=== PATIENT | male | born 1965 | race Caucasian/White ===

== ENCOUNTER 2024-05-18 08:38 | Outpatient (AMB) | payer OTHER, SELFPAY ==
--- NOTE | 2024-05-18 08:46 | A.OFFVIS_ITS ---
Vital Signs 05/18/24 08:50 Height 5 ft 10 in Weight 170 lb 3.15 oz BMI 24.4 Intake Visit Reasons: Arthritis/MR Recieved Intake Note: Patient presents today for arthritis. He was last seen in the arthritis treatment center on 01/26/24. Allergies Penicillins Allergy (Mild, Verified 05/18/24 08:54) Redness of Skin hydrochlorthiazine Allergy (Mild, Uncoded 05/18/24 08:54) leg swelling Medication List - Last Reconciled 05/18/24 by Khris Rosario MD alfuzosin ER 10 mg PO DAILY aspirin (Adult Aspirin Regimen) 81 mg PO DAILY famotidine 20 mg PO DAILY multivitamin 1 tab PO DAILY propranolol 80 mg PO BID rosuvastatin 40 mg PO DAILY HPI HPI Arthritis/MR Recieved: Details: Off of leflunomide due to transaminitis on recent labs at [facility] 03/29. No new joint swelling At [facility] he was getting PT for treatment of headaches with myofascial release. He has less frequent headaches but they are still persistent. MRI brain showed sinus disease no intracranial pathology per patient. 4 months ago he squatted putting laundry from washer to dryer and could not get up. Hard to walk and get up. Feels like he walking on an incline all the time. Hard to carry things and walk. He has more muscle fatigue than pain. PCP prescribed gabapentin which did not provide any relief. He also received a Medrol Dosepak which did not provide any relief. Denies pain in his lower extremities at this time. His main symptom is weakness. Denies any new infections. Denies any new medication prior to events. Rheumatology notes from [facility] reviewed in EMR. Rheumatology history: Diagnosis seronegative rheumatoid arthritis with concurrent osteoarthritis bilateral CMCs initially presenting 08/19/2023 with inflammatory arthritis affecting bilateral hands and left wrist with synovitis, multiple small joint tenderness and imaging MRI left upper extremity February 2023 revealing severe left CMC osteoarthritis with large effusion of distal radioulnar joint,, moderate joint effusion about the base of the thumb with small ganglion cyst along the ulnar aspect of the 1st metacarpal. Patchy edema throughout abductor pollicis brevis muscle suggesting myositis [see page 69/78 medical record for full MRI results dictated in note]. Hepatitis panel negative. Arthrocentesis of left wrist was performed 08/19/2023 revealing white cell count 1133 without crystals present. He was treated for seronegative rheumatoid arthritis with leflunomide starting 12/25/2023 with consideration of his underlying chronic kidney disease with biopsy revealing ATN and interstitial fibrosis (sales applications engineer Dr. Rodriguez). In 03/19/2024, leflunomide was discontinued due to transaminitis. He has received bilateral cortisone injection in CMCs November 2023 with benefit in controlling CMC pain. Rheumatology course is complicated with the development of headaches, scalp tenderness, jaw claudication and fevers after tapering off of prednisone quickly (prednisone 40 mg q.day for a month then decrease to prednisone 20 mg daily 5 days then few days on 10 mg q.day then stopped), which was prescribed for renal disease by nephrologists. Elevated CRP 12/30/2023 resolved on repeat 01/15/2024. Left temporal artery biopsy negative. Repeat inflammatory markers normal and right temporal artery biopsy was not pursued. PT with myofascial release was prescribed with benefit in improving frequency of headaches and duration. X-ray bilateral knees and feet august 2023 normal. Right hip mild degenerative arthritis on x-ray December 05 2023. Review of Systems Const All systems reviewed & are unremarkable except as noted in HPI and below Physical Exam Vital Signs: BMI result Body Mass Index 24.4 Const General: cooperative and healthy appearing Resp Effort & Inspection: normal respiratory effort Auscultation: clear to auscultation bilaterally Cardio Rate: regular rate Rhythm: regular rhythm Heart sounds: S1 normal heart sound present Extrem Other: Tenderness of bilateral CMCs with squaring. No synovitis present. Tenderness of left wrist with minimal synovitis. Tender right 2nd MCP. [place] nodes present. He is able to make a fist with both hands. 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 Good range of motion of upper extremity and lower extremities He is unable to squat fully. 5/5 power upper extremity 4/5 power hip flexors rest of lower extremities 5/5 Results Reviewed Results Reviewed: Labs from 2023 reviewed in medical record obtained from [facility]. Assessment & Plan Assessment & Plan (1) Rheumatoid arthritis: Comment: Low disease activity. Off of leflunomide 10 mg q.d. since 03/19/2024 due to transaminitis. Code(s): M06.9 - Rheumatoid arthritis, unspecified Category: Medical Qualifiers: Rheumatoid arthritis location: multiple sites Rheumatoid factor presence: without rheumatoid factor Qualified Code(s): M06.09 - Rheumatoid arthritis without rheumatoid factor, multiple sites Plan: Will recheck labs this visit. Patient prefers to do labs at his local lab. Continue to hold leflunomide We will not start new DMARD therapy until transaminitis resolves. Patient understands. Return to clinic in 3 months or sooner if needed (2) Other longterm (current) drug therapy: Code(s): Z79.899 - Other terminal make up operator (current) drug therapy Category: Medical (3) Leg weakness, bilateral: Comment: New onset lower extremity proximal weakness. Onset occurred suddenly after an incident where patient was squatting and transferring laundry from [place] to [facility] likely with muscle strain contributing. He does not have any shoulder girdle involvement to consider PMR. We will order inflammatory markers and muscle enzymes to evaluate for their for myopathy. He has been on statin rosuvastatin for many years can consider necrotizing autoimmune myositis (rare). Code(s): R29.898 - Other symptoms and signs involving the musculoskeletal system Category: Medical Plan: Physical therapy recommended for lower extremity strengthening. Patient recommends to go to PT outside of [facility]. Order given to patient. Labs ordered for workup (4) Headache: Comment: Improving with PT. Code(s): R51.9 - Headache, unspecified Category: Medical Qualifiers: Headache type: other headache syndrome Qualified Code(s): G44.89 - Other headache syndrome Plan: He has last appointment with physical therapy tomorrow Plan . Orders: Orders Alanine Aminotransferase Today M06.9 - Rheumatoid arthritis, unspecified, R29.898 - Other symptoms and signs involving the musculoskeletal system, Z79.899 - Other terminal make up operator (current) drug therapy C Reactive Protein Today M06.9 - Rheumatoid arthritis, unspecified, R29.898 - Other symptoms and signs involving the musculoskeletal system, Z79.899 - Other longterm (current) drug therapy Complete Blood Count Auto Diff Today M06.9 - Rheumatoid arthritis, unspecified, R29.898 - Other symptoms and signs involving the musculoskeletal system, Z79.899 - Other terminal make up operator (current) drug therapy Erythrocyte Sedimentation Rate Today M06.9 - Rheumatoid arthritis, unspecified, Z79.899 - Other longterm (current) drug therapy CK, Total+Isoenzymes, Serum Today M06.9 - Rheumatoid arthritis, unspecified, R29.898 - Other symptoms and signs involving the musculoskeletal system, Z79.899 - Other longterm (current) drug therapy PT Evaluation and Treatment Today R29.898 - Other symptoms and signs involving the musculoskeletal system Aspartate Amino Transferase Today M06.9 - Rheumatoid arthritis, unspecified, Z79.899 - Other longterm (current) drug therapy Creatinine Today M06.9 - Rheumatoid arthritis, unspecified, R29.898 - Other symptoms and signs involving the musculoskeletal system, Z79.899 - Other longterm (current) drug therapy Aldolase Today M06.9 - Rheumatoid arthritis, unspecified, R29.898 - Other symptoms and signs involving the musculoskeletal system, Z79.899 - Other terminal make up operator (current) drug therapy Coding Level of Care Code Est Pt Level 5 (51538) Complex EM visit Add On G2211 Diagnoses Rheumatoid arthritis of multiple sites with negative rheumatoid factor M06.09 Rheumatoid arthritis location: multiple sites Rheumatoid factor presence: without rheumatoid factor Other longterm (current) drug therapy Z79.899 Leg weakness, bilateral R29.898 Other headache syndrome G44.89 Headache type: other headache syndrome Time Spent (min) 60 Comment 30 minutes spent reviewing records [facility].
[2024-05-18 08:50] VITALS: BMI 24.4
== END 2024-05-18 09:53 | disposition home or self-care (01) ==
PROVIDERS: PCP Internal Medicine; Visit Provider Internal Medicine Rheumatology
DX: M06.09 Rheumatoid arthritis without rheumatoid factor, multiple sites (principal); Z79.899 Other long term (current) drug therapy; R29.898 Other symptoms and signs involving the musculoskeletal system; G44.89 Other headache syndrome
CPT/HCPCS: 99215; G2211; G2212

== ENCOUNTER → 2024-05-18 08:38 | Outpatient (BNVA) | payer OTHER, SELFPAY | PROVIDERS: PCP Internal Medicine; Visit Provider Internal Medicine Rheumatology | DX: M06.09 Rheumatoid arthritis without rheumatoid factor, multiple sites (principal); G44.89 Other headache syndrome; R29.898 Other symptoms and signs involving the musculoskeletal system; Z79.899 Other long term (current) drug therapy | CPT/HCPCS: 99212 ==

== ENCOUNTER 2024-08-18 08:50 | Outpatient (AMB) | payer OTHER, SELFPAY ==
--- NOTE | 2024-08-18 08:53 | A.OFFVIS_ITS ---
Vital Signs 08/18/24 09:05 Height 5 ft 10 in Weight 142 lb BMI 20.4 BP 120/80 Blood Pressure Location Rt brachial Position Sitting Pulse 90 Pulse Source Pulse Oximeter Pulse Oximetry (%) 100 Oxygen Delivery Method Room Air Intake Visit Reasons: Follow Up 3mo Intake Note: Pt present today Arthritis. Affiliate Manager Required: No Allergies Penicillins Allergy (Mild, Verified 08/18/24 08:54) Redness of Skin hydrochlorthiazine Allergy (Mild, Uncoded 05/18/24 08:54) leg swelling HPI HPI Follow Up 3mo: Details: He was unable to go to PT because of issues with scheduling. R groin pain radiating to knees like electricity. R 4th and 5th toes are getting numb. Constant since last visit. He is having difficulty liftying leg. Hard to put socks on. He has another pain from right pelvic bone radiating down side to knee. He has seen ENT and has had imaging done of his sinuses for workup of his headache. He reports that it was explained to him that he has possible inflammation in his sinuses and may need surgery for drainage. He declined surgery and opted for antibiotic and prednisone course. He recently received a prednisone course from July 31 - prednisone 40 mg for 3 days then 20 mg for 3 days then 10 mg for 3 days and stop what he took 30 mg for 3 days, 20 mg for 3 days, 10 mg 3 days, 5 mg 3 days then discontinued it. He reports that on prednisone his joint symptoms improved. Prior to being on prednisone he was having a lot of swelling in his hands and stiffness. He has not noted any change in his sinus symptoms or headaches. Headaches are intermittent. Review of Systems Const All systems reviewed & are unremarkable except as noted in HPI and below Physical Exam Vital Signs: Last Vital Signs Pulse 90 08/18/24 09:05 BP 120/80 08/18/24 09:05 Pulse Ox 100 08/18/24 09:05 Oxygen Delivery Method Room Air 08/18/24 09:05 BMI result Body Mass Index 20.4 Const Other: General: Comfortable CVS: RRR Respiratory: clear to auscultation bilaterally. Good respiratory effort Skin: No lesions seen MSK: He has synovitis of his left wrists with tenderness to palpate left wrist. Squaring of bilateral CMCs with tenderness. Synovitis left 2nd and 3rd MCP with tender bilateral MCPs. Tender PIPs of bilateral hands. Tender shoulders on palpation. Good range of motion of upper extremities. Tender to palpate lateral to paraspinal muscles. Good lumbar flexion. Negative straight leg raising test. No MTP tenderness. When patient is sitting down he has localized tenderness to right pelvic crest. Office Procedures AMB Joint Injection/Aspiration Joint Injection/Aspiration Details: Bilateral CMC joint Prep: site was prepped using aseptic technique Injected into each site: 10 mg of, Kenalog, with 0.25 mL of and 1% plain lidocaine Procedure: The patient tolerated the procedure well. Postprocedure protocol was discussed with patient. Coding - Small Joint Procedure code (CPT) selection complete AMB Joint Injection/Aspiration Coding - Small Joint Procedure code (CPT) selection complete Office Meds lidocaine (PF) 10 mg/mL (1 %) injection solution Performing Provider: Khris Rosario MD Performing Location: [facility] [place] [place] [facility] Administered by: Khris Rosario MD on 08/18/24 14:06 Dose Route Admin Location Dispensed Lot Number Expiration Date [facility] [employer] 2.5 mg Infiltration 2 mL [id number] [employer] Kenalog 40 mg/mL suspension for injection Performing Provider: Khris Rosario MD Performing Location: [facility] [place] [place] [facility] Administered by: Khris Rosario MD on 08/18/24 14:06 Dose Route Admin Location Dispensed Lot Number Expiration Date [facility] [employer] 2.5 mg intra-articular 1 mL AP [id number] [employer] lidocaine (PF) 10 mg/mL (1 %) injection solution Performing Provider: Khris Rosario MD Performing Location: [facility] [place] [place] [facility] Administered by: Khris Rosario MD on 08/18/24 14:06 Dose Route Admin Location Dispensed Lot Number Expiration Date [facility] [employer] 2.5 mg Infiltration 2 mL [id number] [employer] Kenalog 40 mg/mL suspension for injection Performing Provider: Khris Rosario MD Performing Location: [facility] [place] [place] [facility] Administered by: Khris Rosario MD on 08/18/24 14:06 Dose Route Admin Location Dispensed Lot Number Expiration Date [facility] [employer] 10 mg intra-articular 1 mL [id number] [employer] Assessment & Plan Assessment & Plan (1) Rheumatoid arthritis: Comment: He has developed synovitis affecting his hands off of leflunomide 10 mg q.d. discontinue 03/19/2024 due to transaminitis. I am concerned about chronic sinusitis being managed by ENT with prednisone course and antibiotic without change and starting new immunosuppressive therapy, which can contribute to prolonging infection or complications of infection. Patient understands. He has an appointment with ENT in September. We discussed considering TNF inhibitor, which can be used with his kidney disease. Discussed side effects, benefits and drug monitoring on Humira. I will await labs and his follow up with ENT prior to initiating Humira unless patient has worsening symptoms. Rheumatology history: Leflunomide started 12/25/2023 with consideration of underlying kidney disease secondary to ATN with interstitial fibrosis managed by team guide Dr. Rodriguez. When he was tapered off of prednisone for renal disease he developed headaches, scalp tenderness, jaw claudication, fevers and elevated CRP. He had left temporal artery biopsy, which was negative. He continues to have intermittent headaches and is being evaluated by ENT who has imaged his sinuses and is concerned about chronic sinus infection necessitating surgery for drainage, which patient has declined due to fear side effects. Contraindication to methotrexate, hydroxychloroquine and sulfasalazine due to his underlying kidney disease. Code(s): M06.9 - Rheumatoid arthritis, unspecified Category: Medical Qualifiers: Rheumatoid arthritis location: multiple sites Rheumatoid factor presence: without rheumatoid factor Qualified Code(s): M06.09 - Rheumatoid ar thritis without rheumatoid factor, multiple sites Plan: Patient received bilateral CMC cortisone injections this visit Labs ordered for disease monitoring and prior to starting DMARD therapy He will call office if his joint symptoms worsens Avoid oral NSAIDs due to CKD Return to clinic in 2 months (2) Low back pain potentially associated with radiculopathy: Comment: He has developed two to 3 month history of chronic lower back pain with radiation to knee and right hip pain with radiation to knee and numbness of right 4th and 5th toes concerning for spinal pathology contributing to nerve impingement. He also has paraspinal myofascial strain contributing to back pain. He has localized tenderness to right iliac crest, which may be related to muscle strain. X-ray right hip from 12/18/2023 revealed mild degenerative changes but would not explain patient's current symptoms. 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 Since then he has been experiencing muscle fatigue with exam in April 2024 revealing proximal muscle weakness. He did not obtain labs last visit for further workup of his symptoms. He has been on gabapentin in the past and reports he had bad dreams on it. Code(s): M54.50 - Low back pain, unspecified Category: Medical Plan: X-ray L-spine, right hip and pelvis ordered for further evaluation of his symptoms. May need to order L-spine MRI pending x-ray results for further evaluation of spinal pathology contributing to nerve impingement. EMG right leg ordered Avoiding oral NSAIDs in setting of CKD Labs ordered this visit. I will consider prescribing muscle relaxer after lab results are back I recommended physical therapy for back and lower extremity strengthening (3) Hip pain: Code(s): M25.559 - Pain in unspecified hip Category: Medical Qualifiers: Laterality: right Qualified Code(s): M25.551 - Pain in right hip Plan: See above (4) Other retirement (current) drug therapy: Code(s): Z79.899 - Other intermediate frame tender (current) drug therapy Category: Medical Plan: See above (5) Osteoarthritis of carpometacarpal (CMC) joint of both thumbs: Comment: Uncontrolled pain. Code(s): M18.0 - Bilateral primary osteoarthritis of first carpometacarpal joints Category: Medical Plan: Patient received bilateral CMC cortisone injection Orders: Orders Alanine Aminotransferase Today Z79.60 - alf (current) use of unspecified immunomodulators and immunosuppressants Aspartate Amino Transferase Today Z79.60 - terminal clerk (current) use of unspecified immunomodulators and immunosuppressants Creatinine Today Z79.60 - terminal clerk (current) use of unspecified immunomodulators and immunosuppressants C Reactive Protein Today M06.09 - Rheumatoid arthritis without rheumatoid factor, multiple sites, Z79.899 - Other intermediate frame tender (current) drug therapy PT Evaluation and Treatment Today M54.50 - Low back pain, unspecified XR pelvis 1-2V Today M25.559 - Pain in unspecified hip, M54.50 - Low back pain, unspecified XR hip RT min 2V Today M25.559 - Pain in unspecified hip, M54.50 - Low back pain, unspecified NE electromyogram (EMG) Today M54.50 - Low back pain, unspecified, R29.898 - Other symptoms and signs involving the musculoskeletal system Complete Blood Count Auto Diff Today Z79.60 - alf (current) use of unspecified immunomodulators and immunosuppressants Erythrocyte Sedimentation Rate Today M54.50 - Low back pain, unspecified XR lumbar spine 2-3V Today M54.50 - Low back pain, unspecified AMB Joint Injection/Aspiration Today M18.0 - Bilateral primary osteoarthritis of first carpometacarpal joints AMB Joint Injection/Aspiration Today M18.0 - Bilateral primary osteoarthritis of first carpometacarpal joints Medications: New Kenalog (triamcinolone acetonide) 2.5 mg (0.0625 mL) intra-articular ONCE 0.063 mL 0RF NS M18.0 - Bilateral primary osteoarthritis of first carpometacarpal joints Kenalog (triamcinolone acetonide) 10 mg (0.25 mL) intra-articular ONCE 0.25 mL 0RF NS M18.0 - Bilateral primary osteoarthritis of first carpometacarpal joints lidocaine (PF) 2.5 mg (0.25 mL) Infiltration ONCE 0.25 mL 0RF M18.0 - Bilateral primary osteoarthritis of first carpometacarpal joints lidocaine (PF) 2.5 mg (0.25 mL) Infiltration ONCE 0.25 mL 0RF M18.0 - Bilateral primary osteoarthritis of first carpometacarpal joints Coding Level of Care Code Est Pt Level 5 (31986) Complex EM visit Add On G2211 Diagnoses Rheumatoid arthritis of multiple sites with negative rheumatoid factor M06.09 Rheumatoid arthritis location: multiple sites Rheumatoid factor presence: without rheumatoid factor Low back pain potentially associated with radiculopathy M54.50 Pain of right hip M25.551 Laterality: right Other retirement (current) drug therapy Z79.899 Osteoarthritis of carpometacarpal (CMC) joint of both thumbs M18.0 CPT Codes Coding - 64559 - Small joint: 96560 - Small Joint ([id number]) Coding - 23177 - Small joint: 20172 - Small Joint ([id number]) Time Spent (min) 40
--- OUTSIDE RECORDS SUMMARY | 2024-08-18 08:54 | XMS_ITS | Encounter Summary ---
Author Organization [facility] Address [address] [place] [address] Phone Care Team Providers Care Reception Clerk Name Role Phone Gigi Fraser MD Primary Care Provider [phone] Encounter Details Date Type Department Care Team (Late st Contact Info) Description 07/16/2024 Orders Only [facility] [address] [place] [address] Bola Rodriguez DO [address] [place] [address] Acute tubulo-interstitial nephritis; Hypokalemia; Hypertension; Stage 3a chronic kidney disease (HCC) Social History Tobacco Use Types Packs/Day Years Used Date Smoking Tobacco: Former Cigarettes Smokeless Tobacco: Never Alcohol Use Standard Drinks/Week Comments Yes 3 (1 standard drink = 0.6 oz pur e alcohol) Sex and Gender Information Value Date Recorded Sex Assigned at Not on file Legal Sex Male 9:54 AM EST Gender Identity Not on file Sexual Orientation Not on file documented as of this encounter Plan of Treatment Upcoming Encounters Date Type Department Care Team (Late st Contact Info) Description 08/27/2024 2:30 PM EST Office Visit [facility] [address] [place] [address] Bola Rodriguez DO [address] [place] [address] documented as of this encounter Procedures Procedure Name Priority Date/Time Associated Diagnosis Comments MICROSCOPIC EXAMINATION - DO NOT USE Routine 07/25/2024 9:54 AM EST PROTEIN / CREATININE RATIO, URINE Routine 07/25/2024 9:54 AM EST Acute tubulo-interstitia l nephritis Hypokalemia Hypertension Stage 3a chronic kidney disease (HCC) URINALYSIS WITH MICROSCOPIC Routine 07/25/2024 9:54 AM EST Acute tubulo-interstitia l nephritis Hypokalemia Hypertension Stage 3a chronic kidney disease (HCC) SEDIMENTATION RATE, AUTOMATED Routine 07/25/2024 9:54 AM EST Acute tubulo-interstitia l nephritis Hypokalemia Hypertension Stage 3a chronic kidney disease (HCC) MAGNESIUM Routine 07/25/2024 9:54 AM EST Acute tubulo-interstitia l nephritis Hypokalemia Hypertension Stage 3a chronic kidney disease (HCC) RENAL FUNCTION PANEL Routine 07/25/2024 9:54 AM EST Acute tubulo-interstitia l nephritis Hypokalemia Hypertension Stage 3a chronic kidney disease (HCC) documented in this encounter Results * Microscopic Examination (07/25/2024 9:54 AM EST) WBC, Urine None seen 0 - 5 /hpf [facility] RBC, Urine None seen 0 - 2 /hpf [facility] Squamous Epithelial, Urine None seen 0 - 10 /hpf [facility] Casts None seen None seen /lpf [facility] Bacteria, Urine None seen None seen/Few [facility] 07/25/2024 9:54 AM EST 07/25/2024 Bola Rodriguez DO LAB MICROBIOLOGY - GENERAL ORDE ANASTACIO Final Result [facility] [address] [place] [address] * Urinalysis with microscopic (07/25/2024 9:54 AM EST) Specific [place], Urine 1.019 1.005 - 1.030 [facility] pH Urine 7.0 5.0 - 7.5 [facility] Color, Urine Yellow Yellow [facility] Appearance Urine Clear Clear [facility] [phone] WBC Esterase Urine Negative Negative [facility] [phone] Protein, Ur Trace Negative/Tra ce [facility] Glucose, Ur Negative Negative [facility] Ketones, Urine Negative Negative [facility] Blood Urine Negative Negative [facility] [phone] Bilirubin Urine Negative Negative [facility] [phone] Urobilinogen Urine 0.2 0.2 - 1.0 mg/dL [facility] Nitrite, Urine Negative Negative [facility] Microscopic Examination Comment [facility] Comment:Microscopic follows if indicated. Other Microsc. Observations See below: [facility] Comment:Microscopic was cely cated and was performed. Urine (Urine, Clean Catch) 07/25/2024 9:54 AM EST 07/25/2024 us Bola Rodriguez DO LAB URINE ORDERABLES Final Resu lt Scripted [facility] [address] [place] [address] * Sedimentation Rate (07/25/2024 9:54 AM EST) Sed Rate 14 0 - 30 mm/hr [facility] Blood (Blood, Venous) 07/25/2024 9:54 AM EST 07/25/2024 us Bola Rodriguez DO LAB BLOOD ORDERABLES Final Resu lt Performing Organization Address City/[facility]/ZIP Co de Phone Number [facility] [address] [place] [address] * Urine Protein / creatinine ratio (07/25/2024 9:54 AM EST) Pathologist [facility] Creatinine, Ur 172.5 Not Estab. mg/dL [facility] Protein, Ur 15.1 Not Estab. mg/dL [facility] Urine Protein/Creatin ine Ratio 88 0 - 200 mg/g creat [facility] Urine (Urine, Clean Catch) 07/25/2024 9:54 AM EST 07/25/2024 us Bola Rodriguez DO LAB URINE ORDERABLES Final Resu lt Performing Organization Address [facility] de Phone Number [facility] [address] [place] [address] * Magnesium (07/25/2024 9:54 AM EST) Pathologist [facility] Magnesium 2.1 1.6 - 2.3 mg/dL [facility] Blood (Blood, Venous) 07/25/2024 9:54 AM EST 07/25/2024 Bola Rodriguez DO LAB BLOOD ORDERABLES Final Resu lt Performing Organization Address [facility]/ZIP Co de Phone Number [facility] [address] [place] [address] * (ABNORMAL) Renal Function Panel (07/25/2024 9:54 AM EST) Glucose 90 70 - 99 mg/dL [facility] BUN 18 8 - 27 mg/dL [facility] Creatinine 1.93(H) 0.76 - 1.27 mg/dL [facility] eGFR CKD-EPI CR 2020 39(L) >59 mL/min/1.7 3 [facility] BUN/Creatinine Ratio 9(L) 10 - 24 [facility] Sodium 137 134 - 144 mmol/L [facility] Potassium 4.3 3.5 - 5.2 mmol/L [facility] Bicarbonate (CO2) 24 20 - 29 mmol/L [facility] Calcium 11.0(H) 8.6 - 10.2 mg/dL [facility] Comment:Verified by repeat analysis Phosphorus 3.4 2.8 - 4.1 mg/dL [facility] Albumin 5.1(H) 3.8 - 4.9 g/dL [facility] Chloride 98 96 - 106 mmol/L [facility] Blood (Blood, Venous) 07/25/2024 9:54 AM EST 07/25/2024 Bola Rodriguez DO LAB BLOOD ORDERABLES Final Resu lt [facility] [address] [place] [address] documented in this encounter Visit Diagnoses Diagnosis Acute tubulo-interstitial nephritis Hypokalemia Hypertension Stage 3a chronic kidney disease (HCC) documented in this encounter Care Teams Reception Clerk Relationship Specialty Start Date End Date Gigi Fraser MD [address] [place] [address] PCP - General Internal Medicine 07/16/23 documented as of this encounter
--- OUTSIDE RECORDS SUMMARY | 2024-08-18 08:54 | XMS_ITS | Encounter Summary ---
Author Organization [facility] Address [address] [place] [address] Phone Care Team Providers Care Medicaid Analyst Name Role Phone Gigi Fraser MD Primary Care Provider [phone] Encounter Details Date Type Department Care Team (Late Contact Info) Description 07/02/2024 Orders Only [facility] [address] [place] [address] Bola Rodriguez DO [address] [facility] [place] [address] Acute tubulo-interstitial nephritis; Other acute kidney failure (HCC); Hypertension; Stage 3a chronic kidney disease (HCC) [...] Visit [facility] [address] [place] [address] Bola Rodriguez DO [address] [facility] [place] [address] documented as of this encounter Visit Diagnoses Diagnosis Acute tubulo-interstitial nephritis Other acute kidney failure (HCC) Hypertension Stage 3a chronic kidney disease (HCC) documented in this encounter Care Teams Medicaid Analyst Relationship Specialty Start Date End Date Gigi Fraser MD [address] [place] [address] PCP - General Internal Medicine 07/16/23 documented as of this encounter
--- OUTSIDE RECORDS SUMMARY | 2024-08-18 08:54 | XMS_ITS | Clinical Summary ---
Author Organization [facility], Address [address] [place] [address] Phone Care Team Providers Care Steam And Gas Turbines Assembler Name Role Phone Gigi Fraser MD Primary Care Provider Allergies Active Allergy Reactions Criticality Noted Date Comments Hydrochlorothiazide 07/23/2023 Penicillin G 10/03/2023 Other Reaction(s): red/rash entire body Tolerates piperacillin/tazobactam Medications aspirin (ST LILLIAN) 81 MG EC tablet Take 81 mg by mouth 1 (one) time each day Active tamsulosin (FLOMAX) 0.4 MG 24 hr capsule Take 0.4 mg by mouth 1 (one) time each day Active famotidine (Pepcid) 20 MG tablet Take 1 tablet (20 mg total) by mouth in the morning and 1 tablet (20 mg total) in the evening. 180 tablet 3 09/17/2023 5 Active propranolol LA (INDERAL LA) 80 MG 24 hr capsule Take 80 mg by mouth 1 (one) time each day Do not crush, chew, or split. Active leflunomide (ARAVA) 10 MG tablet Take 10 mg by mouth 1 (one) time each day Active rosuvastatin (CRESTOR) 40 MG tablet Take 40 mg by mouth 1 (one) time each day Active aMILoride (MIDAMOR) 5 MG tablet Take 10 mg by mouth 1 (one) time each day Active gabapentin (NEURONTIN) 300 MG capsule Take 300 mg by mouth at bed time Active Active Problems Problem Noted Date Diagnosed Date Acute tubulo-interstitial nephritis 12/24/2023 Acute glomerulonephritis 10/22/2023 Acute nontraumatic kidney injury 09/17/2023 Hypokalemia 07/23/2023 Hypertension 07/22/2023 Dyslipidemia 07/22/2023 Encounters Date Type Department Care Team Description 07/30/2024 Orders Only [facility] [address] [place] [address] Bola Rodriguez DO Acute tubulo-interstitial nephritis; Other acute kidney failure (HCC); Hypertension; Stage 3a chronic kidney disease (HCC) 07/16/2024 Orders Only [facility] [address] [place] [address] Bola Rodriguez DO Acute tubulo-interstitial nephritis; Hypokalemia; Hypertension; Stage 3a chronic kidney disease (HCC) 07/02/2024 Orders Only [facility] [address] [place] [address] Bola Rodriguez DO Acute tubulo-interstitial nephritis; Other acute kidney failure (HCC); Hypertension; Stage 3a chronic kidney disease (HCC) 06/04/2024 Orders Only [facility] [address] [place] [address] Bola Rodriguez DO Acute tubulo-interstitial nephritis; Other acute kidney failure (HCC); Hypertension; Stage 3a chronic kidney disease (HCC) 05/21/2024 Orders Only [facility] [address] [place] [address] Bola Rodriguez DO Acute tubulo-interstitial nephritis; Hypokalemia; Hypertension; Stage 3a chronic kidney disease (HCC) from Last 3 Months Family History Medical History Relation Comments COPD Brother Heart disease Brother Coronary artery disease Father COPD Mother Cancer Mother Relation Status Comments Brother Father Mother Social History Tobacco Use Types Packs/Day Years Used Date Smoking Tobacco: Former Cigarettes Smokeless Tobacco: Never Alcohol Use Standard Drinks/Week Comments Yes 3 (1 standard drink = 0.6 oz pur e alcohol) Sex and Gender Information Value Date Recorded Sex Assigned at Not on file Legal Sex Male 9:54 AM EST Gender Identity Not on file Sexual Orientation Not on file Last Filed Vital Signs Vital Sign Reading Time Taken Comments Blood Pressure 120/78 03/26/2024 3:25 PM EDT Pulse 72 03/26/2024 3:25 PM EDT Temperature - - Respiratory Rate - - Oxygen Saturation - - Inhaled Oxygen Concentration - - Weight - - Height - - Body Mass Index - - Plan of Treatment Upcoming Encounters Date Type Department Care Team (Late st Contact Info) Description 08/27/2024 2:30 PM EST Office Visit [facility] [place], [address] [place] [address] Bola Rodriguez, [address] [place] [address] Health Maintenance Due Date Last Done Comments Colorectal Cancer Screening: Annual FOBT 2013 Colorectal Cancer Screening: Colonoscopy 2013 Colorectal Cancer Screening: Sigmoidoscopy 2013 Pneumococcal Vaccine: Pediatrics (0 to 5 Years) and At-Risk Patients (6 to 64 Years) (2 of 2 - PCV) 04/24/2016 04/24/2015 Influenza Vaccine (#1) 2024 9, 04/13/2016 Hepatitis B Vaccine Aged Out No longe r eligible based on patient's age to complete this topic Procedures Procedure Name Priority Date/Time Associated Diagnosis Comments URINALYSIS WITH MICROSCOPIC Routine 07/25/2024 9:54 AM EST Acute tubulo-interstitia l nephritis Hypokalemia Hypertension Stage 3a chronic kidney disease (HCC) SEDIMENTATION RATE, AUTOMATED Routine 07/25/2024 9:54 AM EST Acute tubulo-interstitia l nephritis Hypokalemia Hypertension Stage 3a chronic kidney disease (HCC) PROTEIN / CREATININE RATIO, URINE Routine 07/25/2024 9:54 AM EST Acute tubulo-interstitia l nephritis Hypokalemia Hypertension Stage 3a chronic kidney disease (HCC) MAGNESIUM Routine 07/25/2024 9:54 AM EST Acute tubulo-interstitia l nephritis Hypokalemia Hypertension Stage 3a chronic kidney disease (HCC) RENAL FUNCTION PANEL Routine 07/25/2024 9:54 AM EST Acute tubulo-interstitia l nephritis Hypokalemia Hypertension Stage 3a chronic kidney disease (HCC) MICROSCOPIC EXAMINATION - DO NOT USE Routine 07/25/2024 9:54 AM EST from Last 3 Months Results * Microscopic Examination (07/25/2024 9:54 AM EST) WBC, Urine None seen 0 - 5 /hpf [facility] RBC, Urine None seen 0 - 2 /hpf [facility] Squamous Epithelial, Urine None seen 0 - 10 /hpf [facility] Casts None seen None seen /lpf [facility] Bacteria, Urine None seen None seen/Few [facility] 07/25/2024 9:54 AM EST 07/25/2024 Bola Rodriguez DO LAB MICROBIOLOGY - GENERAL ORDAlistair CHAVES Final Result [facility] [address] [place] [address] * Urine Protein / creatinine ratio (07/25/2024 9:54 AM EST) Creatinine, Ur 172.5 Not Estab. mg/dL [facility] Protein, Ur 15.1 Not Estab. mg/dL [facility] Urine Protein/Creatin ine Ratio 88 0 - 200 mg/g creat [facility] Urine (Urine, Clean Catch) 07/25/2024 9:54 AM EST 07/25/2024 Bola Rodriguez DO LAB URINE ORDERABLES Final Resu lt [facility] [address] [place] [address] * Urinalysis with microscopic (07/25/2024 9:54 AM EST) Specific [place], Urine 1.019 1.005 - 1.030 [facility] pH Urine 7.0 5.0 - 7.5 [facility] Color, Urine Yellow Yellow [facility] [phone] Appearance Urine Clear Clear [facility] [phone] WBC Esterase Urine Negative Negative [facility] Protein, Ur Trace Negative/Tra ce [facility] [phone] Glucose, Ur Negative Negative [facility] Ketones, Urine Negative Negative [facility] Blood Urine Negative Negative [facility] Bilirubin Urine Negative Negative [facility] Urobilinogen Urine 0.2 0.2 - 1.0 mg/dL [facility] [phone] Nitrite, Urine Negative Negative [facility] Microscopic Examination Comment [facility] Comment:Microscopic follows if indicated. Other Microsc. Observations See below: [facility] [phone] Comment:Microscopic was cely cated and was performed. Urine (Urine, Clean Catch) 07/25/2024 9:54 AM EST 07/25/2024 Bola Rodriguez LAB URINE ORDERABLES Final Resu lt [facility] [address] [place] [address] * Sedimentation Rate (07/25/2024 9:54 AM EST) Sed Rate 14 0 - 30 mm/hr [facility] Blood (Blood, Venous) 07/25/2024 9:54 AM EST 07/25/2024 Bola Rodriguez LAB BLOOD ORDERABLES Final Resu lt Performing Organization Address City/[facility]/ZIP Co de Phone Number [facility] [address] [place] [address] * Magnesium (07/25/2024 9:54 AM EST) Pathologist [facility] Magnesium 2.1 1.6 - 2.3 mg/dL [facility] Blood (Blood, Venous) 07/25/2024 9:54 AM EST 07/25/2024 [facility]LOOD ORDERABLES Final Resu lt Performing Organization Address City/[facility] Co de Phone Number [facility] [address] [place] [address] * (ABNORMAL) Renal Function Panel (07/25/2024 9:54 AM EST) Pathologist [facility] Glucose 90 70 - 99 mg/dL [facility] BUN 18 8 - 27 mg/dL [facility] Creatinine 1.93(H) 0.76 - 1.27 mg/dL [facility] eGFR CKD-EPI CR 2020 39(L) >59 mL/min/1.7 3 [facility] BUN/Creatinine Ratio 9(L) 10 - 24 [facility] Sodium 137 134 - 144 mmol/L [facility] Potassium 4.3 3.5 - 5.2 mmol/L [facility] Bicarbonate (CO2) 24 20 - 29 mmol/L [facility] Calcium 11.0(H) 8.6 - 10.2 mg/dL [facility] Comment:Verified by repeat analysis Phosphorus 3.4 2.8 - 4.1 mg/dL [facility] Albumin 5.1(H) 3.8 - 4.9 g/dL [facility] Chloride 98 96 - 106 mmol/L [facility] Blood (Blood, Venous) 07/25/2024 9:54 AM EST 07/25/2024 us Bola Rodriguez DO LAB BLOOD ORDERABLES Final Resu lt [facility] [address] [place] [address] from Last 3 Months Insurance [employer] DUAL SNP ([id number]) Care Teams Steam And Gas Turbines Assembler Relationship Specialty Start Date End Date Gigi Fraser MD [address] [place], [place] [address] PCP - General Internal Medicine 07/16/23
--- OUTSIDE RECORDS SUMMARY | 2024-08-18 08:54 | XMS_ITS | Encounter Summary ---
Author Organization [facility] Address [address] [place] [address] Phone Care Team Providers Care Cleaning Custodian Name Role Phone Gigi Fraser MD Primary Care Provider [phone] Encounter Details Date Type Department Care Team (Late Contact Info) Description 06/04/2024 Orders Only [facility] [address] [place] [address] oBla Rdoriguez DO [address] [place] [address] Acute tubulo-interstitial nephritis; Other acute [...] Encounters Date Type Department Care Team (Late Contact Info) Description 08/27/2024 2:30 PM EST Office Visit [facility] [address] [place] [address] Bola Rodriguez DO [address] [place] [address] documented as of this encounter Visit Diagnoses Diagnosis Acute tubulo-interstitial nephritis Other acute kidney failure (HCC) Hypertension Stage 3a chronic kidney disease (HCC) documented in this encounter Care Teams Cleaning Custodian Relationship Specialty Start Date End Date Gigi Fraser MD [address] [place] [address] PCP - General Internal Medicine 07/16/23 documented as of this encounter
--- OUTSIDE RECORDS SUMMARY | 2024-08-18 08:54 | XMS_ITS | Encounter Summary ---
Author Organization [facility] Address [address] [place] [address] Phone Care Team Providers Care Drum Straightener Name Role Phone Gigi Fraser MD Primary Care Provider [phone] Encounter Details Date Type Department Care Team (Late Contact Info) Description 07/30/2024 Orders Only [facility] [address] [place] [address] Bola Rodriguez DO [address] [place] [address] Acute tubulo-interstitial nephritis; Other acute [...] Visit [facility] [address] [place] [address] Bola Rodriguez DO [address] [place] [address] documented as of this encounter Visit Diagnoses Diagnosis Acute tubulo-interstitial nephritis Other acute kidney failure (HCC) Hypertension Stage 3a chronic kidney disease (HCC) documented in this encounter Care Teams Drum Straightener Relationship Specialty Start Date End Date Gigi Fraser MD [address] [place] [address] PCP - General Internal Medicine 07/16/23 documented as of this encounter
--- OUTSIDE RECORDS SUMMARY | 2024-08-18 08:54 | XMS_ITS | Continuity of Care Document ---
Author Organization [place] - [facility], [facility] Address [address] [place] [address] Care Team Providers Care Production Laborer Name Role Phone CITLALI ANTHONY Primary Care Provider [phone] Assessment No assessment recorded. Plan of Treatment Reminders Order Date Submit Date Provider Last Modified By Organization Details Last Modified Time Details Appointments None recorded. Lab None recorded. Referral None recorded. Procedures None recorded. Surgeries None recorded. Imaging CT, sinuses, w/o contrast 2024 025 [facility], [address] [place] [address], [phone], 5 16:47:07 Medication Orders prednison e 10 mg tablet 2024 025 [facility], [address] [place] [address], [address], 5 16:18:42 doxycycli ne hyclate 100 mg tablet 2024 025 [facility], [address] [place] [address], [id number], 5 16:20:37 Patient TargetsNo targets recorded. Patient InstructionsNo instructions recorded. Reason for Referral None Reported. Results Created Date Observation Date Name Description Value Unit Range Abnormal Flag Note LastModifiedBy Organization Detail LastModifiedTime 07/29/[address], sinus es, w/o contr ast No observ ation record ed. [email or web address] [facility] Of [address], [address], 07/29/2024 14:42:14 08/12/19 25 07/29/2024 CT, sinus es, w/o contr ast No observ ation record ed. [email or web address] [facility] [address], [place], [address], 08/12/2024 13:13:57 Result Notes None recorded. Problems Name Problem SNOMED Code Status Onset Date Resolution Date Notes Provider Name and Address Organization Details Recorded Time Dysphagia 04092793 Active 2016 Dysphagia , unspecifi ed; Note: Date Diagnosed : 11/13/2016 10:29 AM (R13.10) Not Available [facility] 4 02:49:30 Bilateral tinnitus 85448957740 02 Active 2016 Tinnitus, bilateral ; Note: Date Diagnosed : 11/13/2016 10:09 AM (H93.13) Not Available [facility] 4 02:49:34 Sensorine ural hearing loss of bilateral ears 176816880 Active 2016 Sensorine ural hearing loss, bilateral ; Note: Date Diagnosed : 11/13/2016 10:09 AM (H90.3) Not Available [facility] 4 02:49:35 Chronic left maxillary sinusitis 49128113135 497373 Active 2023 ANJUM BENÍTEZ MD [address] [facility],[place] [address], [place], [address] , [place] - [facility] 4 15:10:54 Chronic pain in face 680505690 Active 2023 ANJUM BENÍTEZ MD [address] [facility] [address], [place], [address] , [place] - [facility] [place] 4 15:11:02 Chronic sinusitis 97291629 Active 2023 ANJUM BENÍTEZ MD [address] [facility] [address], [place], [address] , [place] - [facility] 4 15:16:37 Allergic fungal sinusitis 736664032 Active 2024 ANJUM BENÍTEZ MD [address] [place] [address], [place], [address] , [facility] 5 14:50:20 Problem Notes None recorded. Procedures Surgical History Date Name Laterality Status Provider Name and Address Organization Details Recorded Time 06/03/2024 NasalEndos copy_DP completed ANJUM BENÍTEZ MD [address] [place] [address], [phone], [facility] 06/03/2024 15:11:07 Imaging Results Imaging Date Name Status LastModified by Organiz ation Details LastModified Time 07/29/2024 CT, sinuses, w/o contrast completed [email or web address] [facility] Of [address], [address], 07/29/2024 14:42:14 Procedure Notes None recorded. Medical Equipment None Reported. Allergies Allergen ID Allergen Name Allergen Category Reaction Reaction Severity Criticality Documentation Date Start Date Code Code System Note Provider Name and Address Organization Details Recorded Time 360120 Product containin g penicilli n (product) medicatio n other Not available Not available 11/11/2023 [id number] SNOMED React ion: unkno wn, unspe cifie d;; Not Available [facility] 4 01:10:06 Medications Name Sig Start Date Stop Date Status Note LastModified by Organization Details LastModified Time losartan 50 mg tablet active Not Available Not Available No t Available atorvastati n 80 mg tablet active Not Available Not Available Not Available nystatin 100,000 unit/mL oral suspension active Not Available Not Available N ot Available prednisone 10 mg tablet Take 4 tabs PO for 3 days then 2 tabs PO for 3 days then 1 tab PO for 3 days then stop active Not Available Not Available No t Available prednisone 20 mg tablet active Not Available Not Available Not Available prednisone 5 mg tablet active Not Available Not Available Not Available leflunomide 10 mg tablet active Not Available Not Available Not Available potassium chloride ER 10 mEq tablet,exte nded release active Not Available Not Available Not Available aspirin 81 mg tablet,stacy yed release active Not Available Not Available Not Available tramadol 50 mg tablet active Not Available Not Available No t Available acetaminoph en ER 650 mg tablet,exte nded release active Not Available Not Available Not Available bupropion HCl 100 mg tablet 2016 active Medication ID: [id number] Dur ation Value: 30 Brand Name: bupropion HCl Send Method: E-Prescrib ed Subs Allowed: subs OK Special Instructio n: TAKE 1 TABLET BY MOUTH TWO TIMES A DAY Medica tionGeneri cName: bupropion HCl Not Available Not Available Not Available amiloride 5 mg tablet active Not Available Not Available No t Available famotidine 20 mg tablet active Not Available Not Available Not Available lorazepam 0.5 mg tablet active Not Available Not Available Not Available tamsulosin 0.4 mg capsule active Not Available Not Available Not Available tobramycin 0.3 % eye drops active Not Available Not Available Not Available propranolol ER 80 mg capsule,24 hr,extended release active Not Available Not Available Not Available indomethaci n 25 mg capsule active Not Available Not Available Not Available gabapentin 300 mg capsule active Not Available Not Available Not Available omeprazole 20 mg capsule,del ayed release active Not Available Not Available Not Available methylpredn isolone 4 mg tablets in a dose pack active Not Available Not Available Not Available Percocet 5 mg-325 mg tablet Take 1 tablet by mouth every six hours as needed active Medication ID: [id number] Dur ation Value: 3 Brand Name: Percocet S end Method: E-Prescrib ed Subs Allowed: subs OK Medicat ionGeneric Name: Percocet Not Available Not Available Not Available losartan 100 mg tablet active Not Available Not Available Not Available doxycycline hyclate 100 mg tablet Take 1 tablet twice a day by oral route for 10 days. active Not Available Not Available No t Available ipratropium bromide 21 mcg (0.03 %) nasal spray active Not Available Not Available Not Available rosuvastati n 40 mg tablet active Not Available Not Available Not Available alfuzosin ER 10 mg tablet,exte nded release 24 hr active Not Available Not Available Not Available metoprolol tartrate 25 mg tablet 2015 active Medication ID: [id number] Dur ation Value: 30 Brand Name: metoprolol tartrate S end Method: E-Prescrib ed Subs Allowed: subs OK Special Instructio n: TAKE 1 TABLET BY MOUTH TWO TIMES A DAY Medica tionGeneri cName: metoprolol tartrate Not Available Not Available Not Available DILT-XR 120 mg capsule, extended release active Not Available Not Available Not Available potassium chloride ER 20 mEq tablet,exte nded release active Not Available Not Available Not Available Vitals Date Recorded Body height Body mass index (BMI) Body weight Provider Name and Address Organization Details Last Updated DateTime 07/29/2024 177.8 cm 25.1 kg/m2 82186.66 g Henrique Haro [place] - [facility] [place] 07/29/2024 14:12:54 Social History None recorded. Functional Status None recorded. Mental Status None recorded. Family History Nothing Reported. Medical History No medical history recorded. Past Encounters Encounter ID Performer Location Encounter Start Date Encounter Closed Date Diagnosis/Indication Diagnosis SNOMED-CT Code Diagnosis ICD10 Code Diagnosis Note [id number] ANJUM BENÍTEZ MD [facility] of [address] [address] 07/29/2024 13:30:29 07/29/2024 14:55:07 Chronic left maxillary sinusitis [id number] 3669435 J32.0 Has persistent sinusitis despite doxycyclin e. The patient has failed medical therapy and is a candidate for FESS. The surgical plan will including: Left maxillary antrostomy . I discussed the risks, benefits and alternativ es to endoscopic sinus surgery including but not limited to damage to the orbit or optic nerve resulting in vision loss, double vision, or blindness. I also discussed the risk of CSF leak. I discussed the risk of recurrence of sinus disease or polyps requiring additional procedures , change in sense of smell, septal perforatio n, bleeding and infection including risks to damaging the internal carotid artery. I discussed the risk of damage to the tear duct with excessive tearing. I discussed the possible need for septoplast y for access. I discussed the risks, benefits and alternativ es to septoplast y. Specifical ly, I discussed the risk of bleeding (which may require more procedures or packing), infection, septal perforatio n, septal hematoma which if unrecogniz ed can lead to cosmetic nasal deformity, CSF leak, persistent nasal obstructio n despite surgery, change in appearance of nose if structural support is disrupted, change in sense of smell, and the possibilit y of predisposi tion of future sinus infections . I also discussed the possible need for nasal splints. He is interested in one more round of abx before considerin g surgery. Chronic pain in face 432 216599 R51.9 likely due to chronic sinusitis Allergic f ungal sinusitis 506857037 B49 ct consistent with allergic fungal sinusitis. we will try one more round of maximal medical therapy before pursuing surgery. I discussed the risk of avascular hip necrosis with prednisone . Health Concerns Section Related Observation LastModified by Organization Detai ls LastModified Time None Recorded Concern Status LastModified by Organization Details LastModified Time None Recorded Payers Encounter Date Sequence Insurance Name Policy Number Policy Griffith Covered Member ID Griffith Member ID Guarantor Name 07/29/2024 1 [facility] - DOS ON OR AFTER 2022 - ONE CARE (MEDICARE REPLACEMENT/AD VANTAGE - HMO) Arnel Fontanez [id number] Arnel Fontanez Notes Date Note Type Note Provider Name and Address Organization Details Recorded Time 07/29/2024 text/html Hx of left sided frontal headaches. He has left maxillary pressure that comes and goes. He doxy which did not improve his symptoms. MRI brain with contrast was done which showed left maxillary sinusitis (possibly fungal) and ENT consult was recommended. He quit smoking over 8 years ago. No recent dental problems but had problems in the past. has crowns. Saw dentist two months and he said no infection was seen. ANJUM BENÍTEZ MD [address] [place] [address], [place], [address], [facility] - [facility] 07/30/2024 07:48:31
--- OUTSIDE RECORDS SUMMARY | 2024-08-18 08:55 | XMS_ITS | Encounter Summary ---
Author Organization [facility] Address [address] [place] [address] Phone Care Team Providers Care Cvicu Nurse Name Role Phone Gigi Fraser MD Primary Care Provider [phone] Encounter Details Date Type Department Care Team (Late st Contact Info) Description 09/29/2023 Documentation Only [facility] [address] [place] [address] Bola Rodriguez DO [address] [facility] [place] [address] Social History Tobacco Use Types Packs/Day Years [...] Visit [facility] [address] [place] [address] Bola Rodriguez DO [address] [facility] [place] [address] Pending Results Name Type Priority Associated Diagnoses Date /Time Protime-INR Lab Routine Other acute kidney failure (HCC) 10/03/2023 9:02 AM EDT documented as of this encounter Procedures Procedure Name Priority Date/Time Associated Diagnosis Comments ANCA SCREEN, TITER IF POSITIVE Routine 10/03/2023 9:02 AM EDT Other acute kidney failure (HCC) MICROSCOPIC EXAMINATION - DO NOT USE Routine 10/03/2023 9:02 AM EDT PROTEIN / CREATININE RATIO, URINE Routine 10/03/2023 9:02 AM EDT Other acute kidney failure (HCC) URINALYSIS WITH MICROSCOPIC Routine 10/03/2023 9:02 AM EDT Other acute kidney failure (HCC) PROTIME-INR Routine 10/03/2023 9:02 AM EDT Other acute kidney failure (HCC) CBC AND DIFFERENTIAL Routine 10/03/2023 9:02 AM EDT Other acute kidney failure (HCC) COMPREHENSIVE METABOLIC PANEL Routine 10/03/2023 9:02 AM EDT Other acute kidney failure (HCC) documented in this encounter Results * Microscopic Examination (10/03/2023 9:02 AM EDT) WBC, Urine 0-5 0 - 5 /hpf [facility] RBC, Urine None seen 0 - 2 /hpf [facility] Squamous Epithelial, Urine 0-10 0 - 10 /hpf [facility] Casts None seen None seen /lpf [facility] Bacteria, Urine None seen None seen/Few [facility] 10/03/2023 9:02 AM EDT 10/03/2023 Narrative [facility] - 10/07/2023 4:07 PM EDT Performed at: ??01 - [facility] [address] ??[id number] Laundry Aid: Sara Ruiz MD, Phone: ??[phone] us Bola Rodriguez DO LAB MICROBIOLOGY - GENERAL ORDE ANASTACIO Final Result [facility] * (ABNORMAL) Urine Protein / creatinine ratio (10/03/2023 9:02 AM EDT) Creatinine, Ur 30.3 Not Estab. mg/dL [facility] Protein, Ur 29.8 Not Estab. mg/dL [facility] Urine Protein/Creatin ine Ratio 983(H) 0 - 200 mg/g creat [facility] Urine (Urine, Clean Catch) 10/03/2023 9:02 AM EDT 10/03/2023 Narrative [facility] - 10/07/2023 4:07 PM EDT Performed at: ??01 - [facility] ??[id number] Laundry Aid: Sara Ruiz MD, Phone: ??[phone] us Bola Rodriguez DO LAB URINE ORDERABLES Final Resu lt Performing Organization Address [facility] Co de Phone Number [facility] * (ABNORMAL) Urinalysis with microscopic (10/03/2023 9:02 AM EDT) Specific [place], Urine 1.008 1.005 - 1.030 [facility] pH Urine 7.0 5.0 - 7.5 [facility] Color, Urine Yellow Yellow [facility] Appearance Urine Clear Clear [facility] WBC Esterase Urine Trace(A) Negative [facility] Protein, Ur 2+(A) Negative/Tra ce [facility] Glucose, Ur Negative Negative [facility] Ketones, Urine Negative Negative [facility] Blood Urine 2+(A) Negative [facility] Bilirubin Urine Negative Negative [facility] Urobilinogen Urine 0.2 0.2 - 1.0 mg/dL [facility] Nitrite, Urine Negative Negative [facility] Microscopic Examination See below: [facility] Comment:Microscopic was cely cated and was performed. Urine (Urine, Clean Catch) 10/03/2023 9:02 AM EDT 10/03/2023 Narrative [facility] - 10/07/2023 4:07 PM EDT Performed at: ??01 - [facility] [address] ??[id number] Laundry Aid: Sara Ruiz MD, Phone: ??[phone] Bola Rodriguez DO LAB URINE ORDERABLES Final Resu lt [facility] * (ABNORMAL) Comprehensive metabolic panel (10/03/2023 9:02 AM EDT) Glucose 117(H) 70 - 99 mg/dL [facility] BUN 14 6 - 24 mg/dL [facility] Creatinine 2.25(H) 0.76 - 1.27 mg/dL [facility] eGFR CKD-EPI CR 2020 33(L) >59 mL/min/1.7 3 [facility] BUN/Creatinine Ratio 6(L) 9 - 20 [facility] Sodium 138 134 - 144 mmol/L [facility] Potassium 3.5 3.5 - 5.2 mmol/L [facility] Chloride 94(L) 96 - 106 mmol/L [facility] Bicarbonate (CO2) 26 20 - 29 mmol/L [facility] Calcium 9.8 8.7 - 10.2 mg/dL [facility] Total Protein 7.6 6.0 - 8.5 g/dL [facility] Albumin 4.7 3.8 - 4.9 g/dL [facility] Globulin 2.9 1.5 - 4.5 g/dL [facility] A/G Ratio 1.6 1.2 - 2.2 [facility] Total Bilirubin 1.0 0.0 - 1.2 mg/dL [facility] Alkaline Phosphatase 87 44 - 121 IU/L [facility] AST (SGOT) 77(H) 0 - 40 IU/L [facility] ALT (SGPT) 37 0 - 44 IU/L [facility] Blood (Blood, Venous) 10/03/2023 9:02 AM EDT 10/03/2023 Narrative [facility] - 10/07/2023 4:07 PM EDT Performed at: ??01 - [facility] [address] ??[id number] Laundry Aid: Sara Ruiz MD, Phone: ??[phone] Bola Rodriguez DO LAB BLOOD ORDERABLES Final Resu lt [facility] * (ABNORMAL) CBC and differential (10/03/2023 9:02 AM EDT) WBC 5.9 3.4 - 10.8 x10E3/uL [facility] RBC 3.63(L) 4.14 - 5.80 x10E6/uL [facility] Hemoglobin 12.4(L) 13.0 - 17.7 g/dL [facility] Hematocrit 35.3(L) 37.5 - 51.0 % [facility] MCV 97 79 - 97 fL [facility] MCH 34.2(H) 26.6 - 33.0 pg [facility] MCHC 35.1 31.5 - 35.7 g/dL [facility] RDW 12.0 11.6 - 15.4 % [facility] Platelets 158 150 - 450 x10E3/uL [facility] Neutrophils Relative 66 Not Estab. % [facility] Lymphocytes Relative 20 Not Estab. % [facility] Monocytes 11 Not Estab. % [facility] Eosinophils Relative 2 Not Estab. % [facility] Basophils Relative 1 Not Estab. % [facility] Neutrophils Absolute 4.0 1.4 - 7.0 x10E3/uL [facility] Lymphocytes Absolute 1.2 0.7 - 3.1 x10E3/uL [facility] Monocytes Absolute 0.7 0.1 - 0.9 x10E3/uL [facility] Eosinophils Absolute 0.1 0.0 - 0.4 x10E3/uL [facility] Basophils Absolute 0.0 0.0 - 0.2 x10E3/uL [facility] Immature Granulocytes 0 Not Estab. % [facility] Immature Grans (Absolute) 0.0 0.0 - 0.1 x10E3/uL [facility] Blood (Blood, Venous) 10/03/2023 9:02 AM EDT 10/03/2023 Narrative [facility] - 10/07/2023 4:07 PM EDT Performed at: ??01 - [facility] [address] ??[id number] Laundry Aid: Sara Ruiz MD, Phone: ??[phone] us Bola Rodriguez DO LAB BLOOD ORDERABLES Final Resu lt Performing Organization Address [facility] Co de Phone Number [facility] * ANCA Screen, reflex titer (10/03/2023 9:02 AM EDT) C-ANCA <1:20 Neg:<1:20 titer [facility] Perinuclear (P-ANCA) <1:20 Neg:<1:20 titer [facility] Comment: The presence of positive fluorescence exhibiting P-ANCA or C-ANCA patterns alone is not specific for the diagnosis of Mohini's Granulomatosis (WG) or microscopic polyangiitis. Decisions about treatment should not be based solely on ANCA IFA results. ??The International ANCA Group Consensus recommends follow up testing of positive sera with both NM-3 and MPO-ANCA enzyme immunoassays. As many as 5% serum samples are positive only by EIA. Ref. AM J Clin Pathol 1999;111:507-513. Atypical p-ANCA <1:20 Neg:<1:20 titer [facility] Comment: The atypical pANCA pattern has been observed in a significant percentage of patients with ulcerative colitis, primary sclerosing cholangitis and autoimmune hepatitis. Blood (Blood, Venous) 10/03/2023 9:02 AM EDT 10/03/2023 Narrative [facility] - 10/07/2023 4:07 PM EDT Performed at: ??02 - [facility] [address] ??[id number] Laundry Aid: Rios Dolan MD, Phone: ??[phone] Bola Rodriguez DO LAB BLOOD ORDERABLES Final Resu lt Performing Organization Address [facility] Co de Phone Number [facility] documented in this encounter Visit Diagnoses Diagnosis Other acute kidney failure (HCC)- Primary documented in this encounter Care Teams Cvicu Nurse Relationship Specialty Start Date End Date Gigi Fraser MD [address] [place] [address] PCP - General Internal Medicine 07/16/23 documented as of this encounter
--- OUTSIDE RECORDS SUMMARY | 2024-08-18 08:55 | XMS_ITS | Encounter Summary ---
Author Organization [facility] [place], Address [address] [place] [address] Phone Care Team Providers Care Lead Trainer Name Role Phone Gigi Fraser MD Primary Care Provider [phone] Encounter Details Date Type Department Care Team (Late st Contact Info) Description 07/16/2023 Documentation Only [facility] [address] [place] [address] [place], [place] [address] [place] [address] Social History Tobacco Use Types Packs/Day Years Used Date Smoking Tobacco: Never Assessed Sex and Gender Information Value Date Recorded Sex Assigned at Not on file Legal Sex Male 9:54 AM EST Gender Identity Not on file Sexual Orientation Not on file documented as of this encounter Plan of Treatment Upcoming Encounters Date Type Department Care Team (Late st Contact Info) Description 08/27/2024 2:30 PM EST Office Visit [facility] [address] [place] [address] Bola Rodriguez DO [address] [place] [address] [place] [address] documented as of this encounter Visit Diagnoses Not on filedocumented in this encounter Care Teams Lead Trainer Relationship Specialty Start Date End Date Gigi Fraser MD [address] [place] [address] PCP - General Internal Medicine 07/16/23 documented as of this encounter
--- OUTSIDE RECORDS SUMMARY | 2024-08-18 08:55 | XMS_ITS | Encounter Summary ---
Author Organization [facility] [place], Address [address] [place] [address] Phone Care Team Providers Care Installation Superintendent Name Role Phone Gigi Fraser MD Primary Care Provider [phone] Encounter Details Date Type Department Care Team (Late st Contact Info) Description 09/17/2023 Documentation Only [facility] [address] [place] [address] Bola Rodriguez DO [address] [facility] [address] [place] [address] Social History Tobacco Use Types [...] Visit [facility] [address] [place] [address] Bola Rodriguez DO [address] [place] [address] documented as of this encounter Visit Diagnoses Not on filedocumented in this encounter Care Teams Installation Superintendent Relationship Specialty Start Date End Date Gigi Fraser MD [address] [place] [address] PCP - General Internal Medicine 07/16/23 documented as of this encounter
--- OUTSIDE RECORDS SUMMARY | 2024-08-18 08:55 | XMS_ITS | Encounter Summary ---
Author Organization [facility] [place], Address [address] [place] [address] Phone Care Team Providers Care Liver Trimmer Name Role Phone Gigi Fraser MD Primary Care Provider [phone] Encounter Details Date Type Department Care Team (Late st Contact Info) Description 07/16/2023 Documentation Only [facility] [address] [place] [address] [place], [place] [address] [place] [address] Social History Tobacco Use Types [...] Visit [facility] [address] [place] [address] Bola Rodriguez DO [address] [place] [address] [place] [address] documented as of this encounter Visit Diagnoses Not on filedocumented in this encounter Care Teams Liver Trimmer Relationship Specialty Start Date End Date Gigi Fraser MD [address] [place] [address] PCP - General Internal Medicine 07/16/23 documented as of this encounter
--- OUTSIDE RECORDS SUMMARY | 2024-08-18 08:55 | XMS_ITS | Encounter Summary ---
Author Organization [facility] Address [address] [place] [address] Phone Care Team Providers Care Circulation Man Name Role Phone Gigi Fraser MD Primary Care Provider [phone] Encounter Details Date Type Department Care Team (Late Contact Info) Description 01/16/2024 Orders Only [facility] [address] [place] [address] Bola Rodriguez DO [address] [place] [address] Acute tubulo-interstitial nephritis; Other acute [...] Visit [facility] [address] [place] [address] Bola Rodriguez DO [address] [place] [address] documented as of this encounter Procedures Procedure Name Priority Date/Time Associated Diagnosis Comments MICROSCOPIC EXAMINATION - DO NOT USE Routine 01/25/2024 8:41 AM EDT PROTEIN / CREATININE RATIO, URINE Routine 01/25/2024 8:41 AM EDT Acute tubulo-interstitial nephritis Other acute kidney failure (HCC) Hypertension Stage 3a chronic kidney disease (HCC) URINALYSIS WITH MICROSCOPIC Routine 01/25/2024 8:41 AM EDT Acute tubulo-interstitial nephritis Other acute kidney failure (HCC) Hypertension Stage 3a chronic kidney disease (HCC) MAGNESIUM Routine 01/25/2024 8:41 AM EDT Acute tubulo-interstitial nephritis Other acute kidney failure (HCC) Hypertension Stage 3a chronic kidney disease (HCC) RENAL FUNCTION PANEL Routine 01/25/2024 8:41 AM EDT Acute tubulo-interstitial nephritis Other acute kidney failure (HCC) Hypertension Stage 3a chronic kidney disease (HCC) documented in this encounter Results * Microscopic Examination (01/25/2024 8:41 AM EDT) WBC, Urine 0-5 0 - 5 /hpf [facility] RBC, Urine None seen 0 - 2 /hpf [facility] Squamous Epithelial, Urine None seen 0 - 10 /hpf [facility] Casts None seen None seen /lpf [facility] Bacteria, Urine None seen None seen/Few [facility] 01/25/2024 8:41 AM EDT 01/25/2024 us Bola Rodriguez DO LAB MICROBIOLOGY - GENERAL ORDAlistair CHAVES Final Result [facility] [address] [place] [phone] * (ABNORMAL) Urine Protein / creatinine ratio (01/25/2024 8:41 AM EDT) Creatinine, Ur 38.1 Not Estab. mg/dL [facility] Protein, Ur 46.1 Not Estab. mg/dL [facility] Urine Protein/Creati nine Ratio 1,210(H) 0 - 200 mg/g creat [facility] Urine (Urine, Clean Catch) 01/25/2024 8:41 AM EDT 01/25/2024 us Bola Rodriguez DO LAB URINE ORDERABLES Final Resu lt [facility] [address] [place] [address] * (ABNORMAL) Urinalysis with microscopic (01/25/2024 8:41 AM EDT) Pathologist [facility] [place], Urine 1.008 1.005 - 1.030 [facility] [phone] pH Urine 7.0 5.0 - 7.5 [facility] [phone] Color, Urine Yellow Yellow [facility] Appearance Urine Clear Clear [facility] WBC Esterase Urine Trace(A) Negative [facility] Protein, Ur 2+(A) Negative/Tr elissa [facility] Glucose, Ur Negative Negative [facility] [phone] Ketones, Urine Negative Negative [facility] Blood Urine 3+(A) Negative [facility] Bilirubin Urine Negative Negative [facility] Urobilinogen Urine 0.2 0.2 - 1.0 mg/dL [facility] Nitrite, Urine Positive(A) Negative [facility] [phone] Microscopic Examination See below: [facility] [phone] Comment:Microscopic was cely cated and was performed. Urine (Urine, Clean Catch) 01/25/2024 8:41 AM EDT 01/25/2024 [facility] LAB URINE ORDERABLES Final Resu lt Performing Organization Address City/[facility] Co de Phone Number [facility] [address] [place] [address] * Magnesium (01/25/2024 8:41 AM EDT) Magnesium 1.9 1.6 - 2.3 mg/dL [facility] Blood (Blood, Venous) 01/25/2024 8:41 AM EDT 01/25/2024 [facility] LAB BLOOD ORDERABLES Final Resu lt Performing Organization Address [facility] de Phone Number [facility] [address] [place] [address] * (ABNORMAL) Renal Function Panel (01/25/2024 8:41 AM EDT) Glucose 108(H) 70 - 99 mg/dL [facility] BUN 11 6 - 24 mg/dL [facility] Creatinine 2.04(H) 0.76 - 1.27 mg/dL [facility] eGFR CKD-EPI CR 2020 37(L) >59 mL/min/1.7 3 [facility] BUN/Creatinine Ratio 5(L) 9 - 20 [facility] Sodium 141 134 - 144 mmol/L [facility] Potassium 3.2(L) 3.5 - 5.2 mmol/L [facility] Chloride 99 96 - 106 mmol/L [facility] Bicarbonate (CO2) 30(H) 20 - 29 mmol/L [facility] Calcium 10.5(H) 8.7 - 10.2 mg/dL [facility] Comment:Verified by repeat analysis Phosphorus 2.9 2.8 - 4.1 mg/dL [facility] Albumin 4.1 3.8 - 4.9 g/dL [facility] Blood (Blood, Venous) 01/25/2024 8:41 AM EDT 01/25/2024 Bola Rodriguez DO LAB BLOOD ORDERABLES Final Resu lt [facility] [address] [place] [address] documented in this encounter Visit Diagnoses Diagnosis Acute tubulo-interstitial nephritis Other acute kidney failure (HCC) Hypertension Stage 3a chronic kidney disease (HCC) documented in this encounter Care Teams Circulation Man Relationship Specialty Start Date End Date Gigi Fraser MD [address] [place] [address] PCP - General Internal Medicine 07/16/23 documented as of this encounter
--- OUTSIDE RECORDS SUMMARY | 2024-08-18 08:55 | XMS_ITS | Encounter Summary ---
Author Organization [facility] [place], Address [address] [place] [address] Phone Care Team Providers Care Cnc Lathe Machine Operator Name Role Phone Gigi Fraser MD Primary Care Provider [phone] Encounter Details Date Type Department Care Team (Late st Contact Info) Description 07/16/2023 Documentation Only [facility] [address] [place] [phone] [place], [place] [address] [place] [address] Social History Tobacco Use Types [...] Visit [facility] [address] [place] [address] Bola Rodriguez DO [address] [place] [address] [place] [phone] documented as of this encounter Visit Diagnoses Not on filedocumented in this encounter Care Teams Cnc Lathe Machine Operator Relationship Specialty Start Date End Date Gigi Fraser MD [address] [place] [address] PCP - General Internal Medicine 07/16/23 documented as of this encounter
--- OUTSIDE RECORDS SUMMARY | 2024-08-18 08:55 | XMS_ITS | Encounter Summary ---
Author Organization [facility] Address [address] [place] [address] Phone Care Team Providers Care Card Writer Hand Name Role Phone Gigi Fraser MD Primary Care Provider Encounter Details Date Type Department Care Team (Late Contact Info) Description 03/12/2024 Orders Only [facility] [address] [place] [address] Bola Rodriguez DO [address] [place] [address] Acute tubulo-interstitial nephritis; Other acute [...] [facility] [address] [place] [address] Bola Rodriguez DO [address] [place] [address] documented as of this encounter Visit Diagnoses Diagnosis Acute tubulo-interstitial nephritis Other acute kidney failure (HCC) Hypertension Stage 3a chronic kidney disease (HCC) documented in this encounter Care Teams Card Writer Hand Relationship Specialty Start Date End Date Gigi Fraser MD [address] [place] [address] PCP - General Internal Medicine 07/16/23 documented as of this encounter
--- OUTSIDE RECORDS SUMMARY | 2024-08-18 08:55 | XMS_ITS | Encounter Summary ---
Author Organization [facility] [place], Address [address] [place] [address] Phone Care Team Providers Care Jewel Flat Surfacer Name Role Phone Gigi Fraser MD Primary Care Provider [phone] Encounter Details Date Type Department Care Team (Late st Contact Info) Description 09/17/2023 Documentation Only [facility] [address] [place] [address] Bola Rodriguez DO [address] [place] [address] Social History Tobacco Use Types [...] Visit [facility] [address] [place] [address] Bola Rodriguez DO [address] [place] [address] documented as of this encounter Visit Diagnoses Not on filedocumented in this encounter Care Teams Jewel Flat Surfacer Relationship Specialty Start Date End Date Gigi Fraser MD [address] [place] [address] PCP - General Internal Medicine 07/16/23 documented as of this encounter
--- OUTSIDE RECORDS SUMMARY | 2024-08-18 08:55 | XMS_ITS | Encounter Summary ---
Author Organization [facility] [place], Address [address] [place] [address] Phone Care Team Providers Care Shipping Supervisor Name Role Phone Gigi Fraser MD Primary Care Provider [phone] Encounter Details Date Type Department Care Team (Late st Contact Info) Description 10/09/2023 Documentation Only [facility] [address] [place] [address] Bola Rodriguez DO [address] [place] [address] Social History Tobacco Use Types [...] Visit [facility] [address] [place] [address] Bola Rodriguez DO [address] [place] [address] documented as of this encounter Visit Diagnoses Not on filedocumented in this encounter Care Teams Shipping Supervisor Relationship Specialty Start Date End Date Gigi Fraser MD [address] [place] [address] PCP - General Internal Medicine 07/16/23 documented as of this encounter
--- OUTSIDE RECORDS SUMMARY | 2024-08-18 08:55 | XMS_ITS | Encounter Summary ---
Author Organization [facility] [place], Address [address] [place] [address] Phone Care Team Providers Care Grounds Supervisor Name Role Phone Gigi Fraser MD Primary Care Provider [phone] Encounter Details Date Type Department Care Team (Late st Contact Info) Description 11/05/2023 Documentation Only [facility] [address] [place] [address] Bola Rodriguez DO [address] [place] [address] Social History Tobacco Use Types [...] Visit [facility] [address] [place] [address] Bola Rodriguez DO [address] [place] [address] documented as of this encounter Visit Diagnoses Not on filedocumented in this encounter Care Teams Grounds Supervisor Relationship Specialty Start Date End Date Gigi Fraser MD [address] [place] [address] PCP - General Internal Medicine 07/16/23 documented as of this encounter
--- OUTSIDE RECORDS SUMMARY | 2024-08-18 08:55 | XMS_ITS | Encounter Summary ---
Author Organization [facility] [place], Address [address] [place] [address] Phone Care Team Providers Care Instrument Technician Name Role Phone Gigi Fraser MD Primary Care Provider [phone] Encounter Details Date Type Department Care Team (Late st Contact Info) Description 07/16/2023 Documentation Only [facility] [address] [place] [address] [place], [place] [address] [place] [address] Social History Tobacco Use Types [...] Visit [facility] [address] [place] [address] Bola Rodriguez DO [address] [place] [address] [place] [address] documented as of this encounter Visit Diagnoses Not on filedocumented in this encounter Care Teams Instrument Technician Relationship Specialty Start Date End Date Gigi Fraser MD [address] [place] [address] PCP - General Internal Medicine 07/16/23 documented as of this encounter
--- OUTSIDE RECORDS SUMMARY | 2024-08-18 08:55 | XMS_ITS | Encounter Summary ---
Author Organization [facility] Address [address] [place] [address] Phone Care Team Providers Care Vp Digital Marketing Name Role Phone Gigi Fraser MD Primary Care Provider [phone] Encounter Details Date Type Department Care Team (Late st Contact Info) Description 05/21/2024 Orders Only [facility] [address] [place] [place] [address] Bola Rodriguez DO [address] [facility] [place] [address] Acute tubulo-interstitial nephritis; Hypokalemia; Hypertension; [...] Visit [facility] [address] [place] [address] Bola Rodriguez DO [address] [place] [address] documented as of this encounter Visit Diagnoses Diagnosis Acute tubulo-interstitial nephritis Hypokalemia Hypertension Stage 3a chronic kidney disease (HCC) documented in this encounter Care Teams Vp Digital Marketing Relationship Specialty Start Date End Date Gigi Fraser MD [address] [place] [address] PCP - General Internal Medicine 07/16/23 documented as of this encounter
--- OUTSIDE RECORDS SUMMARY | 2024-08-18 08:55 | XMS_ITS | Continuity of Care Document ---
Author Organization [facility] Address [address] [place] [address]- Care Team Providers Care Lumpia Wrapper Maker Name Role Phone Evelio EATON, Gigi W Primary Care Physician Encounter [facility] Date(s): 07/12/24 - 08/11/24 [facility] [address] [place] [address] Attending Physician: Admtr, Ar8 Admitting Physician: Admtr, Ar8 Referring Physician: Admtr, Ar8 Encounter Type: Triage Allergies, Adverse Reactions, Alerts Substance Criticality Severity Reaction Reaction Severity Status penicillin 1 red/rash entire body Active hydroCHLOROthiazide 2 Active 1Tolerates piperacillin/tazobactam 2allergic rash and hyponatremia Immunizations Given and Recorded Vaccine Date Status Refusal Reason influenza virus vaccine, inactivated 03/30/24 Tai rded influenza virus vaccine, inactivated 03/31/23 Tai rded influenza virus vaccine, inactivated 04/09/22 Tai rded influenza virus vaccine, inactivated 02/12/21 Tai rded influenza virus vaccine, inactivated 03/17/20 Tai rded influenza virus vaccine, inactivated 03/18/19 Give n influenza virus vaccine, inactivated 1 03/16/18 Re corded influenza virus vaccine, inactivated 03/16/18 Tai rded influenza virus vaccine, inactivated 2 04/08/17 Gi rod influenza virus vaccine, inactivated 04/11/16 Tai rded influenza virus vaccine, inactivated 04/24/15 Give n influenza virus vaccine, inactivated 08/08/10 Tai rded influenza virus vaccine, inactivated 07/28/09 Tai rded SARS-CoV-2 (COVID-19) mRNA BNT-162b2 vac 07/07/21 Recorded SARS-CoV-2 (COVID-19) mRNA BNT-162b2 vac 11/07/20 Recorded SARS-CoV-2 (COVID-19) mRNA BNT-162b2 vac 3 10/17/20 Recorded zoster vaccine, inactivated 05/16/20 Recorded zoster vaccine, inactivated 03/17/20 Recorded Influenza Vaccine (oldterm) 04/13/16 Recorded pneumococcal 23-valent vaccine 04/24/15 Given tetanus/diphtheria/pertussis, acel(Tdap) 03/07/15 Given tetanus/diphtheria/pertussis, acel(Tdap) 09/24/12 Recorded influ virus vac, H1N1, inactive(oldterm) 07/28/09 Recorded 1Location History: [facility] 2Result Comment: [04/08/2017] [facility] [id number] 3Result Comment: dose2 Medications acetaminophen 650 mg oral tablet, extended release 2 tablet = 1,300 mg, By Mouth, Every 8 hours, PRN Pain , Severe, # 180 tablet, 2 Refills, Maintenance, 02/12/24 5:13:00 PM EDT, ER Tablet, [facility], Partial fill upon patient request if the prescription is for a schedule II opioid drug., 178, cm, 01/09/24 10:17:00 EDT, Height, 80,kg, 11/05/23 8:35:00 EDT, Dry Weight Start Date: 02/12/24 Stop Date: 05/12/24 Status: Ordered Quantity: 180.0 Unit: tablet Repeat number: 3 alfuzosin 10 mg oral tablet, extended release 1 tablet = 10 mg, By Mouth, Daily, # 90 tablet, 1 Refills, Maintenance, 05/04/24 3:56:00 PM EST, ER Tablet, [facility], Partial fill upon patient request if the prescription is for a schedule II opioid drug., 178, cm, 04/22/24 9:13:00 EDT, Height, 80, kg, 11/05/23 8:35:00 EDT, Dry Weight Start Date: 05/04/24 Stop Date: 10/31/24 Status: Ordered Quantity: 90.0 Unit: tablet Repeat number: 2 Aspirin Enteric Coated 81 mg oral delayed release tablet 1 tablet, By Mouth, Daily, # 90 tablet, 1 Refills, Maintenance, 05/04/24 3:55:00 PM EST, [facility], 178, cm, 04/22/24 9:13:00 EDT, Height, 80, kg, 11/05/23 8:35:00 EDT, Dry Weight Start Date: 05/04/24 Stop Date: 10/31/24 Status: Ordered Quantity: 90.0 Unit: tablet Repeat number: 2 blood pressure cuff blood pressure cuff, See Instructions, # 1 each, Refills 0, Tot. Refills 0, Maintenance, HTN I10, 07/28/24 11:31:00 AM EST, Supply Start Date: 07/28/24 Status: Ordered Quantity: 1.0 Unit: each Repeat number: 1 famotidine 20 mg oral tablet Refills 0, Maintenance, 11/05/23 8:33:00 AM EDT, Partial fill upon patient request if the prescription is for a schedule II opioid drug. Start Date: 11/05/23 Status: Ordered Repeat number: 1 Inderal LA 80 mg oral capsule, extended release 80 mg, 1, capsule, By Mouth, Daily, # 90 capsule, Refills 3, Tot. Refills 3, Maintenance, 07/30/24 8:37:00 AM EST, Route to Pharmacy Electronically, [facility], Partial fill upon patient request if the prescription is for a schedule II opioid drug., 178, cm, 07/12/24 7:51:00 EST, Height, 80, kg, 11/05/23 8:35:00 EDT, Dry Weight Start Date: 07/30/24 Stop Date: 07/25/25 Status: Ordered Quantity: 90.0 Unit: capsule Repeat number: 4 Multivitamin 1 tablet, By Mouth, Daily at bedtime, 0 Refills, Maintenance, 01/04/18 1:52:21 PM EDT Start Date: 01/04/18 Status: Ordered Repeat number: 1 rosuvastatin 40 mg oral tablet 1 tablet, By Mouth, Daily, # 90 tablet, 1 Refills, Maintenance, 07/29/24 11:30:00 AM EST, [facility], 178, cm, 07/12/24 7:51:00 EST, Height, 80, kg, 11/05/23 8:35:00 EDT, Dry Weight Start Date: 07/29/24 Status: Ordered Quantity: 90.0 Unit: tablet Repeat number: 1 Problem List Condition Confirmation Course Effective Dates Status Health Status Informant Peristomal abscess Confirmed Active Acute interstitial nephritis Confirmed Active Sinuses of Valsalva are dilated (4.1cm). Ascending aorta (3.8 cm). 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 Confirmed Active Headache syndrome Confirmed Active Ventral hernia S/P repair on 04/09/16. 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 Confirmed 05/27/21 Active HTN (hypertension) 5, 6 Confirmed Active Bilateral groin pain Confirmed Active Stenosis of left internal carotid artery, moderate Confirmed Active Macrocytic anemia 7 Confirmed Active Migraine with aura Confirmed Active Polyarthralgia, low back, elbows, knees Confirmed Active Stroke-like symptoms Confirmed Active Pseudomonas Urinary Tract Infection Confirmed Active Pure hypercholesterolemia 8 Confirmed Active Elevated PSA Confirmed 03/08/21 Active Recurrent ventral incisional hernia S/P laparoscopic repair also recurrent incisional hernia and lysis of adhesion on 02/15/2021 Confirmed Active Rheumatoid arthritis, seronegative, multiple sites Confirmed Active Spinal stenosis of lumbar region with radiculopathy 9 Confirmed Active Postoperative hematoma of in the LLQ at ileostomy reversal side Confirmed Active Tubular adenoma of colon 10 Confirmed 09/01/[address] Gopi Soto. 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 Construction of diverting colostomy. Lysis of adhesions of abdomen 3D/C amlodipine with improvement 4Seen by Dr. Peng Jenkins at [facility], plan for open abdominal wall reconstructionwith transverse abdominis release technique and large extrapeitoneal mesh of sufficient strength. 5HCTZ d/philipp due to rash and hyponatermia 6Amlodipine 10 mg d/philipp due to leg swelling. HCTZ increased to 25 mg daily. 7W/U for B12, folic acid, iron studies, ferritin and TSH are all normal. 8Atorvastatin 80 mg discontinued due to elevated liver enzymes, improved with discontinuation. Switched over to rosuvastatin 40 mg daily. 9Sensitive to gabapentin 300 mg and 600 mg, DC'd. 10repeat screening colonoscopy in 2027 Social History Social History Type Response Smoking Status Former smoker, quit more than 30 days ago; Other: Quit on 03/10/2016. Previously 1.5 PPD for 30 years.; entered on: 05/21/23 Sex Sex Representation Male (finding) Patient Care team information Care Team Personnel Name: Darlene Erwin RN Position: [facility] RN Member Role: Primary Care Nurse Name: Jenni Stanford RN Position: [facility] RN Member Role: Primary Care Nurse Name: Bola Rodriguez DO Position: [facility] Renal MD Member Role: Lifetime Consulting Physician Address: [address] [place] [address] [facility] [place] [address]- Telecom: Name: Aminata Ng RN Position: [facility] RN Member Role: Primary Care Nurse Name: Carmen Gomes RN Position: [facility] AMB Nurse Member Role: Primary Care Nurse Name: Talita Nelson RN Position: [facility] RN Member Role: Primary Care Nurse Name: Joanna Mercedes RN Position: [facility] AMB Nurse Member Role: Primary Care Nurse Name: Gigi Fraser MD Position: [facility] Physician - Primary Care Member Role: PCP Address: [address] [place] [address] [place] [address]- Telecom: Name: Adelaida Portillo RN Position: [facility] Hospital Ready To Wear Department Manager Member Role: Primary Care Nurse Care Team Related Persons Name: BRAD BREAUX Name: DANAE CANALES Name: KITTY MITHCELL Insurance Providers Guarantor name: LIBBY MITCHELL Health Plan Information #: 1 Payer: [employer] Member Number: NA Policy Number: NA Group Number: NA
--- OUTSIDE RECORDS SUMMARY | 2024-08-18 08:55 | XMS_ITS | Encounter Summary ---
Author Organization [facility], Address [address] [place] [address] Phone Care Team Providers Care White Sugar Syrup Operator Name Role Phone Gigi Fraser MD Primary Care Provider [phone] Encounter Details Date Type Department Care Team (Late st Contact Info) Description 07/19/2023 Documentation Only [facility] [address] [place] [id number] Bola Rodriguez DO [address] [facility] [place] [address] Social History Tobacco Use Types [...] Visit [facility] [address] [place] [address] Bola Rodriguez DO [address] [facility] [place] [address] documented as of this encounter Visit Diagnoses Not on filedocumented in this encounter Care Teams White Sugar Syrup Operator Relationship Specialty Start Date End Date Gigi Fraser MD [address] [place] [address] PCP - General Internal Medicine 07/16/23 documented as of this encounter
--- OUTSIDE RECORDS SUMMARY | 2024-08-18 08:55 | XMS_ITS | Encounter Summary ---
Author Organization [facility] [place], Address [address] [place] [address] Phone Care Team Providers Care Rag Shredder Name Role Phone Gigi Fraser MD Primary Care Provider [phone] Encounter Details Date Type Department Care Team (Late st Contact Info) Description 10/15/2023 Documentation Only [facility] [address] [place] [address] [place] [address] [place] [address] Social History Tobacco Use Types [...] [facility] [address] [place] [address] Bola Rodriguez DO [address] [place] [address] [place] [address] documented as of this encounter Visit Diagnoses Not on filedocumented in this encounter Care Teams Rag Shredder Relationship Specialty Start Date End Date Gigi Fraser MD [address] [place] [address] PCP - General Internal Medicine 07/16/23 documented as of this encounter
--- OUTSIDE RECORDS SUMMARY | 2024-08-18 08:55 | XMS_ITS | Encounter Summary ---
Author Organization [facility] Address [address] [place] [address] Phone Care Team Providers Care High [employer] French Teacher Name Role Phone Gigi Fraser MD Primary Care Provider [phone] Encounter Details Date Type Department Care Team (Late Contact Info) Description 05/07/2024 Orders Only [facility] [address] [place] [address] Bola Rodriguez DO [address] [facility] [place] [address] Acute tubulo-interstitial nephritis; Other acute [...] Visit [facility] [address] [facility] [place] [address] Bola Rodriguez DO [address] [facility] [place] [address] documented as of this encounter Visit Diagnoses Diagnosis Acute tubulo-interstitial nephritis Other acute kidney failure (HCC) Hypertension Stage 3a chronic kidney disease (HCC) documented in this encounter Care Teams [employer] French Teacher Relationship Specialty Start Date End Date Gigi Fraser MD [address] [place] [address] PCP - General Internal Medicine 07/16/23 documented as of this encounter
--- OUTSIDE RECORDS SUMMARY | 2024-08-18 08:55 | XMS_ITS | Data Portability ---
Author Organization [facility] Address [address] [place] [address] Assessment No assessment recorded. Plan of Treatment Reminders Order Date Submit Date Provider Last Modified By Organization Details Last Modified Time Details Appointments None record ed. Lab None record ed. Referral None record ed. Procedures None record ed. Surgeries None record ed. Imaging None record ed. Medication Orders None record ed. Patient TargetsNo targets recorded. Patient InstructionsNo instructions recorded. Reason for Referral None Reported. Medical Equipment None Reported. Vitals None Recorded Social History None recorded. Functional Status None recorded. Mental Status None recorded. Family History Nothing Reported. Medical History No medical history recorded. Past Encounters Encounter ID Performer Location Encounter Start Date Encounter Closed Date Diagnosis/Indication Diagnosis SNOMED-CT Code Diagnosis ICD10 Code Diagnosis Note [id number] [facility] [address] [facility] [place] [id number] 02/02/2016 14:38:41 02/02/2016 14:52:01 Health Concerns Section Related Observation LastModified by Organization Detai ls LastModified Time None Recorded Concern Status LastModified by Organization Details LastModified Time None Recorded Advance Directives Directive None Recorded Payers Encounter Date Sequence Insurance Name Policy Number Policy Griffith Covered Member ID Griffith Member ID Guarantor Name 02/02/2016 1 MEDICARE B-[place]: [employer] Arnel Fontanez [id number] Arnel Fontanez
--- OUTSIDE RECORDS SUMMARY | 2024-08-18 08:55 | XMS_ITS | Encounter Summary ---
Author Organization [facility] Address [address] [place] [address] Phone Care Team Providers Care Blanket Weaver Name Role Phone Giig Fraser MD Primary Care Provider [phone] Encounter Details Date Type Department Care Team (Late Contact Info) Description 04/09/2024 Orders Only [facility] [address] [place] [address] Bola Rodriguez DO [address] [facility] [place] [address] Acute tubulo-interstitial nephritis; Other acute [...] Visit [facility] [address] [place] [place] [address] Bola Rodriguez DO [address] [facility] [place] [address] documented as of this encounter Visit Diagnoses Diagnosis Acute tubulo-interstitial nephritis Other acute kidney failure (HCC) Hypertension Stage 3a chronic kidney disease (HCC) documented in this encounter Care Teams Blanket Weaver Relationship Specialty Start Date End Date Gigi Fraser MD [address] [place] [address] PCP - General Internal Medicine 07/16/23 documented as of this encounter
--- OUTSIDE RECORDS SUMMARY | 2024-08-18 08:55 | XMS_ITS | Encounter Summary ---
Author Organization [facility] Address [address] [place] [address] Phone Care Team Providers Care Medical Clinic Manager Name Role Phone Gigi Fraser MD Primary Care Provider [phone] Encounter Details Date Type Department Care Team (Late Contact Info) Description 02/13/2024 Orders Only [facility] [address] [facility] [address] [place] [address] Bola Rodriguez DO [address] [facility] [place] [address] Acute tubulo-interstitial nephritis; Other acute [...] Visit [facility] [address] [facility] [place] [address] Bola Rodriguez DO [address] [facility] [place] [address] documented as of this encounter Procedures Procedure Name Priority Date/Time Associated Diagnosis Comments MICROSCOPIC EXAMINATION - DO NOT USE Routine 02/29/2024 8:54 AM EDT PROTEIN / CREATININE RATIO, URINE Routine 02/29/2024 8:54 AM EDT Acute tubulo-interstitial nephritis Other acute kidney failure (HCC) Hypertension Stage 3a chronic kidney disease (HCC) URINALYSIS WITH MICROSCOPIC Routine 02/29/2024 8:54 AM EDT Acute tubulo-interstitial nephritis Other acute kidney failure (HCC) Hypertension Stage 3a chronic kidney disease (HCC) MAGNESIUM Routine 02/29/2024 8:54 AM EDT Acute tubulo-interstitial nephritis Other acute kidney failure (HCC) Hypertension Stage 3a chronic kidney disease (HCC) RENAL FUNCTION PANEL Routine 02/29/2024 8:54 AM EDT Acute tubulo-interstitial nephritis Other acute kidney failure (HCC) Hypertension Stage 3a chronic kidney disease (HCC) documented in this encounter Results * (ABNORMAL) Microscopic Examination (02/29/2024 8:54 AM EDT) WBC, Urine 11-30(A) 0 - 5 /hpf [facility] RBC, Urine None seen 0 - 2 /hpf [facility] Squamous Epithelial, Urine 0-10 0 - 10 /hpf [facility] Casts None seen None seen /lpf [facility] Bacteria, Urine None seen None seen/Few [facility] 02/29/2024 8:54 AM EDT 02/29/2024 us Bola Rodriguez DO LAB MICROBIOLOGY - GENERAL ORDE ANASTACIO Final Result [facility] [address] [place] [address] * (ABNORMAL) Urine Protein / creatinine ratio (02/29/2024 8:54 AM EDT) Creatinine, Ur 39.7 Not Estab. mg/dL [facility] Protein, Ur 53.8 Not Estab. mg/dL [facility] Urine Protein/Creati nine Ratio 1,355(H) 0 - 200 mg/g creat [facility] Urine (Urine, Clean Catch) 02/29/2024 8:54 AM EDT 02/29/2024 Bola Rodriguez DO LAB URINE ORDERABLES Final Resu lt [facility] [address] [place] [address] * (ABNORMAL) Urinalysis with microscopic (02/29/2024 8:54 AM EDT) Specific [place], Urine 1.012 1.005 - 1.030 [facility] pH Urine 6.5 5.0 - 7.5 [facility] [phone] Color, Urine Yellow Yellow [facility] Appearance Urine Clear Clear [facility] WBC Esterase Urine 1+(A) Negative [facility] Protein, Ur 2+(A) Negative/Tr elissa [facility] Glucose, Ur Negative Negative [facility] Ketones, Urine Negative Negative [facility] Blood Urine 2+(A) Negative [facility] Bilirubin Urine Negative Negative [facility] Urobilinogen Urine 0.2 0.2 - 1.0 mg/dL [facility] [phone] Nitrite, Urine Positive(A) Negative [facility] [phone] Microscopic Examination See below: [facility] Comment:Microscopic was cely cated and was performed. Urine (Urine, Clean Catch) 02/29/2024 8:54 AM EDT 02/29/2024 Bola Rodriguez DO LAB URINE ORDERABLES Final Resu lt Performing Organization Address [facility] Co de Phone Number [facility] [address] [place] [address] * Magnesium (02/29/2024 8:54 AM EDT) Magnesium 1.9 1.6 - 2.3 mg/dL [facility] Blood (Blood, Venous) 02/29/2024 8:54 AM EDT 02/29/2024 Bola Rodriguez DO LAB BLOOD ORDERABLES Final Resu lt Performing Organization Address [facility] de Phone Number [facility] [address] [place] [address] * (ABNORMAL) Renal Function Panel (02/29/2024 8:54 AM EDT) Glucose 91 70 - 99 mg/dL [facility] BUN 17 6 - 24 mg/dL [facility] Creatinine 1.62(H) 0.76 - 1.27 mg/dL [facility] eGFR CKD-EPI CR 2020 49(L) >59 mL/min/1.7 3 [facility] BUN/Creatinine Ratio 10 9 - 20 [facility] Sodium 140 134 - 144 mmol/L [facility] Potassium 3.9 3.5 - 5.2 mmol/L [facility] Chloride 102 96 - 106 mmol/L [facility] Bicarbonate (CO2) 24 20 - 29 mmol/L [facility] Calcium 9.3 8.7 - 10.2 mg/dL [facility] Albumin 4.2 3.8 - 4.9 g/dL [facility] Phosphorus 3.4 2.8 - 4.1 mg/dL [facility] Blood (Blood, Venous) 02/29/2024 8:54 AM EDT 02/29/2024 Bola Rodriguez DO LAB BLOOD ORDERABLES Final Resu lt [facility] [address] [place] [address] documented in this encounter Visit Diagnoses Diagnosis Acute tubulo-interstitial nephritis Other acute kidney failure (HCC) Hypertension Stage 3a chronic kidney disease (HCC) documented in this encounter Care Teams Medical Clinic Manager Relationship Specialty Start Date End Date Gigi Fraser MD [address] [place] [address] PCP - General Internal Medicine 07/16/23 documented as of this encounter
--- OUTSIDE RECORDS SUMMARY | 2024-08-18 08:55 | XMS_ITS | Encounter Summary ---
Author Organization [facility] [place], Address [address] [place] [address] Phone Care Team Providers Care Software Support Representative Name Role Phone Gigi Fraser MD Primary Care Provider [phone] Encounter Details Date Type Department Care Team (Late st Contact Info) Description 09/17/2023 Documentation Only [facility] [address] [place] [address] Bola Rodriguez DO [address] [facility] [place] [address] Social History Tobacco Use Types [...] Visit [facility] [address] [address] Bola Rodriguez DO [address] [facility] [place] [address] documented as of this encounter Visit Diagnoses Not on filedocumented in this encounter Care Teams Software Support Representative Relationship Specialty Start Date End Date Gigi Fraser MD [address] [place] [address] PCP - General Internal Medicine 07/16/23 documented as of this encounter
--- OUTSIDE RECORDS SUMMARY | 2024-08-18 08:55 | XMS_ITS | Data Portability ---
Author Organization [facility], PAIN OFFICE Address [address] [facility] [address] [place] [address] Care Team Providers Care Quality Assurance Coordinator Name Role Phone CITLALI ANTHONY Primary Care Provider [phone] Assessment Encounter Date Assessment Date Assessment LastModified by Organization Details LastModified Time 02/09/2019 02/09/2019 Arnel Fontanez is a 53 year old man with low back pain radiating into right lower extremity with numbness . He is S/P TLIF [place] [address] Arsh PANTOJA. On exam ,he has pain on flexion. Straight leg raising test is positive on the right. MRI Lumbar spine shows Spondylotic and degenerative disc changes of the lumbar spine are present . Postoperative changes noted at L4-5 with resolution of canal stenosis. There is moderate to severe canal stenosis at L3-4 level with crowding of both L4 nerve roots. Trial of Lumbar epidural steroid injection at L2-3 level under fluoroscopic guidance was recommended. The risks and benefits of the procedure were discussed in detail. He wishes to proceed. An appointment has been booked for the same. He needs a package delivery driver on the day of the procedure. [email or web address] Not available 02/09/2019 15:39:53 02/23/2019 02/23/2019 Arnel Fontanez is a 53 year old man with low back pain radiating into right lower extremity with numbness . He is S/P TLIF in [address] Arsh PANTOJA. On exam ,he has pain on flexion. Straight leg raising test is positive on the right. MRI Lumbar spine shows Spondylotic and degenerative disc changes of the lumbar spine are present . Postoperative changes noted at L4-5 with resolution of canal stenosis. There is moderate to severe canal stenosis at L3-4 level with crowding of both L4 nerve roots. He is here for a trial of Lumbar epidural steroid injection at L2-3 level under fluoroscopic guidance . The risks and benefits of the procedure were discussed in detail. He wishes to proceed. He needs to follow up in four weeks. [email or web address] Not available 02/24/2019 14:03:16 03/15/2019 03/15/2019 Arnel Fontanez is a 53 year old man with low back pain radiating into right lower extremity with numbness . He is S/P TLIF [place] [address] Arsh PANTOJA. On exam ,he has pain on flexion. Straight leg raising test is positive on the right. MRI Lumbar spine shows Spondylotic and degenerative disc changes of the lumbar spine are present . Postoperative changes noted at L4-5 with resolution of canal stenosis. There is moderate to severe canal stenosis at L3-4 level with crowding of both L4 nerve roots. He is here for a follow up after a trial of Lumbar epidural steroid injection at L2-3 level under fluoroscopic guidance . He reports no pain benefit. I recommend a neurosurgical evaluation with Dr. Arsh PANTOJA. He can follow up as needed. [email or web address] Not available 03/15/2019 15:19:23 Plan of Treatment Reminders Order Date Submit Date Provider Last Modified By Organization Details Last Modified Time Details Appointments None record ed. Lab None record ed. Referral None record ed. Procedures None record ed. Surgeries None record ed. Imaging None record ed. Medication Orders None record ed. Patient TargetsNo targets recorded. Patient Instructions Encounter Date Encounter Id Patient Instructions Last Modified By Organization Details Last Modified Time 02/09/2019 [id number] He was advised against bed rest lasting longer than four days and to continue activities as tolerated. [email or web address] Not available 02/09/2019 15:36:14 02/23/2019 [id number] He was advised against bed rest lasting longer than four days and to continue activities as tolerated. [email or web address] Not available 02/24/2019 14:02:41 03/15/2019 [id number] He was advised against bed rest lasting longer than four days and to continue activities as tolerated. [email or web address] Not available 03/15/2019 15:18:22 Reason for Referral None Reported. Problems Name Problem SNOMED Code Status Onset Date Resolution Date Notes Provider Name and Address Organization Details Recorded Time Lumbar post-laminecto my syndrome 808122386 Active Khloe solis MD [address] [facility] , [address], [place], [address], [place] [facility] 15:35:28 Lumbar radiculopathy 694685218 Active Khloe solis MD [address] [facility] , [address], [facility], [address], [place] [facility] 15:35:45 Spinal stenosis of lumbar region 52676193 Active Khloe solis MD [address] [facility] , [address], [facility], [address], [place] [facility] 15:35:57 Problem Notes None recorded. Procedures Surgical History Date Name Laterality Status Provider Name and Address Organization Details Recorded Time 02/24/20 19 Lumbar Epidural steroid injection under fluoroscopic guidance completed Khloe Mustafa MD [address] [facility] , [address], [place], [address], [place] [facility] 02/24/2019 14:02:03 Other completed Kerrie Ramirez [place] [facility] 02/09/2019 13:44:33 Back Surgery completed Kerrie Ramirez [place] [facility] 02/09/2019 13:45:15 Carpal tunnel release completed Kerrie Ramirez [place] [facility] 02/09/2019 13:48:55 Other completed Kerrie Ramirez [place] [facility] 02/09/2019 13:49:38 Imaging Results None recorded. Procedure Notes None recorded. Medical Equipment None Reported. Allergies Allergen ID Allergen Name Allergen Category Reaction Reaction Severity Criticality Documentation Date Start Date Code Code System Note Provider Name and Address Organization Details Recorded Time 22918 Product containin g penicilli n (product) medicatio n hives rash Not available Not available Not available 02/09/2019 98918 8001 SNOMED Kerrie cristina [place] [facility] 13:31:22 Medications Name Sig Start Date Stop Date Status Note LastModified by Organization Details LastModified Time cyclobenzap rine 10 mg tablet TAKE 1 TABLET BY MOUTH THREE TIMES A DAY FOR 14 DAYS NEEDED FOR SPASM AND SEVERE PAIN WATCH OUT FOR DROWSINES S AND SEDATION 02/09 completed Not Available Not Available Not Available atorvastati n 40 mg tablet TAKE 1 TABLET BY MOUTH EVERY DAY active Not Available Not Available No t Available amlodipine 5 mg tablet TAKE 1 TABLET BY MOUTH EVERY DAY 02/09 completed Not Available Not Available Not Available bupropion HCl 100 mg tablet TAKE 1 TABLET BY MOUTH TWO TIMES A DAY 02/09 completed Not Available Not Available Not Available amlodipine 10 mg tablet TAKE 1 TABLET BY MOUTH EVERY DAY active Not Available Not Available No t Available metoprolol tartrate 50 mg tablet TAKE 1 TABLET BY MOUTH TWO TIMES A DAY active Not Available Not Available No t Available gabapentin 300 mg capsule TAKE 1 CAPSULE BY MOUTH EVERY DAY AT BEDTIME active Not Available Not Available No t Available methylpredn isolone 4 mg tablets in a dose pack TAKE DIRECTED ON PACKAGE FOR 6 DAYS WITH FOOD 02/09 completed Not Available Not Available Not Available naproxen 500 mg tablet TAKE 1 TABLET BY MOUTH TWO TIMES A DAY NEEDED FOR SEVERE PAIN active Not Available Not Available No t Available Multi Vitamin active Not Available Not Available Not Available Adult Aspirin Regimen 81 mg tablet,stacy yed release TAKE 1 TABLET BY MOUTH EVERY DAY active Not Available Not Available No t Available Vitals Date Recorded Body height Body mass index (BMI) Body weight Heart rate Oxygen saturation Oxygen saturation in Arterial blood by Pulse oximetry Provider Name and Address Organization Details Last Updated DateTime 9 177.8 cm 25.8 kg/m2 08164.6 3 g 74 /min 98 % 98 % [facility] 9 13:30:34 Date Recorded Body height Heart rate Oxygen saturation Oxygen saturation in Arterial blood by Pulse oximetry Body mass index (BMI) Body weight Systolic blood pressure Diastolic blood pressure Provider Name and Address Organization Details Last Updated DateTime 9 177.8 cm 76 /min 98 % 98 % 25.8 kg/m2 54104.6 3 g 126 mm[Hg] 83 mm[Hg] Khloe solis MD [address] [facility] , [address], [facility] [place], [address], [place] [facility] 9 08:33:04 Date Recorded Body height Heart rate Oxygen saturation Oxygen saturation in Arterial blood by Pulse oximetry Systolic blood pressure Diastolic blood pressure Provider Name and Address Organization Details Last Updated DateTime 9 177.8 cm 88 /min 98 % 98 % 148 mm[Hg] 98 mm[Hg] Kerrie Ramirez [place] [facility] 14:42:59 Social History Question Answer Notes LastModified by Organizat ion Details LastModified Time Tobacco Smoking Status Never Smoker Quit x 3 years Not Available [employer] 04/14/2020 03:16:11 What Is Your Level Of Alcohol Consumption? Moderate [id number] Information not available 04/14/2020 Are You Currently Employed? No Disability [id number] Information not available 04/14/2020 Which Illicit Or Recreational Drugs Have You Used? No [id number] Information not available 04/14/2020 Education 12 With Some College Information not available 02/09/2019 What Is Your Occupation? [employer] [id number] Information not available 04/14/2020 Live Alone Or With Others? Alone Information not available 02/09/2019 Marital Status [email or web address] Informatio n not available 02/09/2019 How Many Years Have You Smoked Tobacco? 30 [id number] Information not available 04/14/2020 Sex: Unknown Functional Status None recorded. Mental Status None recorded. Family History Relationship Description Onset Age of this Age Resolved Age Notes LastModified by Organization Details LastModified Time Father Heart disease [email or web address] Not available 2018 13:40:11 Medical History Condition Response Arthritis Y Hypertension Y High Cholesterol Y Past Encounters Encounter ID Performer Location Encounter Start Date Encounter Closed Date Diagnosis/Indication Diagnosis SNOMED-CT Code Diagnosis ICD10 Code Diagnosis Note [id number] Khloe Mustafa MD PAIN OFFICE [address] [place] [address] 02/09/2019 13:27:26 02/09/2019 15:40:29 Lumbar post-laminectomy syndrome 976920088 M96.1 Lumbar radiculopathy 128 693561 M54.16 Spinal jhonatan nosis of lumbar region 35481900 M48.061 [id number] Khloe Mustafa MD PAIN OFFICE [address] [place] [address] 02/23/2019 08:13:31 02/24/2019 14:07:59 Lumbar post-laminectomy syndrome 298595277 M96.1 Lumbar radiculopathy 128 916726 M54.16 Spinal jhonatan nosis of lumbar region 33843953 M48.061 [id number] Khloe Mustafa MD PAIN OFFICE [address] [place] [address] [place] [address] 03/15/2019 14:18:43 03/15/2019 15:19:54 Lumbar post-laminectomy syndrome 445574901 M96.1 Lumbar radiculopathy 128 154007 M54.16 Spinal jhonatan nosis of lumbar region 85731939 M48.061 Health Concerns Section Related Observation LastModified by Organization Detai ls LastModified Time None Recorded Concern Status LastModified by Organization Details LastModified Time None Recorded Advance Directives Directive None Recorded Payers Encounter Date Sequence Insurance Name Policy Number Policy Griffith Covered Member ID Griffith Member ID Guarantor Name 02/09/2019 2 [place] [facility] Arnel Fontanez [id number] Arnel Fontanez 02/09/2019 1 [place]IC[place] B-[place] [facility] Arnel Fontanez [id number] Arnel Fontanez 02/23/2019 2 [place] [facility] Arnel Fontanez [id number] Arnel Fontanez 02/23/2019 1 [place] [facility] Arnel Fontanez [id number] Arnel Fontanez 03/15/2019 2 [place] [facility] Arnel Fontanez [id number] Arnel Fontanez 03/15/2019 1 [place] [facility] Arnle Fontanez [id number] Arnel Fontanez Notes Date Note Type Note Provider Name and Address Organization Details Recorded Time 02/09/2019 text/html Arnel Fontanez is a 53 year old man with complaints of low back pain radiating into right lower extremity. The pain started about 6 months ago. He states he has been having low back pain for the past 20 years. He is S/P back surgery TLIF with Dr. Arsh Pantoja in 2017 and reports some pain benefit with recent return of pain. He started to have severe pain radiating into right lower extremity. He describes the pain as a shooting pain , sharp from his right buttock region to the right leg with numbness, tingling and weakness in his right lower extremity. Current pain level is 5-10/10. Pain is aggravated by standing and walking . Pain is relieved a little with application of heat. Pain interferes with sleep. He has no history of bladder or bowel incontinence.MRI Lumbar spine shows Spondylotic and degenerative disc changes of the lumbar spine are present . Postoperative changes noted at L4-5 with resolution of canal stenosis. There is moderate to severe canal stenosis at L3-4 level with crowding of both L4 nerve roots.He has trialed physical therapy at [facility] and [facility] with no pain benefit. He had a Lumbar epidural steroid injection under fluoroscopic guidance at [facility] prior to his back surgery and had some pain benefit. Khloe Mustafa MD [address] [facility] , [address], [place], [address], [employer] [facility] 02/10/2019 09:59:22 02/23/2019 text/html He is here today for a lumbar epidural steroid injection under fluoroscopic guidance. Khloe Mustafa MD [address] [facility] , [address], [place], [address], [place] [facility] 02/24/2019 14:29:58 03/15/2019 text/html He is here for a follow up after a lumbar epidural steroid injection under fluoroscopic guidance. He reports no pain benefit. He has seen Dr. Pantoja in the past and is S/P TLIF at L4-5 level. He has severe canal stenosis at L3-4 level . He states he is having low back pain radiating into both lower extremities with numbness and weakness. He has no history of bladder or bowel incontinence. He had physical therapy at [facility] and [facility] which aggravated his pain. He has taken percocet in the past which has helped relieve his pain. Khloe Mustafa MD [address] , [address], [place], [address], [employer] [facility] [facility] 03/16/2019 17:11:00
--- OUTSIDE RECORDS SUMMARY | 2024-08-18 08:55 | XMS_ITS | Encounter Summary ---
Author Organization [facility], Address [address] [place] [address] Phone Care Team Providers Care Cemetery Workers Supervisor Name Role Phone Gigi Fraser MD Primary Care Provider [phone] Encounter Details Date Type Department Care Team (Late st Contact Info) Description 10/23/2023 Documentation Only [facility] [address] [place] [address] Bola Rdoriguez DO [address] [facility] [place] [address] Social History Tobacco Use Types [...] Visit [facility] [address] [address] Bola Rodriguez DO [address] [facility] [place] [address] documented as of this encounter Visit Diagnoses Not on filedocumented in this encounter Care Teams Cemetery Workers Supervisor Relationship Specialty Start Date End Date Gigi Fraser MD [address] [place] [address] PCP - General Internal Medicine 07/16/23 documented as of this encounter
[2024-08-18 09:05] VITALS: BP 120/80; PULSE 90; O2SAT 100; BMI 20.4
== END 2024-08-18 09:53 | disposition home or self-care (01) ==
PROVIDERS: PCP Internal Medicine; Visit Provider Internal Medicine Rheumatology
DX: M06.09 Rheumatoid arthritis without rheumatoid factor, multiple sites (principal); M54.50 Low back pain, unspecified; M25.551 Pain in right hip; Z79.899 Other long term (current) drug therapy; M18.0 Bilateral primary osteoarthritis of first carpometacarpal joints
CPT/HCPCS: 20600; 99215

== ENCOUNTER 2024-08-18 08:50 | Outpatient (REF) | payer OTHER, SELFPAY ==
--- OUTSIDE RECORDS SUMMARY | 2024-08-18 10:22 | XMS_ITS | Encounter Summary ---
Author Organization [facility] Address [address] [place] [address] Phone Care Team Providers Care Dye Maker Name Role Phone Gigi Fraser MD Primary Care Provider Encounter Details Date Type Department Care Team (Late Contact Info) Description 07/30/2024 Orders Only [facility] [address] [place] [address] Bola Rodriguez DO [address] [facility] [place] [address] Acute tubulo-interstitial nephritis; Other acute [...] Visit [facility] [address] [place] [address] Bola Rodriguez DO [address] [facility] [place] [address] documented as of this encounter Visit Diagnoses Diagnosis Acute tubulo-interstitial nephritis Other acute kidney failure (HCC) Hypertension Stage 3a chronic kidney disease (HCC) documented in this encounter Care Teams Dye Maker Relationship Specialty Start Date End Date Gigi Fraser MD [address] [place] [address] PCP - General Internal Medicine 07/16/23 documented as of this encounter
--- OUTSIDE RECORDS SUMMARY | 2024-08-18 10:22 | XMS_ITS | Encounter Summary ---
Author Organization [facility] Address [address] [place] [address] Phone Care Team Providers Care Roller Turner Name Role Phone Gigi Fraser MD Primary Care Provider [phone] Encounter Details Date Type Department Care Team (Late Contact Info) Description 06/04/2024 Orders Only [facility] [address] [place] [address] Bola Rodriguez DO [address] [place] [address] Acute tubulo-interstitial nephritis; Other acute [...] Visit [facility] [address] [place] [address] Bola Rodriguez DO [address] [place] [address] documented as of this encounter Visit Diagnoses Diagnosis Acute tubulo-interstitial nephritis Other acute kidney failure (HCC) Hypertension Stage 3a chronic kidney disease (HCC) documented in this encounter Care Teams Roller Turner Relationship Specialty Start Date End Date Gigi Fraser MD [address] [place] [address] PCP - General Internal Medicine 07/16/23 documented as of this encounter
--- OUTSIDE RECORDS SUMMARY | 2024-08-18 10:23 | XMS_ITS | Encounter Summary ---
Author Organization [facility], Address [address] [place] [address] Phone Care Team Providers Care Compliance Representative Name Role Phone Gigi Fraser MD Primary Care Provider [phone] Encounter Details Date Type Department Care Team (Late st Contact Info) Description 07/19/2023 Documentation Only [facility] [address] [place] [address] Bola Rodriguez DO [address] [facility] [place] [address] Social History Tobacco Use Types [...] Visit [facility] [address] [place] [address] Bola Rodriguez DO [address] [facility] [place] [address] documented as of this encounter Visit Diagnoses Not on filedocumented in this encounter Care Teams Compliance Representative Relationship Specialty Start Date End Date Gigi Fraser MD [address] [place] [address] PCP - General Internal Medicine 07/16/23 documented as of this encounter
--- OUTSIDE RECORDS SUMMARY | 2024-08-18 10:23 | XMS_ITS | Encounter Summary ---
Author Organization [facility], Address [address] [place] [address] Phone Care Team Providers Care Procurement Intern Name Role Phone Gigi Fraser MD Primary Care Provider [phone] Encounter Details Date Type Department Care Team (Late st Contact Info) Description 11/05/2023 Documentation Only [facility] [address] [place] [address] Bola Rodriguez DO [address] [facility] [place] [address] Social History Tobacco Use Types [...] Visit [facility] [address] [place] [address] Bola Rodriguez DO [address] [facility] [place] [address] documented as of this encounter Visit Diagnoses Not on filedocumented in this encounter Care Teams Procurement Intern Relationship Specialty Start Date End Date Gigi Fraser MD [address] [place] [address] PCP - General Internal Medicine 07/16/23 documented as of this encounter
--- OUTSIDE RECORDS SUMMARY | 2024-08-18 10:23 | XMS_ITS | Encounter Summary ---
Author Organization [facility] Address [address] [place] [address] Phone Care Team Providers Care Mellowing Machine Operator Name Role Phone Gigi Fraser MD Primary Care Provider [phone] Encounter Details Date Type Department Care Team (Late Contact Info) Description 07/02/2024 Orders Only [facility] [address] [place] [place] [address] Bola Rodriguez DO [address] [facility] [place] [address] Acute tubulo-interstitial nephritis; Other acute [...] Visit [facility] [address] [place] [address] Bola Rodriguez DO [address] [facility] [place] [address] documented as of this encounter Visit Diagnoses Diagnosis Acute tubulo-interstitial nephritis Other acute kidney failure (HCC) Hypertension Stage 3a chronic kidney disease (HCC) documented in this encounter Care Teams Mellowing Machine Operator Relationship Specialty Start Date End Date Gigi Fraser MD [address] [place] [address] PCP - General Internal Medicine 07/16/23 documented as of this encounter
--- OUTSIDE RECORDS SUMMARY | 2024-08-18 10:23 | XMS_ITS | Encounter Summary ---
Author Organization [facility] [place], Address [address] [place] [address] Phone Care Team Providers Care Secretarial Stenographer Name Role Phone Gigi Fraser MD Primary Care Provider [phone] Encounter Details Date Type Department Care Team (Late st Contact Info) Description 09/17/2023 Documentation Only [facility] [address] [place] [address] Bola Rodriguez DO [address] [facility] [place] [address] Social History Tobacco Use Types [...] Visit [facility] [address] [place] [address] Bola Rodriguez DO [address] [facility] [place] [address] documented as of this encounter Visit Diagnoses Not on filedocumented in this encounter Care Teams Secretarial Stenographer Relationship Specialty Start Date End Date Gigi Fraser MD [address] [place] [address] PCP - General Internal Medicine 07/16/23 documented as of this encounter
--- OUTSIDE RECORDS SUMMARY | 2024-08-18 10:23 | XMS_ITS | Clinical Summary ---
Author Organization [facility], Address [address] [place] [address] Phone Care Team Providers Care Lime Slaker Name Role Phone Gigi Fraser MD Primary Care Provider [phone] Allergies Active Allergy Reactions Criticality Noted Date [...] Only [facility] [address] [place] [address] Bola Rodriguez DO Acute tubulo-interstitial nephritis; Other acute kidney failure (HCC); Hypertension; Stage 3a chronic kidney disease (HCC) 07/16/2024 Orders Only [facility] [address] [place] [address] Bola Rodriguez DO Acute tubulo-interstitial nephritis; Hypokalemia; Hypertension; Stage 3a chronic kidney disease (HCC) 07/02/2024 Orders Only [facility] [address] [place] [address] Bola Rodriguez DO Acute tubulo-interstitial nephritis; Other acute kidney failure (HCC); Hypertension; Stage 3a chronic kidney disease (HCC) 06/04/2024 Orders Only [facility] Of [address] [place] [address] Bola Rodriguez DO Acute tubulo-interstitial nephritis; Other acute kidney failure (HCC); Hypertension; Stage 3a chronic kidney disease (HCC) 05/21/2024 Orders Only [facility] [address] [place] [address] Bola Rodriguez DO Acute tubulo-interstitial nephritis; Hypokalemia; [...] Visit [facility] [place], [address] [place] [address] Bola Rodriguez, [address] [place] [address] Health Maintenance Due Date Last Done Comments [...] None seen 0 - 5 /hpf [facility] RBC, Urine None seen 0 - 2 /hpf [facility] Squamous Epithelial, Urine None seen 0 - 10 /hpf [facility] Casts None seen None seen /lpf [facility] Bacteria, Urine None seen None seen/Few [facility] 07/25/2024 9:54 AM EST 07/25/2024 Bola Rodriguez DO LAB MICROBIOLOGY - GENERAL ORDAlistair CHAVES Final Result [facility] [address] [place] [address] * Urine Protein / creatinine ratio (07/25/2024 9:54 AM EST) Creatinine, Ur 172.5 Not Estab. mg/dL [facility] Protein, Ur 15.1 Not Estab. mg/dL [facility] Urine Protein/Creatin ine Ratio 88 0 - 200 mg/g creat [facility] Urine (Urine, Clean Catch) 07/25/2024 9:54 AM EST 07/25/2024 Bola Rodriguez DO LAB URINE ORDERABLES Final Resu lt [facility] [address] [place] [address] * Urinalysis with microscopic (07/25/2024 9:54 AM EST) Specific [place], Urine 1.019 1.005 - 1.030 [facility] [phone] pH Urine 7.0 5.0 - 7.5 [facility] [phone] Color, Urine Yellow Yellow [facility] Appearance Urine Clear Clear [facility] WBC Esterase Urine Negative Negative [facility] Protein, Ur Trace Negative/Tra ce [facility] Glucose, Ur Negative Negative [facility] Ketones, Urine Negative Negative [facility] Blood Urine Negative Negative [facility] [phone] Bilirubin Urine Negative Negative [facility] Urobilinogen Urine 0.2 0.2 - 1.0 mg/dL [facility] Nitrite, Urine Negative Negative [facility] Microscopic Examination Comment [facility] Comment:Microscopic follows if indicated. Other Microsc. Observations See below: [facility] Comment:Microscopic was cely cated and was performed. Urine (Urine, Clean Catch) 07/25/2024 9:54 AM EST 07/25/2024 Bola Rodriguez LAB URINE ORDERABLES Final Resu lt [facility] [address] [place] [address] * Sedimentation Rate (07/25/2024 9:54 AM EST) Sed Rate 14 0 - 30 mm/hr [facility] Blood (Blood, Venous) 07/25/2024 9:54 AM EST 07/25/2024 Bola Rodriguez LAB BLOOD ORDERABLES Final Resu lt Performing Organization Address City/[facility]/ZIP Co de Phone Number [facility] [address] [place] [address] * Magnesium (07/25/2024 9:54 AM EST) Pathologist [facility] Magnesium 2.1 1.6 - 2.3 mg/dL [facility] Blood (Blood, Venous) 07/25/2024 9:54 AM EST [facility]LOOD ORDER[facility]LES Final Resu lt Performing Organization Address City/[facility] Co de Phone Number [facility] [address] [place] [address] * (ABNORMAL) Renal Function Panel (07/25/2024 9:54 AM EST) Pathologist [facility] Glucose 90 70 - 99 mg/dL [facility] BUN 18 8 - 27 mg/dL [facility] Creatinine 1.93(H) 0.76 - 1.27 mg/dL [facility] eGFR CKD-EPI CR 2020 39(L) >59 mL/min/1.7 3 [facility] BUN/Creatinine Ratio 9(L) 10 - 24 [facility] Sodium 137 134 - 144 mmol/L [facility] Potassium 4.3 3.5 - 5.2 mmol/L [facility] Bicarbonate (CO2) 24 20 - 29 mmol/L [facility] Calcium 11.0(H) 8.6 - 10.2 mg/dL [facility] Comment:Verified by repeat analysis Phosphorus 3.4 2.8 - 4.1 mg/dL [facility] Albumin 5.1(H) 3.8 - 4.9 g/dL [facility] Chloride 98 96 - 106 mmol/L [facility] Blood (Blood, Venous) 07/25/2024 9:54 AM EST 07/25/2024 us Bola Rodriguez DO LAB BLOOD ORDERABLES Final Resu lt [facility] [address] [place] [address] from Last 3 Months Insurance [employer] DUAL 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 [place], [place] [phone] PCP - General Internal Medicine 07/16/23
--- OUTSIDE RECORDS SUMMARY | 2024-08-18 10:23 | XMS_ITS | Encounter Summary ---
Author Organization [facility] [place], Address [address] [place] [address] Phone Care Team Providers Care Infection Prevention Coordinator Name Role Phone Gigi Fraser MD Primary Care Provider [phone] Encounter Details Date Type Department Care Team (Late st Contact Info) Description 07/16/2023 Documentation Only [facility] [address] [place] [address] [place], [place] [address] [place] [address] Social History Tobacco Use Types [...] Visit [facility] [address] [place] [address] Bola Rodriguez DO [address] [place] [address] [place] [address] documented as of this encounter Visit Diagnoses Not on filedocumented in this encounter Care Teams Infection Prevention Coordinator Relationship Specialty Start Date End Date Gigi Fraser MD [address] [place] [address] PCP - General Internal Medicine 07/16/23 documented as of this encounter
--- OUTSIDE RECORDS SUMMARY | 2024-08-18 10:23 | XMS_ITS | Encounter Summary ---
Author Organization [facility] [place], Address [address] [place] [address] Phone Care Team Providers Care Hiv Prevention Specialist Name Role Phone Gigi Fraser MD Primary Care Provider [phone] Encounter Details Date Type Department Care Team (Late st Contact Info) Description 10/15/2023 Documentation Only [facility] [address] [place] [place] [address] [place] [address] [place] [address] Social History Tobacco Use Types [...] Visit [facility] [address] [place] [address] Bola Rodriguez DO [address] [place] [address] [place] [address] documented as of this encounter Visit Diagnoses Not on filedocumented in this encounter Care Teams Hiv Prevention Specialist Relationship Specialty Start Date End Date Gigi Fraser MD [address] [place] [address] PCP - General Internal Medicine 07/16/23 documented as of this encounter
--- OUTSIDE RECORDS SUMMARY | 2024-08-18 10:23 | XMS_ITS | Encounter Summary ---
Author Organization [facility] [place], Address [address] [place] [address] Phone Care Team Providers Care Research Nurse Practitioner Name Role Phone Gigi Fraser MD Primary Care Provider [phone] Encounter Details Date Type Department Care Team (Late st Contact Info) Description 07/16/2023 Documentation Only [facility] Of [address] [place] [address] [place] [address] [place] [address] Social History Tobacco Use Types [...] Visit [facility] [address] [place] [address] Bola Rodriguez DO [address] [place] [address] [place] [address] documented as of this encounter Visit Diagnoses Not on filedocumented in this encounter Care Teams Research Nurse Practitioner Relationship Specialty Start Date End Date Gigi Fraser MD [address] [place] [address] PCP - General Internal Medicine 07/16/23 documented as of this encounter
--- OUTSIDE RECORDS SUMMARY | 2024-08-18 10:23 | XMS_ITS | Encounter Summary ---
Author Organization [facility] [place], Address [address] [place] [address] Phone Care Team Providers Care Subway Operator Name Role Phone Gigi Fraser MD Primary Care Provider [phone] Encounter Details Date Type Department Care Team (Late st Contact Info) Description 09/17/2023 Documentation Only [facility] Of [address] [place] [address] Bola Rodriguez DO [address] [place] [address] Social History Tobacco Use Types [...] Visit [facility] [address] [place] [address] Bola Rodriguez DO [address] [place] [address] documented as of this encounter Visit Diagnoses Not on filedocumented in this encounter Care Teams Subway Operator Relationship Specialty Start Date End Date Gigi Fraser MD [address] [place] [address] PCP - General Internal Medicine 07/16/23 documented as of this encounter
--- OUTSIDE RECORDS SUMMARY | 2024-08-18 10:23 | XMS_ITS | Encounter Summary ---
Author Organization [facility] [place], Address [address] [place] [address] Phone Care Team Providers Care Fresh Work Inspector Name Role Phone Gigi Fraser MD Primary Care Provider [phone] Encounter Details Date Type Department Care Team (Late st Contact Info) Description 07/16/2023 Documentation Only [facility] Of [address] [place] [address] [place], [place] [address] [place] [address] Social History Tobacco Use Types [...] Visit [facility] [address] [place] [address] Bola Rodriguez DO [address] [place] [address] [place] [address] documented as of this encounter Visit Diagnoses Not on filedocumented in this encounter Care Teams Fresh Work Inspector Relationship Specialty Start Date End Date Gigi Fraser MD [address] [place] [address] PCP - General Internal Medicine 07/16/23 documented as of this encounter
--- OUTSIDE RECORDS SUMMARY | 2024-08-18 10:23 | XMS_ITS | Encounter Summary ---
Author Organization [facility] Address [address] [place] [address] Phone Care Team Providers Care Environmental Health And Safety Intern Name Role Phone Gigi Fraser MD Primary Care Provider [phone] Encounter Details Date Type Department Care Team (Late st Contact Info) Description 07/16/2024 Orders Only [facility] [address] [place] [address] Bola Rodriguez DO [address] [place] [address] Acute tubulo-interstitial nephritis; Hypokalemia; Hypertension; [...] And [facility] [address] [place] [address] Bola Rodriguez DO [address] [place] [address] documented as of this encounter Procedures [...] None seen 0 - 5 /hpf [facility] RBC, Urine None seen 0 - 2 /hpf [facility] Squamous Epithelial, Urine None seen 0 - 10 /hpf [facility] Casts None seen None seen /lpf [facility] Bacteria, Urine None seen None seen/Few [facility] 07/25/2024 9:54 AM EST 07/25/2024 Bola Rodriguez DO LAB MICROBIOLOGY - GENERAL ORDE ANASTACIO Final Result [facility] [address] [place] [address] * Urinalysis with microscopic (07/25/2024 9:54 AM EST) Specific [place], Urine 1.019 1.005 - 1.030 [facility] [phone] pH Urine 7.0 5.0 - 7.5 [facility] Color, Urine Yellow Yellow [facility] Appearance Urine Clear Clear [facility] WBC Esterase Urine Negative Negative [facility] Protein, Ur Trace Negative/Tra ce [facility] Glucose, Ur Negative Negative [facility] Ketones, Urine Negative Negative [facility] [phone] Blood Urine Negative Negative [facility] Bilirubin Urine Negative Negative [facility] Urobilinogen Urine 0.2 0.2 - 1.0 mg/dL [facility] Nitrite, Urine Negative Negative [facility] Microscopic Examination Comment [facility] [phone] Comment:Microscopic follows if indicated. Other Microsc. Observations See below: [facility] Comment:Microscopic was cely cated and was performed. Urine (Urine, Clean Catch) 07/25/2024 9:54 AM EST 07/25/2024 us Bola Rodriguez DO LAB URINE ORDERABLES Final Resu lt [facility] [address] [place] [address] * Sedimentation Rate (07/25/2024 9:54 AM EST) Sed Rate 14 0 - 30 mm/hr [facility] Blood (Blood, Venous) 07/25/2024 9:54 AM EST 07/25/2024 us Bola Rodriguez DO LAB BLOOD ORDERABLES Final Resu lt Performing Organization Address City/[facility]/ZIP Co de Phone Number [facility] [address] [place] [address] * Urine Protein / creatinine ratio (07/25/2024 9:54 AM EST) Pathologist [facility] Creatinine, Ur 172.5 Not Estab. mg/dL [facility] Protein, Ur 15.1 Not Estab. mg/dL [facility] Urine Protein/Creatin ine Ratio 88 0 - 200 mg/g creat [facility] Urine (Urine, Clean Catch) 07/25/2024 9:54 AM EST 07/25/2024 us Bola Rodriguez DO LAB URINE ORDERABLES Final Resu lt Performing Organization Address [facility] de Phone Number [facility] [address] [place] [address] * Magnesium (07/25/2024 9:54 AM EST) Pathologist [facility] Magnesium 2.1 1.6 - 2.3 mg/dL [facility] Blood (Blood, Venous) 07/25/2024 9:54 AM EST 07/25/2024 Bola Rodriguez DO LAB BLOOD ORDERABLES Final Resu lt Performing Organization Address [facility]/ZIP Co de Phone Number [facility] [address] [place] [address] * (ABNORMAL) Renal Function Panel (07/25/2024 9:54 AM EST) Glucose 90 70 - 99 mg/dL [facility] BUN 18 8 - 27 mg/dL [facility] Creatinine 1.93(H) 0.76 - 1.27 mg/dL [facility] eGFR CKD-EPI CR 2020 39(L) >59 mL/min/1.7 3 [facility] BUN/Creatinine Ratio 9(L) 10 - 24 [facility] Sodium 137 134 - 144 mmol/L [facility] Potassium 4.3 3.5 - 5.2 mmol/L [facility] Bicarbonate (CO2) 24 20 - 29 mmol/L [facility] Calcium 11.0(H) 8.6 - 10.2 mg/dL [facility] Comment:Verified by repeat analysis Phosphorus 3.4 2.8 - 4.1 mg/dL [facility] Albumin 5.1(H) 3.8 - 4.9 g/dL [facility] Chloride 98 96 - 106 mmol/L [facility] Blood (Blood, Venous) 07/25/2024 9:54 AM EST 07/25/2024 Bola Rodriguez DO LAB BLOOD ORDERABLES Final Resu lt [facility] [address] [place] [address] documented in this encounter Visit Diagnoses Diagnosis Acute tubulo-interstitial nephritis Hypokalemia Hypertension Stage 3a chronic kidney disease (HCC) documented in this encounter Care Teams Environmental Health And Safety Intern Relationship Specialty Start Date End Date Gigi Fraser MD [address] [place] [address] PCP - General Internal Medicine 07/16/23 documented as of this encounter
--- OUTSIDE RECORDS SUMMARY | 2024-08-18 10:23 | XMS_ITS | Encounter Summary ---
Author Organization [facility] [place], Address [address] [place] [address] Phone Care Team Providers Care Journeyman Operator Assistant Name Role Phone Gigi Fraser MD Primary Care Provider [phone] Encounter Details Date Type Department Care Team (Late st Contact Info) Description 07/16/2023 Documentation Only [facility] Of [address] [place] [address] [place], [place] [address] [place] [address] Social History Tobacco Use Types [...] [facility] [address] [place] [address] Bola Rodriguez DO [address] [place] [address] [place] [address] documented as of this encounter Visit Diagnoses Not on filedocumented in this encounter Care Teams Journeyman Operator Assistant Relationship Specialty Start Date End Date Gigi Fraser MD [address] [place] [address] PCP - General Internal Medicine 07/16/23 documented as of this encounter
--- OUTSIDE RECORDS SUMMARY | 2024-08-18 10:23 | XMS_ITS | Encounter Summary ---
Author Organization [facility] [place], Address [address] [place] [address] Phone Care Team Providers Care Table Inspector Name Role Phone Gigi Fraser MD Primary Care Provider [phone] Encounter Details Date Type Department Care Team (Late st Contact Info) Description 09/17/2023 Documentation Only [facility] Of [address] [place] [address] Bola Rodriguez DO [address] [address] [place] [address] Social History Tobacco Use Types [...] Visit [facility] [address] [place] [place] [address] Bola Rodriguez DO [address] [place] [address] documented as of this encounter Visit Diagnoses Not on filedocumented in this encounter Care Teams Table Inspector Relationship Specialty Start Date End Date Gigi Fraser MD [address] [place] [address] PCP - General Internal Medicine 07/16/23 documented as of this encounter
--- OUTSIDE RECORDS SUMMARY | 2024-08-18 10:23 | XMS_ITS | Encounter Summary ---
Author Organization [facility] Address [address] [place] [address] Phone Care Team Providers Care Merchandise Marker Name Role Phone Gigi Fraser MD Primary Care Provider [phone] Encounter Details Date Type Department Care Team (Late st Contact Info) Description 09/29/2023 Documentation Only [facility] Of [address] [place] [address] Bola Rodriguez DO [address] [facility] [place] [address] Social History Tobacco Use Types [...] [facility] [address] [place] [address] Bola Rodriguez DO [address] [facility] [place] [address] Pending Results Name Type Priority [...] PM EDT Performed at: ??01 - [facility] [address] ??[id number] Daytime Caregiver: Sara Ruiz MD, Phone: ??[phone] us Bola Rodriguez DO LAB MICROBIOLOGY - [...] 4:07 PM EDT Performed at: ??01 - [facility] ??[id number] Daytime Caregiver: Sara Ruiz MD, Phone: ??[phone] us Bola Rodriguez DO LAB URINE ORDERABLES Final Resu lt Performing Organization Address [facility] Co de Phone Number [facility] * (ABNORMAL) Urinalysis with microscopic (10/03/2023 9:02 AM EDT) Specific [place], Urine 1.008 1.005 - 1.030 [facility] pH [...] PM EDT Performed at: ??01 - [facility] [address] ??[id number] Daytime Caregiver: Sara Ruiz MD, Phone: ??[phone] Bola Rodriguez DO LAB URINE ORDERABLES Final [...] PM EDT Performed at: ??01 - [facility] [address] ??[id number] Daytime Caregiver: Sara Ruiz MD, Phone: ??[phone] Bola Rodriguez DO LAB BLOOD ORDERABLES Final [...] PM EDT Performed at: ??01 - [facility] [address] ??[id number] Daytime Caregiver: Sara Ruiz MD, Phone: ??[phone] us Bola Rodriguez DO LAB BLOOD ORDERABLES Final Resu lt Performing Organization Address [facility] Co de Phone Number [facility] * [...] up testing of positive sera with both WY-3 and MPO-ANCA enzyme immunoassays. As many as [...] PM EDT Performed at: ??02 - [facility] [address] ??[id number] Daytime Caregiver: Rios Dolan MD, Phone: ??[phone] Bola Rodriguez DO LAB BLOOD ORDERABLES Final Resu lt Performing Organization Address [facility] Co de Phone Number [facility] documented in this encounter Visit Diagnoses Diagnosis Other acute kidney failure (HCC)- Primary documented in this encounter Care Teams Merchandise Marker Relationship Specialty Start Date End Date Gigi Fraser MD [address] [place] [address] PCP - General Internal Medicine 07/16/23 documented as of this encounter
--- OUTSIDE RECORDS SUMMARY | 2024-08-18 10:23 | XMS_ITS | Encounter Summary ---
Author Organization [facility] [place], Address [address] [place] [address] Phone Care Team Providers Care Recording Artist Name Role Phone Gigi Fraser MD Primary Care Provider [phone] Encounter Details Date Type Department Care Team (Late st Contact Info) Description 10/23/2023 Documentation Only [facility] Of [address] [place] [address] Bola Rodriguez DO [address] [facility] [address] [place] [address] Social History Tobacco Use Types [...] Visit [facility] Of [facility] [address] [address] Bola Rodriguez DO [address] [place] [address] documented as of this encounter Visit Diagnoses Not on filedocumented in this encounter Care Teams Recording Artist Relationship Specialty Start Date End Date Gigi Fraser MD [address] [place] [address] PCP - General Internal Medicine 07/16/23 documented as of this encounter
--- OUTSIDE RECORDS SUMMARY | 2024-08-18 10:24 | XMS_ITS | Encounter Summary ---
Author Organization [facility] Address [address] [place] [address] Phone Care Team Providers Care Guest Services Name Role Phone Gigi Fraser MD Primary Care Provider [phone] Encounter Details Date Type Department Care Team (Late st Contact Info) Description 05/21/2024 Orders Only [facility] Of [address] [place] [address] Bola Rodriguez DO [address] [facility] [place] [address] Acute tubulo-interstitial nephritis; Hypokalemia; Hypertension; [...] Visit [facility] [address] [place] [address] Bola Rodriguez DO [address] [facility] [place] [address] documented as of this encounter Visit Diagnoses Diagnosis Acute tubulo-interstitial nephritis Hypokalemia Hypertension Stage 3a chronic kidney disease (HCC) documented in this encounter Care Teams Guest Services Relationship Specialty Start Date End Date Gigi Fraser MD [address] [place] [address] PCP - General Internal Medicine 07/16/23 documented as of this encounter
--- OUTSIDE RECORDS SUMMARY | 2024-08-18 10:24 | XMS_ITS | Encounter Summary ---
Author Organization [facility] Address [address] [place] [address] Phone Care Team Providers Care Ward Service Supervisor Name Role Phone Gigi Fraser MD Primary Care Provider [phone] Encounter Details Date Type Department Care Team (Late Contact Info) Description 04/09/2024 Orders Only [facility] [address] [place] [address] Bola Rodriguez DO [address] [place] [address] Acute tubulo-interstitial nephritis; Other acute [...] Visit [facility] [address] [place] [address] Bola Rodriguez DO [address] [place] [address] documented as of this encounter Visit Diagnoses Diagnosis Acute tubulo-interstitial nephritis Other acute kidney failure (HCC) Hypertension Stage 3a chronic kidney disease (HCC) documented in this encounter Care Teams Ward Service Supervisor Relationship Specialty Start Date End Date Gigi Fraser MD [address] [place] [address] PCP - General Internal Medicine 07/16/23 documented as of this encounter
--- OUTSIDE RECORDS SUMMARY | 2024-08-18 10:24 | XMS_ITS | Encounter Summary ---
Author Organization [facility] [place] Address [address] [place] [address] Phone Care Team Providers Care Supervisor Name Role Phone Gigi Fraser MD Primary Care Provider [phone] Encounter Details Date Type Department Care Team (Late st Contact Info) Description 10/09/2023 Documentation Only [facility] [address] [place] [address] Bola Rodriguez DO [address] [facility] [place] [address] Social History Tobacco Use Types [...] Visit [facility] [address] [place] [address] Bola Rodriguez DO [address] [facility] [place] [address] documented as of this encounter Visit Diagnoses Not on filedocumented in this encounter Care Teams Supervisor Relationship Specialty Start Date End Date Gigi Fraser MD [address] [place] [address] PCP - General Internal Medicine 07/16/23 documented as of this encounter
--- OUTSIDE RECORDS SUMMARY | 2024-08-18 10:24 | XMS_ITS | Encounter Summary ---
Author Organization [facility] Address [address] [place] [address] Phone Care Team Providers Care Machine Turner Name Role Phone Gigi Fraser MD Primary Care Provider [phone] Encounter Details Date Type Department Care Team (Late Contact Info) Description 05/07/2024 Orders Only [facility] [address] [place] [address] Bola Rodriguez DO [address] [place] [address] Acute tubulo-interstitial nephritis; Other acute [...] Of [facility] [address] [place] [address] Bola Rodriguez DO [address] [place] [address] documented as of this encounter Visit Diagnoses Diagnosis Acute tubulo-interstitial nephritis Other acute kidney failure (HCC) Hypertension Stage 3a chronic kidney disease (HCC) documented in this encounter Care Teams Machine Turner Relationship Specialty Start Date End Date Gigi Fraser MD [address] [place] [address] PCP - General Internal Medicine 07/16/23 documented as of this encounter
--- OUTSIDE RECORDS SUMMARY | 2024-08-18 10:24 | XMS_ITS | Encounter Summary ---
Author Organization [facility] Address [address] [place] [address] Phone Care Team Providers Care Instant Powder Supervisor Name Role Phone Gigi Fraser MD Primary Care Provider [phone] Encounter Details Date Type Department Care Team (Late Contact Info) Description 01/16/2024 Orders Only [facility] [address] [place] [address] Bola Rodriguez DO [address] [facility] [place] [address] Acute tubulo-interstitial nephritis; Other acute [...] Visit [facility] [address] [place] [address] Bola Rodriguez DO [address] [place] [address] documented as of this encounter [...] Urine 0-5 0 - 5 /hpf [facility] RBC, Urine None seen 0 - 2 /hpf [facility] Squamous Epithelial, Urine None seen 0 - 10 /hpf [facility] Casts None seen None seen /lpf [facility] Bacteria, Urine None seen None seen/Few [facility] 01/25/2024 8:41 AM EDT 01/25/2024 us Bola Rodriguez DO LAB MICROBIOLOGY - GENERAL ORDAlistair CHAVES Final Result [facility] [address] [place] [address] * (ABNORMAL) Urine Protein / creatinine ratio (01/25/2024 8:41 AM EDT) Creatinine, Ur 38.1 Not Estab. mg/dL [facility] Protein, Ur 46.1 Not Estab. mg/dL [facility] Urine Protein/Creati nine Ratio 1,210(H) 0 - 200 mg/g creat [facility] Urine (Urine, Clean Catch) 01/25/2024 8:41 AM EDT 01/25/2024 us Bola Rodriguez DO LAB URINE ORDERABLES Final Resu lt [facility] [address] [place] [address] * (ABNORMAL) Urinalysis with microscopic (01/25/2024 8:41 AM EDT) Pathologist [facility] Specific [place], Urine 1.008 1.005 - 1.030 [facility] pH Urine 7.0 5.0 - 7.5 [facility] [phone] Color, Urine Yellow Yellow [facility] Appearance Urine Clear Clear [facility] WBC Esterase Urine Trace(A) Negative [facility] [phone] Protein, Ur 2+(A) Negative/Tr elissa [facility] Glucose, Ur Negative Negative [facility] [phone] Ketones, Urine Negative Negative [facility] Blood Urine 3+(A) Negative [facility] [phone] Bilirubin Urine Negative Negative [facility] Urobilinogen Urine 0.2 0.2 - 1.0 mg/dL [facility] Nitrite, Urine Positive(A) Negative [facility] Microscopic Examination See below: [facility] Comment:Microscopic was cely cated and was performed. Urine (Urine, Clean Catch) 01/25/2024 8:41 AM EDT 01/25/2024 [facility] LAB URINE ORDERABLES Final Resu lt Performing Organization Address City/[facility] Co de Phone Number [facility] [address] [place] [address] * Magnesium (01/25/2024 8:41 AM EDT) Magnesium 1.9 1.6 - 2.3 mg/dL [facility] Blood (Blood, Venous) 01/25/2024 8:41 AM EDT 01/25/2024 Bola [facility] LAB BLOOD ORDERABLES Final Resu lt Performing Organization Address [facility] de Phone Number [facility] [address] [place] [address] * (ABNORMAL) Renal Function Panel (01/25/2024 8:41 AM EDT) Glucose 108(H) 70 - 99 mg/dL [facility] BUN 11 6 - 24 mg/dL [facility] Creatinine 2.04(H) 0.76 - 1.27 mg/dL [facility] eGFR CKD-EPI CR 2020 37(L) >59 mL/min/1.7 3 [facility] BUN/Creatinine Ratio 5(L) 9 - 20 [facility] Sodium 141 134 - 144 mmol/L [facility] Potassium 3.2(L) 3.5 - 5.2 mmol/L [facility] Chloride 99 96 - 106 mmol/L [facility] Bicarbonate (CO2) 30(H) 20 - 29 mmol/L [facility] Calcium 10.5(H) 8.7 - 10.2 mg/dL [facility] Comment:Verified by repeat analysis Phosphorus 2.9 2.8 - 4.1 mg/dL [facility] Albumin 4.1 3.8 - 4.9 g/dL [facility] Blood (Blood, Venous) 01/25/2024 8:41 AM EDT 01/25/2024 Bola Rodriguez DO LAB BLOOD ORDERABLES Final Resu lt [facility] [address] [place] [address] documented in this encounter Visit Diagnoses Diagnosis Acute tubulo-interstitial nephritis Other acute kidney failure (HCC) Hypertension Stage 3a chronic kidney disease (HCC) documented in this encounter Care Teams Instant Powder Supervisor Relationship Specialty Start Date End Date Gigi Fraser MD [address] [place] [address] PCP - General Internal Medicine 07/16/23 documented as of this encounter
--- OUTSIDE RECORDS SUMMARY | 2024-08-18 10:24 | XMS_ITS | Encounter Summary ---
Author Organization [facility] Address [address] [place] [address] Phone Care Team Providers Care Mud Trucker Name Role Phone Gigi Fraser MD Primary Care Provider [phone] Encounter Details Date Type Department Care Team (Late Contact Info) Description 03/12/2024 Orders Only [facility] [address] [place] [place] [address] Bola Rodriguez DO [address] [place] [address] Acute tubulo-interstitial nephritis; Other acute [...] Visit [facility] [address] [place] [place] [address] Bola Rodriguez DO [address] [place] [address] documented as of this encounter Visit Diagnoses Diagnosis Acute tubulo-interstitial nephritis Other acute kidney failure (HCC) Hypertension Stage 3a chronic kidney disease (HCC) documented in this encounter Care Teams Mud Trucker Relationship Specialty Start Date End Date Gigi Fraser MD [address] [place] [address] PCP - General Internal Medicine 07/16/23 documented as of this encounter
--- OUTSIDE RECORDS SUMMARY | 2024-08-18 10:24 | XMS_ITS | Data Portability ---
Author Organization [place] [facility], Allergy Address [address] [address] Care Team Providers Care Button Sewer Name Role Phone CITLALI ANTHONY Primary Care Provider [phone] Assessment No assessment recorded. Plan of Treatment Reminders Order Date Submit Date Provider Last Modified By Organization Details Last Modified Time Details Appointments None recorded. Lab None recorded. Referral None recorded. Procedures None recorded. Surgeries None recorded. Imaging CT, sinuses, w/o contrast 2024 025 [email or web address], [address] [place], [address], 5 16:47:07 CT, sinuses, w/o contrast - to be done in office at f/u 2023 024 [email or web address] Not available 4 10:10:12 Medication Orders prednison e 10 mg tablet 2024 025 [facility], [address] [place] [address], [address], 5 16:18:42 doxycycli ne hyclate 100 mg tablet 2024 025 [facility], [address] [place] [address], [address], 5 16:20:37 Patient TargetsNo targets recorded. Patient InstructionsNo instructions recorded. Reason for Referral None Reported. Results Created Date Observation Date Name Description Value Unit Range Abnormal Flag Note LastModifiedBy Organization Detail LastModifiedTime 06/03/20 24 04/12/2024 MRI, brain + brain stem, w/o contr ast No observ ation record ed. [email or web address] Not Available 10/2023 15:22:54 07/29/19 CT, sinus es, w/o contr ast No observ ation record ed. [email or web address] [facility]ts [address], [address], 07/29/2024 14:42:14 08/12/19 25 07/29/2024 CT, sinus es, w/o contr ast No observ ation record ed. [email or web address] [facility] [address], [address], 08/12/2024 13:13:57 Result Notes None recorded. Problems Name Problem SNOMED Code Status Onset Date Resolution Date Notes Provider Name and Address Organization Details Recorded Time Dysphagia 25002481 Active 2016 Dysphagia , unspecifi ed; Note: Date Diagnosed : 11/13/2016 10:29 AM (R13.10) Not Available [facility] 4 02:49:30 Bilateral tinnitus 03217189040 02 Active 2016 Tinnitus, bilateral ; Note: Date Diagnosed : 11/13/2016 10:09 AM (H93.13) Not Available [facility] 4 02:49:34 Sensorine ural hearing loss of bilateral ears 844543644 Active 2016 Sensorine ural hearing loss, bilateral ; Note: Date Diagnosed : 11/13/2016 10:09 AM (H90.3) Not Available [facility] 4 02:49:35 Chronic left maxillary sinusitis 76942079678 978635 Active 2023 ANJUM BENÍTEZ MD [address] [place] [address], [place], [address] , [place] [facility] 4 15:10:54 Chronic pain in face 723057797 Active 2023 ANJUM BENÍTEZ MD [address] [place] [address], [place], [address] , [place] [facility] [place] 4 15:11:02 Chronic sinusitis 77632962 Active 2023 ANJUM BENÍTEZ MD [address] [place] [address], [place], [address] , [facility] - [facility] [place] 4 15:16:37 Allergic fungal sinusitis 958568659 Active 2024 ANJUM BENÍTEZ MD [address] [place] [address], [place], [address] , [facility] - [facility] 5 14:50:20 Problem Notes None recorded. Procedures Surgical History Date Name Laterality Status Provider Name and Address Organization Details Recorded Time 06/03/2024 NasalEndos copy_DP completed ANJUM BENÍTEZ MD [address] [place] [address], [address], [facility] - [facility] [place] 06/03/2024 15:11:07 Imaging Results Imaging Date Name Status LastModified by Organiz ation Details LastModified Time 04/12/2024 MRI, brain + brain stem, w/o contrast completed [email or web address] Information not available 06/03/2024 15:22:54 07/29/2024 CT, sinuses, w/o contrast completed [email or web address] [address], [address], 07/29/2024 14:42:14 07/29/2024 CT, sinuses, w/o contrast completed [email or web address] [facility] [address], [address], 08/12/2024 13:13:57 Procedure Notes None recorded. Medical Equipment None Reported. Allergies Allergen ID Allergen Name Allergen Category Reaction Reaction Severity Criticality Documentation Date Start Date Code Code System Note Provider Name and Address Organization Details Recorded Time 916253 Product containin g penicilli n (product) medicatio n other Not available Not available 11/11/2023 15414 8001 SNOMED React ion: unkno wn, unspe cifie d;; Not Available [facility] 4 01:10:06 Medications Name Sig Start Date [...] 100 mg tablet 2016 active Medication ID: [id number] Dur ation Value: 30 Brand Name: bupropion [...] six hours as needed active Medication ID: [id number] Dur ation Value: 3 Brand Name: Percocet [...] 25 mg tablet 2015 active Medication ID: 135000 Dur ation Value: 30 Brand Name: metoprolol [...] and Address Organization Details Last Updated DateTime 06/03/2024 177.8 cm 25.1 kg/m2 13771.66 g Henrique Haro [facility] 06/03/2024 15:13:41 Date Recorded Body height Body mass index (BMI) Body weight Provider Name and Address Organization Details Last Updated DateTime 07/29/2024 177.8 cm 25.1 kg/m2 89492.66 g Henrique Haro [facility] 07/29/2024 14:12:54 Social History None recorded. Functional Status None recorded. Mental Status None recorded. Family History Nothing Reported. Medical History No medical history recorded. Past Encounters Encounter ID Performer Location Encounter Start Date Encounter Closed Date Diagnosis/Indication Diagnosis SNOMED-CT Code Diagnosis ICD10 Code Diagnosis Note [id number] ANJUM BENÍTEZ MD [facility] [address] [address] 06/03/2024 14:21:17 06/03/2024 16:52:58 Chronic left maxillary sinusitis 9365272399 1021410 J32.0 No polyps or purulence on nasal endo. I recommend he take the course of doxy from his PCP. I will plan a f/u with a CT first in 4-8 weeks to check for persistent left maxillary sinusitis and to evaluate for a fungal ball given the MRI. Chronic pain in face 432 872427 R51.9 see above [id number] ANJUM BENÍTEZ MD [facility] [address] [place] [address] 07/29/2024 13:30:29 07/29/2024 14:55:07 Chronic left maxillary sinusitis 0682778066 3662555 J32.0 Has persistent sinusitis despite doxycyclin e. [...] g surgery. Chronic pain in face 432 832287 R51.9 likely due to chronic sinusitis Allergic f ungal sinusitis 295171244 B49 ct consistent with allergic fungal sinusitis. [...] Member ID Griffith Member ID Guarantor Name 06/03/2024 2 [place] Arnel Ch Huseyin [id number] Arnel Ch Huseyin 06/03/2024 1 [facility] - DOS ON OR AFTER 2022 - DUAL ELIGIBLE - MEDICARE [place]VANTAGE [place] (MEDICARE REPLACEMENT/AD VANTAGE - HMO) Arnel Fontanez [id number] Arnel Fontanez 07/29/2024 1 [facility] - DOS ON OR AFTER 2022 - ONE CARE (MEDICARE REPLACEMENT/AD VANTAGE - HMO) Arnel Fontanez [id number] Arnel Fontanez Notes Date Note Type Note Provider Name and Address Organization Details Recorded Time 06/03/2024 text/html Hx of left sided frontal headaches. MRI brain with contrast was done which showed left maxillary sinusitis (possibly fungal) and ENT consult was recommended. He has some maxillary pressure on both sides. His headaches have improved to some degree. He quit smoking over 8 years ago. His PCP prescribed doxy and ipratropium which he hasn't started yet. No recent dental problems but had problems in the past. has crowns. Saw dentist last month and he said no infection was seen. ANJUM BENÍTEZ MD [address] [place] [address], [address], [facility] 06/03/2024 15:17:21 07/29/2024 text/html Hx of left sided frontal [...] no infection was seen. ANJUM BENÍTEZ MD [address] [place] [address], [address], [facility] 07/30/2024 07:48:31
--- OUTSIDE RECORDS SUMMARY | 2024-08-18 10:24 | XMS_ITS | Encounter Summary ---
Author Organization [facility] Address [address] [place] [address] Phone Care Team Providers Care Steam Oven Operator Name Role Phone Gigi Fraser MD Primary Care Provider [phone] Encounter Details Date Type Department Care Team (Late Contact Info) Description 02/13/2024 Orders Only [facility] [address] [place] [address] Bola Rodriguez DO [address] [place] [address] Acute tubulo-interstitial nephritis; Other acute [...] Visit [facility] [address] [place] [address] Bola Rodriguez DO [address] [place] [address] documented as of this encounter [...] Urine 11-30(A) 0 - 5 /hpf [facility] RBC, Urine None seen 0 - 2 /hpf [facility] Squamous Epithelial, Urine 0-10 0 - 10 /hpf [facility] Casts None seen None seen /lpf [facility] Bacteria, Urine None seen None seen/Few [facility] 02/29/2024 8:54 AM EDT 02/29/2024 us Bola Rodriguez DO LAB MICROBIOLOGY - GENERAL ORDE ANASTACIO Final Result [facility] [address] [place] [address] * (ABNORMAL) Urine Protein / creatinine ratio (02/29/2024 8:54 AM EDT) Creatinine, Ur 39.7 Not Estab. mg/dL [facility] Protein, Ur 53.8 Not Estab. mg/dL [facility] Urine Protein/Creati nine Ratio 1,355(H) 0 - 200 mg/g creat [facility] Urine (Urine, Clean Catch) 02/29/2024 8:54 AM EDT 02/29/2024 Bola Rodriguez DO LAB URINE ORDERABLES Final Resu lt [facility] [address] [place] [address] * (ABNORMAL) Urinalysis with microscopic (02/29/2024 8:54 AM EDT) Specific [place], Urine 1.012 1.005 - 1.030 [facility] pH Urine 6.5 5.0 - 7.5 [facility] [phone] Color, Urine Yellow Yellow [facility] Appearance Urine Clear Clear [facility] WBC Esterase Urine 1+(A) Negative [facility] Protein, Ur 2+(A) Negative/Tr elissa [facility] Glucose, Ur Negative Negative [facility] [phone] Ketones, Urine Negative Negative [facility] Blood Urine 2+(A) Negative [facility] Bilirubin Urine Negative Negative [facility] Urobilinogen Urine 0.2 0.2 - 1.0 mg/dL [facility] [phone] Nitrite, Urine Positive(A) Negative [facility] [phone] Microscopic Examination See below: [facility] [phone] Comment:Microscopic was cely cated and was performed. Urine (Urine, Clean Catch) 02/29/2024 8:54 AM EDT 02/29/2024 Bola Rodriguez DO LAB URINE ORDERABLES Final Resu lt Performing Organization Address [facility] Co de Phone Number [facility] [address] [place] [address] * Magnesium (02/29/2024 8:54 AM EDT) Magnesium 1.9 1.6 - 2.3 mg/dL [facility] [place] Blood (Blood, Venous) 02/29/2024 8:54 AM EDT 02/29/2024 Bola Rodriguez DO LAB BLOOD ORDERABLES Final Resu lt Performing Organization Address [facility] de Phone Number [facility] [address] [place] [address] * (ABNORMAL) Renal Function Panel (02/29/2024 8:54 AM EDT) Glucose 91 70 - 99 mg/dL [facility] BUN 17 6 - 24 mg/dL [facility] Creatinine 1.62(H) 0.76 - 1.27 mg/dL [facility] eGFR CKD-EPI CR 2020 49(L) >59 mL/min/1.7 3 [facility] BUN/Creatinine Ratio 10 9 - 20 [facility] Sodium 140 134 - 144 mmol/L [facility] Potassium 3.9 3.5 - 5.2 mmol/L [facility] Chloride 102 96 - 106 mmol/L [facility] Bicarbonate (CO2) 24 20 - 29 mmol/L [facility] Calcium 9.3 8.7 - 10.2 mg/dL [facility] Albumin 4.2 3.8 - 4.9 g/dL [facility] Phosphorus 3.4 2.8 - 4.1 mg/dL [facility] Blood (Blood, Venous) 02/29/2024 8:54 AM EDT 02/29/2024 Bola Rodriguez DO LAB BLOOD ORDERABLES Final Resu lt [facility] [address] [place] [address] documented in this encounter Visit Diagnoses Diagnosis Acute tubulo-interstitial nephritis Other acute kidney failure (HCC) Hypertension Stage 3a chronic kidney disease (HCC) documented in this encounter Care Teams Steam Oven Operator Relationship Specialty Start Date End Date Gigi Fraser MD [address] [place] [address] PCP - General Internal Medicine 07/16/23 documented as of this encounter
[2024-08-18 18:10] LABS: MANUAL DIFF FLAG NO
[2024-08-18 18:26] LABS: Alanine Aminotransferase 49 U/L (0-40); Aspartate Amino Transferase 57 U/L (5-37); C Reactive Protein 1.38 mg/dL (< or = 0.50); Estimated Glomerular Filt Rate 35
[2024-08-18 18:28] LABS: Basophils Absolute Auto 0.1 X10*3/uL (0.0-0.2); Basophils Percent Auto 1.3 % (0-2); Eosinophils Absolute Auto 0.1 X10*3/uL (0.0-0.4); Eosinophils Percent Auto 1.9 % (0-4); Hematocrit 39.1 % (42.0-52.0); Hemoglobin 13.2 g/dl (14.0-18.0); Imm Gran Abs Auto 0.01 X10*3/uL (0.00-0.03); Imm Gran Pct Auto 0.2 % (0.0-0.4); Lymphocytes Absolute Auto 1.1 X10*3/uL (1.2-4.9); Lymphocytes Percent Auto 22.7 % (20-40); Mean Corpuscular HGB Conc 33.8 g/dl (31.0-36.0); Mean Corpuscular Hemoglobin 32.8 pg (27.0-33.0); Mean Platelet Volume 9.8 fL (9.4-12.4); Monocytes Absolute Auto 0.6 X10*3/uL (0.1-1.2); Monocytes Percent Auto 11.9 % (2-11); Neutrophils Absolute Auto 2.9 x10*3/uL (2.0-8.3); Platelet Count 203 X10*3/uL (160-400); Red Blood Count 4.03 X10*6/uL (4.60-5.80); Red Cell Distribution Width 11.9 % (11.0-16.0); White Blood Count 4.7 X10*3/uL (4.8-10.8)
[2024-08-18 18:54] LABS: Erythrocyte Sedimentation Rate 46 MM/HR (0-15)
[2024-08-25 23:03] LABS: CK-BB None Detected (None Detected); CK-MB 0 % (<5); CK-MM 100 % (95-100); Creatine Kinase,Total,Serum 51 U/L (22-308)
== END 2024-08-18 08:51 | disposition home or self-care (01) ==
LOC: HO.HKASLDS 08:50
PROVIDERS: PCP Internal Medicine; Visit Provider Internal Medicine Rheumatology
DX: M54.50 Low back pain, unspecified (principal); M06.09 Rheumatoid arthritis without rheumatoid factor, multiple sites; M06.9 Rheumatoid arthritis, unspecified; Z79.899 Other long term (current) drug therapy; R29.898 Other symptoms and signs involving the musculoskeletal system; Z79.60 Long term (current) use of unspecified immunomodulators and immunosuppressants
CPT/HCPCS: 20600; 36415; 82085; 82552; 82565; 84450; 84460; 85025; 85652; 86140; 99212; J2003; J3300

== ENCOUNTER 2024-08-19 11:05 | Outpatient (REF) | payer OTHER, SELFPAY ==
--- NOTE | ~2024-08-19 | XR_ITS ---
EXAMINATION: XR HIP, RIGHT CLINICAL INFORMATION: M25.559 - Pain in unspecified hip COMPARISON: None available. TECHNIQUE: Two views of the right hip. FINDINGS: Sclerosis and subchondral cyst formation along the articular surface of the right acetabulum and right femoral head as well as the left coxofemoral joint. Asymmetric joint space narrowing involving both hips. Bony pelvis is intact. Metallic hardware if from a posterior L4-5 fusion. Metallic coils overlapping the lumbosacral region likely abdominal wall mesh. XR/XR hip RT w PEL1V IMPRESSION: Moderate to severe osteoarthrosis, right coxofemoral joint. Moderate osteoarthrosis, left coxofemoral joint. Electronically signed by: Mark Brenner MD 08/19/2024 03:48 PM [facility]
--- NOTE | ~2024-08-19 | XR_ITS ---
EXAMINATION: XR LUMBOSACRAL SPINE CLINICAL INFORMATION: M54.50 - Low back pain, unspecified COMPARISON: None available. TECHNIQUE: Three views of the lumbosacral spine. FINDINGS: Transpedicular screws at L4-5 with the posterior rods, intact. No loosening. Endplate sclerosis at multiple levels of the lower thoracic and lumbar spine. Grade 1 retrolisthesis L3-4. S-shaped curvature of the lumbar spine. Osteoarthrosis in both coxofemoral joints. Metallic coils in a circumferential fashion likely abdominal wall. Vascular calcifications, abdominal aorta. No lytic or blastic lesions. No acute cortical disruption. XR/XR lumbar spine 2-3V IMPRESSION: Multilevel thoracolumbar spondylosis. Grade 1 retrolisthesis L3-4. Posterior lumbar fusion L4-5. Electronically signed by: Mark Brenner MD 08/19/2024 03:45 PM JACY
--- OUTSIDE RECORDS SUMMARY | 2024-08-19 12:26 | XMS_ITS | Encounter Summary ---
Author Organization [facility] Address [address] [place] [address] Phone Care Team Providers Care Recruiting Internship Name Role Phone Gigi Fraser MD Primary Care Provider [phone] Encounter Details Date Type Department Care Team (Late Contact Info) Description 06/04/2024 Orders Only [facility] [address] [place] [address] Bola Rodriguez DO [address] [place] [address] Acute tubulo-interstitial nephritis; Other acute [...] Visit [facility] [address] [place] [address] Bola Rodriguez DO [address] [place] [address] documented as of this encounter Visit Diagnoses Diagnosis Acute tubulo-interstitial nephritis Other acute kidney failure (HCC) Hypertension Stage 3a chronic kidney disease (HCC) documented in this encounter Care Teams Recruiting Internship Relationship Specialty Start Date End Date Gigi Fraser MD [address] [place] [address] PCP - General Internal Medicine 07/16/23 documented as of this encounter
--- OUTSIDE RECORDS SUMMARY | 2024-08-19 12:27 | XMS_ITS | Encounter Summary ---
Author Organization [facility] [place], Address [address] [place] [address] Phone Care Team Providers Care Vice Chair Name Role Phone Gigi Fraser MD Primary Care Provider [phone] Encounter Details Date Type Department Care Team (Late st Contact Info) Description 10/23/2023 Documentation Only [facility] [address] [place] [address] Bola Rodriguez DO [address] [facility] [place] [place] [address] Social History Tobacco Use Types [...] Visit [facility] [address] [place] [address] Bola Rodriguez DO [address] [place] [place] [address] documented as of this encounter Visit Diagnoses Not on filedocumented in this encounter Care Teams Vice Chair Relationship Specialty Start Date End Date Gigi Fraser MD [address] [place] [address] PCP - General Internal Medicine 07/16/23 documented as of this encounter
--- OUTSIDE RECORDS SUMMARY | 2024-08-19 12:27 | XMS_ITS | Encounter Summary ---
Author Organization [facility] [place], Address [address] [place] [address] Phone Care Team Providers Care Teaching Manager Name Role Phone Gigi Fraser MD Primary Care Provider [phone] Encounter Details Date Type Department Care Team (Late st Contact Info) Description 10/15/2023 Documentation Only [facility] [address] [place] [address] [place], [place] [address] [place] [address] Social History Tobacco Use Types [...] Visit [facility] [address] [place] [address] Bola Rodriguez DO [address] [place] [address] [place] [address] documented as of this encounter Visit Diagnoses Not on filedocumented in this encounter Care Teams Teaching Manager Relationship Specialty Start Date End Date Gigi Fraser MD [address] [place] [address] [place] [address] PCP - General Internal Medicine 07/16/23 documented as of this encounter
--- OUTSIDE RECORDS SUMMARY | 2024-08-19 12:27 | XMS_ITS | Encounter Summary ---
Author Organization [facility] [place], Address [address] [place] [address] Phone Care Team Providers Care Biscuit Factory Worker Name Role Phone Gigi Fraser MD Primary Care Provider [phone] Encounter Details Date Type Department Care Team (Late st Contact Info) Description 07/16/2023 Documentation Only [facility] [address] [place] [address] [place], [place] [address] [place] [address] Social History Tobacco Use Types [...] Visit [facility] [address] [place] [place] [address] Bola Rodriguez DO [address] [place] [address] [place] [address] documented as of this encounter Visit Diagnoses Not on filedocumented in this encounter Care Teams Biscuit Factory Worker Relationship Specialty Start Date End Date Gigi Fraser MD [address] [place] [address] PCP - General Internal Medicine 07/16/23 documented as of this encounter
--- OUTSIDE RECORDS SUMMARY | 2024-08-19 12:27 | XMS_ITS | Encounter Summary ---
Author Organization [facility] Address [address] [place] [address] Phone Care Team Providers Care Machine I Cutter Name Role Phone Gigi Fraser MD Primary Care Provider [phone] Encounter Details Date Type Department Care Team (Late st Contact Info) Description 07/16/2024 Orders Only [facility] [address] [place] [address] Bola Rodriguez DO [address] [facility] [place] [address] Acute tubulo-interstitial nephritis; Hypokalemia; Hypertension; [...] Visit [facility] [address] [address] Bola Rodriguez DO [address] [facility] [place] [address] documented as [...] None seen 0 - 5 /hpf [facility] RBC, Urine None seen 0 - 2 /hpf [facility] Squamous Epithelial, Urine None seen 0 - 10 /hpf [facility] Casts None seen None seen /lpf [facility] Bacteria, Urine None seen None seen/Few [facility] 07/25/2024 9:54 AM EST 07/25/2024 Bola Rodriguez DO LAB MICROBIOLOGY - GENERAL ORDE ANASTACIO Final Result [facility] [address] [place] [address] * Urinalysis with microscopic (07/25/2024 9:54 AM EST) Specific [place], Urine 1.019 1.005 - 1.030 [facility] pH Urine 7.0 5.0 - 7.5 [facility] Color, Urine Yellow Yellow [facility] Appearance Urine Clear Clear [facility] [place] WBC Esterase Urine Negative Negative [facility] Protein, Ur Trace Negative/Tra ce [facility] [phone] Glucose, Ur Negative Negative [facility] Ketones, Urine Negative Negative [facility] [place] Blood Urine Negative Negative [facility] Bilirubin Urine Negative Negative [facility] [place] Urobilinogen Urine 0.2 0.2 - 1.0 mg/dL [facility] Nitrite, Urine Negative Negative [facility] Microscopic Examination Comment [facility] Comment:Microscopic follows if indicated. Other Microsc. Observations See below: [facility] Comment:Microscopic was cely cated and was performed. Urine (Urine, Clean Catch) 07/25/2024 9:54 AM EST 07/25/2024 us Bola Rodriguez DO LAB URINE ORDERABLES Final Resu lt [facility] [address] [place] [address] * Sedimentation Rate (07/25/2024 9:54 AM EST) Sed Rate 14 0 - 30 mm/hr [facility] Blood (Blood, Venous) 07/25/2024 9:54 AM EST 07/25/2024 us Bola Rodriguez DO LAB BLOOD ORDERABLES Final Resu lt Performing Organization Address City/[facility]/ZIP Co de Phone Number [facility] [address] [place] [address] * Urine Protein / creatinine ratio (07/25/2024 9:54 AM EST) Pathologist [facility] Creatinine, Ur 172.5 Not Estab. mg/dL [facility] Protein, Ur 15.1 Not Estab. mg/dL [facility] Urine Protein/Creatin ine Ratio 88 0 - 200 mg/g creat [facility] Urine (Urine, Clean Catch) 07/25/2024 9:54 AM EST 07/25/2024 us Bola Rodriguez DO LAB URINE ORDERABLES Final Resu lt Performing Organization Address [facility] de Phone Number [employer] [facility] [address] [place] [address] * Magnesium (07/25/2024 9:54 AM EST) Pathologist [facility] Magnesium 2.1 1.6 - 2.3 mg/dL [facility] Blood (Blood, Venous) 07/25/2024 9:54 AM EST 07/25/2024 Bola Rodriguez DO LAB BLOOD ORDERABLES Final Resu lt Performing Organization Address [facility]/ZIP Co de Phone Number [employer] [facility] [place] [address] [place] [address] * (ABNORMAL) Renal Function Panel (07/25/2024 9:54 AM EST) Glucose 90 70 - 99 mg/dL [facility] BUN 18 8 - 27 mg/dL [facility] Creatinine 1.93(H) 0.76 - 1.27 mg/dL [facility] eGFR CKD-EPI CR 2020 39(L) >59 mL/min/1.7 3 [facility] BUN/Creatinine Ratio 9(L) 10 - 24 [facility] Sodium 137 134 - 144 mmol/L [facility] Potassium 4.3 3.5 - 5.2 mmol/L [facility] Bicarbonate (CO2) 24 20 - 29 mmol/L [facility] Calcium 11.0(H) 8.6 - 10.2 mg/dL [facility] Comment:Verified by repeat analysis Phosphorus 3.4 2.8 - 4.1 mg/dL [facility] Albumin 5.1(H) 3.8 - 4.9 g/dL [facility] Chloride 98 96 - 106 mmol/L [facility] Blood (Blood, Venous) 07/25/2024 9:54 AM EST 07/25/2024 Bola Rodriguez DO LAB BLOOD ORDERABLES Final Resu lt [facility] [address] [place] [address] documented in this encounter Visit Diagnoses Diagnosis Acute tubulo-interstitial nephritis Hypokalemia Hypertension Stage 3a chronic kidney disease (HCC) documented in this encounter Care Teams Machine I Cutter Relationship Specialty Start Date End Date Gigi Frsaer MD [address] [place] [address] PCP - General Internal Medicine 07/16/23 documented as of this encounter
--- OUTSIDE RECORDS SUMMARY | 2024-08-19 12:27 | XMS_ITS | Encounter Summary ---
Author Organization [facility] [place], Address [address] [place] [address] Phone Care Team Providers Care Attendant Coin Operated Laundry Name Role Phone Gigi Fraser MD Primary Care Provider [phone] Encounter Details Date Type Department Care Team (Late st Contact Info) Description 09/17/2023 Documentation Only [facility] [address] [place] [address] Bola Rodriguez DO [address] [facility] [place] [address] Social History Tobacco Use Types [...] Visit [facility] [address] [place] [address] Bola Rodriguez DO [address] [facility] [address] [place] [address] documented as of this encounter Visit Diagnoses Not on filedocumented in this encounter Care Teams Attendant Coin Operated Laundry Relationship Specialty Start Date End Date Gigi Fraser MD [address] [place] [address] PCP - General Internal Medicine 07/16/23 documented as of this encounter
--- OUTSIDE RECORDS SUMMARY | 2024-08-19 12:27 | XMS_ITS | Encounter Summary ---
Author Organization [facility] Address [address] [place] [address] Phone Care Team Providers Care Gastroenterology Technician Name Role Phone Gigi Fraser MD Primary Care Provider [phone] Encounter Details Date Type Department Care Team (Late Contact Info) Description 02/13/2024 Orders Only [facility] [address] [place] [address] Bola Rodriguez DO [address] [facility] [place] [address] Acute tubulo-interstitial nephritis; Other acute [...] [facility] [address] [place] [address] Bola Rodriguez DO [address] [facility] [place] [address] documented as of this encounter [...] Urine 11-30(A) 0 - 5 /hpf [facility] RBC, Urine None seen 0 - 2 /hpf [facility] Squamous Epithelial, Urine 0-10 0 - 10 /hpf [facility] Casts None seen None seen /lpf [facility] Bacteria, Urine None seen None seen/Few [facility] 02/29/2024 8:54 AM EDT 02/29/2024 us Bola Rodriguez DO LAB MICROBIOLOGY - GENERAL ORDE ANASTACIO Final Result [facility] [address] [place] [address] * (ABNORMAL) Urine Protein / creatinine ratio (02/29/2024 8:54 AM EDT) Creatinine, Ur 39.7 Not Estab. mg/dL [facility] Protein, Ur 53.8 Not Estab. mg/dL [facility] Urine Protein/Creati nine Ratio 1,355(H) 0 - 200 mg/g creat [facility] Urine (Urine, Clean Catch) 02/29/2024 8:54 AM EDT 02/29/2024 Bola Rodriguez DO LAB URINE ORDERABLES Final Resu lt [facility] [address] [place] [address] * (ABNORMAL) Urinalysis with microscopic (02/29/2024 8:54 AM EDT) Specific [place], Urine 1.012 1.005 - 1.030 [facility] pH Urine 6.5 5.0 - 7.5 [facility] Color, Urine Yellow Yellow [facility] [phone] Appearance Urine Clear Clear [facility] [place] WBC Esterase Urine 1+(A) Negative [facility] Protein, Ur 2+(A) Negative/Tr elissa [facility] Glucose, Ur Negative Negative [facility] Ketones, Urine Negative Negative [facility] [place] [phone] Blood Urine 2+(A) Negative [facility] Bilirubin Urine Negative Negative [facility] [place] Urobilinogen Urine 0.2 0.2 - 1.0 mg/dL [facility] [phone] Nitrite, Urine Positive(A) Negative [facility] [place] Microscopic Examination See below: [facility] Comment:Microscopic was cely cated and was performed. Urine (Urine, Clean Catch) 02/29/2024 8:54 AM EDT 02/29/2024 Bola Rodriguez DO LAB URINE ORDERABLES Final Resu lt Performing Organization Address [facility] Co de Phone Number [facility] [address] [place] [address] * Magnesium (02/29/2024 8:54 AM EDT) Magnesium 1.9 1.6 - 2.3 mg/dL [facility] [place] Blood (Blood, Venous) 02/29/2024 8:54 AM EDT 02/29/2024 Bola Rodriguez DO LAB BLOOD ORDERABLES Final Resu lt Performing Organization Address [facility] de Phone Number [facility] [place] [address] [place] [address] * (ABNORMAL) Renal Function Panel (02/29/2024 8:54 AM EDT) Glucose 91 70 - 99 mg/dL [facility] BUN 17 6 - 24 mg/dL [facility] Creatinine 1.62(H) 0.76 - 1.27 mg/dL [facility] eGFR CKD-EPI CR 2020 49(L) >59 mL/min/1.7 3 [facility] BUN/Creatinine Ratio 10 9 - 20 [facility] Sodium 140 134 - 144 mmol/L [facility] Potassium 3.9 3.5 - 5.2 mmol/L [facility] Chloride 102 96 - 106 mmol/L [facility] Bicarbonate (CO2) 24 20 - 29 mmol/L [facility] Calcium 9.3 8.7 - 10.2 mg/dL [facility] Albumin 4.2 3.8 - 4.9 g/dL [facility] Phosphorus 3.4 2.8 - 4.1 mg/dL [facility] Blood (Blood, Venous) 02/29/2024 8:54 AM EDT 02/29/2024 Bola Rodriguez DO LAB BLOOD ORDERABLES Final Resu lt [facility] [address] [place] [address] documented in this encounter Visit Diagnoses Diagnosis Acute tubulo-interstitial nephritis Other acute kidney failure (HCC) Hypertension Stage 3a chronic kidney disease (HCC) documented in this encounter Care Teams Gastroenterology Technician Relationship Specialty Start Date End Date Gigi Fraser MD [address] [place] [address] PCP - General Internal Medicine 07/16/23 documented as of this encounter
--- OUTSIDE RECORDS SUMMARY | 2024-08-19 12:27 | XMS_ITS | Encounter Summary ---
Author Organization [facility] [place], Address [address] [place] [address] Phone Care Team Providers Care Case Assistant Name Role Phone Gigi Fraser MD Primary Care Provider [phone] Encounter Details Date Type Department Care Team (Late st Contact Info) Description 07/16/2023 Documentation Only [facility] [address] [place] [address] [place], [place] [address] [place] [address] Social History Tobacco Use Types [...] Visit [facility] [address] [place] [address] Bola Rodriguez DO [address] [place] [address] [place] [address] documented as of this encounter Visit Diagnoses Not on filedocumented in this encounter Care Teams Case Assistant Relationship Specialty Start Date End Date Gigi Fraser MD [address] [place] [address] PCP - General Internal Medicine 07/16/23 documented as of this encounter
--- OUTSIDE RECORDS SUMMARY | 2024-08-19 12:27 | XMS_ITS | Encounter Summary ---
Author Organization [facility] Address [address] [place] [address] Phone Care Team Providers Care Compliance Associate Name Role Phone Gigi Fraser MD Primary Care Provider [phone] Encounter Details Date Type Department Care Team (Late st Contact Info) Description 09/29/2023 Documentation Only [facility] [address] [place] [address] Bola Rodriguez DO [address] [facility] [place] [address] Social History Tobacco Use Types [...] Visit [facility] [address] [place] [address] Bola Rodriguez DO [address] [facility] [place] [address] Pending Results Name Type Priority [...] PM EDT Performed at: ??01 - [facility] [address] ??[id number] Revenue Inspector: Sara Ruiz MD, Phone: ??[phone] us Bola Rodriguez DO LAB MICROBIOLOGY - [...] 4:07 PM EDT Performed at: ??01 - [facility] ??[id number] Revenue Inspector: Sara Ruiz MD, Phone: ??[phone] us Bola Rodriguez DO LAB URINE ORDERABLES Final Resu lt Performing Organization Address [facility] Co de Phone Number [facility] * (ABNORMAL) Urinalysis with microscopic (10/03/2023 9:02 AM EDT) Specific [place], Urine 1.008 1.005 - 1.030 [facility] pH [...] PM EDT Performed at: ??01 - [facility] [address] ??[id number] Revenue Inspector: Sara Ruiz MD, Phone: ??[phone] Bola Rodriguez DO LAB URINE ORDERABLES Final [...] PM EDT Performed at: ??01 - [facility] [address] ??[id number] Revenue Inspector: Sara Ruiz MD, Phone: ??[phone] Bola Rodriguez DO LAB BLOOD ORDERABLES Final [...] PM EDT Performed at: ??01 - [facility] [address] ??[id number] Revenue Inspector: Sara Ruiz MD, Phone: ??[phone] us Bola Rodriguez DO LAB BLOOD ORDERABLES Final Resu lt Performing Organization Address [facility] Co de Phone Number [facility] * ANCA [...] up testing of positive sera with both ND-3 and MPO-ANCA enzyme immunoassays. As many as [...] PM EDT Performed at: ??02 - [facility] [address] ??[id number] Revenue Inspector: Rios Dolan MD, Phone: ??[phone] Bola Rodriguez DO LAB BLOOD ORDERABLES Final Resu lt Performing Organization Address [facility] Co de Phone Number [facility] documented in this encounter Visit Diagnoses Diagnosis Other acute kidney failure (HCC)- Primary documented in this encounter Care Teams Compliance Associate Relationship Specialty Start Date End Date Gigi Fraser MD [address] [place] [address] PCP - General Internal Medicine 07/16/23 documented as of this encounter
--- OUTSIDE RECORDS SUMMARY | 2024-08-19 12:27 | XMS_ITS | Encounter Summary ---
Author Organization [facility] Address [address] [place] [address] Phone Care Team Providers Care Supervisor Compounding And Finishing Name Role Phone Gigi Fraser MD Primary Care Provider [phone] Encounter Details Date Type Department Care Team (Late Contact Info) Description 05/07/2024 Orders Only [facility] [address] [place] [address] Bola Rodriguez DO [address] [facility] [place] [address] Acute tubulo-interstitial nephritis; Other acute [...] Visit [facility] [address] [place] [place] [address] Bola Rodriguez DO [address] [facility] [place] [address] documented as of this encounter Visit Diagnoses Diagnosis Acute tubulo-interstitial nephritis Other acute kidney failure (HCC) Hypertension Stage 3a chronic kidney disease (HCC) documented in this encounter Care Teams Supervisor Compounding And Finishing Relationship Specialty Start Date End Date Gigi Fraser MD [address] [place] [address] PCP - General Internal Medicine 07/16/23 documented as of this encounter
--- OUTSIDE RECORDS SUMMARY | 2024-08-19 12:27 | XMS_ITS | Encounter Summary ---
Author Organization [facility] [place], Address [address] [place] [address] Phone Care Team Providers Care Afloat Cryptologic Manager Name Role Phone Gigi Fraser MD Primary Care Provider [phone] Encounter Details Date Type Department Care Team (Late st Contact Info) Description 07/16/2023 Documentation Only [facility] [address] [place] [address] Tex Walsh[place], [place] [address] [place] [address] Social History Tobacco Use Types [...] Visit [facility] [address] [place] [address] Bola Rodriguez DO [address] [place] [address] [place] [address] documented as of this encounter Visit Diagnoses Not on filedocumented in this encounter Care Teams Afloat Cryptologic Manager Relationship Specialty Start Date End Date Gigi Fraser MD [address] [place] [address] PCP - General Internal Medicine 07/16/23 documented as of this encounter
--- OUTSIDE RECORDS SUMMARY | 2024-08-19 12:27 | XMS_ITS | Encounter Summary ---
Author Organization [facility] [place], Address [address] [place] [address] Phone Care Team Providers Care Toucher Up Name Role Phone Gigi Fraser MD Primary Care Provider [phone] Encounter Details Date Type Department Care Team (Late st Contact Info) Description 11/05/2023 Documentation Only [facility] [address] [place] [address] Bola Rodriguez DO [address] [facility] [place] [address] Social History Tobacco Use Types [...] [facility] [address] [address] [place] [address] Bola Rodriguez DO [address] [facility] [place] [address] documented as of this encounter Visit Diagnoses Not on filedocumented in this encounter Care Teams Toucher Up Relationship Specialty Start Date End Date Gigi Fraser MD [address] [place] [address] PCP - General Internal Medicine 07/16/23 documented as of this encounter
--- OUTSIDE RECORDS SUMMARY | 2024-08-19 12:27 | XMS_ITS | Encounter Summary ---
Author Organization [facility] [place], Address [address] [place] [address] Phone Care Team Providers Care Compensation Specialist Name Role Phone Gigi Fraser MD Primary Care Provider [phone] Encounter Details Date Type Department Care Team (Late st Contact Info) Description 07/19/2023 Documentation Only [facility] [address] [place] [address] Bola Rodriguez DO [address] [facility] [facility] [place] [address] Social History Tobacco Use Types [...] Visit [facility] [address] [place] [address] Bola Rodriguez DO [address] [facility] [facility] [address] [place] [address] documented as of this encounter Visit Diagnoses Not on filedocumented in this encounter Care Teams Compensation Specialist Relationship Specialty Start Date End Date Gigi Fraser MD [address] [place] [address] PCP - General Internal Medicine 07/16/23 documented as of this encounter
--- OUTSIDE RECORDS SUMMARY | 2024-08-19 12:27 | XMS_ITS | Clinical Summary ---
Author Organization [facility], Address [address] [place] [address] Phone Care Team Providers Care Compensation Business Partner Name Role Phone Gigi Fraser MD Primary Care Provider [phone] Allergies Active Allergy Reactions Criticality Noted Date [...] Only [facility] [address] [place] [address] Bola Rodriguez DO Acute tubulo-interstitial nephritis; Other acute kidney failure (HCC); Hypertension; Stage 3a chronic kidney disease (HCC) 07/16/2024 Orders Only [facility] [address] [place] [address] Bola Rodriguez DO Acute tubulo-interstitial nephritis; Hypokalemia; Hypertension; Stage 3a chronic kidney disease (HCC) 07/02/2024 Orders Only [facility] [address] [place] [address] Bola Rodriguez DO Acute tubulo-interstitial nephritis; Other acute kidney failure (HCC); Hypertension; Stage 3a chronic kidney disease (HCC) 06/04/2024 Orders Only [facility] [address] [place] [address] Bola Rodriguez DO Acute tubulo-interstitial nephritis; Other acute kidney failure (HCC); Hypertension; Stage 3a chronic kidney disease (HCC) 05/21/2024 Orders Only [facility] [address] [place] [address] Bola Rodriguez DO Acute tubulo-interstitial nephritis; Hypokalemia; [...] Visit [facility] [place], [address] [place] [address] Bola Rodriugez, [address] [place] [phone] Health Maintenance Due Date Last Done Comments [...] None seen 0 - 5 /hpf [facility] RBC, Urine None seen 0 - 2 /hpf [facility] Squamous Epithelial, Urine None seen 0 - 10 /hpf [facility] Casts None seen None seen /lpf [facility] Bacteria, Urine None seen None seen/Few [facility] 07/25/2024 9:54 AM EST 07/25/2024 Bola Rodriguez DO LAB MICROBIOLOGY - GENERAL ORDAlistair CHAVES Final Result [facility] [address] [place] [address] * Urine Protein / creatinine ratio (07/25/2024 9:54 AM EST) Creatinine, Ur 172.5 Not Estab. mg/dL [facility] Protein, Ur 15.1 Not Estab. mg/dL [facility] Urine Protein/Creatin ine Ratio 88 0 - 200 mg/g creat [facility] Urine (Urine, Clean Catch) 07/25/2024 9:54 AM EST 07/25/2024 Bola Rodriguez DO LAB URINE ORDERABLES Final Resu lt [facility] [address] [place] [address] * Urinalysis with microscopic (07/25/2024 9:54 AM EST) Specific [place], Urine 1.019 1.005 - 1.030 [facility] pH Urine 7.0 5.0 - 7.5 [facility] Color, Urine Yellow Yellow [facility] Appearance Urine Clear Clear [facility] WBC Esterase Urine Negative Negative [facility] Protein, Ur Trace Negative/Tra ce [facility] Glucose, Ur Negative Negative [facility] Ketones, Urine Negative Negative [facility] Blood Urine Negative Negative [facility] Bilirubin Urine Negative Negative [facility] Urobilinogen Urine 0.2 0.2 - 1.0 mg/dL [facility] Nitrite, Urine Negative Negative [facility] Microscopic Examination Comment [facility] Comment:Microscopic follows if indicated. Other Microsc. Observations See below: [facility] [phone] Comment:Microscopic was cely cated and was performed. Urine (Urine, Clean Catch) 07/25/2024 9:54 AM EST 07/25/2024 Bola Rodriguez LAB URINE ORDERABLES Final Resu lt [facility] [address] [place] [address] * Sedimentation Rate (07/25/2024 9:54 AM EST) Sed Rate 14 0 - 30 mm/hr [facility] Blood (Blood, Venous) 07/25/2024 9:54 AM EST 07/25/2024 Bola Rodriguez LAB BLOOD ORDERABLES Final Resu lt Performing Organization Address City/[facility]/ZIP Co de Phone Number [facility] [address] [place] [address] * Magnesium (07/25/2024 9:54 AM EST) Pathologist [facility] Magnesium 2.1 1.6 - 2.3 mg/dL [facility] Blood (Blood, Venous) 07/25/2024 9:54 AM EST 07/25/2024 [facility] BLOOD ORDERABLES Final Resu lt Performing Organization Address City/[facility] Co de Phone Number [facility] [address] [place] [address] * (ABNORMAL) Renal Function Panel (07/25/2024 9:54 AM EST) Pathologist [facility] Glucose 90 70 - 99 mg/dL [facility] BUN 18 8 - 27 mg/dL [facility] Creatinine 1.93(H) 0.76 - 1.27 mg/dL [facility] eGFR CKD-EPI CR 2020 39(L) >59 mL/min/1.7 3 [facility] BUN/Creatinine Ratio 9(L) 10 - 24 [facility] Sodium 137 134 - 144 mmol/L [facility] Potassium 4.3 3.5 - 5.2 mmol/L [facility] Bicarbonate (CO2) 24 20 - 29 mmol/L [facility] Calcium 11.0(H) 8.6 - 10.2 mg/dL [facility] Comment:Verified by repeat analysis Phosphorus 3.4 2.8 - 4.1 mg/dL [facility] Albumin 5.1(H) 3.8 - 4.9 g/dL [facility] Chloride 98 96 - 106 mmol/L [facility] Blood (Blood, Venous) 07/25/2024 9:54 AM EST 07/25/2024 us Bola Rodriguez DO LAB BLOOD ORDERABLES Final Resu lt [facility] [address] [place] [address] from Last 3 Months Insurance [employer] DUAL SNP ([id number]) Care Teams Compensation Business Partner Relationship Specialty Start Date End Date Gigi Fraser MD [address] [place], [place] [id number] PCP - General Internal Medicine 07/16/23
--- OUTSIDE RECORDS SUMMARY | 2024-08-19 12:27 | XMS_ITS | Continuity of Care Document ---
Author Organization ID - [facility], [facility] Address [address] [place] [address] Care Team Providers Care Member Of The Legislative Assembly Name Role Phone CITLALI ANTHONY Primary Care Provider [phone] Assessment No assessment recorded. Plan of Treatment Reminders Order Date Submit Date Provider Last Modified By Organization Details Last Modified Time Details Appointments None recorded. Lab None recorded. Referral None recorded. Procedures None recorded. Surgeries None recorded. Imaging CT, sinuses, w/o contrast 2024 025 [email or web address], [address] [place] [address], [address], 5 16:47:07 Medication Orders prednison e 10 mg tablet 2024 025 [facility], [address] [place] [address], [address], 5 16:18:42 doxycycli ne hyclate 100 mg tablet 2024 025 [facility], [address] [place] [address], [address], 5 16:20:37 Patient TargetsNo targets recorded. Patient InstructionsNo instructions recorded. Reason for Referral None Reported. Results Created Date Observation Date Name Description Value Unit Range Abnormal Flag Note LastModifiedBy Organization Detail LastModifiedTime 07/29/[address], sinus es, w/o contr ast No observ ation record ed. [email or web address] Of [address], [address], 07/29/2024 14:42:14 08/12/19 25 07/29/2024 CT, sinus es, w/o contr ast No observ ation record ed. [email or web address] [address], [place], [address], 08/12/2024 13:13:57 Result Notes None recorded. Problems Name Problem SNOMED Code Status Onset Date Resolution Date Notes Provider Name and Address Organization Details Recorded Time Dysphagia 17160930 Active 2016 Dysphagia , unspecifi ed; Note: Date Diagnosed : 11/13/2016 10:29 AM (R13.10) Not Available [facility] 4 02:49:30 Bilateral tinnitus 20450359530 02 Active 2016 Tinnitus, bilateral ; Note: Date Diagnosed : 11/13/2016 10:09 AM (H93.13) Not Available [facility] 4 02:49:34 Sensorine ural hearing loss of bilateral ears 357867922 Active 2016 Sensorine ural hearing loss, bilateral ; Note: Date Diagnosed : 11/13/2016 10:09 AM (H90.3) Not Available [facility] 4 02:49:35 Chronic left maxillary sinusitis 08121981768 421726 Active 2023 ANJUM BENÍTEZ MD [address] [facility],[place] [address], [place], [address] , [place] - [facility] 4 15:10:54 Chronic pain in face 596692447 Active 2023 ANJUM BENÍTEZ MD [address] [facility] [address], [place], [address] , [place] - [facility] [place] 4 15:11:02 Chronic sinusitis 97235791 Active 2023 ANJUM BENÍTEZ MD [address] [facility] [address], [place], [address] , [place] - [facility] 4 15:16:37 Allergic fungal sinusitis 634258140 Active 2024 ANJUM BENÍTEZ MD [address] [place] [address], [place], [address] , [facility] 5 14:50:20 Problem Notes None recorded. Procedures Surgical History Date Name Laterality Status Provider Name and Address Organization Details Recorded Time 06/03/2024 NasalEndos copy_DP completed ANJUM BENÍTEZ MD [address] [place] [address], [address], [facility] 06/03/2024 15:11:07 Imaging Results Imaging Date Name Status LastModified by Organiz ation Details LastModified Time 07/29/2024 CT, sinuses, w/o contrast completed [email or web address] [address], [address], 07/29/2024 14:42:14 Procedure Notes None recorded. Medical Equipment None Reported. Allergies Allergen ID Allergen Name Allergen Category Reaction Reaction Severity Criticality Documentation Date Start Date Code Code System Note Provider Name and Address Organization Details Recorded Time 055695 Product containin g penicilli n (product) medicatio n other Not available Not available 11/11/2023 595783 0356 SNOMED React ion: unkno wn, unspe cifie d;; Not Available [facility] 4 01:10:06 Medications Name Sig Start Date [...] 100 mg tablet 2016 active Medication ID: [id number] Dur ation Value: 30 Brand Name: bupropion [...] six hours as needed active Medication ID: [id number] Dur ation Value: 3 Brand Name: Percocet [...] 25 mg tablet 2015 active Medication ID: [id number] Dur ation Value: 30 Brand Name: metoprolol [...] Updated DateTime 07/29/2024 177.8 cm 25.1 kg/m2 79215.66 g Henrique Haro ID - [facility] [place] 07/29/2024 14:12:54 Social History None recorded. Functional Status None recorded. Mental Status None recorded. Family History Nothing Reported. Medical History No medical history recorded. Past Encounters Encounter ID Performer Location Encounter Start Date Encounter Closed Date Diagnosis/Indication Diagnosis SNOMED-CT Code Diagnosis ICD10 Code Diagnosis Note [id number] ANJUM BENÍTEZ MD [facility] [address] [address] 07/29/2024 13:30:29 07/29/2024 14:55:07 Chronic left maxillary sinusitis 8386307910 2906446 J32.0 Has persistent sinusitis despite doxycyclin e. [...] g surgery. Chronic pain in face 432 589570 R51.9 likely due to chronic sinusitis Allergic f ungal sinusitis 455651773 B49 ct consistent with allergic fungal sinusitis. [...] Griffith Member ID Guarantor Name 07/29/2024 1 [facility] - DOS ON OR AFTER 2022 - ONE CARE (MEDICARE REPLACEMENT/AD VANTAGE - HMO) Arnel Fontanez [id number] Arnel Fontanez Notes Date Note Type Note [...] no infection was seen. ANJUM BENÍTEZ MD [address] [place] [address], [place], [address], [facility] - [facility] 07/30/2024 07:48:31
--- OUTSIDE RECORDS SUMMARY | 2024-08-19 12:27 | XMS_ITS | Encounter Summary ---
Author Organization [facility] Address [address] [place] [address] Phone Care Team Providers Care Treating Plant Operator Name Role Phone Gigi Fraser MD Primary Care Provider [phone] Encounter Details Date Type Department Care Team (Late st Contact Info) Description 05/21/2024 Orders Only [facility] [address] [place] [address] Bola Rodriguez DO [address] [facility] [place] [address] Acute tubulo-interstitial nephritis; Hypokalemia; Hypertension; [...] [facility] [address] [facility] [address] Bola Rodriguez DO [address] [facility] [place] [address] documented as of this encounter Visit Diagnoses Diagnosis Acute tubulo-interstitial nephritis Hypokalemia Hypertension Stage 3a chronic kidney disease (HCC) documented in this encounter Care Teams Treating Plant Operator Relationship Specialty Start Date End Date Gigi Fraser MD [address] [place] [address] PCP - General Internal Medicine 07/16/23 documented as of this encounter
--- OUTSIDE RECORDS SUMMARY | 2024-08-19 12:27 | XMS_ITS | Encounter Summary ---
Author Organization [facility] Address [address] [place] [address] Phone Care Team Providers Care Education Program Associate Name Role Phone Gigi Fraser MD Primary Care Provider [phone] Encounter Details Date Type Department Care Team (Late Contact Info) Description 07/02/2024 Orders Only [facility] [address] [place] [address] Bola Rodriguez DO [address] [facility] [place] [address] Acute tubulo-interstitial nephritis; Other acute [...] Visit [facility] [address] [place] [address] Bola Rodriguez DO [address] [facility] [place] [address] documented as of this encounter Visit Diagnoses Diagnosis Acute tubulo-interstitial nephritis Other acute kidney failure (HCC) Hypertension Stage 3a chronic kidney disease (HCC) documented in this encounter Care Teams Education Program Associate Relationship Specialty Start Date End Date Gigi Fraser MD [address] [place] [address] PCP - General Internal Medicine 07/16/23 documented as of this encounter
--- OUTSIDE RECORDS SUMMARY | 2024-08-19 12:27 | XMS_ITS | Encounter Summary ---
Author Organization [facility] [place], Address [address] [place] [address] Phone Care Team Providers Care Diesel Service Apprentice Name Role Phone Gigi Fraser MD Primary Care Provider [phone] Encounter Details Date Type Department Care Team (Late st Contact Info) Description 10/09/2023 Documentation Only [facility] [address] [place] [address] Bola Rodriguez DO [address] [facility] [place] [address] Social History Tobacco Use Types [...] Visit [facility] [address] [place] [address] Bola Rodriguez DO [address] [facility] [address] [place] [address] documented as of this encounter Visit Diagnoses Not on filedocumented in this encounter Care Teams Diesel Service Apprentice Relationship Specialty Start Date End Date Gigi Fraser MD [address] [place] [address] PCP - General Internal Medicine 07/16/23 documented as of this encounter
--- OUTSIDE RECORDS SUMMARY | 2024-08-19 12:27 | XMS_ITS | Encounter Summary ---
Author Organization [facility] Address [address] [place] [address] Phone Care Team Providers Care Gas Furnace Installer Name Role Phone Gigi Fraser MD Primary Care Provider [phone] Encounter Details Date Type Department Care Team (Late Contact Info) Description 07/30/2024 Orders Only [facility] [address] [place] [address] Bola Rodriguez DO [address] [facility] [place] [address] Acute tubulo-interstitial nephritis; Other acute [...] Visit [facility] [address] [place] [address] Bola Rodriguez DO [address] [facility] [place] [address] documented as of this encounter Visit Diagnoses Diagnosis Acute tubulo-interstitial nephritis Other acute kidney failure (HCC) Hypertension Stage 3a chronic kidney disease (HCC) documented in this encounter Care Teams Gas Furnace Installer Relationship Specialty Start Date End Date Gigi Fraser MD [address] [place] [address] PCP - General Internal Medicine 07/16/23 documented as of this encounter
--- OUTSIDE RECORDS SUMMARY | 2024-08-19 12:27 | XMS_ITS | Data Portability ---
Author Organization [place] - [facility], Allergy Address [address] [address] Care Team Providers Care Senior Media Director Name Role Phone CITLALI ANTHONY Primary Care Provider Assessment No assessment recorded. Plan of Treatment Reminders Order Date Submit Date Provider Last Modified By Organization Details Last Modified Time Details Appointments None recorded. Lab None recorded. Referral None recorded. Procedures None recorded. Surgeries None recorded. Imaging CT, sinuses, w/o contrast 2024 025 [email or web address] En[facility], [address] [place], [address], 5 16:47:07 CT, sinuses, w/o contrast - to be done in office at f/u 2023 024 [email or web address] Not available 4 10:10:12 Medication Orders prednison e [address] [facility], [address] [place] [address], [address], 5 16:18:42 doxycycli ne hyclate [address] [facility], [address] [place] [address], [address], 5 16:20:37 Patient TargetsNo targets recorded. Patient InstructionsNo instructions recorded. Reason for Referral None Reported. Results Created Date Observation Date Name Description Value Unit Range Abnormal Flag Note LastModifiedBy Organization Detail LastModifiedTime 06/03/20 24 04/12/2024 MRI, brain + brain stem, w/o contr ast No observ ation record ed. [email or web address] Not Available 10/2023 15:22:54 07/29/19 CT, sinus es, w/o contr ast No observ ation record ed. [email or web address] Ents [address], [address], 07/29/2024 14:42:14 08/12/19 25 07/29/2024 CT, sinus es, w/o contr ast No observ ation record ed. [email or web address] [facility] [address], [address], 08/12/2024 13:13:57 Result Notes None recorded. Problems Name Problem SNOMED Code Status Onset Date Resolution Date Notes Provider Name and Address Organization Details Recorded Time Dysphagia 01371552 Active 2016 Dysphagia , unspecifi ed; Note: Date Diagnosed : 11/13/2016 10:29 AM (R13.10) Not Available [facility] 4 02:49:30 Bilateral tinnitus 43265654388 02 Active 2016 Tinnitus, bilateral ; Note: Date Diagnosed : 11/13/2016 10:09 AM (H93.13) Not Available [facility] 4 02:49:34 Sensorine ural hearing loss of bilateral ears 982472291 Active 2016 Sensorine ural hearing loss, bilateral ; Note: Date Diagnosed : 11/13/2016 10:09 AM (H90.3) Not Available [facility] 4 02:49:35 Chronic left maxillary sinusitis 18639581311 147862 Active 2023 ANJUM BENÍTEZ MD [address] [place] [address], [place], [address] , [place] - [facility] 4 15:10:54 Chronic pain in face 885490601 Active 2023 ANJUM BENÍTEZ MD [address] [place] [address], [place], [address] , [place] - [facility] [place] 4 15:11:02 Chronic sinusitis 49859393 Active 2023 ANJUM BENÍTEZ MD [address] [place] [address], [place], [address] , [facility] - [facility] [place] 4 15:16:37 Allergic fungal sinusitis 895539165 Active 2024 ANJUM BENÍTEZ MD [address] [place] [address], [place], [address] , [facility] - [facility] [place] 5 14:50:20 Problem Notes None recorded. Procedures Surgical History Date Name Laterality Status Provider Name and Address Organization Details Recorded Time 06/03/2024 NasalEndos copy_DP completed ANJUM BENÍTEZ MD [address] [place] [address], [address], [facility] - [facility] [place] 06/03/2024 15:11:07 Imaging Results Imaging Date Name Status LastModified by Organiz ation Details LastModified Time 04/12/2024 MRI, brain + brain stem, w/o contrast completed [email or web address] Information not available 06/03/2024 15:22:54 07/29/2024 CT, sinuses, w/o contrast completed [email or web address] [facility]ts [address], [address], 07/29/2024 14:42:14 07/29/2024 CT, sinuses, w/o contrast completed [email or web address] [facility] [address], [address], 08/12/2024 13:13:57 Procedure Notes None recorded. Medical Equipment None Reported. Allergies Allergen ID Allergen Name Allergen Category Reaction Reaction Severity Criticality Documentation Date Start Date Code Code System Note Provider Name and Address Organization Details Recorded Time 373397 Product containin g penicilli n (product) medicatio n other Not available Not available 11/11/2023 55811 8001 SNOMED React ion: unkno wn, unspe [...] 100 mg tablet 2016 active Medication ID: [id number] Dur ation Value: 30 Brand Name: bupropion [...] six hours as needed active Medication ID: [id number] Dur ation Value: 3 Brand Name: Percocet [...] 25 mg tablet 2015 active Medication ID: [id number] Dur ation Value: 30 Brand Name: metoprolol [...] Updated DateTime 06/03/2024 177.8 cm 25.1 kg/m2 65404.66 g Henrique Haro [facility] 06/03/2024 15:13:41 Date Recorded Body height Body mass index (BMI) Body weight Provider Name and Address Organization Details Last Updated DateTime 07/29/2024 177.8 cm 25.1 kg/m2 98280.66 g Henrique Haro [facility] 07/29/2024 14:12:54 Social History None recorded. Functional Status None recorded. Mental Status None recorded. Family History Nothing Reported. Medical History No medical history recorded. Past Encounters Encounter ID Performer Location Encounter Start Date Encounter Closed Date Diagnosis/Indication Diagnosis SNOMED-CT Code Diagnosis ICD10 Code Diagnosis Note [id number] ANJUM BENÍTEZ MD [facility] [address] [address] 06/03/2024 14:21:17 06/03/2024 16:52:58 Chronic left maxillary sinusitis [id number] 6312285 J32.0 No polyps or purulence on nasal endo. I recommend he take the course of doxy from his PCP. I will plan a f/u with a CT first in 4-8 weeks to check for persistent left maxillary sinusitis and to evaluate for a fungal ball given the MRI. Chronic pain in face 432 934173 R51.9 see above [id number] ANJUM BENÍTEZ MD [facility] [address] [place] [address] 07/29/2024 13:30:29 07/29/2024 14:55:07 Chronic left maxillary sinusitis 4384563874 2477513 J32.0 Has persistent sinusitis despite doxycyclin e. [...] g surgery. Chronic pain in face 432 913456 R51.9 likely due to chronic sinusitis Allergic f ungal sinusitis 036861722 B49 ct consistent with allergic fungal sinusitis. [...] 06/03/2024 2 [place] Arnel Ch Huseyin [id number] Arnel Ch Huseyin 06/03/2024 1 [facility] - DOS ON OR AFTER 2022 - DUAL ELIGIBLE - MEDICARE [place]VANTAGE [place] (MEDICARE REPLACEMENT/AD VANTAGE - HMO) Arnel Fontanez [id number] Arnel Fontanez 07/29/2024 1 [facility] - DOS ON OR AFTER 2022 - ONE CARE (MEDICARE REPLACEMENT/AD VANTAGE - HMO) Arnel Fontanez [id number] Arnel Fontanez Notes Date Note Type Note [...] no infection was seen. ANJUM BENÍTEZ MD [address] [place] [address], [address], [facility] 06/03/2024 15:17:21 07/29/2024 text/html Hx of [...] no infection was seen. ANJUM BENÍTEZ MD [address] [place] [address], [address], [facility] 07/30/2024 07:48:31
--- OUTSIDE RECORDS SUMMARY | 2024-08-19 12:27 | XMS_ITS | Encounter Summary ---
Author Organization [facility] [place], Address [address] [place] [address] Phone Care Team Providers Care Pick Up Man Name Role Phone Gigi Fraser MD Primary Care Provider [phone] Encounter Details Date Type Department Care Team (Late st Contact Info) Description 07/16/2023 Documentation Only [facility] [address] [place] [address] [place], [place] [address] [place] [address] Social History Tobacco Use Types [...] Visit [facility] [address] [place] [address] Bola Rodriguez DO [address] [place] [address] [place] [address] documented as of this encounter Visit Diagnoses Not on filedocumented in this encounter Care Teams Pick Up Man Relationship Specialty Start Date End Date Gigi Fraser MD [address] [place] [address] PCP - General Internal Medicine 07/16/23 documented as of this encounter
--- OUTSIDE RECORDS SUMMARY | 2024-08-19 12:27 | XMS_ITS | Encounter Summary ---
Author Organization [facility] [place], Address [address] [place] [address] Phone Care Team Providers Care Supervisor Dental Laboratory Name Role Phone Gigi Fraser MD Primary Care Provider [phone] Encounter Details Date Type Department Care Team (Late st Contact Info) Description 09/17/2023 Documentation Only [facility] [address] [place] [address] Bola Rodriguez DO [address] [facility] [place] [address] Social History Tobacco Use Types [...] Visit [facility] [address] [place] [address] Bola Rodriguez DO [address] [facility] [place] [address] documented as of this encounter Visit Diagnoses Not on filedocumented in this encounter Care Teams Supervisor Dental Laboratory Relationship Specialty Start Date End Date Gigi Fraser MD [address] [place] [address] PCP - General Internal Medicine 07/16/23 documented as of this encounter
--- OUTSIDE RECORDS SUMMARY | 2024-08-19 12:27 | XMS_ITS | Data Portability ---
Author Organization [facility] Address [address] [place] [address] Assessment No assessment recorded. Plan of Treatment [...] SNOMED-CT Code Diagnosis ICD10 Code Diagnosis Note [id number] [facility] [address] [address] 02/02/2016 14:38:41 02/02/2016 14:52:01 Health Concerns Section Related Observation LastModified by Organization Detai ls LastModified Time None Recorded Concern Status LastModified by Organization Details LastModified Time None Recorded Advance Directives Directive None Recorded Payers Encounter Date Sequence Insurance Name Policy Number Policy Griffith Covered Member ID Griffith Member ID Guarantor Name 02/02/2016 1 [place] [employer] Arnel Fontanez [id number] Arnel Fontanez
--- OUTSIDE RECORDS SUMMARY | 2024-08-19 12:27 | XMS_ITS | Data Portability ---
Author Organization [facility], PAIN [facility] Address [address] [facility] [address] [place] [address] Care Team Providers Care Income Tax Return Preparer Name Role Phone CITLALI ANTHONY Primary Care Provider Assessment Encounter Date Assessment Date Assessment LastModified [...] booked for the same. 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 [...] By Organization Details Last Modified Time 02/09/2019 [id number] He was advised against bed rest lasting longer than four days and to continue activities as tolerated. [email or web address] Not available 02/09/2019 15:36:14 02/23/2019 [id number] He was advised against bed rest lasting longer than four days and to continue activities as tolerated. [email or web address] Not available 02/24/2019 14:02:41 03/15/2019 [id number] He was advised against bed rest lasting longer than four days and to continue activities as tolerated. [email or web address] Not available 03/15/2019 15:18:22 Reason for Referral None Reported. Problems Name Problem SNOMED Code Status Onset Date Resolution Date Notes Provider Name and Address Organization Details Recorded Time Lumbar post-laminecto my syndrome 359999432 Active Khloe solis MD [address] [facility] , [address], [place], [address], [place] [facility] 15:35:28 Lumbar radiculopathy 079204406 Active Khloe solis MD [address] [facility] , [address], [place], [address], [place] [facility] 15:35:45 Spinal stenosis of lumbar region 96579370 Active Khloe solis MD [address] [facility] , [address], [place], [address], [place] [facility] 15:35:57 Problem Notes None recorded. Procedures Surgical History Date Name Laterality Status Provider Name and Address Organization Details Recorded Time 02/24/20 19 Lumbar Epidural steroid injection under fluoroscopic guidance completed Khloe Mustafa MD [address] [facility] , [address], [place], [address], [place] [facility] 02/24/2019 14:02:03 [...] Name and Address Organization Details Recorded Time 76448 Product containin g penicilli n (product) medicatio n hives rash Not available Not available Not available 02/09/2019 55466 8001 SNOMED Kerrie cristina [place] - [place] [...] Updated DateTime 9 177.8 cm 25.8 kg/m2 41356.6 3 g 74 /min 98 % 98 % Kerrie [facility] 9 13:30:34 Date Recorded Body height Heart rate Oxygen saturation Oxygen saturation in Arterial blood by Pulse oximetry Body mass index (BMI) Body weight Systolic blood pressure Diastolic blood pressure Provider Name and Address Organization Details Last Updated DateTime 9 177.8 cm 76 /min 98 % 98 % 25.8 kg/m2 11437.6 3 g 126 mm[Hg] 83 mm[Hg] Khloe solis MD [address] [facility] , [address], [place], [address], [place] [facility] 9 08:33:04 [...] Is Your Level Of Alcohol Consumption? Moderate [id number] Information not available 04/14/2020 Are You Currently Employed? No Disability [id number] Information not available 04/14/2020 Which Illicit Or Recreational Drugs Have You Used? No [id number] Information not available 04/14/2020 Education 12 With Some College Information not available 02/09/2019 What Is Your Occupation? [employer] [id number] Information not available 04/14/2020 Live Alone Or With Others? Alone Information not available 02/09/2019 Marital Status [email or web address] Informatio n not available 02/09/2019 How Many Years Have You Smoked Tobacco? 30 [id number] Information not available 04/14/2020 Sex: Unknown Functional [...] SNOMED-CT Code Diagnosis ICD10 Code Diagnosis Note [id number] Khloe Mustafa MD PAIN OFFICE [address] [place] [address] 02/09/2019 13:27:26 02/09/2019 15:40:29 Lumbar post-laminectomy syndrome 046953679 M96.1 Lumbar radiculopathy 128 207379 M54.16 Spinal jhonatan nosis of lumbar region 43275500 M48.061 [id number] Khloe Mustafa MD PAIN OFFICE [address] [place] [address] 02/23/2019 08:13:31 02/24/2019 14:07:59 Lumbar post-laminectomy syndrome 749165252 M96.1 Lumbar radiculopathy 128 826147 M54.16 Spinal jhonatan nosis of lumbar region 73690939 M48.061 [id number] Khloe Mustafa MD PAIN OFFICE [address] [place] [address] [place] [address] 03/15/2019 14:18:43 03/15/2019 15:19:54 Lumbar post-laminectomy syndrome 419262818 M96.1 Lumbar radiculopathy 128 110205 M54.16 Spinal jhonaatn nosis of lumbar region 16826842 M48.061 Health Concerns Section Related Observation LastModified by Organization Detai ls LastModified Time None Recorded Concern Status LastModified by Organization Details LastModified Time None Recorded Advance Directives Directive None Recorded Payers Encounter Date Sequence Insurance Name Policy Number Policy Griffith Covered Member ID Griffith Member ID Guarantor Name 02/09/2019 2 [place] [facility] Arnel Fontanez [id number] Arnel Fontanez 02/09/2019 1 [place] [facility] Arnel Fontanez [id number] Arnel Fontanez 02/23/2019 2 [place] [facility] Arnel Fontanez [id number] Arnel Fontanez 02/23/2019 1 [place] [facility] Arnel Fontanez [id number] Arnel Fontanez 03/15/2019 2 [place] [facility] Arnel Fontanez [id number] Arnel Fontanez 03/15/2019 1 [place] [facility] Arnel Fontanez [id number] Arnel Fontanez Notes Date Note Type Note [...] nerve roots.He has trialed physical therapy at [email or web address] and [facility] with no pain benefit. He had a Lumbar epidural steroid injection under fluoroscopic guidance at [facility] prior to his back surgery and had some pain benefit. Khloe Mustafa MD [address] [facility] , [address], [place], [address], [facility] 02/10/2019 09:59:22 02/23/2019 text/html He is here today for a lumbar epidural steroid injection under fluoroscopic guidance. Khloe Mustafa MD [address] [facility] , [address], [place], [address], [place] - [facility] 02/24/2019 14:29:58 03/15/2019 text/html He [...] bowel incontinence. He had physical therapy at [email or web address] and [facility] which aggravated his pain. He has taken percocet in the past which has helped relieve his pain. Khloe Mustafa MD [address] , [address], [place], [address], [facility] 03/16/2019 17:11:00
--- OUTSIDE RECORDS SUMMARY | 2024-08-19 12:27 | XMS_ITS | Encounter Summary ---
Author Organization [facility] [place], Address [address] [place] [address] Phone Care Team Providers Care Cribber Name Role Phone Gigi Fraser MD Primary Care Provider [phone] Encounter Details Date Type Department Care Team (Late st Contact Info) Description 09/17/2023 Documentation Only [facility] [address] [place] [address] Bola Rodriguez DO [address] [facility] [place] [address] Social History Tobacco Use Types [...] Visit [facility] [address] [place] [address] Bola Rodriguez DO [address] [facility] [place] [address] documented as of this encounter Visit Diagnoses Not on filedocumented in this encounter Care Teams Cribber Relationship Specialty Start Date End Date Gigi Fraser MD [address] [place] [address] PCP - General Internal Medicine 07/16/23 documented as of this encounter
--- OUTSIDE RECORDS SUMMARY | 2024-08-19 12:27 | XMS_ITS | Encounter Summary ---
Author Organization [facility] Address [address] [place] [address] Phone Care Team Providers Care Lead Caster Name Role Phone Gigi Fraser MD Primary Care Provider [phone] Encounter Details Date Type Department Care Team (Late Contact Info) Description 04/09/2024 Orders Only [facility] [address] [place] [address] Bola Rodriguez DO [address] [place] [address] Acute tubulo-interstitial nephritis; Other acute [...] [facility] [address] [place] [address] Bola Rodriguez DO [address] [place] [address] documented as of this encounter Visit Diagnoses Diagnosis Acute tubulo-interstitial nephritis Other acute kidney failure (HCC) Hypertension Stage 3a chronic kidney disease (HCC) documented in this encounter Care Teams Lead Caster Relationship Specialty Start Date End Date Gigi Fraser MD [address] [place] [address] PCP - General Internal Medicine 07/16/23 documented as of this encounter
--- OUTSIDE RECORDS SUMMARY | 2024-08-19 12:28 | XMS_ITS | Encounter Summary ---
Author Organization [facility] Address [address] [place] [address] Phone Care Team Providers Care Gastroenterology Nurse Practitioner Name Role Phone Gigi Fraser MD Primary Care Provider [phone] Encounter Details Date Type Department Care Team (Late Contact Info) Description 01/16/2024 Orders Only [facility] [address] [address] Bola Rodriguez DO [address] [address] Acute tubulo-interstitial nephritis; Other acute [...] Visit [facility] [address] [place] [address] Bola Rodriguez DO [address] [place] [address] documented as of this encounter [...] Urine 0-5 0 - 5 /hpf [facility] RBC, Urine None seen 0 - 2 /hpf [facility] Squamous Epithelial, Urine None seen 0 - 10 /hpf [facility] Casts None seen None seen /lpf [facility] Bacteria, Urine None seen None seen/Few [facility] 01/25/2024 8:41 AM EDT 01/25/2024 us Bola Rodriguez DO LAB MICROBIOLOGY - GENERAL ORDAlistair CHAVES Final Result [facility] [address] [place] [phone] * (ABNORMAL) Urine Protein / creatinine ratio (01/25/2024 8:41 AM EDT) Creatinine, Ur 38.1 Not Estab. mg/dL [facility] Protein, Ur 46.1 Not Estab. mg/dL [facility] Urine Protein/Creati nine Ratio 1,210(H) 0 - 200 mg/g creat [facility] Urine (Urine, Clean Catch) 01/25/2024 8:41 AM EDT 01/25/2024 us Bola Rodriguez DO LAB URINE ORDERABLES Final Resu lt [facility] [address] [place] [address] * (ABNORMAL) Urinalysis with microscopic (01/25/2024 8:41 AM EDT) Pathologist [facility] Specific [place], Urine 1.008 1.005 - 1.030 [facility] [phone] pH Urine 7.0 5.0 - 7.5 [facility] [phone] Color, Urine Yellow Yellow [facility] Appearance Urine Clear Clear [facility] [phone] WBC Esterase Urine Trace(A) Negative [facility] Protein, Ur 2+(A) Negative/Tr elissa [facility] Glucose, Ur Negative Negative [facility] Ketones, Urine Negative Negative [facility] Blood Urine 3+(A) Negative [facility] Bilirubin Urine Negative Negative [facility] Urobilinogen Urine 0.2 0.2 - 1.0 mg/dL [facility] [phone] Nitrite, Urine Positive(A) Negative [facility] Microscopic Examination See below: [facility] [phone] Comment:Microscopic was cely cated and was performed. Urine (Urine, Clean Catch) 01/25/2024 8:41 AM EDT 01/25/2024 [facility] LAB URINE ORDERABLES Final Resu lt Performing Organization Address City/[facility] Co de Phone Number [facility] [address] [place] [address] * Magnesium (01/25/2024 8:41 AM EDT) Magnesium 1.9 1.6 - 2.3 mg/dL [facility] Blood (Blood, Venous) 01/25/2024 8:41 AM EDT 01/25/2024 Bola [facility] LAB BLOOD ORDERABLES Final Resu lt Performing Organization Address [facility] de Phone Number [facility] [address] [place] [address] * (ABNORMAL) Renal Function Panel (01/25/2024 8:41 AM EDT) Glucose 108(H) 70 - 99 mg/dL [facility] BUN 11 6 - 24 mg/dL [facility] Creatinine 2.04(H) 0.76 - 1.27 mg/dL [facility] eGFR CKD-EPI CR 2020 37(L) >59 mL/min/1.7 3 [facility] BUN/Creatinine Ratio 5(L) 9 - 20 [facility] Sodium 141 134 - 144 mmol/L [facility] Potassium 3.2(L) 3.5 - 5.2 mmol/L [facility] Chloride 99 96 - 106 mmol/L [facility] Bicarbonate (CO2) 30(H) 20 - 29 mmol/L [facility] Calcium 10.5(H) 8.7 - 10.2 mg/dL [facility] Comment:Verified by repeat analysis Phosphorus 2.9 2.8 - 4.1 mg/dL [facility] Albumin 4.1 3.8 - 4.9 g/dL [facility] Blood (Blood, Venous) 01/25/2024 8:41 AM EDT 01/25/2024 Bola Rodriguez DO LAB BLOOD ORDERABLES Final Resu lt [facility] [address] [place] [address] documented in this encounter Visit Diagnoses Diagnosis Acute tubulo-interstitial nephritis Other acute kidney failure (HCC) Hypertension Stage 3a chronic kidney disease (HCC) documented in this encounter Care Teams Gastroenterology Nurse Practitioner Relationship Specialty Start Date End Date Giig Fraser MD [address] [place] [address] PCP - General Internal Medicine 07/16/23 documented as of this encounter
--- OUTSIDE RECORDS SUMMARY | 2024-08-19 12:28 | XMS_ITS | Encounter Summary ---
Author Organization [facility] Address [address] [place] [address] Phone Care Team Providers Care Accounts Officer Name Role Phone Gigi Fraser MD Primary Care Provider Encounter Details Date Type Department Care Team (Late Contact Info) Description 03/12/2024 Orders Only [facility] [address] [place] [address] Bola Rodriguez DO [address] [place] [address] Acute tubulo-interstitial nephritis; Other acute [...] [facility] [address] [place] [address] Bola Rodriguez DO [address] [place] [address] documented as of this encounter Visit Diagnoses Diagnosis Acute tubulo-interstitial nephritis Other acute kidney failure (HCC) Hypertension Stage 3a chronic kidney disease (HCC) documented in this encounter Care Teams Accounts Officer Relationship Specialty Start Date End Date Gigi Fraser MD [address] [place] [address] PCP - General Internal Medicine 07/16/23 documented as of this encounter
== END 2024-08-19 11:06 | disposition home or self-care (01) ==
LOC: HO.XRAY 11:05
PROVIDERS: PCP Internal Medicine; Visit Provider Internal Medicine Rheumatology
DX: M54.50 Low back pain, unspecified (principal); M25.551 Pain in right hip
CPT/HCPCS: 72100; 73502

== ENCOUNTER → 2024-08-19 11:09 | Outpatient (BNV) | payer OTHER, SELFPAY | PROVIDERS: PCP Internal Medicine; Visit Provider Radiology Diagnostic Radiology | DX: M47.895 Other spondylosis, thoracolumbar region (principal); M43.16 Spondylolisthesis, lumbar region; M43.26 Fusion of spine, lumbar region; M16.0 Bilateral primary osteoarthritis of hip | CPT/HCPCS: 72100; 73502 ==

== ENCOUNTER 2024-09-07 10:00 | Outpatient (RCR) | payer OTHER, SELFPAY ==
--- NOTE | 2024-08-31 11:02 | MHC.PT.EP ---
[facility] [place] Office [place] Office [place] Office [address] Sheba Barger [address] [phone] F: [phone] F: [phone] F: [phone] F: [phone] Physical Therapy Plan of Care Date of Evaluation: 08/31/24 Date of Surgery: n/a Diagnosis: low back pain Assessment: Patient is a 59 year old male presenting to PT with complaints of pain in his low back. Pt reports onset of pain began years ago due to insidious onset. He presents today with impairments in pain, lumbar ROM, strength. Pt's current occupation is disabled due to RA, with baseline physical activities including getting in and out of the car, transfers, stair negotiation. Pt expresses longterm goal of reducing pain, and is motivated to work towards this in PT. Clinical presentation today is most consistent with signs and sx associated with low back pain and pt will benefit from skilled PT 2 week x 4 weeks to address the following problems and impairments noted upon evaluation: pain, lumbar ROM, strength. These problems limit the patient with the following functional activities: getting in and out of the car, transfers, stair negotiation. The prescribed treatment plan of care is medically necessary. Co-morbidities of RA, hx lumbar fusion were identified and taken into considerations of plan of care. Pt was educated on HEP, role of PT, prognosis, POC. Frequency and Duration: The patient will be seen 2 x week x 4 weeks Short Term Goals: Pt will demonstrate centralization of sx in 2 weeks. Pt will demonstrate improved hip MMT strength to at least 4/5 in 2 weeks. Penitentiary Goals: Pt will demonstrate improved Camille score by 10% in 4 weeks for improved functional mobility. Pt will demonstrate ability to perform transfers with min to no pain in 4 weeks for return to PLOF. Pt will demonstrate ability to negotiate stairs with min to no pain in 4 weeks for improved access to his home. Treatment Plan: Modalities to reduce pain, spasms and effusion. Manual therapy to restore motion and function. Therapeutic exercise to improve strength and flexibility. Neuromuscular re-education for posture and balance. Therapeutic activities to return to functional activities of daily living. Electronically signed by: Margoth Gonzales, PT, DPT, ATC Please sign and return to therapist. Thank you for your referral.
--- NOTE | 2024-10-19 10:25 | MHC.PT.DC ---
[facility] [place] Office [place] Office [place] Office [address] [phone] F: [phone] F: [phone] F: [phone] F: [phone] Physical Therapy Discharge Report Diagnosis: low back pain Date of Surgery: n/a Date of Evaluation: 08/31/24 Date of Discharge: 10/19/24 Treatments to Date: 3 Cancellations to Date: 3 No Shows to Date: 0 Discharge Status: Discharge Summary: At last visit pt had been placed on 30 day hold. Pt has not called to be scheduled in >30 days so therefore to be d/c as planned. Electronically signed by: Margoth Gonzales, PT, DPT, ATC Please sign and return to therapist. Thank you for your referral.
== END 2024-10-19 10:25 | disposition home or self-care (01) ==
LOC: HO.PTCHIC 10:00
PROVIDERS: PCP Internal Medicine; Visit Provider Internal Medicine Rheumatology
DX: M54.50 Low back pain, unspecified (principal); M54.10 Radiculopathy, site unspecified
CPT/HCPCS: 97110; 97161

== ENCOUNTER 2024-09-17 14:10 | Outpatient (REF) | payer OTHER, SELFPAY ==
--- NOTE | 2024-09-17 14:14 | EMG_ITS ---
Chief complaint: At least 6 months of right leg/hip/back pain radiating down to the foot, with numbness on big toe, 4th and 5th toes. History of RA. History of lumbar fusion and diskectomy, 5 years ago, by Dr. Alejo. Reason for referral: Evaluate for radiculopathy versus peroneal neuropathy Referred by: Dr. Rosario Procedure done: Right lower extremity NCS/EMG Precautions and/or limitations: Previous lumbar surgeries The limb temperature was monitored continuously and remained between 32-36 degrees C during the performance of the NCS. Nerve Conduction Studies Anti Sensory Summary Table ?Stim Site NR Onset (ms) Norm Onset (ms) Peak (ms) Norm Peak (ms) O-P Amp (?V) Norm O-P Amp Site1 Site2 Delta-0 (ms) Dist (cm) Ben (m/s) Norm Ben (m/s) Right Sup Peron Anti Sensory (Ankle) Lateral Leg ? 2.6 3.6 <4.4 12.1 >5.0 Lateral Leg Ankle 2.6 14.0 54 Right Sural Anti Sensory (Lat Mall) Calf ? 3.0 3.9 <4.0 8.1 >5.0 Calf Lat Mall 3.0 14.0 47 Motor Summary Table ?Stim Site NR Onset (ms) Norm Onset (ms) O-P Amp (mV) Norm O-P Amp iAmp (mV) Amp (1st) (%) Site1 Site2 Delta-0 (ms) Dist (cm) Ben (m/s) Norm Ben (m/s) Right Peroneal Motor (Ext Dig Brev) Ankle ? 4.5 <4.0 3.7 >2.5 4.5 100.0 Ankle Ext Dig Brev 4.5 0.0 B Fib ? 12.3 3.8 4.7 102.7 B Fib Ankle 7.8 34.0 44 >40 Poplt ? 13.4 4.4 5.5 118.9 Poplt B Fib 1.1 4.5 41 >40 Right Tibial Motor (Abd Arzate Brev) Ankle ? 3.3 <5 11.0 >2.5 14.4 100.0 Ankle Abd Arzate Brev 3.3 0.0 Knee ? 12.2 6.2 8.3 56.4 Knee Ankle 8.9 41.0 46 >40 EMG ?Side Muscle Nerve Root Ins Act Fibs Psw Amp Dur Poly Recrt Int Pat Comment Right AbdHallucis MedPlantar S1-2 Incr 2+ 2+ Nml Nml 0 Nml Complete Right AntTibialis Dp Br Peron L4-5 Incr 2+ 2+ Nml Nml 0 Nml Complete Right PostTibialis Tibial L5, S1 Incr 2+ 2+ Nml Nml 0 Nml Complete Right MedGastroc Tibial S1-2 Incr 2+ 2+ Nml Nml 0 Nml Complete Right VastusMed Femoral L2-4 Nml Nml Nml Nml Nml 0 Nml Complete Right Peroneus Long Sup Br Peron L5-S1 Nml Nml Nml Nml Nml 0 Nml Complete Right BicepsFemS Sciatic L5-S1 Nml Nml Nml Nml Nml 0 Nml Complete FINDINGS: Right peroneal nerve showed prolonged distal latency, normal amplitude and normal conduction velocity. No conduction block across fibular neck. All other nerves tested were within normal. Concentric needle EMG was performed in selected muscles of the right lower extremity. Study revealed signs of electric abnormalities as shown in the table above. Right AH, posterior tibialis, medial gastrocnemius, and tibialis anterior showed increased insertional activity, PSWs and fibrillations. IMPRESSION: 1. This is an abnormal study. 2. There is electrodiagnostic evidence for right L5-S1 radiculopathy.. 3. There is no electrodiagnostic evidence for peroneal neuropathy, tibial neuropathy. lumbosacral plexopathy, or peripheral neuropathy. Thank you for your kind referral. María Palencia MD, JEVON Board Certified, [place] Board of Physical Medicine and Rehabilitation (ABPMR) Board Certified, [place] Board of Electrodiagnostic Medicine (ABEM) CODIN [id number] [facility]
--- OUTSIDE RECORDS SUMMARY | 2024-09-17 16:29 | XMS_ITS | Clinical Summary ---
Author Organization [facility], Address [address] [place] [address] Phone Care Team Providers Care Decorator Mannequin Name Role Phone Gigi Fraser MD Primary Care Provider [phone] Allergies Active Allergy Reactions Criticality Noted Date Comments Hydrochlorothiazide 07/23/2023 Penicillin G 10/03/2023 Other Reaction(s): red/rash entire body Tolerates piperacillin/tazobactam Medications aspirin (ST LILLIAN) 81 MG EC tablet Take 81 mg by mouth 1 (one) time each day Active propranolol LA (INDERAL LA) 80 MG 24 hr capsule Take 80 mg by mouth 1 (one) time each day Do not crush, chew, or split. Active rosuvastatin (CRESTOR) 40 MG tablet Take 40 mg by mouth 1 (one) time each day Active alfuzosin (UROXATRAL) 10 MG 24 hr tablet Take 10 mg by mouth 1 (one) time each day Do not crush, chew, or split. Active tamsulosin (FLOMAX) 0.4 MG 24 hr capsule Take 0.4 mg by mouth 1 (one) time each day 08/27/19 25 Discontinued famotidine (Pepcid) 20 MG tablet Take 1 tablet (20 mg total) by mouth in the morning and 1 tablet (20 mg total) in the evening. 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 Acute tubulo-interstitial nephritis 12/24/2023 Acute glomerulonephritis 10/22/2023 Acute nontraumatic kidney injury 09/17/2023 Hypokalemia 07/23/2023 Hypertension 07/22/2023 Dyslipidemia 07/22/2023 Encounters Date Type Department Care Team Description 09/10/2024 Orders Only [facility] [address] [place] [address] Bola Rodriguez DO Acute tubulo-interstitial nephritis; Hypokalemia; Hypertension; Stage 3a chronic kidney disease (HCC) 08/27/2024 2:30 PM EST Office Visit [facility] [address] [place] [address] Bola Rodriguez DO Chronic tubulointerstitial nephritis (Primary Dx); Stage 3b chronic kidney disease (HCC); Hypertension 08/27/2024 Orders Only [facility] [address] [place] [address] Bola Rodriguez DO Acute tubulo-interstitial nephritis; Other acute kidney failure (HCC); Hypertension; Stage 3a chronic kidney disease (HCC) 08/25/2024 Documentation Only [facility] [address] [place] [address] Bola Rodriguez DO 07/30/2024 Orders Only [facility] [address] [place] [address] Bola Rodriguez DO Acute tubulo-interstitial nephritis; Other acute kidney failure (HCC); Hypertension; Stage 3a chronic kidney disease (HCC) 07/16/2024 Orders Only [facility] [address] [place] [address] Bola Rodriguez DO Acute tubulo-interstitial nephritis; Hypokalemia; Hypertension; Stage 3a chronic kidney disease (HCC) 07/02/2024 Orders Only [facility] [address] [place] [address] Bola Rodriguez DO Acute tubulo-interstitial nephritis; Other [...] Sign Reading Time Taken Comments Blood Pressure 132/64 08/27/2024 3:01 PM EST Pulse 72 08/27/2024 3:01 PM EST Temperature - - Respiratory Rate - - Oxygen Saturation - - Inhaled Oxygen Concentration - - Weight - - Height - - Body Mass Index - - Plan of Treatment Upcoming Encounters Date Type Department Care Team (Late st Contact Info) Description 12/29/2024 2:00 PM EDT Office Visit [facility] [address] [place] [address] Bola Rodriguez DO [address] [place] [address] [place] [phone] Health Maintenance Due Date Last Done Comments Colorectal Cancer Screening: Annual FOBT 2013 Colorectal Cancer Screening: Colonoscopy 2013 Colorectal Cancer Screening: Sigmoidoscopy 2013 Pneumococcal Vaccine: Pediatrics (0 to 5 Years) and At-Risk Patients (6 to 64 Years) (2 of 2 - PCV) 04/24/2016 04/24/2015 Influenza Vaccine (#1) 2024 , 04/13/2016 Hepatitis B Vaccine Aged Out No longe r eligible based on patient's age to complete this topic Procedures Procedure Name Priority Date/Time Associated Diagnosis Comments PROTEIN / CREATININE RATIO, URINE Routine 08/22/2024 8:14 AM EST Acute tubulo-interstitia l nephritis Other acute kidney failure (HCC) Hypertension Stage 3a chronic kidney disease (HCC) URINALYSIS WITH MICROSCOPIC Routine 08/22/2024 8:14 AM EST Acute tubulo-interstitia l nephritis Other acute kidney failure (HCC) Hypertension Stage 3a chronic kidney disease (HCC) MAGNESIUM Routine 08/22/2024 8:14 AM EST Acute tubulo-interstitia l nephritis Other acute kidney failure (HCC) Hypertension Stage 3a chronic kidney disease (HCC) RENAL FUNCTION PANEL Routine 08/22/2024 8:14 AM EST Acute tubulo-interstitia l nephritis Other acute kidney failure (HCC) Hypertension Stage 3a chronic kidney disease (HCC) MICROSCOPIC EXAMINATION - DO NOT USE Routine 08/22/2024 8:14 AM EST URINALYSIS WITH MICROSCOPIC Routine 07/25/2024 9:54 AM [...] Last 3 Months Results * Microscopic Examination (08/22/2024 8:14 AM EST) Only the most recent of2 resultswithin the time period is included. WBC, Urine None seen 0 - 5 /hpf [facility] RBC, Urine None seen 0 - 2 /hpf [facility] Squamous Epithelial, Urine None seen 0 - 10 /hpf [facility] Casts None seen None seen /lpf [facility] Bacteria, Urine None seen None seen/Few [facility] 08/22/2024 8:14 AM EST 08/22/2024 Bola Rodriguez DO LAB MICROBIOLOGY - GENERAL ORDE [facility] Final Result [facility] [address] [place] [phone] * (ABNORMAL) Urine Protein / creatinine ratio (08/22/2024 8:14 AM EST) Only the most recent of2 resultswithin the time period is included. Creatinine, Ur 55.0 Not Estab. mg/dL [facility] Protein, Ur 28.6 Not Estab. mg/dL [facility] Urine Protein/Creati nine Ratio 520(H) 0 - 200 mg/g creat [facility] Urine (Urine, Clean Catch) 08/22/2024 8:14 AM EST 08/22/2024 Bola Rodriguez DO LAB URINE ORDERABLES Final Resu lt [facility] [address] [place] [address] * (ABNORMAL) Urinalysis with microscopic (08/22/2024 8:14 AM EST) Only the most recent of2 resultswithin the time period is included. Specific Mccle[place]an, Urine 1.012 1.005 - 1.030 [facility] pH Urine 6.0 5.0 - 7.5 [facility] [phone] Color, Urine Yellow Yellow [facility] Appearance Urine Clear Clear [facility] [phone] WBC Esterase Urine Negative Negative [facility] Protein, Ur 1+(A) Negative/Tra ce [facility] Glucose, Ur Negative Negative [facility] [phone] Ketones, Urine Negative Negative [facility] Blood Urine Negative Negative [facility] Bilirubin Urine Negative Negative [facility] Urobilinogen Urine 0.2 0.2 - 1.0 mg/dL [facility] Nitrite, Urine Negative Negative [facility] Microscopic Examination See below: [facility] Comment:Microscopic was cely cated and was performed. Urine (Urine, Clean Catch) 08/22/2024 8:14 AM EST 08/22/2024 us Bola Rodriguez DO LAB URINE ORDERABLES Final Resu lt [facility] [address] [place] [address] * Magnesium (08/22/2024 8:14 AM EST) Only the most recent of2 resultswithin the time period is included. Pathologist [facility] Magnesium 2.0 1.6 - 2.3 mg/dL [facility] Blood (Blood, Venous) 08/22/2024 8:14 AM EST 08/22/2024 us Bola Rodriguez DO LAB BLOOD ORDERABLES Final Resu lt [facility] [address] [place] [address] * (ABNORMAL) Renal Function Panel (08/22/2024 8:14 AM EST) Only the most recent of2 resultswithin the time period is included. Pathologist [facility] Glucose 105(H) 70 - 99 mg/dL [facility] BUN 18 8 - 27 mg/dL [facility] Creatinine 1.84(H) 0.76 - 1.27 mg/dL [facility] eGFR CKD-EPI CR 2020 41(L) >59 mL/min/1.7 3 [facility] BUN/Creatinine Ratio 10 10 - 24 [facility] Sodium 140 134 - 144 mmol/L [facility] Potassium 4.4 3.5 - 5.2 mmol/L [facility] Chloride 102 96 - 106 mmol/L [facility] Bicarbonate (CO2) 25 20 - 29 mmol/L [facility] Calcium 10.0 8.6 - 10.2 mg/dL [facility] Albumin 4.6 3.8 - 4.9 g/dL [facility] Phosphorus 3.7 2.8 - 4.1 mg/dL [facility] Blood (Blood, Venous) 08/22/2024 8:14 AM EST 08/22/2024 Bola Rodriguez DO LAB BLOOD ORDERABLES Final Resu lt [employer] [facility] [address] [place] [address] * Sedimentation Rate (07/25/2024 9:54 AM EST) Sed Rate 14 0 - 30 mm/hr [facility] Blood (Blood, Venous) 07/25/2024 9:54 AM EST 07/25/2024 Bola Rodriguez DO LAB BLOOD ORDERABLES Final Resu lt Performing Organization Address City/[facility] Co de Phone Number [employer] [facility] [address] [place] [address] from Last 3 Months Insurance [employer] DUAL SNP ([id number]) BABS [place] [phone] Care Teams Decorator Mannequin Relationship Specialty Start Date End Date Gigi Fraser MD [address] [place] [address] PCP - General Internal Medicine 07/16/23
--- OUTSIDE RECORDS SUMMARY | 2024-09-17 16:29 | XMS_ITS | Encounter Summary ---
Author Organization [facility] Address [address] [place] [address] Phone Care Team Providers Care Die Hardener Name Role Phone Gigi Fraser MD Primary Care Provider [phone] Encounter Details Date Type Department Care Team (Late Contact Info) Description 07/30/2024 Orders Only [facility] [address] [place] [address] Bola Rodriguez DO [address] [place] [address] Acute tubulo-interstitial nephritis; Other acute kidney [...] Department Care Team (Late Contact Info) Description 12/29/2024 2:00 PM EDT Office Visit [facility] [address] [place] [address] Bola Rodriguez DO [address] [place] [address] documented as of this encounter Procedures Procedure Name Priority Date/Time Associated Diagnosis Comments MICROSCOPIC EXAMINATION - DO NOT USE Routine 08/22/2024 8:14 AM EST PROTEIN / CREATININE RATIO, URINE Routine 08/22/2024 8:14 AM EST Acute tubulo-interstitial nephritis Other acute kidney failure (HCC) Hypertension Stage 3a chronic kidney disease (HCC) URINALYSIS WITH MICROSCOPIC Routine 08/22/2024 8:14 AM EST Acute tubulo-interstitial nephritis Other acute kidney failure (HCC) Hypertension Stage 3a chronic kidney disease (HCC) MAGNESIUM Routine 08/22/2024 8:14 AM EST Acute tubulo-interstitial nephritis Other acute kidney failure (HCC) Hypertension Stage 3a chronic kidney disease (HCC) RENAL FUNCTION PANEL Routine 08/22/2024 8:14 AM EST Acute tubulo-interstitial nephritis Other acute kidney failure (HCC) Hypertension Stage 3a chronic kidney disease (HCC) documented in this encounter Results * Microscopic Examination (08/22/2024 8:14 AM EST) WBC, Urine None seen 0 - 5 /hpf [facility] RBC, Urine None seen 0 - 2 /hpf [facility] Squamous Epithelial, Urine None seen 0 - 10 /hpf [facility] Casts None seen None seen /lpf [facility] Bacteria, Urine None seen None seen/Few [facility] 08/22/2024 8:14 AM EST 08/22/2024 us Bola Rodriguez DO LAB MICROBIOLOGY - GENERAL ORDE ANASTACIO Final Result [facility] [address] [place] [phone] * (ABNORMAL) Urine Protein / creatinine ratio (08/22/2024 8:14 AM EST) Creatinine, Ur 55.0 Not Estab. mg/dL [facility] Protein, Ur 28.6 Not Estab. mg/dL [facility] Urine Protein/Creati nine Ratio 520(H) 0 - 200 mg/g creat [facility] Urine (Urine, Clean Catch) 08/22/2024 8:14 AM EST 08/22/2024 us Bola Rodriguez DO LAB URINE ORDERABLES Final Resu lt [facility] [address] [place] [address] * (ABNORMAL) Urinalysis with microscopic (08/22/2024 8:14 AM EST) Specific [place], Urine 1.012 1.005 - 1.030 [facility] pH Urine 6.0 5.0 - 7.5 [facility] Color, Urine Yellow Yellow [facility] Appearance Urine Clear Clear [facility] WBC Esterase Urine Negative Negative [facility] Protein, Ur 1+(A) Negative/Tra ce [facility] Glucose, Ur Negative Negative [facility] Ketones, Urine Negative Negative [facility] Blood Urine Negative Negative [facility] Bilirubin Urine Negative Negative [facility] Urobilinogen Urine 0.2 0.2 - 1.0 mg/dL [facility] Nitrite, Urine Negative Negative [facility] Microscopic Examination See below: [facility] Comment:Microscopic was cely cated and was performed. Urine (Urine, Clean Catch) 08/22/2024 8:14 AM EST 08/22/20[facility]LES Final Resu lt Performing Organization Address City/[facility]/ZIP Co de Phone Number [facility] [address] [place] [address] * Magnesium (08/22/2024 8:14 AM EST) Magnesium 2.0 1.6 - 2.3 mg/dL [facility] Blood (Blood, Venous) 08/22/2024 8:14 AM EST 08/22/2024 [facility] BLOOD ORDERABLES Final Resu lt Performing Organization Address [facility] de Phone Number [facility] [address] [place] [address] * (ABNORMAL) Renal Function Panel (08/22/2024 8:14 AM EST) Glucose 105(H) 70 - 99 mg/dL [facility] BUN 18 8 - 27 mg/dL [facility] Creatinine 1.84(H) 0.76 - 1.27 mg/dL [facility] eGFR CKD-EPI CR 2020 41(L) >59 mL/min/1.7 3 [facility] BUN/Creatinine Ratio 10 10 - 24 [facility] Sodium 140 134 - 144 mmol/L [facility] Potassium 4.4 3.5 - 5.2 mmol/L [facility] Chloride 102 96 - 106 mmol/L [facility] Bicarbonate (CO2) 25 20 - 29 mmol/L [facility] Calcium 10.0 8.6 - 10.2 mg/dL [facility] Albumin 4.6 3.8 - 4.9 g/dL [facility] Phosphorus 3.7 2.8 - 4.1 mg/dL [facility] Blood (Blood, Venous) 08/22/2024 8:14 AM EST 08/22/2024 Boal Rodriguez DO LAB BLOOD ORDERABLES Final Resu lt [facility] [address] [place] [phone] documented in this encounter Visit Diagnoses Diagnosis Acute tubulo-interstitial nephritis Other acute kidney failure (HCC) Hypertension Stage 3a chronic kidney disease (HCC) documented in this encounter Care Teams Die Hardener Relationship Specialty Start Date End Date Gigi Fraser MD [address] [place] [address] PCP - General Internal Medicine 07/16/23 documented as of this encounter
--- OUTSIDE RECORDS SUMMARY | 2024-09-17 16:29 | XMS_ITS | Data Portability ---
Author Organization [facility] Address [address] [place] [address] Assessment No assessment recorded. Plan of Treatment [...] SNOMED-CT Code Diagnosis ICD10 Code Diagnosis Note [id number] [facility] [address] [place] [address] 02/02/2016 14:38:41 02/02/2016 14:52:01 Health Concerns Section Related Observation LastModified by Organization Detai ls LastModified Time None Recorded Concern Status LastModified by Organization Details LastModified Time None Recorded Advance Directives Directive None Recorded Payers Encounter Date Sequence Insurance Name Policy Number Policy Griffith Covered Member ID Griffith Member ID Guarantor Name 02/02/2016 1 MEDICARE B-[place]: [employer] Arnel Fontanez [id number] Arnel Fontanez
--- OUTSIDE RECORDS SUMMARY | 2024-09-17 16:29 | XMS_ITS | Encounter Summary ---
Author Organization [facility] Address [address] [place] [address] Phone Care Team Providers Care Bicycle Mechanic Name Role Phone Gigi Fraser MD Primary Care Provider Encounter Details Date Type Department Care Team (Late Contact Info) Description 08/27/2024 Orders Only [facility] [address] [address] Bola Rodriguez DO [address] [place] [address] Acute tubulo-interstitial nephritis; Other acute kidney [...] Visit [facility] [address] [address] Bola Rodriguez DO [address] [place] [address] documented as of this encounter Visit Diagnoses Diagnosis Acute tubulo-interstitial nephritis Other acute kidney failure (HCC) Hypertension Stage 3a chronic kidney disease (HCC) documented in this encounter Care Teams Bicycle Mechanic Relationship Specialty Start Date End Date Gigi Fraser MD [address] [place] [address] PCP - General Internal Medicine 07/16/23 documented as of this encounter
--- OUTSIDE RECORDS SUMMARY | 2024-09-17 16:29 | XMS_ITS | Encounter Summary ---
Author Organization [facility] Address [address] [place] [address] Phone Care Team Providers Care Tung Nut Grower Name Role Phone Gigi Fraser MD Primary Care Provider [phone] Encounter Details Date Type Department Care Team (Late st Contact Info) Description 09/10/2024 Orders Only [facility] [address] [place] [address] Bola Rodriguez DO [address] [place] [address] Acute tubulo-interstitial nephritis; Hypokalemia; Hypertension; Stage [...] Visit [facility] [address] [place] [place] [address] Bola Rodriguez DO [address] [place] [address] documented as of this encounter Visit Diagnoses Diagnosis Acute tubulo-interstitial nephritis Hypokalemia Hypertension Stage 3a chronic kidney disease (HCC) documented in this encounter Care Teams Tung Nut Grower Relationship Specialty Start Date End Date Gigi Fraser MD [address] [place] [address] PCP - General Internal Medicine 07/16/23 documented as of this encounter
--- OUTSIDE RECORDS SUMMARY | 2024-09-17 16:29 | XMS_ITS | Encounter Summary ---
Author Organization [facility] Address [address] [place] [address] Phone Care Team Providers Care Room Service Food Server Name Role Phone Gigi Fraser MD Primary Care Provider [phone] Encounter Details Date Type Department Care Team (Late Contact Info) Description 07/02/2024 Orders Only [facility] [address] [place] [address] Bola Rodriguez DO [address] [place] [address] Acute tubulo-interstitial nephritis; Other acute kidney [...] Visit [facility] [address] [place] [address] Bola Rodriguez DO [address] [place] [address] documented as of this encounter Visit Diagnoses Diagnosis Acute tubulo-interstitial nephritis Other acute kidney failure (HCC) Hypertension Stage 3a chronic kidney disease (HCC) documented in this encounter Care Teams Room Service Food Server Relationship Specialty Start Date End Date Gigi Fraser MD [address] [place] [address] PCP - General Internal Medicine 07/16/23 documented as of this encounter
--- OUTSIDE RECORDS SUMMARY | 2024-09-17 16:29 | XMS_ITS | Encounter Summary ---
Author Organization [facility] Address [address] [place] [address] Phone Care Team Providers Care Guitar Maker Hand Name Role Phone Gigi Fraser MD Primary Care Provider [phone] Encounter Details Date Type Department Care Team (Latest Contact Info) Description 08/27/2024 2:30 PM EST Office Visit [facility], [address] [place] [phone] Bola Rodriguez DO [address] [place] [phone] Chronic tubulointerstitial nephritis (Primary Dx); Stage 3b chronic kidney disease (HCC); Hypertension Social History Tobacco Use Types Packs/Day Years [...] on file documented as of this encounter Last Filed Vital Signs Vital Sign Reading Time Taken Comments Blood Pressure 132/64 08/27/2024 3:01 PM EST Pulse 72 08/27/2024 3:01 PM EST Temperature - - Respiratory Rate - - Oxygen Saturation - - Inhaled Oxygen Concentration - - Weight - - Height - - Body Mass Index - - documented in this encounter Progress Notes * Bola Rodriguez DO - 08/27/2024 2:30 PM EST Images from the original note were not included. PATIENT: Arnel Fontanez : 1965 ENCOUNTER: 08/27/2024 PCP: Gigi Fraser MD HPI: Arnel Fontanez is a 59 y.o. year old male with a history of chronic hypokalemia and hypertensionwho is seen today for further evaluation. Arnel was a former smoker having quit about 6 years ago with a 45-year pack history as well as known history of coronary artery disease with preserved LV function and mild aortic root dilatation who is followed by Jone Estevez from [facility] cardiology. Looking back at records, it appears that Arnel has been hypokalemic for the better part of at least 8 years without the use of any potassium wasting diuretics. More recently, he is required losartan and spironolactone to try to keep some semblance of potassium control and is even had to start on some potassium supplementation. He reports being hypertensive for the better part of the last 15 or 20 years. He is unaware of any history of stroke in the young in his family but he personally has suffered from astroke in the past. He also had a history of partial colectomy a while back for perforated diverticulitis and even had an ostomy which has since been reversed. He denies any chronic diarrhea but doesreport meager oral intake generally consuming a snack in the morning and then a fairly full dinner at night. He reports consuming about 12 beers a week. I did not see any evidence of low magnesium levels but that certainly deserves some evaluation as well. Recently, atorvastatin was discontinued due to some elevated liver function test. He has no edema and denies any claudication symptoms. Arnel returns to the office today for routine follow-up. His kidney biopsy in 2022 looked very consistent with interstitial nephritis so I stopped his PPI and gave him steroids for a month. His creatinine is stable around 1.6 mg/dL and he is feeling fine. He is seeing rheumatology's Dr. Rosario and was taken off leflunomide due to elevated liver function test. He tells me he drinks about a 12 pack of beer a week as well. They are considering alternative therapies for him such as Enbrel.. ROS: Constitutional: No fever. Respiratory: No shortness of breath. Cardiovascular: No chest pain. Gastrointestinal: No abdominal pain, nausea or vomiting. Genitourinary: No hematuria. All other systems reviewed and are negative. PAST MEDICAL HISTORY: Patient Active Problem List Diagnosis Date Noted Chronic tubulointerstitial nephritis 08/27/2024 Acute tubulo-interstitial nephritis 12/24/2023 Acute glomerulonephritis 10/22/2023 Acute nontraumatic kidney injury (HCC) 09/17/2023 Hypokalemia 07/23/2023 Hypertension 07/22/2023 Dyslipidemia 07/22/2023 PAST SURGICAL HISTORY: Past Surgical History: Procedure Laterality Date APPENDECTOMY COLONOSCOPY SOCIAL HISTORY: Social History Tobacco Use Smoking status: Former Types: Cigarettes Smokeless tobacco: Never Substance Use Topics Alcohol use: Yes Alcohol/week: 3.0 standard drinks of alcohol Types: 3 Cans of beer per week FAMILY HISTORY: Family History Problem Relation Age of Onset Cancer Mother COPD Mother Coronary artery disease Father Heart disease Brother COPD Brother MEDICATIONS: Outpatient Encounter Medications as of 08/27/2024 Medication Sig Dispense Refill alfuzosin (UROXATRAL) 10 MG 24 hr tablet Take 10 mg by mouth 1 (one) time each day Do not crush, chew, or split. aspirin (ST LILLIAN) 81 MG EC tablet Take 81 mg by mouth 1 (one) time each day famotidine (Pepcid) 20 MG tablet Take 1 tablet (20 mg total) by mouth in the morning and 1 tablet (20 mg total) in the evening. 180 tablet 3 propranolol LA (INDERAL LA) 80 MG 24 hr capsule Take 80 mg by mouth 1 (one) time each day Do not crush, chew, or split. rosuvastatin (CRESTOR) 40 MG tablet Take 40 mg by mouth 1 (one) time each day [DISCONTINUED] aMILoride (MIDAMOR) 5 MG tablet Take 10 mg by mouth 1 (one) time each day [DISCONTINUED] gabapentin (NEURONTIN) 300 MG capsule Take 300 mg by mouth at bed time [DISCONTINUED] leflunomide (ARAVA) 10 MG tablet Take 10 mg by mouth 1 (one) time each day [DISCONTINUED] tamsulosin (FLOMAX) 0.4 MG 24 hr capsule Take 0.4 mg by mouth 1 (one) time each day No facility-administered encounter medications on file as of 08/27/2024. MEDICATION REVIEW: I have reviewed the patient's current medications. ALLERGIES: is allergic to hydrochlorothiazide and penicillin g. PHYSICAL EXAM: BP 132/64 Pulse 72 Constitutional: No apparent distress Cardiovascular: No friction rub. Pulmonary/Chest: No rales. Abdominal: Soft and non-tender. Extremities: Edema None LABS: Chemistry Lab Units 08/22/24 0814 07/25/24 0954 05/09/24 1004 02/29/24 0854 01/25/24 0841 12/25/23 0831 12/13/23 0719 11/15/23 0843 10/03/23 0902 08/13/23 0940 CREATININE mg/dL 1.84* 1.93* 1.96* 1.62* 2.04* 1.50* 1.49* < > 2.25* 0.9 BUN mg/dL 18 18 10 17 11 15 20 < > 14 6 POTASSIUM mmol/L 4.4 4.3 4.3 3.9 3.2* 4.3 4.3 < > 3.5 4.0 SODIUM mmol/L 140 137 140 140 141 134 135 < > 138 138 CO2 mmol/L 24 24 30* 23 22 < > 26 24 CHLORIDE mmol/L 102 98 100 102 99 96 98 < > 94* 98 ALBUMIN g/dL 4.6 5.1* 4.8 4.2 4.1 4.3 4.8 < > 4.7 4.8 4.8 EGFRNAFR ML/MIN/1.73 M2 -- -- -- -- -- -- -- -- -- 93 WBC AUTO x10E3/uL -- -- -- -- -- 8.2 10.4 -- 5.9 -- HEMATOCRIT % -- -- -- -- -- 36.6* 38.5 -- 35.3* -- HEMOGLOBIN g/dL -- -- -- -- -- 12.2* 12.6* -- 12.4* -- PLATELETS AUTO x10E3/uL -- -- -- -- -- 170 209 -- 158 -- < > = values in this interval not displayed. Bone Mineral Lab Units 08/22/24 0814 07/25/24 0954 05/09/24 1004 02/29/24 0854 01/25/24 0841 12/25/23 0831 12/13/23 0719 11/15/23 0843 10/03/23 0902 08/13/23 0940 CALCIUM mg/dL 10.0 11.0* 10.1 9.3 10.5* 9.5 10.0 < > 9.8 10.0 PHOSPHORUS mg/dL 3.7 3.4 3.5 3.4 2.9 2.9 -- < > -- 3.1 ALK PHOS IU/L -- -- -- -- -- -- 72 -- 87 67 < > = values in this interval not displayed. Urine Lab Units 08/22/24 0814 07/25/24 0954 05/09/24 1004 02/29/24 0854 01/25/24 0841 12/25/23 0831 PROT/CREAT RATIO UR mg/g creat 520* 88 1,287* 1,355* 1,210* 1,221* LABORATORY REVIEW: I have reviewed the labs noted above as well as in the chart, in [facility] and in Care Everywhere. DOCUMENTATION REVIEW: I have reviewed the applicable outside notes located in the chart, in [facility]IS and in Care Everywhere. ASSESSMENT: 1. Chronic tubulointerstitial nephritis 2. Stage 3b chronic kidney disease (HCC) 3. Hypertension 1. Hypertensive disorder -Occurring in the setting of chronic hypokalemia certainly raising concerns for primary aldosteroneexcess, pseudo hyperaldosteronism, or renal wasting of potassium, versus low potassium intake state -Chronic tobacco use could also place him at higher risk for secondary aldosteronism from renal artery disease but that should not cause low potassium issues -While he most certainly has some degree of small vessel disease from chronic high blood pressure and tobacco, workup for endocrinopathies is warranted at this time I recommended that we discontinue spironolactone and placed him on potassium chloride 20 mEq twice daily for the next 3 weeks. At thattime I will obtain renin/aldosterone, plasma metanephrines, as well as urinary studies to measure fractional excretion of potassium as well as magnesium. I will obtain liver function tests as well tofollow-up since his discontinuation of atorvastatin. -Hold off on resumption of spironolactone for now 2. Chronic kidney injury/Acute TubuNephritis -Negative vasculitis workup by serologic data. Urinary sediment showing predominantly pyuria with minimal microscopic hematuria and over a gram of protein. Renal ultrasound was normal. -Kidney biopsy most c/w AIN. This was the reason why I took him off his proton pump inhibitor and gave him a month's course of prednisone. -With his stable CKD and low-grade proteinuria, I see no indication for further immunosuppressive therapy at this time but will consider initiation of SGLT2 inhibitor next visit. I gave him the information on this today and he is going to research it himself. 3. Rheumatoid arthritis -Following with Dr. Rosario who recently took him off leflunomide due to elevated liver function test. I encouraged the patient to cut back on his alcohol intake as well. Future considerations for Enbrel apparently. I do not see any issue with this. -I do not know if this disease could potentially be playing a role with his history of interstitialnephritis but will monitor inflammatory markers and outpatient lab work closely Thank you very much for allow me to participate in Arnel's care. Once I have the lab work done I will give him a call regarding the results and plan on seeing him back in the office in about 6 to 8 weeks. Orders Placed This Encounter Comprehensive metabolic panel Urine Protein / creatinine ratio Urinalysis with microscopic documented in this encounter Plan of Treatment Upcoming Encounters Date Type Department Care Team (Late st Contact Info) Description 12/29/2024 2:00 PM EDT Office Visit [facility], [address] [place] [phone] Bola Rodriguez DO [address] [place] [phone] Scheduled Orders Name Type Priority Associated Diagnoses Orde r Schedule Comprehensive metabolic panel Lab Routine Chronic tubulointerstitial nephritis Stage 3b chronic kidney disease (HCC) Hypertension Expected: 08/27/2024, Expires: 09/24/2025 Urine Protein / creatinine ratio Lab Routine Chronic tubulointerstitial nephritis Stage 3b chronic kidney disease (HCC) Hypertension Expected: 08/27/2024, Expires: 09/24/2025 Urinalysis with microscopic Lab Routine Chronic tubulointerstitial nephritis Stage 3b chronic kidney disease (HCC) Hypertension Expected: 08/27/2024, Expires: 09/24/2025 documented as of this encounter Visit Diagnoses Diagnosis Chronic tubulointerstitial nephritis- Primary Stage 3b chronic kidney disease (HCC) Hypertension documented in this encounter Care Teams Guitar Maker Hand Relationship Specialty Start Date End Date Gigi Fraser MD [address] [place] [address] PCP - General Internal Medicine 07/16/23 documented as of this encounter
--- OUTSIDE RECORDS SUMMARY | 2024-09-17 16:29 | XMS_ITS | Encounter Summary ---
Author Organization [facility] Address [address] [place] [address] Phone Care Team Providers Care Principal Architect Name Role Phone Gigi Fraser MD Primary Care Provider [phone] Encounter Details Date Type Department Care Team (Late st Contact Info) Description 08/25/2024 Documentation Only [facility] [address] [place] [address] Bola Rodriguez DO [address] [place] [address] Social History Tobacco Use Types [...] [facility] [address] [place] [address] Bola Rodriguez DO [address] [place] [address] documented as of this encounter Visit Diagnoses Not on filedocumented in this encounter Care Teams Principal Architect Relationship Specialty Start Date End Date Gigi Fraser MD [address] [place] [address] PCP - General Internal Medicine 07/16/23 documented as of this encounter
--- OUTSIDE RECORDS SUMMARY | 2024-09-17 16:29 | XMS_ITS | Encounter Summary ---
Author Organization [facility] Address [address] [place] [address] Phone Care Team Providers Care End Frazer Name Role Phone Gigi Fraser MD Primary Care Provider [phone] Encounter Details Date Type Department Care Team (Late st Contact Info) Description 07/16/2024 Orders Only [facility] [address] [place] [address] Bola Rodriguez DO [address] [place] [address] Acute tubulo-interstitial nephritis; Hypokalemia; Hypertension; Stage [...] Visit [facility] [address] [place] [address] Bola Rodriguez DO [address] [place] [address] documented as of this encounter Procedures [...] None seen 0 - 5 /hpf [facility] RBC, Urine None seen 0 - 2 /hpf [facility] Squamous Epithelial, Urine None seen 0 - 10 /hpf [facility] Casts None seen None seen /lpf [facility] Bacteria, Urine None seen None seen/Few [facility] 07/25/2024 9:54 AM EST 07/25/2024 Bola Rodriguez DO LAB MICROBIOLOGY - GENERAL ORDE ANASTACIO Final Result [facility] [address] [place] [address] * Urinalysis with microscopic (07/25/2024 9:54 AM EST) Specific [place], Urine 1.019 1.005 - 1.030 [facility] pH Urine 7.0 5.0 - 7.5 [facility] [phone] Color, Urine Yellow Yellow [facility] [phone] Appearance Urine Clear Clear [facility] [place] WBC Esterase Urine Negative Negative [facility] Protein, Ur Trace Negative/Tra ce [facility] Glucose, Ur Negative Negative [facility] Ketones, Urine Negative Negative [facility] [place] Blood Urine Negative Negative [facility] Bilirubin Urine Negative Negative [facility] [place] Urobilinogen Urine 0.2 0.2 - 1.0 mg/dL [facility] Nitrite, Urine Negative Negative [facility] [place] Microscopic Examination Comment [facility] Comment:Microscopic follows if indicated. Other Microsc. Observations See below: [facility] [phone] Comment:Microscopic was cely cated and was performed. Urine (Urine, Clean Catch) 07/25/2024 9:54 AM EST 07/25/2024 us Bola Rodriguez DO LAB URINE ORDERABLES Final Resu lt [facility] [address] [place] [address] * Sedimentation Rate (07/25/2024 9:54 AM EST) Sed Rate 14 0 - 30 mm/hr [facility] Blood (Blood, Venous) 07/25/2024 9:54 AM EST 07/25/2024 us Bola Rodriguez DO LAB BLOOD ORDERABLES Final Resu lt Performing Organization Address City/[facility]/ZIP Co de Phone Number [facility] [address] [place] [address] * Urine Protein / creatinine ratio (07/25/2024 9:54 AM EST) Creatinine, Ur 172.5 Not Estab. mg/dL [facility] Protein, Ur 15.1 Not Estab. mg/dL [facility] Urine Protein/Creatin ine Ratio 88 0 - 200 mg/g creat [facility] Urine (Urine, Clean Catch) 07/25/2024 9:54 AM EST 07/25/2024 us Bola Rodriguez DO LAB URINE ORDERABLES Final Resu lt Performing Organization Address [facility] Co de Phone Number [employer] [facility] [place] [address] [place] [address] * Magnesium (07/25/2024 9:54 AM EST) Pathologist [facility] Magnesium 2.1 1.6 - 2.3 mg/dL [facility] Blood (Blood, Venous) 07/25/2024 9:54 AM EST 07/25/2024 us Bola Rodriguez DO LAB BLOOD ORDERABLES Final Resu lt Performing Organization Address [facility]/ZIP Co de Phone Number [employer] [facility] [place] [address] [place] [address] * (ABNORMAL) Renal Function Panel (07/25/2024 9:54 AM EST) Glucose 90 70 - 99 mg/dL [facility] BUN 18 8 - 27 mg/dL [facility] Creatinine 1.93(H) 0.76 - 1.27 mg/dL [facility] eGFR CKD-EPI CR 2020 39(L) >59 mL/min/1.7 3 [facility] BUN/Creatinine Ratio 9(L) 10 - 24 [facility] Sodium 137 134 - 144 mmol/L [facility] Potassium 4.3 3.5 - 5.2 mmol/L [facility] Bicarbonate (CO2) 24 20 - 29 mmol/L [facility] Calcium 11.0(H) 8.6 - 10.2 mg/dL [facility] Comment:Verified by repeat analysis Phosphorus 3.4 2.8 - 4.1 mg/dL [facility] Albumin 5.1(H) 3.8 - 4.9 g/dL [facility] Chloride 98 96 - 106 mmol/L [facility] Blood (Blood, Venous) 07/25/2024 9:54 AM EST 07/25/2024 Bola Rodriguez DO LAB BLOOD ORDERABLES Final Resu lt [facility] [address] [place] [address] documented in this encounter Visit Diagnoses Diagnosis Acute tubulo-interstitial nephritis Hypokalemia Hypertension Stage 3a chronic kidney disease (HCC) documented in this encounter Care Teams End Frazer Relationship Specialty Start Date End Date Gigi Fraser MD [address] [place] [address] PCP - General Internal Medicine 07/16/23 documented as of this encounter
--- OUTSIDE RECORDS SUMMARY | 2024-09-17 16:29 | XMS_ITS | Encounter Summary ---
Author Organization [facility] Address [address] [place] [address] Phone Care Team Providers Care Scrap Dealer Name Role Phone Gigi Fraser MD Primary Care Provider [phone] Encounter Details Date Type Department Care Team (Late Contact Info) Description 06/04/2024 Orders Only [facility] [address] [place] [address] Bola Rodriguez DO [address] [facility] [address] [place] [address] Acute tubulo-interstitial [...] Visit [facility] [address] [place] [address] Bola Rodriguez DO [address] [facility] [place] [address] documented as of this encounter Visit Diagnoses Diagnosis Acute tubulo-interstitial nephritis Other acute kidney failure (HCC) Hypertension Stage 3a chronic kidney disease (HCC) documented in this encounter Care Teams Scrap Dealer Relationship Specialty Start Date End Date Gigi Fraser MD [address] [place] [address] PCP - General Internal Medicine 07/16/23 documented as of this encounter
--- OUTSIDE RECORDS SUMMARY | 2024-09-17 16:30 | XMS_ITS | Encounter Summary ---
Author Organization [facility] Address [address] [place] [address] Phone Care Team Providers Care Labelling Machine Operator Name Role Phone Gigi Fraser MD Primary Care Provider [phone] Encounter Details Date Type Department Care Team (Late st Contact Info) Description 09/17/2023 Documentation Only [facility] [address] [place] [address] Bola Rodriguez DO [address] [place] [address] Social History Tobacco Use Types [...] Visit [facility] [address] [place] [address] Bola Rodriguez DO [address] [place] [address] documented as of this encounter Visit Diagnoses Not on filedocumented in this encounter Care Teams Labelling Machine Operator Relationship Specialty Start Date End Date Gigi Fraser MD [address] [place] [address] PCP - General Internal Medicine 07/16/23 documented as of this encounter
--- OUTSIDE RECORDS SUMMARY | 2024-09-17 16:30 | XMS_ITS | Encounter Summary ---
Author Organization [facility] Address [address] [place] [address] Phone Care Team Providers Care Oracle Fusion Consultant Name Role Phone Gigi Fraser MD Primary Care Provider Encounter Details Date Type Department Care Team (Late st Contact Info) Description 09/29/2023 Documentation Only [facility] [address] [place] [address] Bola Rodriguez DO [address] [facility] [address] [place] [address] Social History Tobacco Use Types [...] Visit [facility] [address] [place] [address] Bola Rodriguez DO [address] [place] [address] Pending Results Name Type Priority [...] EDT Performed at: ??01 - [facility] [address] ??[id number] Foaming Machine Operator: Sara Ruiz MD, Phone: ??[phone] Bola Rodriguez DO LAB MICROBIOLOGY - GENERAL [...] 4:07 PM EDT Performed at: ??01 - [facility] ??[id number] Foaming Machine Operator: Sara Ruiz MD, Phone: ??[phone] us Bola Rodriguez DO LAB URINE ORDERABLES Final Resu lt Performing Organization Address [facility] Co de Phone Number [facility] * (ABNORMAL) Urinalysis with microscopic (10/03/2023 9:02 AM EDT) Specific [place], Urine 1.008 1.005 - 1.030 [facility] pH [...] PM EDT Performed at: ??01 - [facility] [address] [place] ??[id number] Foaming Machine Operator: Sara Ruiz MD, Phone: ??[phone] Bola Rodriguez DO LAB URINE ORDERABLES Final [...] EDT Performed at: ??01 - [facility] [address] ??[id number] Foaming Machine Operator: Sara Ruiz MD, Phone: ??[phone] Bola Rodriguez DO LAB BLOOD ORDERABLES Final [...] EDT Performed at: ??01 - [facility] [address] ??[id number] Foaming Machine Operator: Sara Ruiz MD, Phone: ??[phone] Bola Rodriguez DO LAB BLOOD ORDERABLES Final Resu lt Performing Organization Address [facility] Co de Phone Number [facility] * [...] up testing of positive sera with both WV-3 and MPO-ANCA enzyme immunoassays. As many as [...] PM EDT Performed at: ??02 - [facility] [address] ??[id number] Foaming Machine Operator: Rios Dolan MD, Phone: ??[phone] Bola Rodriguez LAB BLOOD ORDERABLES Final Resu lt Performing Organization Address [facility] Co de Phone Number [facility] documented in this encounter Visit Diagnoses Diagnosis Other acute kidney failure (HCC)- Primary documented in this encounter Care Teams Oracle Fusion Consultant Relationship Specialty Start Date End Date Gigi Frasre MD [address] [place] [address] PCP - General Internal Medicine 07/16/23 documented as of this encounter
--- OUTSIDE RECORDS SUMMARY | 2024-09-17 16:30 | XMS_ITS | Encounter Summary ---
Author Organization [facility] Address [address] [place] [address] Phone Care Team Providers Care Customer Logistics Manager Name Role Phone Gigi Fraser MD Primary Care Provider [phone] Encounter Details Date Type Department Care Team (Late Contact Info) Description 04/09/2024 Orders Only [facility] [address] [place] [address] Bola Rodriguez DO [address] [place] [address] Acute tubulo-interstitial nephritis; Other acute kidney [...] [facility] [address] [place] [address] Bola Rodriguez DO [address] [place] [address] documented as of this encounter Visit Diagnoses Diagnosis Acute tubulo-interstitial nephritis Other acute kidney failure (HCC) Hypertension Stage 3a chronic kidney disease (HCC) documented in this encounter Care Teams Customer Logistics Manager Relationship Specialty Start Date End Date Gigi Fraser MD [address] [place] [address] PCP - General Internal Medicine 07/16/23 documented as of this encounter
--- OUTSIDE RECORDS SUMMARY | 2024-09-17 16:30 | XMS_ITS | Encounter Summary ---
Author Organization [facility] Address [address] [place] [address] Phone Care Team Providers Care Drill Bit Sharpener Name Role Phone Gigi Fraser MD Primary Care Provider [phone] Encounter Details Date Type Department Care Team (Late st Contact Info) Description 10/09/2023 Documentation Only [facility] [address] [place] [address] Bola Rodriguez DO [address] [place] [address] Social History Tobacco Use Types [...] Services Of [facility] [address] [place] [address] Bola Rodriguez DO [address] [place] [address] documented as of this encounter Visit Diagnoses Not on filedocumented in this encounter Care Teams Drill Bit Sharpener Relationship Specialty Start Date End Date Gigi Fraser MD [address] [place] [address] PCP - General Internal Medicine 07/16/23 documented as of this encounter
--- OUTSIDE RECORDS SUMMARY | 2024-09-17 16:30 | XMS_ITS | Encounter Summary ---
Author Organization [facility] Address [address] [place] [address] Phone Care Team Providers Care General Assistant Name Role Phone Gigi Fraser MD Primary Care Provider [phone] Encounter Details Date Type Department Care Team (Late st Contact Info) Description 09/17/2023 Documentation Only [facility] [address] [place] [address] Bola Rodriguez DO [address] [place] [address] Social History Tobacco Use Types [...] Transplant [facility] [address] [place] [address] Bola Rodriguez DO [address] [place] [address] documented as of this encounter Visit Diagnoses Not on filedocumented in this encounter Care Teams General Assistant Relationship Specialty Start Date End Date Gigi Fraser MD [address] [place] [address] PCP - General Internal Medicine 07/16/23 documented as of this encounter
--- OUTSIDE RECORDS SUMMARY | 2024-09-17 16:30 | XMS_ITS | Encounter Summary ---
Author Organization [facility] [place], Address [address] [place] [address] Phone Care Team Providers Care Legislative Assistant Name Role Phone Gigi Fraser MD Primary Care Provider [phone] Encounter Details Date Type Department Care Team (Late st Contact Info) Description 07/16/2023 Documentation Only [facility] [address] [place] [address] [place] [address] [place] [address] Social History Tobacco Use Types [...] Visit [facility] [address] [place] [address] Bola Rodriguez DO [address] [place] [address] [place] [address] documented as of this encounter Visit Diagnoses Not on filedocumented in this encounter Care Teams Legislative Assistant Relationship Specialty Start Date End Date Gigi Fraser MD [address] [place] [address] PCP - General Internal Medicine 07/16/23 documented as of this encounter
--- OUTSIDE RECORDS SUMMARY | 2024-09-17 16:30 | XMS_ITS | Encounter Summary ---
Author Organization [facility] Address [address] [place] [address] Phone Care Team Providers Care Lay Out Inspector Name Role Phone Gigi Fraser MD Primary Care Provider [phone] Encounter Details Date Type Department Care Team (Late Contact Info) Description 05/07/2024 Orders Only [facility] [address] [place] [address] Bola Rodriguez DO [address] [place] [address] Acute tubulo-interstitial nephritis; Other acute kidney [...] [facility] [address] [place] [address] Bola Rodriguez DO [address] [place] [address] documented as of this encounter Visit Diagnoses Diagnosis Acute tubulo-interstitial nephritis Other acute kidney failure (HCC) Hypertension Stage 3a chronic kidney disease (HCC) documented in this encounter Care Teams Lay Out Inspector Relationship Specialty Start Date End Date Gigi Fraser MD [address] [place] [address] PCP - General Internal Medicine 07/16/23 documented as of this encounter
--- OUTSIDE RECORDS SUMMARY | 2024-09-17 16:30 | XMS_ITS | Encounter Summary ---
Author Organization [facility] Address [address] [place] [address] Phone Care Team Providers Care Driller Helper Name Role Phone Gigi Fraser MD Primary Care Provider [phone] Encounter Details Date Type Department Care Team (Late st Contact Info) Description 05/21/2024 Orders Only [facility] [address] [place] [address] Bola Rodriguez DO [address] [facility] [place] [address] Acute tubulo-interstitial nephritis; Hypokalemia; Hypertension; Stage [...] Visit [facility] [address] [place] [address] Bola Rodriguez DO [address] [facility] [place] [address] documented as of this encounter Visit Diagnoses Diagnosis Acute tubulo-interstitial nephritis Hypokalemia Hypertension Stage 3a chronic kidney disease (HCC) documented in this encounter Care Teams Driller Helper Relationship Specialty Start Date End Date Gigi Fraser MD [address] [place] [address] PCP - General Internal Medicine 07/16/23 documented as of this encounter
--- OUTSIDE RECORDS SUMMARY | 2024-09-17 16:30 | XMS_ITS | Encounter Summary ---
Author Organization [facility] [place], Address [address] [place] [address] Phone Care Team Providers Care Filling And Packing Supervisor Name Role Phone Gigi Fraser MD Primary Care Provider [phone] Encounter Details Date Type Department Care Team (Late st Contact Info) Description 07/16/2023 Documentation Only [facility] [address] [place] [address] [place], [place] [address] [place] [address] Social History Tobacco Use Types [...] Visit [facility] [address] [place] [place] [address] Bola Rodriguez DO [address] [place] [address] [place] [address] documented as of this encounter Visit Diagnoses Not on filedocumented in this encounter Care Teams Filling And Packing Supervisor Relationship Specialty Start Date End Date Gigi Fraser MD [address] [place] [address] PCP - General Internal Medicine 07/16/23 documented as of this encounter
--- OUTSIDE RECORDS SUMMARY | 2024-09-17 16:30 | XMS_ITS | Encounter Summary ---
Author Organization [facility] Address [address] [place] [address] Phone Care Team Providers Care Inventory Coordinator Name Role Phone Gigi Fraser MD Primary Care Provider [phone] Encounter Details Date Type Department Care Team (Late st Contact Info) Description 10/15/2023 Documentation Only [facility] [address] [place] [address] [place], [place] [address] [place] [address] Social History Tobacco Use Types [...] Visit [facility] [address] [place] [address] Bola Rodriguez DO [address] [place] [address] [place] [address] documented as of this encounter Visit Diagnoses Not on filedocumented in this encounter Care Teams Inventory Coordinator Relationship Specialty Start Date End Date Gigi Fraser MD [address] [place] [address] PCP - General Internal Medicine 07/16/23 documented as of this encounter
--- OUTSIDE RECORDS SUMMARY | 2024-09-17 16:30 | XMS_ITS | Encounter Summary ---
Author Organization [facility] Address [address] [place] [address] Phone Care Team Providers Care Accounts Receivable Processor Name Role Phone Gigi Fraser MD Primary Care Provider [phone] Encounter Details Date Type Department Care Team (Late st Contact Info) Description 11/05/2023 Documentation Only [facility] [address] [place] [address] Bola Rodriguez DO [address] [place] [address] Social History Tobacco Use Types [...] Visit [facility] [address] [place] [place] [address] Bola Rodriguez DO [address] [place] [address] documented as of this encounter Visit Diagnoses Not on filedocumented in this encounter Care Teams Accounts Receivable Processor Relationship Specialty Start Date End Date Gigi Fraser MD [address] [place] [address] PCP - General Internal Medicine 07/16/23 documented as of this encounter
--- OUTSIDE RECORDS SUMMARY | 2024-09-17 16:30 | XMS_ITS | Encounter Summary ---
Author Organization [facility] Address [address] [place] [address] Phone Care Team Providers Care Pinmaker Name Role Phone Gigi Fraser MD Primary Care Provider [phone] Encounter Details Date Type Department Care Team (Late st Contact Info) Description 10/23/2023 Documentation Only [facility] [address] [place] [address] Bola Rodriguez DO [address] [place] [address] Social History Tobacco Use Types [...] Visit [facility] [address] [place] [place] [address] Bola Rodriguez DO [address] [place] [address] documented as of this encounter Visit Diagnoses Not on filedocumented in this encounter Care Teams Pinmaker Relationship Specialty Start Date End Date Gigi Fraser MD [address] [place] [address] PCP - General Internal Medicine 07/16/23 documented as of this encounter
--- OUTSIDE RECORDS SUMMARY | 2024-09-17 16:30 | XMS_ITS | Encounter Summary ---
Author Organization [facility] [place], Address [address] [place] [address] Phone Care Team Providers Care Flood Control Engineer Name Role Phone Gigi Fraser MD Primary Care Provider [phone] Encounter Details Date Type Department Care Team (Late st Contact Info) Description 07/19/2023 Documentation Only [facility] Of [address] [place] [address] Bola Rodriguez DO [address] [facility] [address] [place] [address] Social History Tobacco Use Types [...] Visit [facility] Of [address] [place] [address] Bola Rodriguez DO [address] [facility] [address] [place] [address] documented as of this encounter Visit Diagnoses Not on filedocumented in this encounter Care Teams Flood Control Engineer Relationship Specialty Start Date End Date Gigi Fraser MD [address] [place] [address] PCP - General Internal Medicine 07/16/23 documented as of this encounter
--- OUTSIDE RECORDS SUMMARY | 2024-09-17 16:30 | XMS_ITS | Encounter Summary ---
Author Organization [facility], Address [address] [place] [address] Phone Care Team Providers Care Design Engineering Specialist Name Role Phone Gigi Fraser MD Primary Care Provider [phone] Encounter Details Date Type Department Care Team (Late st Contact Info) Description 07/16/2023 Documentation Only [facility] [address] [place] [address] [place] Walsh[place]ARTON, [place] [address] [place] [address] Social History Tobacco Use Types [...] Visit [facility] [address] [place] [address] Bola Rodriguez DO [address] [place] [address] [place] [address] documented as of this encounter Visit Diagnoses Not on filedocumented in this encounter Care Teams Design Engineering Specialist Relationship Specialty Start Date End Date Gigi Fraser MD [address] [place] [address] PCP - General Internal Medicine 07/16/23 documented as of this encounter
--- OUTSIDE RECORDS SUMMARY | 2024-09-17 16:30 | XMS_ITS | Encounter Summary ---
Author Organization [facility] Address [address] [place] [address] Phone Care Team Providers Care Tank Car Loader Name Role Phone Gigi Fraser MD Primary Care Provider [phone] Encounter Details Date Type Department Care Team (Late st Contact Info) Description 09/17/2023 Documentation Only [facility] [address] [place] [address] Bola Rodriguez DO [address] [place] [address] Social History Tobacco Use Types [...] Visit [facility] [address] [place] [address] Bola Rodriguez DO [address] [place] [address] documented as of this encounter Visit Diagnoses Not on filedocumented in this encounter Care Teams Tank Car Loader Relationship Specialty Start Date End Date Gigi Fraser MD [address] [place] [address] PCP - General Internal Medicine 07/16/23 documented as of this encounter
--- OUTSIDE RECORDS SUMMARY | 2024-09-17 16:30 | XMS_ITS | Data Portability ---
Author Organization [facility] Pain Managem ent, PAIN OFFICE Address [address] [facility] [address] [place] [address] Care Team Providers Care Home Hospice Aide Name Role Phone CITLALI ANTHONY Primary Care [...] booked for the same. 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 [email or web address] Not available 02/09/2019 15:36:14 02/23/2019 [id number] He was advised against bed rest lasting longer than four days and to continue activities as tolerated. [email or web address] Not available 02/24/2019 14:02:41 03/15/2019 [id number] He was advised against bed rest lasting longer than four days and to continue activities as tolerated. [email or web address] Not available 03/15/2019 15:18:22 Reason for Referral None Reported. Problems Name Problem SNOMED Code Status Onset Date Resolution Date Notes Provider Name and Address Organization Details Recorded Time Lumbar post-laminecto my syndrome 773591419 Active Khloe solis MD [address] [facility] , [address], [place], [address], [place] [facility] 15:35:28 Lumbar radiculopathy 880623098 Active Khloe solis MD [address] [facility] , [address], [facility] [place], [address], [place] [facility] 15:35:45 Spinal stenosis of lumbar region 02127307 Active Khloe solis MD [address] [facility] , [address], [facility] [place], [address], [place] [facility] 15:35:57 Problem Notes None recorded. Procedures Surgical History Date Name Laterality Status Provider Name and Address Organization Details Recorded Time 02/24/20 19 Lumbar Epidural steroid injection under fluoroscopic guidance completed Khloe Mustafa MD [address] [facility] , [address], [place], [address], [place] [facility] 02/24/2019 14:02:03 [...] Name and Address Organization Details Recorded Time 51009 Product containin g penicilli n (product) medicatio n hives rash Not available Not available Not available 02/09/2019 16805 8001 SNOMED Kerrie cristina [place] - [place] [...] Updated DateTime 9 177.8 cm 25.8 kg/m2 23873.6 3 g 74 /min 98 % 98 % Kerrie Ramirez [facility] Pain Management 9 13:30:34 Date Recorded Body height Heart rate Oxygen saturation Oxygen saturation in Arterial blood by Pulse oximetry Pain severity - 0-10 verbal numeric rating [Score] - Reported Body mass index (BMI) Body weight Systolic blood pressure Diastolic blood pressure Provider Name and Address Organization Details Last Updated DateTime 9 177.8 cm 76 /min 98 % 98 % 6 25.8 kg/m2 47913.6 3 g 126 mm[Hg] 83 mm[Hg] Khloe solis MD [address] [facility] , [address], [facility] [place], [address], [facility] Pain Management 9 08:33:04 Date Recorded Body height Heart rate Oxygen saturation Oxygen saturation in Arterial blood by Pulse oximetry Systolic blood pressure Diastolic blood pressure Provider Name and Address Organization Details Last Updated DateTime 9 177.8 cm 88 /min 98 % 98 % 148 mm[Hg] 98 mm[Hg] Kerrie Ramirez [place] - [facility] 9 14:42:59 Social History Question Answer Notes LastModified by Organizat ion Details LastModified Time Tobacco Smoking Status Never Smoker Quit x 3 years Not Available [employer] 04/14/2020 03:16:11 What Is Your Level Of Alcohol Consumption? Moderate [id number] Information not available 04/14/2020 Are You Currently Employed? No Disability [id number] Information not available 04/14/2020 Which Illicit Or Recreational Drugs Have You Used? No [id number] Information not available 04/14/2020 Education 12 With Some College Information not available 02/09/2019 What Is Your Occupation? [employer] [id number] Information not available 04/14/2020 Live Alone Or With Others? Alone [email or web address] Information not available 02/09/2019 Marital Status [email or web address] Informatio n not available 02/09/2019 How Many Years Have You Smoked Tobacco? 30 [id number] Information not available 04/14/2020 Sex: Unknown Functional [...] SNOMED-CT Code Diagnosis ICD10 Code Diagnosis Note [id number] Khloe Mustafa MD PAIN OFFICE [address] [employer] [address] [place] [address] 02/09/2019 13:27:26 02/09/2019 15:40:29 Lumbar post-laminectomy syndrome 489855855 M96.1 Lumbar radiculopathy 128 561097 M54.16 Spinal jhonatan nosis of lumbar region 38432969 M48.061 32271 Khloe Mustafa MD PAIN OFFICE [address] [facility] [place] [address] 02/23/2019 08:13:31 02/24/2019 14:07:59 Lumbar post-laminectomy syndrome 433616198 M96.1 Lumbar radiculopathy 128 787138 M54.16 Spinal jhonatan nosis of lumbar region 28932569 M48.061 26642 Khloe Mustafa MD PAIN OFFICE [address] [place] [address] 03/15/2019 14:18:43 03/15/2019 15:19:54 Lumbar post-laminectomy syndrome 712207463 M96.1 Lumbar radiculopathy 128 079628 M54.16 Spinal jhonatan nosis of lumbar region 70496776 M48.061 Health Concerns Section Related Observation LastModified by Organization Detai ls LastModified Time None Recorded Concern Status LastModified by Organization Details LastModified Time None Recorded Advance Directives Directive None Recorded Payers Encounter Date Sequence Insurance Name Policy Number Policy Griffith Covered Member ID Griffith Member ID Guarantor Name 02/09/2019 2 [place] [facility] Arnel Fontanez [id number] Arnel Fontanez 02/09/2019 1 [place] B[place] [facility] Arnel Fontanez [id number] Arnel Fontanez 02/23/2019 2 [place] [facility] Arnel Fontanez [id number] Arnel Fontanez 02/23/2019 1 [place] [facility] Arnel Fontanez [id number] Arnel Fontanez 03/15/2019 2 [place] [facility] Arnel Fontanez [id number] Arnel Fontanez 03/15/2019 1 [place] [facility] Arnel Fontanez [id number] Arnel Fontanez Notes Date Note Type Note [...] nerve roots.He has trialed physical therapy at [facility] and [facility] with no pain benefit. He had a Lumbar epidural steroid injection under fluoroscopic guidance at [facility] prior to his back surgery and had some pain benefit. Khloe Mustafa MD [address] , [address], [place], [address], [employer] [facility] 02/10/2019 09:59:22 02/23/2019 text/html He is here today for a lumbar epidural steroid injection under fluoroscopic guidance. Khloe Mustafa MD [address] , [address], [place], [address], [facility] 02/24/2019 14:29:58 03/15/2019 text/html He [...] bowel incontinence. He had physical therapy at [facility] which aggravated his pain. He has taken percocet in the past which has helped relieve his pain. Khloe Mustafa MD [address] , [address], [place], [address], [facility] 03/16/2019 17:11:00
--- OUTSIDE RECORDS SUMMARY | 2024-09-17 16:30 | XMS_ITS | Encounter Summary ---
Author Organization [facility], Address [address] [place] [address] Phone Care Team Providers Care Siding Mechanic Name Role Phone Gigi Fraser MD Primary Care Provider [phone] Encounter Details Date Type Department Care Team (Late st Contact Info) Description 07/16/2023 Documentation Only [facility] [address] [place] [address] [place], [place] [address] [place] [address] Social History Tobacco Use Types [...] Visit [facility] [address] [place] [address] Bola Rodriguez DO [address] [place] [address] [place] [address] documented as of this encounter Visit Diagnoses Not on filedocumented in this encounter Care Teams Siding Mechanic Relationship Specialty Start Date End Date Giig Fraser MD [address] [place] [address] PCP - General Internal Medicine 07/16/23 documented as of this encounter
--- OUTSIDE RECORDS SUMMARY | 2024-09-17 16:30 | XMS_ITS | Data Portability ---
Author Organization [place] [facility], Allergy Address [address] [address] Care Team Providers Care Roads Supervisor Name Role Phone CITLALI ANTHONY Primary Care Provider Assessment No assessment recorded. Plan of Treatment Reminders Order Date Submit Date Provider Last Modified By Organization Details Last Modified Time Details Appointments None recorded. Lab None recorded. Referral None recorded. Procedures None recorded. Surgeries None recorded. Imaging CT, sinuses, w/o contrast 2024 025 [email or web address], [address] [place], [address], 5 16:47:07 CT, sinuses, w/o contrast - to be done in office at f/u 2023 024 [email or web address] Not available 4 10:10:12 Medication Orders prednison e 10 mg tablet 2024 025 [facility], [address] [place] [address], [address], 5 16:18:42 doxycycli ne hyclate 100 mg tablet 2024 025 [facility], [address] [place] [address], [address], 5 16:20:37 Patient TargetsNo targets recorded. Patient InstructionsNo instructions recorded. Reason for Referral None Reported. Results Created Date Observation Date Name Description Value Unit Range Abnormal Flag Note LastModifiedBy Organization Detail LastModifiedTime 06/03/20 24 04/12/2024 MRI, brain + brain stem, w/o contr ast No observ ation record ed. [email or web address] Not Available 10/2023 15:22:54 07/29/19 CT, sinus es, w/o contr ast No observ ation record ed. [email or web address] [facility]ts [address], [address], 07/29/2024 14:42:14 08/12/19 25 07/29/2024 CT, sinus es, w/o contr ast No observ ation record ed. [email or web address] [facility] [address], [address], 08/12/2024 13:13:57 Result Notes None recorded. Problems Name Problem SNOMED Code Status Onset Date Resolution Date Notes Provider Name and Address Organization Details Recorded Time Dysphagia 57432225 Active 2016 Dysphagia , unspecifi ed; Note: Date Diagnosed : 11/13/2016 10:29 AM (R13.10) Not Available [facility] 4 02:49:30 Bilateral tinnitus 88706712004 02 Active 2016 Tinnitus, bilateral ; Note: Date Diagnosed : 11/13/2016 10:09 AM (H93.13) Not Available [facility] 4 02:49:34 Sensorine ural hearing loss of bilateral ears 916453055 Active 2016 Sensorine ural hearing loss, bilateral ; Note: Date Diagnosed : 11/13/2016 10:09 AM (H90.3) Not Available Critical [facility] hospital 4 02:49:35 Chronic left maxillary sinusitis 72744706320 398112 Active 2023 ANJUM BENÍTEZ MD [address] [place] [address], [place], [address] , [place] [facility] 4 15:10:54 Chronic pain in face 639279032 Active 2023 ANJUM BENÍTEZ MD [address] [place] [address], [place], [address] , [place] [facility] 4 15:11:02 Chronic sinusitis 01584453 Active 2023 ANJUM BENÍTEZ MD [address] [place] [address], [place], [address] , [facility] [place] 4 15:16:37 Allergic fungal sinusitis 076940406 Active 2024 ANJUM BENÍTEZ MD [address] [place] [address], [place], [address] , [facility] - [facility] 5 14:50:20 Problem Notes None recorded. Procedures Surgical History Date Name Laterality Status Provider Name and Address Organization Details Recorded Time 06/03/2024 NasalEndos copy_DP completed ANJUM BENÍTEZ MD [address] [place] [address], [address], [facility] 06/03/2024 15:11:07 Imaging Results Imaging Date Name Status LastModified by Organiz ation Details LastModified Time 04/12/2024 MRI, brain + brain stem, w/o contrast completed [email or web address] Information not available 06/03/2024 15:22:54 07/29/2024 CT, sinuses, w/o contrast completed [email or web address] [facility] [address], [address], 07/29/2024 14:42:14 07/29/2024 CT, sinuses, w/o contrast completed [email or web address] [facility] [address], [address], 08/12/2024 13:13:57 Procedure Notes None recorded. Medical Equipment None Reported. Allergies Allergen ID Allergen Name Allergen Category Reaction Reaction Severity Criticality Documentation Date Start Date Code Code System Note Provider Name and Address Organization Details Recorded Time 538663 Product containin g penicilli n (product) medicatio n other Not available Not available 11/11/2023 77255 8001 SNOMED React ion: unkno wn, unspe [...] 100 mg tablet 2016 active Medication ID: [id number] Dur ation Value: 30 Brand Name: bupropion [...] six hours as needed active Medication ID: [id number] Dur ation Value: 3 Brand Name: Percocet [...] 25 mg tablet 2015 active Medication ID: [id number] Dur ation Value: 30 Brand Name: metoprolol [...] Updated DateTime 06/03/2024 177.8 cm 25.1 kg/m2 89389.66 g Henrique Haro [facility] 06/03/2024 15:13:41 Date Recorded Body height Body mass index (BMI) Body weight Provider Name and Address Organization Details Last Updated DateTime 07/29/2024 177.8 cm 25.1 kg/m2 12275.66 g Henrique Haro [facility] 07/29/2024 14:12:54 Social History None recorded. Functional Status None recorded. Mental Status None recorded. Family History Nothing Reported. Medical History No medical history recorded. Past Encounters Encounter ID Performer Location Encounter Start Date Encounter Closed Date Diagnosis/Indication Diagnosis SNOMED-CT Code Diagnosis ICD10 Code Diagnosis Note [id number] ANJUM BENÍTEZ MD [facility] [address] [address] 06/03/2024 14:21:17 06/03/2024 16:52:58 Chronic left maxillary sinusitis 3775863804 8619365 J32.0 No polyps or purulence on nasal endo. I recommend he take the course of doxy from his PCP. I will plan a f/u with a CT first in 4-8 weeks to check for persistent left maxillary sinusitis and to evaluate for a fungal ball given the MRI. Chronic pain in face 432 571144 R51.9 see above [id number] ANJUM BENÍTEZ MD [facility] [address] [place] [address] 07/29/2024 13:30:29 07/29/2024 14:55:07 Chronic left maxillary sinusitis 7267577527 8241256 J32.0 Has persistent sinusitis despite doxycyclin e. [...] g surgery. Chronic pain in face 432 734920 R51.9 likely due to chronic sinusitis Allergic f ungal sinusitis 426890935 B49 ct consistent with allergic fungal sinusitis. [...] 06/03/2024 2 [place] Arnel Ch Huseyin [id number] Arnel Ch Huseyin 06/03/2024 1 [facility] - DOS ON OR AFTER 2022 - DUAL ELIGIBLE - MEDICARE [place]VANTAGE [place] (MEDICARE REPLACEMENT/A DVANTAGE - HMO) Arnel Ch Huseyin [id number] Arnel Ch Huseyin 07/29/2024 1 [facility] - DOS ON OR AFTER 2022 - ONE CARE (MEDICARE REPLACEMENT/A DVANTAGE - HMO) Arnel Ch Huseyin [id number] Arnel Ch Huseyin Notes Date Note Type Note Provider Name [...] no infection was seen. ANJUM BENÍTEZ MD [address] [place] [address], [address], [facility] 06/03/2024 15:17:21 07/29/2024 text/html Hx of left [...] no infection was seen. ANJUM BENÍTEZ MD [address] [place] [address], [address], [facility] 07/30/2024 07:48:31
--- OUTSIDE RECORDS SUMMARY | 2024-09-17 16:31 | XMS_ITS | Encounter Summary ---
Author Organization [facility] Address [address] [place] [address] Phone Care Team Providers Care Mig Welder Name Role Phone Gigi Fraser MD Primary Care Provider [phone] Encounter Details Date Type Department Care Team (Late Contact Info) Description 02/13/2024 Orders Only [facility] [address] [address] Bola Rodriguez DO [address] [place] [address] Acute tubulo-interstitial nephritis; Other acute kidney [...] Visit [facility] [address] [address] Bola Rodriguez DO [address] [place] [address] documented as of this encounter Procedures [...] Urine 11-30(A) 0 - 5 /hpf [facility] RBC, Urine None seen 0 - 2 /hpf [facility] Squamous Epithelial, Urine 0-10 0 - 10 /hpf [facility] Casts None seen None seen /lpf [facility] Bacteria, Urine None seen None seen/Few [facility] 02/29/2024 8:54 AM EDT 02/29/2024 us Bola Rodriguez DO LAB MICROBIOLOGY - GENERAL ORDE ANASTACIO Final Result [facility] [address] [place] [address] * (ABNORMAL) Urine Protein / creatinine ratio (02/29/2024 8:54 AM EDT) Creatinine, Ur 39.7 Not Estab. mg/dL [facility] Protein, Ur 53.8 Not Estab. mg/dL [facility] Urine Protein/Creati nine Ratio 1,355(H) 0 - 200 mg/g creat [facility] Urine (Urine, Clean Catch) 02/29/2024 8:54 AM EDT 02/29/2024 Bola Rodriguez DO LAB URINE ORDERABLES Final Resu lt [facility] [address] [place] [address] * (ABNORMAL) Urinalysis with microscopic (02/29/2024 8:54 AM EDT) Pathologist [facility] Specific [place], Urine 1.012 1.005 - 1.030 [facility] [phone] pH Urine 6.5 5.0 - 7.5 [facility] Color, Urine Yellow Yellow [facility] Appearance Urine Clear Clear [facility] [place] WBC Esterase Urine 1+(A) Negative [facility] Protein, Ur 2+(A) Negative/Tr elissa [facility] Glucose, Ur Negative Negative [facility] [phone] Ketones, Urine Negative Negative [facility] [place] Blood Urine 2+(A) Negative [facility] [phone] Bilirubin Urine Negative Negative [facility] [place] [phone] Urobilinogen Urine 0.2 0.2 - 1.0 mg/dL [facility] [phone] Nitrite, Urine Positive(A) Negative [facility] [place] Microscopic Examination See below: [facility] [phone] Comment:Microscopic was cely cated and was performed. Urine (Urine, Clean Catch) 02/29/2024 8:54 AM EDT 02/29/2024 [facility] URINE ORDERABLES Final Resu lt Performing Organization Address [facility]/ZIP Co de Phone Number [facility] [place] [address] [place] [address] * Magnesium (02/29/2024 8:54 AM EDT) Magnesium 1.9 1.6 - 2.3 mg/dL [facility] [place] Blood (Blood, Venous) 02/29/2024 8:54 AM EDT 02/29/2024 [facility] LAB BLOOD ORDERABLES Final Resu lt Performing Organization Address [facility] de Phone Number [facility] [employer] [place] [address] [place] [address] * (ABNORMAL) Renal Function Panel (02/29/2024 8:54 AM EDT) Glucose 91 70 - 99 mg/dL [facility] [place] BUN 17 6 - 24 mg/dL [facility] Creatinine 1.62(H) 0.76 - 1.27 mg/dL [facility] eGFR CKD-EPI CR 2020 49(L) >59 mL/min/1.7 3 [facility] BUN/Creatinine Ratio 10 9 - 20 [facility] Sodium 140 134 - 144 mmol/L [facility] Potassium 3.9 3.5 - 5.2 mmol/L [facility] Chloride 102 96 - 106 mmol/L [facility] Bicarbonate (CO2) 24 20 - 29 mmol/L [facility] Calcium 9.3 8.7 - 10.2 mg/dL [facility] Albumin 4.2 3.8 - 4.9 g/dL [facility] Phosphorus 3.4 2.8 - 4.1 mg/dL [facility] Blood (Blood, Venous) 02/29/2024 8:54 AM EDT 02/29/2024 us Bola Rodriguez DO LAB BLOOD ORDERABLES Final Resu lt [facility] [address] [place] [address] documented in this encounter Visit Diagnoses Diagnosis Acute tubulo-interstitial nephritis Other acute kidney failure (HCC) Hypertension Stage 3a chronic kidney disease (HCC) documented in this encounter Care Teams Mig Welder Relationship Specialty Start Date End Date Gigi Fraser MD [address] [place] [address] PCP - General Internal Medicine 07/16/23 documented as of this encounter
--- OUTSIDE RECORDS SUMMARY | 2024-09-17 16:31 | XMS_ITS | Encounter Summary ---
Author Organization [facility] Address [address] [place] [address] Phone Care Team Providers Care Wax Room Supervisor Name Role Phone Gigi Fraser MD Primary Care Provider [phone] Encounter Details Date Type Department Care Team (Late Contact Info) Description 03/12/2024 Orders Only [facility] [address] [place] [address] Bola Rodriguez DO [address] [place] [address] Acute tubulo-interstitial [...] Visit [facility] [address] [place] [address] Bola Rodriguez DO [address] [place] [address] documented as of this encounter Visit Diagnoses Diagnosis Acute tubulo-interstitial nephritis Other acute kidney failure (HCC) Hypertension Stage 3a chronic kidney disease (HCC) documented in this encounter Care Teams Wax Room Supervisor Relationship Specialty Start Date End Date Gigi Fraser MD [address] [place] [address] PCP - General Internal Medicine 07/16/23 documented as of this encounter
--- OUTSIDE RECORDS SUMMARY | 2024-09-17 16:31 | XMS_ITS | Encounter Summary ---
Author Organization [facility] Address [address] [place] [address] Phone Care Team Providers Care Reservation Sales Agent Name Role Phone Gigi Fraser MD Primary Care Provider [phone] Encounter Details Date Type Department Care Team (Late Contact Info) Description 01/16/2024 Orders Only [facility] [address] [place] [address] Bola Rodriguez DO [address] [place] [address] Acute tubulo-interstitial nephritis; Other acute kidney [...] [facility] [address] [place] [address] Bola Rodriguez DO [address] [place] [address] documented as of this encounter Procedures [...] Urine 0-5 0 - 5 /hpf [facility] RBC, Urine None seen 0 - 2 /hpf [facility] Squamous Epithelial, Urine None seen 0 - 10 /hpf [facility] Casts None seen None seen /lpf [facility] Bacteria, Urine None seen None seen/Few [facility] 01/25/2024 8:41 AM EDT 01/25/2024 us Bola Rodriguez DO LAB MICROBIOLOGY - GENERAL EDMUNDO CHAVES Final Result [facility] [address] [place] [id number] * (ABNORMAL) Urine Protein / creatinine ratio (01/25/2024 8:41 AM EDT) Creatinine, Ur 38.1 Not Estab. mg/dL [facility] Protein, Ur 46.1 Not Estab. mg/dL [facility] Urine Protein/Creati nine Ratio 1,210(H) 0 - 200 mg/g creat [facility] Urine (Urine, Clean Catch) 01/25/2024 8:41 AM EDT 01/25/2024 us Bola Rodriguez DO LAB URINE ORDERABLES Final Resu lt [facility] [address] [place] [address] * (ABNORMAL) Urinalysis with microscopic (01/25/2024 8:41 AM EDT) Pathologist [facility] Specific Jensen, Urine 1.008 1.005 - 1.030 [facility] pH Urine 7.0 5.0 - 7.5 [facility] [phone] Color, Urine Yellow Yellow [facility] Appearance Urine Clear Clear [facility] WBC Esterase Urine Trace(A) Negative [facility] Protein, Ur 2+(A) Negative/Tr elissa [facility] Glucose, Ur Negative Negative [facility] Ketones, Urine Negative Negative [facility] Blood Urine 3+(A) Negative [facility] [phone] Bilirubin Urine Negative Negative [facility] Urobilinogen Urine 0.2 0.2 - 1.0 mg/dL [facility] Nitrite, Urine Positive(A) Negative [facility] [phone] Microscopic Examination See below: [facility] Comment:Microscopic was cely cated and was performed. Urine (Urine, Clean Catch) 01/25/2024 8:41 AM EDT 01/25/2024 [facility] Final Resu lt Performing Organization Address City/[facility]/ZIP Co de Phone Number [facility] [address] [place] [address] * Magnesium (01/25/2024 8:41 AM EDT) Magnesium 1.9 1.6 - 2.3 mg/dL [facility] Blood (Blood, Venous) 01/25/2024 8:41 AM EDT 01/25/2024 [facility] LAB BLOOD ORDERABLES Final Resu lt Performing Organization Address [facility] de Phone Number [facility] [address] [place] [address] * (ABNORMAL) Renal Function Panel (01/25/2024 8:41 AM EDT) Glucose 108(H) 70 - 99 mg/dL [facility] BUN 11 6 - 24 mg/dL [facility] Creatinine 2.04(H) 0.76 - 1.27 mg/dL [facility] eGFR CKD-EPI CR 2020 37(L) >59 mL/min/1.7 3 [facility] BUN/Creatinine Ratio 5(L) 9 - 20 [facility] Sodium 141 134 - 144 mmol/L [facility] Potassium 3.2(L) 3.5 - 5.2 mmol/L [facility] Chloride 99 96 - 106 mmol/L [facility] Bicarbonate (CO2) 30(H) 20 - 29 mmol/L [facility] Calcium 10.5(H) 8.7 - 10.2 mg/dL [facility] Comment:Verified by repeat analysis Phosphorus 2.9 2.8 - 4.1 mg/dL [facility] Albumin 4.1 3.8 - 4.9 g/dL [facility] Blood (Blood, Venous) 01/25/2024 8:41 AM EDT 01/25/2024 Bola Rodriguez DO LAB BLOOD ORDERABLES Final Resu lt [facility] [address] [place] [address] documented in this encounter Visit Diagnoses Diagnosis Acute tubulo-interstitial nephritis Other acute kidney failure (HCC) Hypertension Stage 3a chronic kidney disease (HCC) documented in this encounter Care Teams Reservation Sales Agent Relationship Specialty Start Date End Date Gigi Fraser MD [address] [place] [address] PCP - General Internal Medicine 07/16/23 documented as of this encounter
== END 2024-09-17 14:11 | disposition home or self-care (01) ==
LOC: HO.NEURO 14:10
PROVIDERS: PCP Internal Medicine; Visit Provider Internal Medicine Rheumatology
DX: M54.50 Low back pain, unspecified (principal); R29.898 Other symptoms and signs involving the musculoskeletal system
CPT/HCPCS: 95886; 95908

== ENCOUNTER → 2024-09-17 14:14 | Outpatient (BNV) | payer OTHER, SELFPAY | PROVIDERS: PCP Internal Medicine; Visit Provider Physical Medicine & Rehabilitation | DX: R20.2 Paresthesia of skin (principal); R20.0 Anesthesia of skin; M54.16 Radiculopathy, lumbar region | CPT/HCPCS: 95886; 95908 ==

== ENCOUNTER 2024-10-26 08:13 | Outpatient (REF) | payer OTHER, SELFPAY ==
--- OUTSIDE RECORDS SUMMARY | 2024-10-26 09:41 | XMS_ITS | Encounter Summary ---
Author Organization [facility] Address [address] [place] [address] Phone Care Team Providers Care Shochet Name Role Phone Gigi Fraser MD Primary Care Provider [phone] Encounter Details Date Type Department Care Team (Late Contact Info) Description 09/24/2024 Orders Only [facility] [address] [place] [address] Bola Rodriguez DO [address] [place] [address] Acute tubulo-interstitial nephritis; Other acute kidney [...] [facility] [address] [place] [address] Bola Rodriguez DO [address] [place] [address] documented as of this encounter Visit Diagnoses Diagnosis Acute tubulo-interstitial nephritis Other acute kidney failure (HCC) Hypertension Stage 3a chronic kidney disease (HCC) documented in this encounter Care Teams Shochet Relationship Specialty Start Date End Date Gigi Fraser MD [address] [place] [address] PCP - General Internal Medicine 07/16/23 documented as of this encounter
--- OUTSIDE RECORDS SUMMARY | 2024-10-26 09:41 | XMS_ITS | Encounter Summary ---
Author Organization [facility] Address [address] [place] [address] Phone Care Team Providers Care Region Manager Name Role Phone Gigi Fraser MD Primary Care Provider [phone] Encounter Details Date Type Department Care Team (Late Contact Info) Description 06/04/2024 Orders Only [facility] [address] [place] [address] Bola Rodriguez DO [address] [facility] [place] [address] Acute tubulo-interstitial nephritis; Other acute kidney [...] [facility] [address] [place] [address] Bola Rodriguez DO [address] [facility] [place] [address] documented as of this encounter Visit Diagnoses Diagnosis Acute tubulo-interstitial nephritis Other acute kidney failure (HCC) Hypertension Stage 3a chronic kidney disease (HCC) documented in this encounter Care Teams Region Manager Relationship Specialty Start Date End Date Gigi Fraser MD [address] [place] [address] PCP - General Internal Medicine 07/16/23 documented as of this encounter
--- OUTSIDE RECORDS SUMMARY | 2024-10-26 09:42 | XMS_ITS | Encounter Summary ---
Author Organization [facility] [place], Address [address] [place] [address] Phone Care Team Providers Care Foot Worker Name Role Phone Gigi Fraser MD Primary Care Provider [phone] Encounter Details Date Type Department Care Team (Late st Contact Info) Description 07/16/2023 Documentation Only [facility] [address] [place] [address] [place], [place] [address] [place] [address] Social History Tobacco Use Types [...] Visit [facility] [address] [place] [address] Bola Rodriguez DO [address] [place] [address] [place] [address] documented as of this encounter Visit Diagnoses Not on filedocumented in this encounter Care Teams Foot Worker Relationship Specialty Start Date End Date Gigi Fraser MD [address] [place] [address] PCP - General Internal Medicine 07/16/23 documented as of this encounter
--- OUTSIDE RECORDS SUMMARY | 2024-10-26 09:42 | XMS_ITS | Encounter Summary ---
Author Organization [facility] Address [address] [place] [address] Phone Care Team Providers Care Train Crew Member Name Role Phone Gigi Fraser MD Primary Care Provider [phone] Encounter Details Date Type Department Care Team (Late st Contact Info) Description 10/15/2023 Documentation Only [facility] [address] [place] [address] [place], [place] [address] [place] [address] Social History Tobacco Use Types [...] Services [facility] [address] [place] [address] Bola Rodriguez DO [address] [place] [address] [place] [address] documented as of this encounter Visit Diagnoses Not on filedocumented in this encounter Care Teams Train Crew Member Relationship Specialty Start Date End Date Gigi Fraser MD [address] [place] [address] PCP - General Internal Medicine 07/16/23 documented as of this encounter
--- OUTSIDE RECORDS SUMMARY | 2024-10-26 09:42 | XMS_ITS | Encounter Summary ---
Author Organization [facility] Address [address] [place] [address] Phone Care Team Providers Care Senior Business Architect Name Role Phone Gigi Fraser MD Primary Care Provider [phone] Encounter Details Date Type Department Care Team (Late st Contact Info) Description 07/16/2024 Orders Only [facility] [address] [place] [address] Bola Rodriguez DO [address] [facility] [address] [place] [address] Acute [...] Visit [facility] [address] [place] [address] Bola Rodriguez DO [address] [place] [address] documented [...] None seen 0 - 5 /hpf [facility] RBC, Urine None seen 0 - 2 /hpf [facility] Squamous Epithelial, Urine None seen 0 - 10 /hpf [facility] Casts None seen None seen /lpf [facility] Bacteria, Urine None seen None seen/Few [facility] 07/25/2024 9:54 AM EST 07/25/2024 Bola Rodriguez DO LAB MICROBIOLOGY - GENERAL ORDE ANASTACIO Final Result [facility] [address] [place] [address] * Urinalysis with microscopic (07/25/2024 9:54 AM EST) Specific Two Dot, Urine 1.019 1.005 - 1.030 [facility] pH Urine 7.0 5.0 - 7.5 [facility] Color, Urine Yellow Yellow [facility] Appearance Urine Clear Clear [facility] WBC Esterase Urine Negative Negative [facility] Protein, Ur Trace Negative/Tra ce [facility] Glucose, Ur Negative Negative [facility] Ketones, Urine Negative Negative [facility] [phone] Blood Urine Negative Negative [facility] Bilirubin Urine Negative Negative [facility] Urobilinogen Urine 0.2 0.2 - 1.0 mg/dL [facility] Nitrite, Urine Negative Negative [facility] Microscopic Examination Comment [facility] Comment:Microscopic follows if indicated. Other Microsc. Observations See below: [facility] Comment:Microscopic was cely cated and was performed. Urine (Urine, Clean Catch) 07/25/2024 9:54 AM EST 07/25/2024 us Bola Rodriguez DO LAB URINE ORDERABLES Final Resu lt [facility] [address] [place] [address] * Sedimentation Rate (07/25/2024 9:54 AM EST) Sed Rate 14 0 - 30 mm/hr [facility] Blood (Blood, Venous) 07/25/2024 9:54 AM EST 07/25/2024 us Bola Rodriguez DO LAB BLOOD ORDERABLES Final Resu lt Performing Organization Address City/[facility]/ZIP Co de Phone Number [facility] [address] [place] [address] * Urine Protein / creatinine ratio (07/25/2024 9:54 AM EST) Creatinine, Ur 172.5 Not Estab. mg/dL [facility] Protein, Ur 15.1 Not Estab. mg/dL [facility] Urine Protein/Creatin ine Ratio 88 0 - 200 mg/g creat [facility] Urine (Urine, Clean Catch) 07/25/2024 9:54 AM EST 07/25/2024 us Bola Rodriguez DO LAB URINE ORDERABLES Final Resu lt Performing Organization Address [facility] Co de Phone Number [employer] [address] [facility] [employer] [facility] [address] [place] [address] * Magnesium (07/25/2024 9:54 AM EST) Pathologist [facility] Magnesium 2.1 1.6 - 2.3 mg/dL [facility] Blood (Blood, Venous) 07/25/2024 9:54 AM EST 07/25/2024 us Bola Rodriguez DO LAB BLOOD ORDERABLES Final Resu lt Performing Organization Address [facility]/ZIP Co de Phone Number [employer] [address] [employer] [facility] [address] [place] [address] * (ABNORMAL) Renal Function Panel (07/25/2024 9:54 AM EST) Glucose 90 70 - 99 mg/dL [facility] BUN 18 8 - 27 mg/dL [facility] Creatinine 1.93(H) 0.76 - 1.27 mg/dL [facility] eGFR CKD-EPI CR 2020 39(L) >59 mL/min/1.7 3 [facility] BUN/Creatinine Ratio 9(L) 10 - 24 [facility] Sodium 137 134 - 144 mmol/L [facility] Potassium 4.3 3.5 - 5.2 mmol/L [facility] Bicarbonate (CO2) 24 20 - 29 mmol/L [facility] Calcium 11.0(H) 8.6 - 10.2 mg/dL [facility] Comment:Verified by repeat analysis Phosphorus 3.4 2.8 - 4.1 mg/dL [facility] Albumin 5.1(H) 3.8 - 4.9 g/dL [facility] Chloride 98 96 - 106 mmol/L [facility] Blood (Blood, Venous) 07/25/2024 9:54 AM EST 07/25/2024 Bola Rodriguez DO LAB BLOOD ORDERABLES Final Resu lt [facility] [address] [place] [address] documented in this encounter Visit Diagnoses Diagnosis Acute tubulo-interstitial nephritis Hypokalemia Hypertension Stage 3a chronic kidney disease (HCC) documented in this encounter Care Teams Senior Business Architect Relationship Specialty Start Date End Date Gigi Fraser MD [address] [place] [address] PCP - General Internal Medicine 07/16/23 documented as of this encounter
--- OUTSIDE RECORDS SUMMARY | 2024-10-26 09:42 | XMS_ITS | Encounter Summary ---
Author Organization [facility] Address [address] [place] [address] Phone Care Team Providers Care Package Delivery Driver Name Role Phone Gigi Fraser MD Primary Care Provider [phone] Encounter Details Date Type Department Care Team (Late Contact Info) Description 08/27/2024 Orders Only [facility] [address] [facility] [address] Bola Rodriguez DO [address] [facility] [place] [address] Acute tubulo-interstitial [...] Visit [facility] [address] [facility] [address] Bola Rodriguez DO [address] [facility] [place] [address] documented as of this encounter Visit Diagnoses Diagnosis Acute tubulo-interstitial nephritis Other acute kidney failure (HCC) Hypertension Stage 3a chronic kidney disease (HCC) documented in this encounter Care Teams Package Delivery Driver Relationship Specialty Start Date End Date Gigi Fraser MD [address] [place] [address] PCP - General Internal Medicine 07/16/23 documented as of this encounter
--- OUTSIDE RECORDS SUMMARY | 2024-10-26 09:42 | XMS_ITS | Encounter Summary ---
Author Organization [facility] Address [address] [place] [address] Phone Care Team Providers Care Mountain Guide Name Role Phone Gigi Fraser MD Primary Care Provider [phone] Encounter Details Date Type Department Care Team (Late st Contact Info) Description 09/17/2023 Documentation Only [facility] [address] [place] [address] Bola Rodriguez DO [address] [address] [place] [address] Social History Tobacco Use Types [...] Visit [facility] [address] [place] [address] Bola Rodriguez DO [address] [place] [address] documented as of this encounter Visit Diagnoses Not on filedocumented in this encounter Care Teams Mountain Guide Relationship Specialty Start Date End Date Gigi Fraser MD [address] [place] [address] PCP - General Internal Medicine 07/16/23 documented as of this encounter
--- OUTSIDE RECORDS SUMMARY | 2024-10-26 09:42 | XMS_ITS | Encounter Summary ---
Author Organization [facility] Address [address] [place] [address] Phone Care Team Providers Care Napper Fixer Name Role Phone Gigi Fraser MD Primary Care Provider [phone] Encounter Details Date Type Department Care Team (Late st Contact Info) Description 09/17/2023 Documentation Only [facility] [address] [place] [address] Bola Rodriguez DO [address] [facility] [place] [address] Social History Tobacco Use Types [...] [facility] [address] [place] [address] Bola Rodriguez DO [address] [place] [address] documented as of this encounter Visit Diagnoses Not on filedocumented in this encounter Care Teams Napper Fixer Relationship Specialty Start Date End Date Gigi Fraser MD [address] [place] [address] PCP - General Internal Medicine 07/16/23 documented as of this encounter
--- OUTSIDE RECORDS SUMMARY | 2024-10-26 09:42 | XMS_ITS | Encounter Summary ---
Author Organization [facility] Address [address] [place] [address] Phone Care Team Providers Care Felt Hat Steamer Name Role Phone Gigi Fraser MD Primary Care Provider [phone] Encounter Details Date Type Department Care Team (Late Contact Info) Description 07/30/2024 Orders Only [facility] [address] [place] [address] Bola Rodriguez DO [address] [place] [address] Acute tubulo-interstitial nephritis; Other acute kidney [...] Visit [facility] [address] [place] [address] Bola Rodriguez DO [address] [place] [address] documented as of this encounter Procedures [...] None seen 0 - 5 /hpf [facility] RBC, Urine None seen 0 - 2 /hpf [facility] Squamous Epithelial, Urine None seen 0 - 10 /hpf [facility] Casts None seen None seen /lpf [facility] Bacteria, Urine None seen None seen/Few [facility] 08/22/2024 8:14 AM EST 08/22/2024 us Bola Rodriguez DO LAB MICROBIOLOGY - GENERAL ORDE ANASTACIO Final Result [facility] [address] [place] [phone] * (ABNORMAL) Urine Protein / creatinine ratio (08/22/2024 8:14 AM EST) Creatinine, Ur 55.0 Not Estab. mg/dL [facility] Protein, Ur 28.6 Not Estab. mg/dL [facility] Urine Protein/Creati nine Ratio 520(H) 0 - 200 mg/g creat [facility] Urine (Urine, Clean Catch) 08/22/2024 8:14 AM EST 08/22/2024 us Bola Rodriguez DO LAB URINE ORDERABLES Final Resu lt [facility] [address] [place] [address] * (ABNORMAL) Urinalysis with microscopic (08/22/2024 8:14 AM EST) Specific [place], Urine 1.012 1.005 - 1.030 [facility] pH Urine 6.0 5.0 - 7.5 [facility] Color, Urine Yellow Yellow [facility] [phone] Appearance Urine Clear Clear [facility] [place] [phone] WBC Esterase Urine Negative Negative [facility] Protein, Ur 1+(A) Negative/Tra ce [facility] Glucose, Ur Negative Negative [facility] Ketones, Urine Negative Negative [facility] [place] Blood Urine Negative Negative [facility] [phone] Bilirubin Urine Negative Negative [facility] [place] Urobilinogen Urine 0.2 0.2 - 1.0 mg/dL [facility] Nitrite, Urine Negative Negative [facility] Microscopic Examination See below: [facility] Comment:Microscopic was cely cated and was performed. Urine (Urine, Clean Catch) 08/22/2024 8:14 AM EST 08/22/[facility] URINE ORDER[facility]LES Final Resu lt Performing Organization Address City/[facility]/ZIP Co de Phone Number [facility] [address] [place] [address] * Magnesium (08/22/2024 8:14 AM EST) Magnesium 2.0 1.6 - 2.3 mg/dL [facility] Blood (Blood, Venous) 08/22/2024 8:14 AM EST 08/22/2024 [facility] BLOOD ORDERABLES Final Resu lt Performing Organization Address [facility] de Phone Number [facility] [address] [place] [address] * (ABNORMAL) Renal Function Panel (08/22/2024 8:14 AM EST) Glucose 105(H) 70 - 99 mg/dL [facility] BUN 18 8 - 27 mg/dL [facility] Creatinine 1.84(H) 0.76 - 1.27 mg/dL [facility] eGFR CKD-EPI CR 2020 41(L) >59 mL/min/1.7 3 [facility] BUN/Creatinine Ratio 10 10 - 24 [facility] Sodium 140 134 - 144 mmol/L [facility] Potassium 4.4 3.5 - 5.2 mmol/L [facility] Chloride 102 96 - 106 mmol/L [facility] Bicarbonate (CO2) 25 20 - 29 mmol/L [facility] Calcium 10.0 8.6 - 10.2 mg/dL [facility] Albumin 4.6 3.8 - 4.9 g/dL [facility] Phosphorus 3.7 2.8 - 4.1 mg/dL [facility] Blood (Blood, Venous) 08/22/2024 8:14 AM EST 08/22/2024 Bola Rodriguez DO LAB BLOOD ORDERABLES Final Resu lt [facility] [address] [place] [phone] documented in this encounter Visit Diagnoses Diagnosis Acute tubulo-interstitial nephritis Other acute kidney failure (HCC) Hypertension Stage 3a chronic kidney disease (HCC) documented in this encounter Care Teams Felt Hat Steamer Relationship Specialty Start Date End Date Gigi Fraser MD [address] [place] [address] PCP - General Internal Medicine 07/16/23 documented as of this encounter
--- OUTSIDE RECORDS SUMMARY | 2024-10-26 09:42 | XMS_ITS | Encounter Summary ---
Author Organization [facility] Address [address] [place] [address] Phone Care Team Providers Care Commercial Loan Processor Name Role Phone Gigi Fraser MD Primary Care Provider [phone] Encounter Details Date Type Department Care Team (Late st Contact Info) Description 09/17/2023 Documentation Only [facility] [address] [place] [address] Bola Rodriguez DO [address] [facility] [facility] [address] [place] [address] Social History Tobacco Use Types [...] [facility] [address] [place] [address] Bola Rodriguez DO [address] [facility] [facility] [address] [place] [address] documented as of this encounter Visit Diagnoses Not on filedocumented in this encounter Care Teams Commercial Loan Processor Relationship Specialty Start Date End Date Gigi Fraser MD [address] [place] [address] PCP - General Internal Medicine 07/16/23 documented as of this encounter
--- OUTSIDE RECORDS SUMMARY | 2024-10-26 09:42 | XMS_ITS | Encounter Summary ---
Author Organization [facility] Address [address] [place] [address] Phone Care Team Providers Care Bariatric Program Coordinator Name Role Phone Gigi Fraser MD Primary Care Provider Encounter Details Date Type Department Care Team (Late st Contact Info) Description 10/23/2023 Documentation Only [facility] [address] [place] [address] Bola Rodriguez DO [address] [place] [address] Social History Tobacco Use Types [...] And [facility] [address] [place] [address] Bola Rodriguez DO [address] [place] [address] documented as of this encounter Visit Diagnoses Not on filedocumented in this encounter Care Teams Bariatric Program Coordinator Relationship Specialty Start Date End Date Gigi Fraser MD [address] [place] [address] PCP - General Internal Medicine 07/16/23 documented as of this encounter
--- OUTSIDE RECORDS SUMMARY | 2024-10-26 09:42 | XMS_ITS | Encounter Summary ---
Author Organization [facility] Address [address] [place] [address] Care Team Providers Care Sound Technician Supervisor Name Role Phone Physician, Pcp Unknown Primary Care Provider Mildred vailable Encounter Details Date Type Department Care Team (Late st Contact Info) Description 10/06/2024 Lab Requisition [facility] - Main Lab [address] [facility] [place] [phone] Kevin Lo, PA [address] [place] [address] Benign essential microscopic hematuria Social History Tobacco [...] AM EDT) Final Diagnosis A. Urine, Voided, ([id number]): Negative for high grade urothelial carcinoma. Scant urothelial cellularity. Results of UroVysion fluorescence in situ hybridization (FISH) testing: Although FISH was performed, insufficient non-obscured hybridization signals are present for evaluation and interpretation. 10/11/2024 5:27 PM EDT [facility] Clinical Information Benign essential microscopic hematuria R31.1 Urine Cytology/FISH (now) 10/11/2024 5:27 PM EDT [facility] Gross Description A. Urine, Voided, ([id number]): Received one ThinPrep slide for cytology and one ThinPrep slide for UroVysion FISH 10/11/2024 5:27 PM EDT [facility] Disclaimer Unless otherwise specified, all tissue is 10% NB formalin fixed and paraffin embedded. Technical pathology services provided by [facility] at [address] [facility] [address], [place] [address] (CLIA #[id number]/Emily Roberson MD, Upfitter) 10/11/2024 5:27 PM EDT [facility] Tissue Urine specimen from urethra / Unknown 10/01/2024 10/06/2024 3:35 PM EDT [facility] LAB PATHOLOGY ORDERABLES Final Result [facility] [address] [place] [address], documented in this encounter Visit Diagnoses Diagnosis Benign essential microscopic hematuria documented in this encounter Care Teams Sound Technician Supervisor Relationship Specialty Start Date End Date Physician, Pcp Unknown PCP - General 10/06/24 documented as of this encounter
--- OUTSIDE RECORDS SUMMARY | 2024-10-26 09:42 | XMS_ITS | Encounter Summary ---
Author Organization [facility] [place], Address [address] [place] [address] Phone Care Team Providers Care Head Of Commission Department Name Role Phone Gigi Fraser MD Primary Care Provider [phone] Encounter Details Date Type Department Care Team (Late st Contact Info) Description 07/19/2023 Documentation Only [facility] [address] [place] [address] Bola Rodriguez DO [address] [place] [place] [address] Social History Tobacco Use Types [...] Visit [facility] [address] [place] [address] Bola Rodriguez DO [address] [place] [place] [address] documented as of this encounter Visit Diagnoses Not on filedocumented in this encounter Care Teams Head Of Commission Department Relationship Specialty Start Date End Date Gigi Fraser MD [address] [place] [address] PCP - General Internal Medicine 07/16/23 documented as of this encounter
--- OUTSIDE RECORDS SUMMARY | 2024-10-26 09:42 | XMS_ITS | Encounter Summary ---
Author Organization [facility] Address [address] [place] [address] Phone Care Team Providers Care Right Of Way Supervisor Name Role Phone Gigi Fraser MD Primary Care Provider [phone] Encounter Details Date Type Department Care Team (Late st Contact Info) Description 09/29/2023 Documentation Only [facility] [address] [place] [address] Bola Rodriguez DO [address] [place] [address] Social History Tobacco Use Types [...] [facility] [address] [place] [address] Bola Rodriguez DO [address] [address] [place] [address] Pending Results Name Type Priority [...] EDT Performed at: ??01 - [facility] [address] ??[id number] Facilities Project Manager: Sara Ruiz MD, Phone: ??[phone] Bola Rodriguez DO LAB MICROBIOLOGY - GENERAL [...] 4:07 PM EDT Performed at: ??01 - [facility] ??[id number] Facilities Project Manager: Sara Ruiz MD, Phone: ??[phone] us Bola Rodriguez DO LAB URINE ORDERABLES Final Resu lt Performing Organization Address [facility] Co de Phone Number [facility] * (ABNORMAL) Urinalysis with microscopic (10/03/2023 9:02 AM EDT) Specific [place], Urine 1.008 1.005 - 1.030 [facility] pH [...] PM EDT Performed at: ??01 - [facility] [address] [place] ??[id number] Facilities Project Manager: Sara Ruiz MD, Phone: ??[phone] Bola Rodriguez DO LAB URINE ORDERABLES Final [...] EDT Performed at: ??01 - [facility] [address] ??[id number] Facilities Project Manager: Sara Ruiz MD, Phone: ??[phone] Bola Rodriguez DO LAB BLOOD ORDERABLES Final [...] EDT Performed at: ??01 - [facility] [address] ??[id number] Facilities Project Manager: Sara Ruiz MD, Phone: ??[phone] Bola Rodriguez DO LAB BLOOD ORDERABLES Final Resu lt Performing Organization Address [facility] Co de Phone Number [facility] * [...] up testing of positive sera with both MN-3 and MPO-ANCA enzyme immunoassays. As many as [...] PM EDT Performed at: ??02 - [facility] [address] ??[id number] Facilities Project Manager: Rios Dolan MD, Phone: ??[phone] Bola Rodriguez LAB BLOOD ORDERABLES Final Resu lt Performing Organization Address [facility] Co de Phone Number [facility] documented in this encounter Visit Diagnoses Diagnosis Other acute kidney failure (HCC)- Primary documented in this encounter Care Teams Right Of Way Supervisor Relationship Specialty Start Date End Date Gigi Fraser MD [address] [place] [address] PCP - General Internal Medicine 07/16/23 documented as of this encounter
--- OUTSIDE RECORDS SUMMARY | 2024-10-26 09:42 | XMS_ITS | Encounter Summary ---
Author Organization [facility] Address [address] [place] [address] Phone Care Team Providers Care Digital Advisor Name Role Phone Gigi Fraser MD Primary Care Provider [phone] Encounter Details Date Type Department Care Team (Late Contact Info) Description 07/02/2024 Orders Only [facility] [address] [address] Bola Rodriguez DO [address] [facility] [facility] [place] [address] Acute [...] [facility] [address] [address] Bola [address] DO [address] [facility] [facility] [place] [address] documented as of this encounter Visit Diagnoses Diagnosis Acute tubulo-interstitial nephritis Other acute kidney failure (HCC) Hypertension Stage 3a chronic kidney disease (HCC) documented in this encounter Care Teams Digital Advisor Relationship Specialty Start Date End Date Gigi Fraser MD [address] [place] [address] PCP - General Internal Medicine 07/16/23 documented as of this encounter
--- OUTSIDE RECORDS SUMMARY | 2024-10-26 09:42 | XMS_ITS | Encounter Summary ---
Author Organization [facility] Address [address] [place] [address] Phone Care Team Providers Care Medical Office Supervisor Name Role Phone Gigi Fraser MD Primary Care Provider [phone] Encounter Details Date Type Department Care Team (Late st Contact Info) Description 08/25/2024 Documentation Only [facility] [address] [place] [address] Bola Rodriguez DO [address] [place] [address] Social History Tobacco Use Types [...] Visit [facility] [address] [place] [address] Bola Rodriguez DO [address] [place] [address] documented as of this encounter Visit Diagnoses Not on filedocumented in this encounter Care Teams Medical Office Supervisor Relationship Specialty Start Date End Date Gigi Fraser MD [address] [place] [address] PCP - General Internal Medicine 07/16/23 documented as of this encounter
--- OUTSIDE RECORDS SUMMARY | 2024-10-26 09:42 | XMS_ITS | Encounter Summary ---
Author Organization [facility] [place], Address [address] [place] [address] Phone Care Team Providers Care Multi Media Specialist Name Role Phone Gigi Fraser MD Primary Care Provider [phone] Encounter Details Date Type Department Care Team (Late st Contact Info) Description 07/16/2023 Documentation Only [facility] [address] [place] [address] Tex [place], [place] [address] [place] [address] Social History Tobacco Use Types [...] Visit [facility] [address] [place] [address] Bola Rodriguez DO [address] [place] [address] [place] [address] documented as of this encounter Visit Diagnoses Not on filedocumented in this encounter Care Teams Multi Media Specialist Relationship Specialty Start Date End Date Gigi Fraser MD [address] [place] [address] PCP - General Internal Medicine 07/16/23 documented as of this encounter
--- OUTSIDE RECORDS SUMMARY | 2024-10-26 09:42 | XMS_ITS | Encounter Summary ---
Author Organization [facility] [place], Address [address] [place] [address] Phone Care Team Providers Care Instrument Specialist Name Role Phone Gigi Fraser MD Primary Care Provider [phone] Encounter Details Date Type Department Care Team (Late st Contact Info) Description 07/16/2023 Documentation Only [facility] [address] [place] [address] [place], [place] [address] [place] [address] Social History Tobacco Use Types [...] Visit [facility] [address] [place] [address] Bola Rodriguez DO [address] [place] [address] [place] [address] documented as of this encounter Visit Diagnoses Not on filedocumented in this encounter Care Teams Instrument Specialist Relationship Specialty Start Date End Date Gigi Fraser MD [address] [place] [address] PCP - General Internal Medicine 07/16/23 documented as of this encounter
--- OUTSIDE RECORDS SUMMARY | 2024-10-26 09:42 | XMS_ITS | Encounter Summary ---
Author Organization [facility] Address [address] [place] [address] Phone Care Team Providers Care Carpet Mechanic Name Role Phone Gigi Fraser MD Primary Care Provider [phone] Encounter Details Date Type Department Care Team (Late st Contact Info) Description 09/10/2024 Orders Only [facility] [address] [place] [address] Bola Rodriguez DO [address] [facility] [place] [address] Acute tubulo-interstitial nephritis; Hypokalemia; Hypertension; Stage [...] Visit [facility] [address] [place] [address] Bola Rodriguez DO [address] [facility] [place] [address] documented as of this encounter Visit Diagnoses Diagnosis Acute tubulo-interstitial nephritis Hypokalemia Hypertension Stage 3a chronic kidney disease (HCC) documented in this encounter Care Teams Carpet Mechanic Relationship Specialty Start Date End Date Gigi Fraser MD [address] [place] [address] PCP - General Internal Medicine 07/16/23 documented as of this encounter
--- OUTSIDE RECORDS SUMMARY | 2024-10-26 09:42 | XMS_ITS | Clinical Summary ---
Author Organization [address] Address [address] [place] [address] Phone Care Team Providers Care Shank Sander Name Role Phone Physician, Pcp Unknown Primary Care Provider Mildred vailable Encounters Date Type Department Care Team Description 10/06/2024 Lab Requisition [facility] - Main Lab [address] [facility] [place] [address] Kevin Lo PA Benign essential [...] AM EDT) Final Diagnosis A. Urine, Voided, ([id number]): Negative for high grade urothelial carcinoma. Scant urothelial cellularity. Results of UroVysion fluorescence in situ hybridization (FISH) testing: Although FISH was performed, insufficient non-obscured hybridization signals are present for evaluation and interpretation. 10/11/2024 5:27 PM EDT [facility] Clinical Information Benign essential microscopic hematuria R31.1 Urine Cytology/FISH (now) 10/11/2024 5:27 PM EDT [facility] Gross Description A. Urine, Voided, ([id number]): Received one ThinPrep slide for cytology and one ThinPrep slide for UroVysion FISH 10/11/2024 5:27 PM EDT [facility] Disclaimer Unless otherwise specified, all tissue is 10% NB formalin fixed and paraffin embedded. Technical pathology services provided by [facility]rology at [address], [place] [address] (CLIA #[id number]/Emily Roberson MD, Curtain Framer) 10/11/2024 5:27 PM EDT [facility] Tissue Urine specimen from urethra / Unknown 10/01/2024 10/06/2024 3:35 PM EDT [facility] LAB PATHOLOGY ORDERABLES Final Result [facility] [address] [place] [address], from Last 3 Months Insurance [employer] MEDICA[employer] Care Teams Shank Sander Relationship Specialty Start Date End Date Physician, Pcp Unknown PCP - General 10/06/24
--- OUTSIDE RECORDS SUMMARY | 2024-10-26 09:42 | XMS_ITS | Encounter Summary ---
Author Organization [facility] [place], Address [address] [place] [address] Phone Care Team Providers Care Garage Door Hanger Name Role Phone Gigi Fraser MD Primary Care Provider [phone] Encounter Details Date Type Department Care Team (Late st Contact Info) Description 07/16/2023 Documentation Only [facility] [address] [place] [address] [place], [place] [address] [place] [address] Social History Tobacco Use Types [...] Visit [facility] Of [address] [place] [address] Bola Rodriguez DO [address] [place] [address] [place] [address] documented as of this encounter Visit Diagnoses Not on filedocumented in this encounter Care Teams Garage Door Hanger Relationship Specialty Start Date End Date Gigi Fraser MD [address] [place] [address] PCP - General Internal Medicine 07/16/23 documented as of this encounter
--- OUTSIDE RECORDS SUMMARY | 2024-10-26 09:42 | XMS_ITS | Clinical Summary ---
Author Organization [facility], Address [address] [place] [address] Phone Care Team Providers Care Feed House Supervisor Name Role Phone Gigi Fraser MD Primary Care Provider [phone] Allergies Active Allergy Reactions Criticality Noted Date [...] Only [facility], [address] [place] [address] Bola Rodriguez DO Acute tubulo-interstitial nephritis; Other acute kidney failure (HCC); Hypertension; Stage 3a chronic kidney disease (HCC) 09/10/2024 Orders Only [facility] [address] [place] [address] Bola Rodriguez DO Acute tubulo-interstitial nephritis; Hypokalemia; Hypertension; Stage 3a chronic kidney disease (HCC) 08/27/2024 2:30 PM EST Office Visit [facility] [address] [place] [address] Bola Rodriguez DO Chronic tubulointerstitial nephritis (Primary Dx); Stage 3b chronic kidney disease (HCC); Hypertension 08/27/2024 Orders Only [facility] [address] [place] [id number] oBla Rodriguez DO Acute tubulo-interstitial nephritis; Other acute kidney failure (HCC); Hypertension; Stage 3a chronic kidney disease (HCC) 08/25/2024 Documentation Only [facility] [address] [place] [address] Bola Rodriguez DO 07/30/2024 Orders Only [facility] [address] [place] [address] Bola Rodriguez DO Acute tubulo-interstitial nephritis; Other [...] Visit [facility], [address] [place] [address] Bola Rodriguez, [address] [place] [phone] Health Maintenance Due Date Last Done Comments [...] None seen 0 - 5 /hpf [facility] RBC, Urine None seen 0 - 2 /hpf [facility] Squamous Epithelial, Urine None seen 0 - 10 /hpf [facility] Casts None seen None seen /lpf [facility] Bacteria, Urine None seen None seen/Few [facility] 08/22/2024 8:14 AM EST 08/22/2024 us Bola Rodriguez DO LAB MICROBIOLOGY - GENERAL ORDE [facility] Final Result Performing Organization Address City/[facility]/ZIP Co de Phone Number [employer] [facility] [address] [place] [address] * (ABNORMAL) Urine Protein / creatinine ratio (08/22/2024 8:14 AM EST) Creatinine, Ur 55.0 Not Estab. mg/dL [facility] Protein, Ur 28.6 Not Estab. mg/dL [facility] Urine Protein/Creati nine Ratio 520(H) 0 - 200 mg/g creat [facility] Urine (Urine, Clean Catch) 08/22/2024 8:14 AM EST 08/22/2024 us Bola Rodriguez DO LAB URINE ORDERABLES Final Resu lt Performing Organization Address City/[facility]/ZIP Co de Phone Number [employer] [facility] [address] [place] [address] * (ABNORMAL) Urinalysis with microscopic (08/22/2024 8:14 AM EST) Specific [place], Urine 1.012 1.005 - 1.030 [facility] pH Urine 6.0 5.0 - 7.5 [facility] Color, Urine Yellow Yellow [facility] Appearance Urine Clear Clear [facility] WBC Esterase Urine Negative Negative [facility] Protein, Ur 1+(A) Negative/Tra ce [facility] [phone] Glucose, Ur Negative Negative [facility] Ketones, Urine Negative Negative [facility] Blood Urine Negative Negative [facility] Bilirubin Urine Negative Negative [facility] [phone] Urobilinogen Urine 0.2 0.2 - 1.0 mg/dL [facility] [phone] Nitrite, Urine Negative Negative [facility] Microscopic Examination See below: [facility] [phone] Comment:Microscopic was cely cated and was performed. Urine (Urine, Clean Catch) 08/22/2024 8:14 AM EST 08/22/2024 Bola Rodriguez DO LAB URINE ORDERABLES Final Resu lt [facility] [address] [place] [address] * Magnesium (08/22/2024 8:14 AM EST) Magnesium 2.0 1.6 - 2.3 mg/dL [facility] Blood (Blood, Venous) 08/22/2024 8:14 AM EST 08/22/2024 Bola Rodriguez DO LAB BLOOD ORDERABLES Final Resu lt [employer] [facility] [address] [place] [address] * (ABNORMAL) Renal Function Panel (08/22/2024 8:14 AM EST) Glucose 105(H) 70 - 99 mg/dL [facility] BUN 18 8 - 27 mg/dL [facility] Creatinine 1.84(H) 0.76 - 1.27 mg/dL [facility] eGFR CKD-EPI CR 2020 41(L) >59 mL/min/1.7 3 [facility] BUN/Creatinine Ratio 10 10 - 24 [facility] Sodium 140 134 - 144 mmol/L [facility] Potassium 4.4 3.5 - 5.2 mmol/L [facility] Chloride 102 96 - 106 mmol/L [facility] Bicarbonate (CO2) 25 20 - 29 mmol/L [facility] Calcium 10.0 8.6 - 10.2 mg/dL [facility] Albumin 4.6 3.8 - 4.9 g/dL [facility] Phosphorus 3.7 2.8 - 4.1 mg/dL [facility] Blood (Blood, Venous) 08/22/2024 8:14 AM EST 08/22/2024 Bola Rodriguez DO LAB BLOOD ORDERABLES Final Resu lt [facility] [address] [place] [address] from Last 3 Months Insurance [employer] Dual SNP ([id number]) BABS [place] [id number] Care Teams Feed House Supervisor Relationship Specialty Start Date End Date Gigi Fraser MD [address] [place] [address] PCP - General Internal Medicine 07/16/23
--- OUTSIDE RECORDS SUMMARY | 2024-10-26 09:42 | XMS_ITS | Encounter Summary ---
Author Organization [facility] Address [address] [place] [address] Phone Care Team Providers Care Sales Representative Printing Paper Name Role Phone Gigi Fraser MD Primary Care Provider [phone] Encounter Details Date Type Department Care Team (Late st Contact Info) Description 11/05/2023 Documentation Only [facility] [address] [place] [address] Bola Rodriguez DO [address] [place] [address] Social History Tobacco Use Types [...] Visit [facility] [address] [place] [address] Bola Rodriguez DO [address] [place] [address] documented as of this encounter Visit Diagnoses Not on filedocumented in this encounter Care Teams Sales Representative Printing Paper Relationship Specialty Start Date End Date Gigi Fraser MD [address] [place] [address] PCP - General Internal Medicine 07/16/23 documented as of this encounter
--- OUTSIDE RECORDS SUMMARY | 2024-10-26 09:43 | XMS_ITS | Encounter Summary ---
Author Organization [facility] Address [address] [place] [address] Phone Care Team Providers Care Teradata Solution Architect Name Role Phone Gigi Fraser MD Primary Care Provider [phone] Encounter Details Date Type Department Care Team (Late Contact Info) Description 03/12/2024 Orders Only [facility] [address] [place] [address] Bola Rodriguez DO [address] [address] Acute tubulo-interstitial nephritis; Other acute kidney [...] [facility] [address] [place] [address] Bola Rodriguez DO [address] [address] documented as of this encounter Visit Diagnoses Diagnosis Acute tubulo-interstitial nephritis Other acute kidney failure (HCC) Hypertension Stage 3a chronic kidney disease (HCC) documented in this encounter Care Teams Teradata Solution Architect Relationship Specialty Start Date End Date Gigi Fraser MD [address] [place] [address] PCP - General Internal Medicine 07/16/23 documented as of this encounter
--- OUTSIDE RECORDS SUMMARY | 2024-10-26 09:43 | XMS_ITS | Encounter Summary ---
Author Organization [facility] Address [address] [place] [address] Phone Care Team Providers Care Sales Secretary Name Role Phone Gigi Fraser MD Primary Care Provider [phone] Encounter Details Date Type Department Care Team (Late Contact Info) Description 02/13/2024 Orders Only [facility] [address] [place] [address] Bola Rodriguez DO [address] [place] [address] Acute tubulo-interstitial nephritis; Other acute kidney [...] Visit [facility] [address] [place] [address] Bola Rodriguez DO [address] [place] [address] documented as of this encounter Procedures [...] Urine 11-30(A) 0 - 5 /hpf [facility] RBC, Urine None seen 0 - 2 /hpf [facility] Squamous Epithelial, Urine 0-10 0 - 10 /hpf [facility] Casts None seen None seen /lpf [facility] Bacteria, Urine None seen None seen/Few [facility] 02/29/2024 8:54 AM EDT 02/29/2024 us Bola Rodriguez DO LAB MICROBIOLOGY - GENERAL ORDE [place] Final Result [facility] [address] [place] [address] * (ABNORMAL) Urine Protein / creatinine ratio (02/29/2024 8:54 AM EDT) Creatinine, Ur 39.7 Not Estab. mg/dL [facility] Protein, Ur 53.8 Not Estab. mg/dL [facility] Urine Protein/Creati nine Ratio 1,355(H) 0 - 200 mg/g creat [facility] Urine (Urine, Clean Catch) 02/29/2024 8:54 AM EDT 02/29/2024 Bola Rodriguez DO LAB URINE ORDERABLES Final Resu lt [facility] [address] [place] [address] * (ABNORMAL) Urinalysis with microscopic (02/29/2024 8:54 AM EDT) Pathologist [facility] Specific [place], Urine 1.012 1.005 - 1.030 [facility] pH Urine 6.5 5.0 - 7.5 [facility] Color, Urine Yellow Yellow [facility] Appearance Urine Clear Clear [facility] WBC Esterase Urine 1+(A) Negative [facility] Protein, Ur 2+(A) Negative/Tr elissa [facility] [phone] Glucose, Ur Negative Negative [facility] Ketones, Urine Negative Negative [facility] Blood Urine 2+(A) Negative [facility] Bilirubin Urine Negative Negative [facility] Urobilinogen Urine 0.2 0.2 - 1.0 mg/dL [facility] [phone] Nitrite, Urine Positive(A) Negative [facility] Microscopic Examination See below: [facility] Comment:Microscopic was cely cated and was performed. Urine (Urine, Clean Catch) 02/29/2024 8:54 AM EDT 02/29/2024 [facility] URINE ORDERABLES Final Resu lt Performing Organization Address [facility]/ZIP Co de Phone Number [facility] [address] [place] [address] * Magnesium (02/29/2024 8:54 AM EDT) Magnesium 1.9 1.6 - 2.3 mg/dL [facility] Blood (Blood, Venous) 02/29/2024 8:54 AM EDT 02/29/2024 [facility] LAB BLOOD ORDERABLES Final Resu lt Performing Organization Address [facility] de Phone Number [facility] [address] [place] [address] * (ABNORMAL) Renal Function Panel (02/29/2024 8:54 AM EDT) Glucose 91 70 - 99 mg/dL [facility] BUN 17 6 - 24 mg/dL [facility] Creatinine 1.62(H) 0.76 - 1.27 mg/dL [facility] eGFR CKD-EPI CR 2020 49(L) >59 mL/min/1.7 3 [facility] BUN/Creatinine Ratio 10 9 - 20 [facility] Sodium 140 134 - 144 mmol/L [facility] Potassium 3.9 3.5 - 5.2 mmol/L [facility] Chloride 102 96 - 106 mmol/L [facility] Bicarbonate (CO2) 24 20 - 29 mmol/L [facility] Calcium 9.3 8.7 - 10.2 mg/dL [facility] Albumin 4.2 3.8 - 4.9 g/dL [facility] Phosphorus 3.4 2.8 - 4.1 mg/dL [facility] Blood (Blood, Venous) 02/29/2024 8:54 AM EDT 02/29/2024 us Bola Rodriguez DO LAB BLOOD ORDERABLES Final Resu lt [facility] [address] [place] [address] documented in this encounter Visit Diagnoses Diagnosis Acute tubulo-interstitial nephritis Other acute kidney failure (HCC) Hypertension Stage 3a chronic kidney disease (HCC) documented in this encounter Care Teams Sales Secretary Relationship Specialty Start Date End Date Gigi Fraser MD [address] [place] [address] PCP - General Internal Medicine 07/16/23 documented as of this encounter
--- OUTSIDE RECORDS SUMMARY | 2024-10-26 09:43 | XMS_ITS | Encounter Summary ---
Author Organization [facility] Address [address] [place] [address] Phone Care Team Providers Care Communication And Outreach Manager Name Role Phone Gigi Fraser MD Primary Care Provider [phone] Encounter Details Date Type Department Care Team (Late Contact Info) Description 01/16/2024 Orders Only [facility] [address] [place] [address] Bola Rodriguez DO [address] [place] [address] Acute tubulo-interstitial nephritis; Other acute kidney [...] Visit [facility] [address] [place] [address] Bola Rodriguez DO [address] [place] [address] documented as of this encounter Procedures [...] Urine 0-5 0 - 5 /hpf [facility] RBC, Urine None seen 0 - 2 /hpf [facility] Squamous Epithelial, Urine None seen 0 - 10 /hpf [facility] Casts None seen None seen /lpf [facility] Bacteria, Urine None seen None seen/Few [facility] 01/25/2024 8:41 AM EDT 01/25/2024 us Bola Rodriguez DO LAB MICROBIOLOGY - GENERAL EDMUNDO CHAVES Final Result [facility] [address] [place] [address] * (ABNORMAL) Urine Protein / creatinine ratio (01/25/2024 8:41 AM EDT) Creatinine, Ur 38.1 Not Estab. mg/dL [facility] Protein, Ur 46.1 Not Estab. mg/dL [facility] Urine Protein/Creati nine Ratio 1,210(H) 0 - 200 mg/g creat [facility] Urine (Urine, Clean Catch) 01/25/2024 8:41 AM EDT 01/25/2024 us Bola Rodriguez DO LAB URINE ORDERABLES Final Resu lt [facility] [address] [place] [address] * (ABNORMAL) Urinalysis with microscopic (01/25/2024 8:41 AM EDT) Pathologist [facility] Specific [place], Urine 1.008 1.005 - 1.030 [facility] pH Urine 7.0 5.0 - 7.5 [facility] Color, Urine Yellow Yellow [facility] [phone] Appearance Urine Clear Clear [facility] [phone] WBC Esterase Urine Trace(A) Negative [facility] Protein, Ur 2+(A) Negative/Tr elissa [facility] [phone] Glucose, Ur Negative Negative [facility] Ketones, Urine Negative Negative [facility] Blood Urine 3+(A) Negative [facility] Bilirubin Urine Negative Negative [facility] [phone] Urobilinogen Urine 0.2 0.2 - 1.0 mg/dL [facility] Nitrite, Urine Positive(A) Negative [facility] [phone] Microscopic Examination See below: [facility] [phone] Comment:Microscopic was cely cated and was performed. Urine (Urine, Clean Catch) 01/25/2024 8:41 AM EDT 01/25/2024 [facility] URINE ORDERABLES Final Resu lt Performing Organization Address City/[facility]/ZIP Co de Phone Number [facility] [address] [place] [address] * Magnesium (01/25/2024 8:41 AM EDT) Magnesium 1.9 1.6 - 2.3 mg/dL [facility] Blood (Blood, Venous) 01/25/2024 8:41 AM EDT 01/25/2024 [facility] LAB BLOOD ORDERABLES Final Resu lt Performing Organization Address [facility] de Phone Number [facility] [address] [place] [address] * (ABNORMAL) Renal Function Panel (01/25/2024 8:41 AM EDT) Glucose 108(H) 70 - 99 mg/dL [facility] BUN 11 6 - 24 mg/dL [facility] Creatinine 2.04(H) 0.76 - 1.27 mg/dL [facility] eGFR CKD-EPI CR 2020 37(L) >59 mL/min/1.7 3 [facility] BUN/Creatinine Ratio 5(L) 9 - 20 [facility] Sodium 141 134 - 144 mmol/L [facility] Potassium 3.2(L) 3.5 - 5.2 mmol/L [facility] Chloride 99 96 - 106 mmol/L [facility] Bicarbonate (CO2) 30(H) 20 - 29 mmol/L [facility] Calcium 10.5(H) 8.7 - 10.2 mg/dL [facility] Comment:Verified by repeat analysis Phosphorus 2.9 2.8 - 4.1 mg/dL [facility] Albumin 4.1 3.8 - 4.9 g/dL [facility] Blood (Blood, Venous) 01/25/2024 8:41 AM EDT 01/25/2024 Bola Rodriguez DO LAB BLOOD ORDERABLES Final Resu lt [facility] [address] [place] [address] documented in this encounter Visit Diagnoses Diagnosis Acute tubulo-interstitial nephritis Other acute kidney failure (HCC) Hypertension Stage 3a chronic kidney disease (HCC) documented in this encounter Care Teams Communication And Outreach Manager Relationship Specialty Start Date End Date Gigi Fraser MD [address] [place] [address] PCP - General Internal Medicine 07/16/23 documented as of this encounter
--- OUTSIDE RECORDS SUMMARY | 2024-10-26 09:43 | XMS_ITS | Encounter Summary ---
Author Organization [facility] Address [address] [place] [address] Phone Care Team Providers Care Expander Machine Operator Name Role Phone Gigi Fraser MD Primary Care Provider [phone] Encounter Details Date Type Department Care Team (Late Contact Info) Description 04/09/2024 Orders Only [facility] [address] [place] [address] Bola Rodriguez DO [address] [place] [address] Acute tubulo-interstitial nephritis; Other acute kidney [...] Visit [facility] [address] [place] [address] Bola Rodriguez DO [address] [place] [address] documented as of this encounter Visit Diagnoses Diagnosis Acute tubulo-interstitial nephritis Other acute kidney failure (HCC) Hypertension Stage 3a chronic kidney disease (HCC) documented in this encounter Care Teams Expander Machine Operator Relationship Specialty Start Date End Date Gigi Fraser MD [address] [place] [address] PCP - General Internal Medicine 07/16/23 documented as of this encounter
--- OUTSIDE RECORDS SUMMARY | 2024-10-26 09:43 | XMS_ITS | Encounter Summary ---
Author Organization [facility] Address [address] [place] [address] Phone Care Team Providers Care Casing Man Name Role Phone Gigi Fraser MD Primary Care Provider [phone] Encounter Details Date Type Department Care Team (Late Contact Info) Description 05/07/2024 Orders Only [facility] [address] [place] [address] Bola Rodriguez DO [address] [place] [address] Acute tubulo-interstitial [...] [facility] [address] [place] [place] [address] Bola Rodriguez DO [address] [place] [address] documented as of this encounter Visit Diagnoses Diagnosis Acute tubulo-interstitial nephritis Other acute kidney failure (HCC) Hypertension Stage 3a chronic kidney disease (HCC) documented in this encounter Care Teams Casing Man Relationship Specialty Start Date End Date Gigi Fraser MD [address] [place] [address] PCP - General Internal Medicine 07/16/23 documented as of this encounter
--- OUTSIDE RECORDS SUMMARY | 2024-10-26 09:43 | XMS_ITS | Encounter Summary ---
Author Organization [facility] Address [address] [place] [address] Phone Care Team Providers Care Weather Teacher Name Role Phone Gigi Fraser MD Primary Care Provider [phone] Encounter Details Date Type Department Care Team (Late st Contact Info) Description 10/09/2023 Documentation Only [facility] [address] [place] [address] Bola Rodriguez DO [address] [place] [address] Social History Tobacco Use Types [...] [facility] [address] [place] [address] Bola Rodriguez DO [address] [place] [address] documented as of this encounter Visit Diagnoses Not on filedocumented in this encounter Care Teams Weather Teacher Relationship Specialty Start Date End Date Gigi Fraser MD [address] [place] [address] PCP - General Internal Medicine 07/16/23 documented as of this encounter
--- OUTSIDE RECORDS SUMMARY | 2024-10-26 09:43 | XMS_ITS | Encounter Summary ---
Author Organization [facility] Address [address] [place] [address] Phone Care Team Providers Care Television Repairer Name Role Phone Gigi Fraser MD Primary Care Provider [phone] Encounter Details Date Type Department Care Team (Late st Contact Info) Description 05/21/2024 Orders Only [facility] [address] [place] [address] Bola Rodriguez DO [address] [place] [address] Acute tubulo-interstitial nephritis; Hypokalemia; Hypertension; Stage [...] [facility] [address] [place] [address] Bola Rodriguez DO [address] [place] [address] documented as of this encounter Visit Diagnoses Diagnosis Acute tubulo-interstitial nephritis Hypokalemia Hypertension Stage 3a chronic kidney disease (HCC) documented in this encounter Care Teams Television Repairer Relationship Specialty Start Date End Date Gigi Fraser MD [address] [place] [address] PCP - General Internal Medicine 07/16/23 documented as of this encounter
[2024-10-26 17:43] LABS: MANUAL DIFF FLAG NO
[2024-10-26 17:48] LABS: Basophils Percent Auto 0.6 % (0-2); Eosinophils Absolute Auto 0.1 X10*3/uL (0.0-0.4); Eosinophils Percent Auto 1.4 % (0-4); Hematocrit 34.8 % (42.0-52.0); Hemoglobin 11.8 g/dl (14.0-18.0); Imm Gran Abs Auto 0.01 X10*3/uL (0.00-0.03); Imm Gran Pct Auto 0.2 % (0.0-0.4); Lymphocytes Absolute Auto 1.1 X10*3/uL (1.2-4.9); Lymphocytes Percent Auto 21.4 % (20-40); Mean Corpuscular HGB Conc 33.9 g/dl (31.0-36.0); Mean Corpuscular Hemoglobin 32.5 pg (27.0-33.0); Mean Corpuscular Volume 95.9 fL (80.0-98.0); Mean Platelet Volume 9.6 fL (9.4-12.4); Monocytes Absolute Auto 0.5 X10*3/uL (0.1-1.2); Monocytes Percent Auto 10.4 % (2-11); Neutrophils Absolute Auto 3.4 x10*3/uL (2.0-8.3); Platelet Count 187 X10*3/uL (160-400); Red Blood Count 3.63 X10*6/uL (4.60-5.80); Red Cell Distribution Width 12.5 % (11.0-16.0); White Blood Count 5.2 X10*3/uL (4.8-10.8)
[2024-10-26 18:03] LABS: Alanine Aminotransferase 48 U/L (0-40); Aspartate Amino Transferase 52 U/L (5-37); C Reactive Protein 0.11 mg/dL (< or = 0.50); Estimated Glomerular Filt Rate 52
[2024-10-26 18:44] LABS: Erythrocyte Sedimentation Rate 9 MM/HR (0-15)
== END 2024-10-26 08:14 | disposition home or self-care (01) ==
LOC: HO.HKASLDS 08:13
PROVIDERS: PCP Internal Medicine; Visit Provider Internal Medicine Rheumatology
DX: M06.09 Rheumatoid arthritis without rheumatoid factor, multiple sites (principal); M18.0 Bilateral primary osteoarthritis of first carpometacarpal joints; M54.16 Radiculopathy, lumbar region; Z79.60 Long term (current) use of unspecified immunomodulators and immunosuppressants; Z79.899 Other long term (current) drug therapy
CPT/HCPCS: 36415; 82565; 84450; 84460; 85025; 85652; 86140; 99212

== ENCOUNTER 2024-10-26 08:13 | Outpatient (AMB) | payer OTHER, SELFPAY ==
[2024-10-26 08:16] VITALS: BP 110/80; PULSE 71; O2SAT 98; BMI 24.7
--- NOTE | 2024-10-26 08:16 | A.OFFVIS_ITS ---
Vital Signs 10/26/24 08:16 Height 5 ft 10 in Weight 171 lb 15.369 oz BMI 24.7 BP 110/80 Blood Pressure Location Lt brachial Position Sitting Pulse 71 Pulse Source Pulse Oximeter Pulse Oximetry (%) 98 Oxygen Delivery Method Room Air Intake Visit Reasons: 2 Months Intake Note: Pt present today Arthritis. Director Clinical Pharmacology Required: No Accompanied by: Self / Same As Patient Allergies Penicillins Allergy (Mild, Verified 10/26/24 08:23) Redness of Skin hydrochlorthiazine Allergy (Mild, Uncoded 05/18/24 08:54) leg swelling HPI HPI 2 Months: Details: He has seen ENT and received another round of antibiotic. His headaches are not as severe as they used to be. He denies having any sinus symptoms. He will be following up with the ENT. Earlier on in the year he had a course of prednisone that improved his hand symptoms. Cortisone injection of bilateral CMCs were effective from last visit. He continues to have hand swelling but pain is tolerable. He continues to have lower back pain that radiates to the thigh and sometimes comes beneath the buttocks to the medial thigh. He tried physical therapy without improvement. He had an ultrasound of his abdomen in August 2024, which revealed hepatic steatosis. Physical Exam Vital Signs: Last Vital Signs Pulse 71 10/26/24 08:16 BP 110/80 10/26/24 08:16 Pulse Ox 98 10/26/24 08:16 Oxygen Delivery Method Room Air 10/26/24 08:16 BMI result Body Mass Index 24.7 Const Other: General: Comfortable CVS: RRR Respiratory: clear to auscultation bilaterally. Good respiratory effort Skin: No lesions seen MSK: He has synovitis of his left wrists with tenderness to palpate left wrist. Squaring of bilateral CMCs with tenderness. Synovitis left 2nd and 3rd MCP with tender bilateral MCPs. Tender PIPs of right hand. No tenderness of bilateral shoulders. Normal range of motion of upper extremities. Good lumbar flexion. Negative straight leg raising test. No MTP tenderness. Assessment & Plan Assessment & Plan (1) Rheumatoid arthritis: Comment: He continued to have mild transaminitis after discontinuing leflunomide. August 2024 ultrasound of abdomen reveals hepatic steatosis. We discussed next steps in treatment to controlling inflammatory arthritis. Discussed side effects, benefits and drug monitoring on Humira. Rheumatology history: Seronegative. 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 Rodriguez. Discontinued February 2024 due to transaminitis. When he was tapered off of prednisone for renal disease he developed headaches, scalp tenderness, jaw claudication, fevers and elevated CRP. He had left temporal artery biopsy, which was negative. He continues to have intermittent headaches and is being evaluated by ENT who has imaged his sinuses and is concerned about chronic sinus infection necessitating surgery for drainage, which patient has declined due to fear side effects. Contraindication to methotrexate, hydroxychloroquine and sulfasalazine due to his underlying kidney disease. 08/2024 US abdomen hepatic steatosis. Code(s): M06.9 - Rheumatoid arthritis, unspecified Category: Medical Qualifiers: Rheumatoid arthritis location: multiple sites Rheumatoid factor presence: without rheumatoid factor Qualified Code(s): M06.09 - Rheumatoid arthritis without rheumatoid factor, multiple sites Plan: Giulia PA He will need to be scheduled for nurse teaching visit as soon as Humira is approved. He will then need labs 1 month after starting Humira CBC, creatinine, AST, ALT Return to clinic in 3 months (2) Lumbar radiculopathy, right: Comment: Failed PT. we reviewed x-ray results, which show intact hardware from L4-L5 fusion. He also has multilevel thoracolumbar spondylosis with Grade 1 retrolisthesis L3-4. EMg of right leg reveals L5-S1 radiculopathy. Code(s): M54.16 - Radiculopathy, lumbar region Category: Medical Plan: He will return back to PT for exercises targeting L5-S1 radiculopathy Pain management referral [facility] as patient has seen this group in the past for L-spine cortisone injection prior to L4-L5 fusion. I am recommending evaluation with the same group as he has had previous imaging performed with the group, which would be most appropriate for his care going forward to see if he is a candidate for cortisone injection to target his current symptoms. Avoiding gabapentin due to prior history of side effect Return to clinic in 3 months (3) Osteoarthritis of carpometacarpal (CMC) joint of both thumbs: Comment: Pain better controlled with CMC cortisone injections from last visit Code(s): M18.0 - Bilateral primary osteoarthritis of first carpometacarpal joints Category: Medical Plan: Monitor clinically Orders: Orders Alanine Aminotransferase Today Z79.60 - custodial (current) use of unspecified immunomodulators and immunosuppressants Complete Blood Count Auto Diff Today Z79.60 - rodent exterminator (current) use of unspecified immunomodulators and immunosuppressants Erythrocyte Sedimentation Rate Today Z79.899 - Other terminal make up operator (current) drug therapy Aspartate Amino Transferase Today Z79.60 - custodial (current) use of unspecified immunomodulators and immunosuppressants Creatinine Today Z79.60 - rodent exterminator (current) use of unspecified immunomodulators and immunosuppressants C Reactive Protein Today Z79.899 - Other nursing home (current) drug therapy Referrals Pain Management Referral M54.16 - Radiculopathy, lumbar region Medications: New adalimumab (Humira(CF) Pen) First dose administration in office. Nurse visit required. Labs one month after starting. 40 mg (0.4 mL) subcut Q14D 2 ea 2RF Coding Level of Care Code Est Pt Level 4 (30151) Complex EM visit Add On G2211 Diagnoses Rheumatoid arthritis of multiple sites with negative rheumatoid factor M06.09 Rheumatoid arthritis location: multiple sites Rheumatoid factor presence: without rheumatoid factor Lumbar radiculopathy, right M54.16 Osteoarthritis of carpometacarpal (CMC) joint of both thumbs M18.0
--- OUTSIDE RECORDS SUMMARY | 2024-10-26 08:27 | XMS_ITS | Encounter Summary ---
Author Organization [facility] Address [address] [place] [address] Phone Care Team Providers Care Professor Of German Name Role Phone Gigi Fraser MD Primary Care Provider [phone] Encounter Details Date Type Department Care Team (Late Contact Info) Description 06/04/2024 Orders Only [facility] [address] [place] [address] Bola Rodriguez DO [address] [place] [address] Acute tubulo-interstitial nephritis; Other acute kidney [...] [facility] [address] [place] [address] Bola Rodriguez DO [address] [place] [address] documented as of this encounter Visit Diagnoses Diagnosis Acute tubulo-interstitial nephritis Other acute kidney failure (HCC) Hypertension Stage 3a chronic kidney disease (HCC) documented in this encounter Care Teams Professor Of German Relationship Specialty Start Date End Date Gigi Fraser MD [address] [place] [address] PCP - General Internal Medicine 07/16/23 documented as of this encounter
--- OUTSIDE RECORDS SUMMARY | 2024-10-26 08:27 | XMS_ITS | Continuity of Care Document ---
Author Organization [facility] Address [address] [place] [address]- Care Team Providers Care Bucket Hooker Name Role Phone Evelio EATON, Gigi W Primary Care Physician Encounter 10/18/24 - 10/25/24 [facility] [address], [address] [place] [address]- Attending Physician: Kevin Tovar Admitting Physician: Kevin Tovar Referring Physician: Kevin Tovar Encounter Type: OutPatient One Time Allergies, Adverse Reactions, Alerts Substance Criticality Severity [...] 08/08/10 Tai rded influenza virus vaccine, inactivated 1/29/10 Tai rded SARS-CoV-2 (COVID-19) mRNA BNT-162b2 vac [...] Recorded 1Location History: [facility] 2Result Comment: [04/08/2017] [facility] [id number] 3Result Comment: dose2 Medications acetaminophen 650 mg oral tablet, extended release 2 tablet = 1,300 mg, By Mouth, Every 8 hours, PRN Pain , Severe, # 180 tablet, 2 Refills, Maintenance, 02/12/24 5:13:00 PM EDT, ER Tablet, [facility], Partial fill upon patient [...] Maintenance, 05/04/24 3:56:00 PM EST, ER Tablet, [facility], Partial fill upon patient [...] 1 Refills, Maintenance, 05/04/24 3:55:00 PM EST, [facility], 178, cm, 04/22/24 9:13:00 [...] 8:37:00 AM EST, Route to Pharmacy Electronically, [facility], Partial fill upon patient [...] 1 Refills, Maintenance, 07/29/24 11:30:00 AM EST, [facility], 178, cm, 07/12/24 7:51:00 [...] improvement 4Seen by Dr. Peng Jenkins at [facility], plan for open abdominal wall reconstructionwith transverse [...] mg, DC'd. 10repeat screening colonoscopy in 2027 Results Radiology Reports * Exam Date Time Procedure Performing Provider Status 10/18/24 11:12 AM US Renal Bladder Steve Early; [facility] (Verified) Notes: (US Renal Bladder) Reason For Exam: Asymptomatic microscope hematuria RESULT: US Renal Bladder US Renal Bladder [facility] [address] [place] [address], [phone]. INDICATION / CLINICAL QUESTION: Asymptomatic microscope hematuria. Renal dysfunction. History of BPH and LUTS. Patient Age 59 years COMPARISON: 10/08/2023. Abdomen and pelvis CT 02/13/2022. FINDINGS: Right kidney: 11 cm in length with a subcentimeter probable cyst in the mid to upper pole. No hydronephrosis, stone, scarring or mass. Normal parenchymal thickness and echotexture. Left kidney: 10.4 cm in length. No hydronephrosis, stone, scarring or mass. Normal parenchymal thickness and echotexture. Bladder: Normal. No stone, mass, wall thickening or debris. IMPRESSION: Probable subcentimeter right renal cyst. Otherwise largely unremarkable. WSN: [id number] Ordering Physician: Kevin Lo Dictated By: Ino Meraz MD Dictated Date/Time: 10/18/24 11:53 a Reviewed By: Ino Meraz MD Signed By: Ino Meraz MD Signed Date/Time: 10/18/24 11:53 am Transcribed By: BRENDA Transcribed Date/Time: 10/18/24 11:49 am Social History Social History Type Response Smoking Status Former smoker, quit more than 30 days ago; Other: Quit on 03/10/2016. Previously 1.5 PPD for 30 years.; entered on: 05/21/23 Sex Sex Representation Male (finding) Patient Care team information Care Team Personnel Name: Darlene Erwin RN Position: S RN Member Role: Primary Care Nurse Name: Jenni Stanford RN Position: [facility] RN Member Role: Primary Care Nurse Name: Bola Rodriguez DO Position: [facility] Renal MD Member Role: Lifetime Consulting Physician Address: [address] [place], [place] [address] [place] [address] [place] Tele[employer]: Name: Carmen Gomes RN Position: [facility] AMB Nurse Member Role: Primary Care Nurse Name: Talita Nelson RN Position: [facility] RN Member Role: Primary Care Nurse Name: Joanna Mercedes RN Position: [facility] AMB Nurse Member Role: Primary Care Nurse Name: Gigi Fraser MD Position: [facility] Physician - Primary Care Member Role: PCP Address: [address] [place] [address] [id number] Telecom: Name: Adelaida Portillo RN Position: [facility] Attendant Member Role: Primary Care Nurse Care Team Related Persons Name: BRAD BREAUX Name: DANAE CANALES Name: KITTY MITCHELL Insurance Providers Guarantor name: LIBBY MITCHELL Health Plan Information #: 1 Payer: [employer] Member Number: [id number] Policy Number: NA Group Number: [facility] Health Plan Information #: 2 Payer: [employer] Member Number: [id number] Policy Number: NA Group Number: [id number]
--- OUTSIDE RECORDS SUMMARY | 2024-10-26 08:27 | XMS_ITS | Encounter Summary ---
Author Organization [facility] Address [address] [place] [address] Phone Care Team Providers Care Station Captain Name Role Phone Gigi Fraser MD Primary Care Provider [phone] Encounter Details Date Type Department Care Team (Late Contact Info) Description 09/24/2024 Orders Only [facility] [address] [place] [address] Bola Rodriguez DO [address] [place] [address] Acute tubulo-interstitial nephritis; Other acute kidney [...] [facility] [address] [place] [address] Bola Rodriguez DO [address] [place] [address] documented as of this encounter Visit Diagnoses Diagnosis Acute tubulo-interstitial nephritis Other acute kidney failure (HCC) Hypertension Stage 3a chronic kidney disease (HCC) documented in this encounter Care Teams Station Captain Relationship Specialty Start Date End Date Gigi Fraser MD [address] [place] [address] PCP - General Internal Medicine 07/16/23 documented as of this encounter
--- OUTSIDE RECORDS SUMMARY | 2024-10-26 08:28 | XMS_ITS | Encounter Summary ---
Author Organization [facility] Address [address] [place] [address] Phone Care Team Providers Care Dementia Program Director Name Role Phone Gigi Fraser MD Primary Care Provider [phone] Encounter Details Date Type Department Care Team (Late st Contact Info) Description 07/16/2024 Orders Only [facility] [address] [place] [address] Bola Rodriguez DO [address] [place] [address] Acute tubulo-interstitial nephritis; Hypokalemia; Hypertension; Stage [...] Visit [facility] [address] [place] [address] Bola Rodriguez DO [address] [place] [address] documented as of this encounter Procedures [...] None seen 0 - 5 /hpf [facility] RBC, Urine None seen 0 - 2 /hpf [facility] Squamous Epithelial, Urine None seen 0 - 10 /hpf [facility] Casts None seen None seen /lpf [facility] Bacteria, Urine None seen None seen/Few [facility] 07/25/2024 9:54 AM EST 07/25/2024 Bola Rodriguez DO LAB MICROBIOLOGY - GENERAL ORDE [place]ACIO Final Result [facility] [address] [place] [address] * Urinalysis with microscopic (07/25/2024 9:54 AM EST) Specific [place], Urine 1.019 1.005 - 1.030 [facility] pH Urine 7.0 5.0 - 7.5 [facility] Color, Urine Yellow Yellow [facility] Appearance Urine Clear Clear [facility] WBC Esterase Urine Negative Negative [facility] Protein, Ur Trace Negative/Tra ce [facility] Glucose, Ur Negative Negative [facility] Ketones, Urine Negative Negative [facility] Blood Urine Negative Negative [facility] Bilirubin Urine Negative Negative [facility] Urobilinogen Urine 0.2 0.2 - 1.0 mg/dL [facility] Nitrite, Urine Negative Negative [facility] Microscopic Examination Comment [facility] Comment:Microscopic follows if indicated. Other Microsc. Observations See below: [facility] Comment:Microscopic was cely cated and was performed. Urine (Urine, Clean Catch) 07/25/2024 9:54 AM EST 07/25/2024 us Bola Rodriguez DO LAB URINE ORDERABLES Final Resu lt [employer] [facility] [address] [place] [address] * Sedimentation Rate (07/25/2024 9:54 AM EST) Sed Rate 14 0 - 30 mm/hr [facility] Blood (Blood, Venous) 07/25/2024 9:54 AM EST 07/25/2024 us Bola Rodriguez DO LAB BLOOD ORDERABLES Final Resu lt Performing Organization Address City/[facility]/ZIP Co de Phone Number [facility] [address] [place] [address] * Urine Protein / creatinine ratio (07/25/2024 9:54 AM EST) Creatinine, Ur 172.5 Not Estab. mg/dL [facility] Protein, Ur 15.1 Not Estab. mg/dL [facility] Urine Protein/Creatin ine Ratio 88 0 - 200 mg/g creat [facility] Urine (Urine, Clean Catch) 07/25/2024 9:54 AM EST 07/25/2024 us Bola Rodriguez DO LAB URINE ORDERABLES Final Resu lt Performing Organization Address [facility] Co de Phone Number [facility] [facility] [address] [place] [address] * Magnesium (07/25/2024 9:54 AM EST) Pathologist [facility] Magnesium 2.1 1.6 - 2.3 mg/dL [facility] Blood (Blood, Venous) 07/25/2024 9:54 AM EST 07/25/2024 us Bola Rodriguez DO LAB BLOOD ORDERABLES Final Resu lt Performing Organization Address [facility]/ZIP Co de Phone Number [employer] [facility] [address] [place] [address] * (ABNORMAL) Renal Function Panel (07/25/2024 9:54 AM EST) Glucose 90 70 - 99 mg/dL [facility] BUN 18 8 - 27 mg/dL [facility] Creatinine 1.93(H) 0.76 - 1.27 mg/dL [facility] eGFR CKD-EPI CR 2020 39(L) >59 mL/min/1.7 3 [facility] BUN/Creatinine Ratio 9(L) 10 - 24 [facility] Sodium 137 134 - 144 mmol/L [facility] Potassium 4.3 3.5 - 5.2 mmol/L [facility] Bicarbonate (CO2) 24 20 - 29 mmol/L [facility] Calcium 11.0(H) 8.6 - 10.2 mg/dL [facility] Comment:Verified by repeat analysis Phosphorus 3.4 2.8 - 4.1 mg/dL [facility] Albumin 5.1(H) 3.8 - 4.9 g/dL [facility] Chloride 98 96 - 106 mmol/L [facility] Blood (Blood, Venous) 07/25/2024 9:54 AM EST 07/25/2024 Bola Rodriguez DO LAB BLOOD ORDERABLES Final Resu lt [facility] [address] [place] [address] documented in this encounter Visit Diagnoses Diagnosis Acute tubulo-interstitial nephritis Hypokalemia Hypertension Stage 3a chronic kidney disease (HCC) documented in this encounter Care Teams Dementia Program Director Relationship Specialty Start Date End Date Gigi Fraser MD [address] [place] [address] PCP - General Internal Medicine 07/16/23 documented as of this encounter
--- OUTSIDE RECORDS SUMMARY | 2024-10-26 08:28 | XMS_ITS | Clinical Summary ---
Author Organization [facility] Address [address] [place] [address] Phone Care Team Providers Care Golf Instructor Name Role Phone Gigi Fraser MD Primary Care Provider [phone] Allergies Active Allergy Reactions Criticality Noted Date [...] Do not crush, chew, or split. 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 Acute tubulo-interstitial nephritis 12/24/2023 Acute glomerulonephritis 10/22/2023 Acute nontraumatic kidney injury 09/17/2023 Hypokalemia 07/23/2023 Hypertension 07/22/2023 Dyslipidemia 07/22/2023 Encounters Date Type Department Care Team Description 09/24/2024 Orders Only [facility], [address] [place] [address] Bola Rodriguez DO Acute tubulo-interstitial nephritis; Other acute kidney failure (HCC); Hypertension; Stage 3a chronic kidney disease (HCC) 09/10/2024 Orders Only [facility] [address] [place] [address] Bola Rodriguez DO Acute tubulo-interstitial nephritis; Hypokalemia; Hypertension; Stage 3a chronic kidney disease (HCC) 08/27/2024 2:30 PM EST Office Visit [facility] [address] [place] [address] Bola Rodriguez DO Chronic tubulointerstitial nephritis (Primary Dx); Stage 3b chronic kidney disease (HCC); Hypertension 08/27/2024 Orders Only [facility] [address] [place] [id number] Bola Rodriguez DO Acute tubulo-interstitial nephritis; Other acute kidney failure (HCC); Hypertension; Stage 3a chronic kidney disease (HCC) 08/25/2024 Documentation Only [facility] [address] [place] [address] Bola Rodriguez DO 07/30/2024 Orders Only [facility] [address] [place] [address] Bola Rodriguez DO Acute tubulo-interstitial nephritis; Other [...] Upcoming Encounters Date Type Department Care Team (Kyle st Contact Info) Description 12/29/2024 2:00 PM EDT Office Visit [facility], [address] [facility] [place] [address] Bola Rodriguez, [address] [facility] [place] [phone] Health Maintenance Due Date Last Done Comments Colorectal Cancer Screening: Annual FOBT 2013 Colorectal Cancer Screening: Colonoscopy 2013 Colorectal Cancer Screening: Sigmoidoscopy 2013 Pneumococcal Vaccine: 50+ Years (2 of 2 - PCV) 04/24/2016 04/24/2015 Influenza Vaccine (Season Ended) 2025 03/18/2019, 04/13/2016 Pneumococcal Vaccine: Peds ( 0 to 5 Years) and At-Risk Patients (6 to 49 Years) Discontinued 04/24/2015 Hepatitis B Vaccine Aged Out No longe [...] NOT USE Routine 08/22/2024 8:14 AM EST from Last 3 Months Results * Microscopic Examination (08/22/2024 8:14 AM EST) WBC, Urine None seen 0 - 5 /hpf [facility] RBC, Urine None seen 0 - 2 /hpf [facility] Squamous Epithelial, Urine None seen 0 - 10 /hpf [facility] Casts None seen None seen /lpf [facility] Bacteria, Urine None seen None seen/Few [facility] 08/22/2024 8:14 AM EST 08/22/2024 us Bola Rodriguez DO LAB MICROBIOLOGY - GENERAL ORDE [facility] Final Result Performing Organization Address City/[facility]/ZIP Co de Phone Number [facility] [address] [place] [address] * (ABNORMAL) Urine Protein / creatinine ratio (08/22/2024 8:14 AM EST) Creatinine, Ur 55.0 Not Estab. mg/dL [facility] Protein, Ur 28.6 Not Estab. mg/dL [facility] Urine Protein/Creati nine Ratio 520(H) 0 - 200 mg/g creat [facility] Urine (Urine, Clean Catch) 08/22/2024 8:14 AM EST 08/22/2024 us Bola Rodriguez DO LAB URINE ORDERABLES Final Resu lt Performing Organization Address City/[facility]/ZIP Co de Phone Number [facility] [address] [place] [address] * (ABNORMAL) Urinalysis with microscopic (08/22/2024 8:14 AM EST) Specific [place], Urine 1.012 1.005 - 1.030 [facility] pH Urine 6.0 5.0 - 7.5 [facility] Color, Urine Yellow Yellow [facility] Appearance Urine Clear Clear [facility] WBC Esterase Urine Negative Negative [facility] Protein, Ur 1+(A) Negative/Tra ce [facility] Glucose, Ur Negative Negative [facility] Ketones, Urine Negative Negative [facility] Blood Urine Negative Negative [facility] Bilirubin Urine Negative Negative [facility] Urobilinogen Urine 0.2 0.2 - 1.0 mg/dL [facility] [phone] Nitrite, Urine Negative Negative [facility] Microscopic Examination See below: [facility] Comment:Microscopic was cely cated and was performed. Urine (Urine, Clean Catch) 08/22/2024 8:14 AM EST 08/22/2024 Bola Rodriguez DO LAB URINE ORDERABLES Final Resu lt [facility] [address] [place] [address] * Magnesium (08/22/2024 8:14 AM EST) Magnesium 2.0 1.6 - 2.3 mg/dL [facility] Blood (Blood, Venous) 08/22/2024 8:14 AM EST 08/22/2024 Bola Rodriguez DO LAB BLOOD ORDERABLES Final Resu lt [facility] [address] [place] [address] * (ABNORMAL) Renal Function Panel (08/22/2024 8:14 AM EST) Glucose 105(H) 70 - 99 mg/dL [facility] BUN 18 8 - 27 mg/dL [facility] Creatinine 1.84(H) 0.76 - 1.27 mg/dL [facility] eGFR CKD-EPI CR 2020 41(L) >59 mL/min/1.7 3 [facility] BUN/Creatinine Ratio 10 10 - 24 [facility] Sodium 140 134 - 144 mmol/L [facility] Potassium 4.4 3.5 - 5.2 mmol/L [facility] Chloride 102 96 - 106 mmol/L [facility] Bicarbonate (CO2) 25 20 - 29 mmol/L [facility] Calcium 10.0 8.6 - 10.2 mg/dL [facility] Albumin 4.6 3.8 - 4.9 g/dL [facility] Phosphorus 3.7 2.8 - 4.1 mg/dL [facility] Blood (Blood, Venous) 08/22/2024 8:14 AM EST 08/22/2024 Bola Rodriguez DO LAB BLOOD ORDERABLES Final Resu lt [facility] [address] [place] [address] from Last 3 Months Insurance [employer] Dual SNP ([id number]) [place] [id number] Care Teams Golf Instructor Relationship Specialty Start Date End Date Gigi Fraser MD [address] [facility] [place] [address] PCP - General Internal Medicine 07/16/23
--- OUTSIDE RECORDS SUMMARY | 2024-10-26 08:28 | XMS_ITS | Encounter Summary ---
Author Organization [facility] Address [address] [place] [address] Phone Care Team Providers Care Director Of Assessing Name Role Phone Gigi Fraser MD Primary Care Provider [phone] Encounter Details Date Type Department Care Team (Late Contact Info) Description 08/27/2024 Orders Only [facility] [address] [place] [address] Bola Rodriguez DO [address] [place] [address] Acute tubulo-interstitial nephritis; Other acute kidney [...] [facility] [address] [place] [address] Bola Rodriguez DO [address] [place] [address] documented as of this encounter Visit Diagnoses Diagnosis Acute tubulo-interstitial nephritis Other acute kidney failure (HCC) Hypertension Stage 3a chronic kidney disease (HCC) documented in this encounter Care Teams Director Of Assessing Relationship Specialty Start Date End Date Gigi Fraser MD [address] [place] [address] PCP - General Internal Medicine 07/16/23 documented as of this encounter
--- OUTSIDE RECORDS SUMMARY | 2024-10-26 08:28 | XMS_ITS | Clinical Summary ---
Author Organization [address] Address [address] [place] [address] Phone Care Team Providers Care Product Demonstrator Name Role Phone Physician, Pcp Unknown Primary Care Provider Mildred vailable Encounters Date Type Department Care Team Description 10/06/2024 Lab Requisition [facility] - Main Lab [address] [place] [address] Kevin Lo PA Benign essential microscopic hematuria from Last 3 Months Surgical History Surgery Date Site/Laterality Comments OTHER SURGICAL HISTORY 06/02 PROCEDURE: PROSTATE SPEC. AG, SCREEN; COMMENT: 1.4 MOLE REMOVAL PROCEDURE: HISTORICAL MOLE (REMOVAL OF) Medical History Medical History Date Comments Essential hypertension, benign 08/01/2005 D X:Essential hypertension, benign Prostatitis, unspecified 08/28/2005 DX:Pros tatitis, unspecified Inguinal hernia without ment ion of obstruction or gangrene, unilateral or unspecified, (not specified as recurrent) 08/28/2005 DX:Inguinal hernia without m ention of obstruction or gangrene, unilateral or unspecified, (not specified as recurrent); COMMENT: Right Carpal tunnel syndrome 10/06/2008 DX:Carpal tunnel syndrome; COMMENT: Bilateral Other and unspecified hyperlipidemia 07/28/2009 DX:Other and unspecified hyperlipidemia Nevus, non-neoplastic DX:Nevus, non-neoplastic Family History Medical History Relation Name Comments Strabismus Brother Glaucoma Father Heart attack Father Asthma Mother COPD Breast cancer Mother Blindness Neg Hx Cataracts Neg Hx Macular degeneration Neg Hx Relation Name Status Comments Brother Father Mother Social History Tobacco Use Types Packs/Day Years Used Date Smoking Tobacco: Every Day Cigarettes Smokeless Tobacco: Never Alcohol Use Standard Drinks/Week Comments Yes 500 (1 standard drink = 0.6 oz p ure alcohol) Sex and Gender Information Value Date Recorded Sex Assigned at Not on file Legal Sex Male 3:43 AM EST Gender Identity Not on file Sexual Orientation Not on file Obstetrics History Plan of Treatment Health Maintenance Due Date Last Done Comments COVID-19 Vaccine (#1) 1969 Pneumococcal Vaccine: 50+ Years (1 of 2 - PCV) 1983 Pneumococcal Vaccine: Pediatrics (0 to 5 Years) and At-Risk Patients (6 to 64 Years) (1 of 2 - PCV) 1983 Zoster Vaccines (1 of 2) 1983 DTaP,Tdap,and Td Vaccines (2 - Td or Tdap) 09/24/2022 09/24/2012 Cholesterol Screening (Lipid Panel) 10/07/2024 Colorectal Cancer Screening: Colonoscopy 10/07/2024 Depression Screening 10/07/2024 HIV Screening 10/07/2024 Hepatitis C Screening 10/07/2024 Hypertension/CHF/CAD Annual BMP Blood Test 10/07/2024 Social Influencers of Health Screening 10/07/2024 Influenza Vaccine (Season Ended) 2025 08/08/2010, 07/28/2009, 07/28/2009 RSV Immunization Adult Patients (1 - 1-dose 75+ series) 2039 HIB Vaccines Aged Out No longer eligi ble based on patient's age to complete this topic HPV Vaccines Aged Out No longer eligi ble based on patient's age to complete this topic Hepatitis A Vaccines Aged Out No long er eligible based on patient's age to complete this topic Hepatitis B Vaccines Aged Out No long er eligible based on patient's age to complete this topic IPV Vaccines Aged Out No longer eligi ble based on patient's age to complete this topic MMR Vaccines Aged Out No longer eligi ble based on patient's age to complete this topic Meningococcal ACWY Vaccine Aged Out N o longer eligible based on patient's age to complete this topic Meningococcal B Vaccine Aged Out No l onger eligible based on patient's age to complete this topic RSV Immunization Patients Under 20 months Aged Out No longer eligible b ased on patient's age to complete this topic Varicella Vaccines Aged Out No longer eligible based on patient's age to complete this topic Procedures Procedure Name Priority Date/Time Associated Diagnosis Comments AP OUTSIDE CONSULT Routine 10/01/2024 12 :00 AM EDT Benign essential microscopic hematuria from Last 3 Months Results * Anatomic pathology outside consult (10/01/2024 12:00 AM EDT) Final Diagnosis A. Urine, Voided, ([id number]): Negative for high grade urothelial carcinoma. Scant urothelial cellularity. Results of UroVysion fluorescence in situ hybridization (FISH) testing: Although FISH was performed, insufficient non-obscured hybridization signals are present for evaluation and interpretation. 10/11/2024 5:27 PM EDT [facility] Clinical Information Benign essential microscopic hematuria R31.1 Urine Cytology/FISH (now) 10/11/2024 5:27 PM EDT [facility] Gross Description A. Urine, Voided, ([id number]): Received one ThinPrep slide for cytology and one ThinPrep slide for UroVysion FISH 10/11/2024 5:27 PM EDT [facility] Disclaimer Unless otherwise specified, all tissue is 10% NB formalin fixed and paraffin embedded. Technical pathology services provided by [facility] at [address], [place] [address] (CLIA #[id number]/Emily Roberson MD, Database Developer) 10/11/2024 5:27 PM EDT [facility] Tissue Urine specimen from urethra / Unknown 10/01/2024 10/06/2024 3:35 PM EDT [facility] LAB PATHOLOGY ORDERABLES Final Result [facility] [address] [place] [address], from Last 3 Months Insurance [employer] Care Teams Product Demonstrator Relationship Specialty Start Date End Date Physician, Pcp Unknown PCP - General 10/06/24
--- OUTSIDE RECORDS SUMMARY | 2024-10-26 08:28 | XMS_ITS | Encounter Summary ---
Author Organization [facility] Address [address] [place] [address] Phone Care Team Providers Care Electronics Processing Supervisor Name Role Phone Gigi Fraser MD Primary Care Provider Encounter Details Date Type Department Care Team (Late Contact Info) Description 07/30/2024 Orders Only [facility] [address] [place] [address] Bola Rodriguez DO [address] [facility] [address] Acute tubulo-interstitial nephritis; Other acute kidney [...] Visit [facility] [address] [place] [address] Bola Rodriguez DO [address] [facility] [address] documented as [...] None seen 0 - 5 /hpf [facility] RBC, Urine None seen 0 - 2 /hpf [facility] Squamous Epithelial, Urine None seen 0 - 10 /hpf [facility] Casts None seen None seen /lpf [facility] Bacteria, Urine None seen None seen/Few [facility] 08/22/2024 8:14 AM EST 08/22/2024 us Bola Rodriguez DO LAB MICROBIOLOGY - GENERAL ORDE [place]ACIO Final Result [facility] [address] [place] [phone] * (ABNORMAL) Urine Protein / creatinine ratio (08/22/2024 8:14 AM EST) Creatinine, Ur 55.0 Not Estab. mg/dL [facility] Protein, Ur 28.6 Not Estab. mg/dL [facility] Urine Protein/Creati nine Ratio 520(H) 0 - 200 mg/g creat [facility] Urine (Urine, Clean Catch) 08/22/2024 8:14 AM EST 08/22/2024 us Bola Rodriguez DO LAB URINE ORDERABLES Final Resu lt [facility] [address] [place] [address] * (ABNORMAL) Urinalysis with microscopic (08/22/2024 8:14 AM EST) Specific [place], Urine 1.012 1.005 - 1.030 [facility] [phone] pH Urine 6.0 5.0 - 7.5 [facility] Color, Urine Yellow Yellow [facility] Appearance Urine Clear Clear [facility] [place] WBC Esterase Urine Negative Negative [facility] [phone] Protein, Ur 1+(A) Negative/Tra ce [facility] Glucose, Ur Negative Negative [facility] Ketones, Urine Negative Negative [facility] Blood Urine Negative Negative [facility] [phone] Bilirubin Urine Negative Negative [facility] Urobilinogen Urine 0.2 0.2 - 1.0 mg/dL [facility] Nitrite, Urine Negative Negative [facility] [phone] Microscopic Examination See below: [facility] Comment:Microscopic was cely cated and was performed. Urine (Urine, Clean Catch) 08/22/2024 8:14 AM EST 08/22/2024 [facility] URINE ORDERABLES Final Resu lt Performing Organization Address City/[facility] [address]/ZIP Co de Phone Number [facility] [address] [place] [address] * Magnesium (08/22/2024 8:14 AM EST) Magnesium 2.0 1.6 - 2.3 mg/dL [facility] Blood (Blood, Venous) 08/22/2024 8:14 AM EST 08/22/2024 [facility] BLOOD ORDERABLES Final Resu lt Performing Organization Address [facility] [address] [facility] de Phone Number [facility] [place] [address] [place] [address] * (ABNORMAL) Renal Function Panel (08/22/2024 8:14 AM EST) Glucose 105(H) 70 - 99 mg/dL [facility] BUN 18 8 - 27 mg/dL [facility] Creatinine 1.84(H) 0.76 - 1.27 mg/dL [facility] eGFR CKD-EPI CR 2020 41(L) >59 mL/min/1.7 3 [facility] BUN/Creatinine Ratio 10 10 - 24 [facility] Sodium 140 134 - 144 mmol/L [facility] Potassium 4.4 3.5 - 5.2 mmol/L [facility] Chloride 102 96 - 106 mmol/L [facility] Bicarbonate (CO2) 25 20 - 29 mmol/L [facility] Calcium 10.0 8.6 - 10.2 mg/dL [facility] Albumin 4.6 3.8 - 4.9 g/dL [facility] Phosphorus 3.7 2.8 - 4.1 mg/dL [facility] Blood (Blood, Venous) 08/22/2024 8:14 AM EST 08/22/2024 Bola Rodriguez DO LAB BLOOD ORDERABLES Final Resu lt [facility] [address] [place] [phone] documented in this encounter Visit Diagnoses Diagnosis Acute tubulo-interstitial nephritis Other acute kidney failure (HCC) Hypertension Stage 3a chronic kidney disease (HCC) documented in this encounter Care Teams Electronics Processing Supervisor Relationship Specialty Start Date End Date Gigi Fraser MD [address] [place] [address] PCP - General Internal Medicine 07/16/23 documented as of this encounter
--- OUTSIDE RECORDS SUMMARY | 2024-10-26 08:28 | XMS_ITS | Data Portability ---
Author Organization [facility] Pain Managem ent, PAIN OFFICE Address [address] [facility] [address],[facility] [address] [place] [address] Care Team Providers Care Slurry Plant Operator Name Role Phone CITLALI ANTHONY Primary Care [...] booked for the same. 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 [email or web address] Not available 02/09/2019 15:36:14 02/23/2019 06540 He was advised against bed rest lasting longer than four days and to continue activities as tolerated. [email or web address] Not available 02/24/2019 14:02:41 03/15/2019 06496 He was advised against bed rest lasting longer than four days and to continue activities as tolerated. [email or web address] Not available 03/15/2019 15:18:22 Reason for Referral None Reported. Problems Name Problem SNOMED Code Status Onset Date Resolution Date Notes Provider Name and Address Organization Details Recorded Time Lumbar post-laminecto my syndrome 970415421 Active Khloe solis MD [address] [facility] , [address], [place], [address], [place] [facility] 15:35:28 Lumbar radiculopathy 733483522 Active Khloe solis MD [address] [facility] [address], [facility] [place], [address], [place] [facility] 15:35:45 Spinal stenosis of lumbar region 05187954 Active Khloe solis MD [address] [facility] , [address], [place], [address], [place] [facility] 15:35:57 Problem Notes None recorded. Procedures Surgical History Date Name Laterality Status Provider Name and Address Organization Details Recorded Time 02/24/20 19 Lumbar Epidural steroid injection under fluoroscopic guidance completed Khloe Mustafa MD [address] [facility] , [address], [place], [address], [place] [facility] 02/24/2019 14:02:03 [...] Name and Address Organization Details Recorded Time 80217 Product containin g penicilli n (product) medicatio n hives rash Not available Not available Not available 02/09/2019 37649 8001 SNOMED Kerrie cristina [place] - [place] [...] Updated DateTime 9 177.8 cm 25.8 kg/m2 75815.6 3 g 74 /min 98 % 98 % Kerrie Ramirez [facility] Pain Management 9 13:30:34 Date Recorded [...] 98 % 98 % 6 25.8 kg/m2 53975.6 3 g 126 mm[Hg] 83 mm[Hg] Khloe solis MD [address] [facility] , [address], [facility] [place], [address], [facility] Pain Management 9 08:33:04 Date Recorded [...] Is Your Level Of Alcohol Consumption? Moderate [id number] Information not available 04/14/2020 Are You Currently Employed? No Disability [id number] Information not available 04/14/2020 Which Illicit Or Recreational Drugs Have You Used? No [id number] Information not available 04/14/2020 Education 12 With Some College Information not available 02/09/2019 What Is Your Occupation? [employer] [id number] Information not available 04/14/2020 Live Alone Or With Others? Alone [email or web address] Information not available 02/09/2019 Marital Status [email or web address] Informatio n not available 02/09/2019 How Many Years Have You Smoked Tobacco? 30 [id number] Information not available 04/14/2020 Sex: Unknown Functional [...] SNOMED-CT Code Diagnosis ICD10 Code Diagnosis Note [id number] Khloe Mustafa MD PAIN OFFICE [address] [place] [address] 02/09/2019 13:27:26 02/09/2019 15:40:29 Lumbar post-laminectomy syndrome 119179467 M96.1 Lumbar radiculopathy 128 662848 M54.16 Spinal jhonatan nosis of lumbar region 13389259 M48.061 92822 Khloe Mustafa MD PAIN OFFICE [address] [facility] [place] [address] 02/23/2019 08:13:31 02/24/2019 14:07:59 Lumbar post-laminectomy syndrome 683975074 M96.1 Lumbar radiculopathy 128 050926 M54.16 Spinal jhonatan nosis of lumbar region 28230996 M48.061 04891 Khloe Mustafa MD PAIN OFFICE [address] [place] [address] 03/15/2019 14:18:43 03/15/2019 15:19:54 Lumbar post-laminectomy syndrome 083762616 M96.1 Lumbar radiculopathy 128 252509 M54.16 Spinal jhonatan nosis of lumbar region 67042675 M48.061 Health Concerns Section Related Observation LastModified by Organization Detai ls LastModified Time None Recorded Concern Status LastModified by Organization Details LastModified Time None Recorded Advance Directives Directive None Recorded Payers Encounter Date Sequence Insurance Name Policy Number Policy Griffith Covered Member ID Griffith Member ID Guarantor Name 02/09/2019 2 [place] [facility] Arnel Fontanez [id number] Arnel Fontanez 02/09/2019 1 MEDICARE B-[place] [facility] Arnel Fontanez [id number] Arnel Fontanez 02/23/2019 2 [place] [facility] Arnel Fontanez [id number] Arnel Fontanez 02/23/2019 1 MEDICARE [place] [facility] Arnel Fontanez [id number] Arnel Fontanez 03/15/2019 2 [place] [facility] Arnel Fontanez [id number] Arnel Fontanez 03/15/2019 1 [place]ICARE [place] [facility] Arnel Fontanez [id number] Arnel Fontanez Notes Date Note Type Note [...] nerve roots.He has trialed physical therapy at [facility] and [facility] with no pain benefit. He had a Lumbar epidural steroid injection under fluoroscopic guidance at [facility] prior to his back surgery and had some pain benefit. Khloe Mustafa MD [address] , [address], [place], [address], [employer] [facility] 02/10/2019 09:59:22 02/23/2019 text/html He is here today for a lumbar epidural steroid injection under fluoroscopic guidance. Khloe Mustafa MD [address] , [address], [place], [address], [facility] 02/24/2019 14:29:58 03/15/2019 text/html He [...] bowel incontinence. He had physical therapy at [facility] which aggravated his pain. He has taken percocet in the past which has helped relieve his pain. Khloe Mustafa MD [address] , [address], [place], [address], [facility] 03/16/2019 17:11:00
--- OUTSIDE RECORDS SUMMARY | 2024-10-26 08:28 | XMS_ITS | Encounter Summary ---
Author Organization [facility] Address [address] [place] [address] Phone Care Team Providers Care Multimedia Developer Name Role Phone Gigi Fraser MD Primary Care Provider [phone] Encounter Details Date Type Department Care Team (Late st Contact Info) Description 08/25/2024 Documentation Only [facility] [address] [place] [address] Bola Rodriguez DO [address] [facility] [address] [place] [address] Social History Tobacco Use Types [...] Services [facility] [address] [place] [address] Bola Rodriguez DO [address] [facility] [address] [place] [address] documented as of this encounter Visit Diagnoses Not on filedocumented in this encounter Care Teams Multimedia Developer Relationship Specialty Start Date End Date Gigi Fraser MD [address] [place] [address] PCP - General Internal Medicine 07/16/23 documented as of this encounter
--- OUTSIDE RECORDS SUMMARY | 2024-10-26 08:28 | XMS_ITS | Encounter Summary ---
Author Organization [facility] [place], Address [address] [place] [address] Phone Care Team Providers Care Waste Minimization Technician Name Role Phone Gigi Fraser MD Primary Care Provider [phone] Encounter Details Date Type Department Care Team (Late st Contact Info) Description 07/16/2023 Documentation Only [facility] [address] [place] [address] Tex [place], [place] [address] [place] [address] Social History Tobacco Use Types [...] Visit [facility] [address] [place] [address] Bola Rodriguez DO [address] [place] [address] [place] [address] documented as of this encounter Visit Diagnoses Not on filedocumented in this encounter Care Teams Waste Minimization Technician Relationship Specialty Start Date End Date Gigi Fraser MD [address] [place] [address] PCP - General Internal Medicine 07/16/23 documented as of this encounter
--- OUTSIDE RECORDS SUMMARY | 2024-10-26 08:28 | XMS_ITS | Encounter Summary ---
Author Organization [facility] [place], Address [address] [place] [address] Phone Care Team Providers Care Managing Jeweler Name Role Phone Gigi Fraser MD Primary Care Provider [phone] Encounter Details Date Type Department Care Team (Late st Contact Info) Description 07/16/2023 Documentation Only [facility] [address] [place] [address] [place], [place] [address] [place] [address] Social History Tobacco Use Types [...] Visit [facility] [address] [place] [address] Bola Rordiguez DO [address] [place] [address] [place] [address] documented as of this encounter Visit Diagnoses Not on filedocumented in this encounter Care Teams Managing Jeweler Relationship Specialty Start Date End Date Gigi Fraser MD [address] [place] [address] PCP - General Internal Medicine 07/16/23 documented as of this encounter
--- OUTSIDE RECORDS SUMMARY | 2024-10-26 08:28 | XMS_ITS | Encounter Summary ---
Author Organization [facility] Address [address] [place] [address] Phone Care Team Providers Care Lap Winding Machine Operator Name Role Phone Gigi Fraser MD Primary Care Provider [phone] Encounter Details Date Type Department Care Team (Late Contact Info) Description 07/02/2024 Orders Only [facility] [address] [place] [address] Bola Rodriguez DO [address] [place] [address] Acute tubulo-interstitial nephritis; Other acute kidney [...] Visit [facility] [address] [place] [address] Bola Rodriguez DO [address] [place] [address] documented as of this encounter Visit Diagnoses Diagnosis Acute tubulo-interstitial nephritis Other acute kidney failure (HCC) Hypertension Stage 3a chronic kidney disease (HCC) documented in this encounter Care Teams Lap Winding Machine Operator Relationship Specialty Start Date End Date Gigi Fraser MD [address] [place] [address] PCP - General Internal Medicine 07/16/23 documented as of this encounter
--- OUTSIDE RECORDS SUMMARY | 2024-10-26 08:28 | XMS_ITS | Encounter Summary ---
Author Organization [facility] Address [address] [place] [address] Phone Care Team Providers Care Pharmaceutical Plant Operator Name Role Phone Gigi Fraser MD Primary Care Provider [phone] Encounter Details Date Type Department Care Team (Late st Contact Info) Description 09/10/2024 Orders Only [facility] [address] [place] [address] Bola Rodriguez DO [address] [place] [address] Acute tubulo-interstitial nephritis; Hypokalemia; Hypertension; Stage [...] [facility] [address] [place] [address] Bola Rodriguez DO [address] [place] [address] documented as of this encounter Visit Diagnoses Diagnosis Acute tubulo-interstitial nephritis Hypokalemia Hypertension Stage 3a chronic kidney disease (HCC) documented in this encounter Care Teams Pharmaceutical Plant Operator Relationship Specialty Start Date End Date Gigi Fraser MD [address] [place] [address] PCP - General Internal Medicine 07/16/23 documented as of this encounter
--- OUTSIDE RECORDS SUMMARY | 2024-10-26 08:28 | XMS_ITS | Encounter Summary ---
Author Organization [facility] Address [address] [place] [address] Care Team Providers Care Sales Team Manager Name Role Phone Physician, Pcp Unknown Primary Care Provider Mildred vailable Encounter Details Date Type Department Care Team (Late st Contact Info) Description 10/06/2024 Lab Requisition [facility] - Main Lab [address] [facility] [place] [address] Kevin Lo, PA [address] [place] [address] Benign essential microscopic hematuria Social History Tobacco Use Types Packs/Day Years [...] as of this encounter Plan of Treatment Not on file documented as of this encounter Procedures Procedure Name Priority Date/Time Associated Diagnosis Comments AP OUTSIDE CONSULT Routine 10/01/2024 12 :00 AM EDT Benign essential microscopic hematuria documented in this encounter Results * Anatomic pathology outside consult (10/01/2024 12:00 AM EDT) Final Diagnosis A. Urine, Voided, ([id number]): Negative for high grade urothelial carcinoma. Scant urothelial cellularity. Results of UroVysion fluorescence in situ hybridization (FISH) testing: Although FISH was performed, insufficient non-obscured hybridization signals are present for evaluation and interpretation. 10/11/2024 5:27 PM EDT [facility] Clinical Information Benign essential microscopic hematuria R31.1 Urine Cytology/FISH (now) 10/11/2024 5:27 PM EDT [facility] Gross Description A. Urine, Voided, ([id number]): Received one ThinPrep slide for cytology and one ThinPrep slide for UroVysion FISH 10/11/2024 5:27 PM EDT [facility] Disclaimer Unless otherwise specified, all tissue is 10% NB formalin fixed and paraffin embedded. Technical pathology services provided by [facility] at [address] [facility] [place] [address], [place] [address] (CLIA #[id number]/Emily Roberson MD, Pump Technician) 10/11/2024 5:27 PM EDT [facility] Tissue Urine specimen from urethra / Unknown 10/01/2024 10/06/2024 3:35 PM EDT [facility] LAB PATHOLOGY ORDERABLES Final Result [facility] [address] [place] [address], documented in this encounter Visit Diagnoses Diagnosis Benign essential microscopic hematuria documented in this encounter Care Teams Sales Team Manager Relationship Specialty Start Date End Date Physician, Pcp Unknown PCP - General 10/06/24 documented as of this encounter
--- OUTSIDE RECORDS SUMMARY | 2024-10-26 08:28 | XMS_ITS | Data Portability ---
Author Organization [facility] Address [address] [place] [address] Assessment No assessment recorded. Plan of Treatment [...] SNOMED-CT Code Diagnosis ICD10 Code Diagnosis Note [id number] [facility] [address] [facility] [place] [id number] 02/02/2016 14:38:41 02/02/2016 14:52:01 Health Concerns Section Related Observation LastModified by Organization Detai ls LastModified Time None Recorded Concern Status LastModified by Organization Details LastModified Time None Recorded Advance Directives Directive None Recorded Payers Encounter Date Sequence Insurance Name Policy Number Policy Griffith Covered Member ID Griffith Member ID Guarantor Name 02/02/2016 1 [place]ARE B[place]: [employer] Arnel Fontanez [id number] Arnel Fontanez
--- OUTSIDE RECORDS SUMMARY | 2024-10-26 08:29 | XMS_ITS | Encounter Summary ---
Author Organization [facility] Address [address] [place] [address] Phone Care Team Providers Care Anatomy And Physiology Instructor Name Role Phone Gigi Fraser MD Primary Care Provider [phone] Encounter Details Date Type Department Care Team (Late st Contact Info) Description 09/17/2023 Documentation Only [facility] [address] [place] [address] Bola Rodriguez DO [address] [facility] [address] [place] [address] Social History Tobacco Use Types [...] And Transplant [facility] [address] [address] Bola Rodriguez DO [address] [facility] [address] [place] [address] documented as of this encounter Visit Diagnoses Not on filedocumented in this encounter Care Teams Anatomy And Physiology Instructor Relationship Specialty Start Date End Date Gigi Fraser MD [address] [place] [address] PCP - General Internal Medicine 07/16/23 documented as of this encounter
--- OUTSIDE RECORDS SUMMARY | 2024-10-26 08:29 | XMS_ITS | Encounter Summary ---
Author Organization [facility] Address [address] [place] [address] Phone Care Team Providers Care Associate Pastor Name Role Phone Gigi Fraser MD Primary Care Provider [phone] Encounter Details Date Type Department Care Team (Late st Contact Info) Description 10/09/2023 Documentation Only [facility] [address] [place] [address] Bola Rodriguez DO [address] [facility] [address] [place] [address] Social History Tobacco Use Types [...] Visit [facility] [address] [place] [address] Bola Rodriguez DO [address] [facility] [address] [place] [address] documented as of this encounter Visit Diagnoses Not on filedocumented in this encounter Care Teams Associate Pastor Relationship Specialty Start Date End Date Gigi Fraser MD [address] [place] [address] PCP - General Internal Medicine 07/16/23 documented as of this encounter
--- OUTSIDE RECORDS SUMMARY | 2024-10-26 08:29 | XMS_ITS | Encounter Summary ---
Author Organization [facility] Address [address] [place] [address] Phone Care Team Providers Care Ice Resurfacing Machine Operators Name Role Phone Gigi Fraser MD Primary Care Provider Encounter Details Date Type Department Care Team (Late Contact Info) Description 02/13/2024 Orders Only [facility] [address] [address] Bola Rodriguez DO [address] [place] [address] Acute tubulo-interstitial nephritis; Other acute kidney [...] Visit [facility] [address] [place] [address] Bola Rodriguez DO [address] [place] [address] documented as of this encounter Procedures [...] Urine 11-30(A) 0 - 5 /hpf [facility] RBC, Urine None seen 0 - 2 /hpf [facility] Squamous Epithelial, Urine 0-10 0 - 10 /hpf [facility] Casts None seen None seen /lpf [facility] Bacteria, Urine None seen None seen/Few [facility] 02/29/2024 8:54 AM EDT 02/29/2024 us Bola Rodriguez DO LAB MICROBIOLOGY - GENERAL ORDE ANASTACIO Final Result [facility] [address] [place] [address] * (ABNORMAL) Urine Protein / creatinine ratio (02/29/2024 8:54 AM EDT) Creatinine, Ur 39.7 Not Estab. mg/dL [facility] Protein, Ur 53.8 Not Estab. mg/dL [facility] Urine Protein/Creati nine Ratio 1,355(H) 0 - 200 mg/g creat [facility] Urine (Urine, Clean Catch) 02/29/2024 8:54 AM EDT 02/29/2024 Bola Rodriguez DO LAB URINE ORDERABLES Final Resu lt [facility] [address] [place] [address] * (ABNORMAL) Urinalysis with microscopic (02/29/2024 8:54 AM EDT) Pathologist [facility] Specific [place], Urine 1.012 1.005 - 1.030 [facility] pH Urine 6.5 5.0 - 7.5 [facility] [phone] Color, Urine Yellow Yellow [facility] Appearance Urine Clear Clear [facility] [phone] WBC Esterase Urine 1+(A) Negative [facility] Protein, Ur 2+(A) Negative/Tr elissa [facility] Glucose, Ur Negative Negative [facility] [phone] Ketones, Urine Negative Negative [facility] Blood Urine 2+(A) Negative [facility] Bilirubin Urine Negative Negative [facility] Urobilinogen Urine 0.2 0.2 - 1.0 mg/dL [facility] [phone] Nitrite, Urine Positive(A) Negative [facility] [phone] Microscopic Examination See below: [facility] Comment:Microscopic was cely cated and was performed. Urine (Urine, Clean Catch) 02/29/2024 8:54 AM EDT 02/29/2024 [facility] URINE ORDERABLES Final Resu lt Performing Organization Address [facility]/ZIP Co de Phone Number [facility] [address] [place] [address] * Magnesium (02/29/2024 8:54 AM EDT) Magnesium 1.9 1.6 - 2.3 mg/dL [facility] Blood (Blood, Venous) 02/29/2024 8:54 AM EDT 02/29/2024 [facility] BLOOD ORDERABLES Final Resu lt Performing Organization Address [facility] de Phone Number [facility] [address] [place] [address] * (ABNORMAL) Renal Function Panel (02/29/2024 8:54 AM EDT) Glucose 91 70 - 99 mg/dL [facility] BUN 17 6 - 24 mg/dL [facility] Creatinine 1.62(H) 0.76 - 1.27 mg/dL [facility] eGFR CKD-EPI CR 2020 49(L) >59 mL/min/1.7 3 [facility] BUN/Creatinine Ratio 10 9 - 20 [facility] Sodium 140 134 - 144 mmol/L [facility] Potassium 3.9 3.5 - 5.2 mmol/L [facility] Chloride 102 96 - 106 mmol/L [facility] Bicarbonate (CO2) 24 20 - 29 mmol/L [facility] Calcium 9.3 8.7 - 10.2 mg/dL [facility] Albumin 4.2 3.8 - 4.9 g/dL [facility] Phosphorus 3.4 2.8 - 4.1 mg/dL [facility] Blood (Blood, Venous) 02/29/2024 8:54 AM EDT 02/29/2024 us Bola Rodriguez DO LAB BLOOD ORDERABLES Final Resu lt [facility] [address] [place] [address] documented in this encounter Visit Diagnoses Diagnosis Acute tubulo-interstitial nephritis Other acute kidney failure (HCC) Hypertension Stage 3a chronic kidney disease (HCC) documented in this encounter Care Teams Ice Resurfacing Machine Operators Relationship Specialty Start Date End Date Gigi Fraser MD [address] [place] [address] PCP - General Internal Medicine 07/16/23 documented as of this encounter
--- OUTSIDE RECORDS SUMMARY | 2024-10-26 08:29 | XMS_ITS | Encounter Summary ---
Author Organization [facility] Address [address] [place] [address] Phone Care Team Providers Care Lithographer Apprentice Name Role Phone Gigi Fraser MD Primary Care Provider [phone] Encounter Details Date Type Department Care Team (Late st Contact Info) Description 09/29/2023 Documentation Only [facility] [address] [place] [address] Bola Rodriguez DO [address] [facility] [address] [place] [address] Social History Tobacco Use Types [...] Visit [facility] [address] [place] [address] Bola Rodriguez DO [address] [facility] [address] [place] [address] Pending Results Name Type Priority [...] PM EDT Performed at: ??01 - [facility] [address] ??[id number] Predatory Animal Trapper: Sara Ruiz MD, Phone: ??[phone] Bola Rodriguez DO LAB MICROBIOLOGY - GENERAL [...] 4:07 PM EDT Performed at: ??01 - [facility] ??[id number] Predatory Animal Trapper: Sara Ruiz MD, Phone: ??[phone] Bola Rodriguez DO LAB URINE ORDERABLES Final Resu lt Performing Organization Address [facility] Co de Phone Number [facility] * (ABNORMAL) Urinalysis with microscopic (10/03/2023 9:02 AM EDT) Specific [place], Urine 1.008 1.005 - 1.030 [facility] pH [...] PM EDT Performed at: ??01 - [facility] [address] [place] ??[id number] Predatory Animal Trapper: Sara Ruiz MD, Phone: ??[phone] Bola Rodriguez DO LAB URINE ORDERABLES Final [...] PM EDT Performed at: ??01 - [facility] [address] ??[id number] Predatory Animal Trapper: Sara Ruiz MD, Phone: ??[phone] Bola Rodriguez DO LAB BLOOD ORDERABLES Final [...] PM EDT Performed at: ??01 - [facility] [address] ??[id number] Predatory Animal Trapper: Sara Ruiz MD, Phone: ??[phone] Bola Rodriguez DO LAB BLOOD ORDERABLES Final Resu lt Performing Organization Address [facility] Co de Phone Number [facility] * ANCA [...] up testing of positive sera with both CA-3 and MPO-ANCA enzyme immunoassays. As many as [...] PM EDT Performed at: ??02 - [facility] [address] ??[id number] Predatory Animal Trapper: Rios Dolan MD, Phone: ??[phone] Bola Rodriguez LAB BLOOD ORDERABLES Final Resu lt Performing Organization Address [facility] Co de Phone Number [facility] documented in this encounter Visit Diagnoses Diagnosis Other acute kidney failure (HCC)- Primary documented in this encounter Care Teams Lithographer Apprentice Relationship Specialty Start Date End Date Gigi Fraser MD [address] [place] [address] PCP - General Internal Medicine 07/16/23 documented as of this encounter
--- OUTSIDE RECORDS SUMMARY | 2024-10-26 08:29 | XMS_ITS | Encounter Summary ---
Author Organization [facility] Address [address] [place] [address] Phone Care Team Providers Care Director Special Education Name Role Phone Gigi Fraser MD Primary Care Provider [phone] Encounter Details Date Type Department Care Team (Late st Contact Info) Description 05/21/2024 Orders Only [facility] [address] [place] [address] Bola Rodriguez DO [address] [address] Acute [...] [facility] [address] [place] [address] Bola Rodriguez DO [address] [place] [address] documented as of this encounter Visit Diagnoses Diagnosis Acute tubulo-interstitial nephritis Hypokalemia Hypertension Stage 3a chronic kidney disease (HCC) documented in this encounter Care Teams Director Special Education Relationship Specialty Start Date End Date Gigi Fraser MD [address] [place] [address] PCP - General Internal Medicine 07/16/23 documented as of this encounter
--- OUTSIDE RECORDS SUMMARY | 2024-10-26 08:29 | XMS_ITS | Encounter Summary ---
Author Organization [facility] Address [address] [place] [address] Phone Care Team Providers Care Foreman/Pile Driving And Erection Name Role Phone Gigi Fraser MD Primary Care Provider Encounter Details Date Type Department Care Team (Late st Contact Info) Description 09/17/2023 Documentation Only [facility] [address] [place] [address] Bola Rodriguez DO [address] [facility] [address] [place] [address] Social History Tobacco Use Types [...] Visit [facility] [address] [place] [address] Bola Rodriguez DO [address] [facility] [address] [place] [address] documented as of this encounter Visit Diagnoses Not on filedocumented in this encounter Care Teams Foreman/Pile Driving And Erection Relationship Specialty Start Date End Date Gigi Fraser MD [address] [place] [address] PCP - General Internal Medicine 07/16/23 documented as of this encounter
--- OUTSIDE RECORDS SUMMARY | 2024-10-26 08:29 | XMS_ITS | Encounter Summary ---
Author Organization [facility] [place], Address [address] [place] [address] Phone Care Team Providers Care Assembly Machine Offbearer Name Role Phone Gigi Fraser MD Primary Care Provider [phone] Encounter Details Date Type Department Care Team (Late st Contact Info) Description 07/19/2023 Documentation Only [facility] [address] [place] [address] Bola Rodriguez DO [address] [facility] [place] [address] Social History Tobacco Use Types [...] Visit [facility] [address] [place] [address] Bola Rodriguez DO [address] [facility] [address] [facility] [place] [address] documented as of this encounter Visit Diagnoses Not on filedocumented in this encounter Care Teams Assembly Machine Offbearer Relationship Specialty Start Date End Date Gigi Fraser MD [address] [place] [address] PCP - General Internal Medicine 07/16/23 documented as of this encounter
--- OUTSIDE RECORDS SUMMARY | 2024-10-26 08:29 | XMS_ITS | Encounter Summary ---
Author Organization [facility] Address [address] [place] [address] Phone Care Team Providers Care Novelty Dipper Name Role Phone Gigi Fraser MD Primary Care Provider Encounter Details Date Type Department Care Team (Late Contact Info) Description 05/07/2024 Orders Only [facility] [address] [address] Bola Rodriguez DO [...] Visit [facility] [address] [place] [address] Bola Rodriguez DO [address] [place] [address] documented as of this encounter Visit Diagnoses Diagnosis Acute tubulo-interstitial nephritis Other acute kidney failure (HCC) Hypertension Stage 3a chronic kidney disease (HCC) documented in this encounter Care Teams Novelty Dipper Relationship Specialty Start Date End Date Gigi Fraser MD [address] [place] [address] PCP - General Internal Medicine 07/16/23 documented as of this encounter
--- OUTSIDE RECORDS SUMMARY | 2024-10-26 08:29 | XMS_ITS | Encounter Summary ---
Author Organization [facility] [place], Address [address] [place] [address] Phone Care Team Providers Care Aml Analyst Name Role Phone Gigi Fraser MD Primary Care Provider Encounter Details Date Type Department Care Team (Late st Contact Info) Description 07/16/2023 Documentation Only [facility] [address] [place] [address] [place], [place] [address] [place] [address] Social History Tobacco Use Types [...] Visit [facility] [address] [place] [address] Bola Rodriguez DO [address] [place] [address] [place] [address] documented as of this encounter Visit Diagnoses Not on filedocumented in this encounter Care Teams Aml Analyst Relationship Specialty Start Date End Date Gigi Fraser MD [address] [place] [address] PCP - General Internal Medicine 07/16/23 documented as of this encounter
--- OUTSIDE RECORDS SUMMARY | 2024-10-26 08:29 | XMS_ITS | Encounter Summary ---
Author Organization [facility] Address [address] [place] [address] Phone Care Team Providers Care Organizational Effectiveness Director Name Role Phone Gigi Fraser MD Primary Care Provider Encounter Details Date Type Department Care Team (Late Contact Info) Description 04/09/2024 Orders Only [facility] [address] [place] [address] Bola Rodriguez DO [address] [facility] [place] [address] Acute tubulo-interstitial nephritis; Other acute kidney [...] Visit [facility] [address] [place] [address] Bola Rodriguez DO [address] [place] [address] documented as of this encounter Visit Diagnoses Diagnosis Acute tubulo-interstitial nephritis Other acute kidney failure (HCC) Hypertension Stage 3a chronic kidney disease (HCC) documented in this encounter Care Teams Organizational Effectiveness Director Relationship Specialty Start Date End Date Gigi Fraser MD [address] [place] [address] PCP - General Internal Medicine 07/16/23 documented as of this encounter
--- OUTSIDE RECORDS SUMMARY | 2024-10-26 08:29 | XMS_ITS | Encounter Summary ---
Author Organization [facility] Address [address] [place] [address] Phone Care Team Providers Care Flat Hammerer Name Role Phone Gigi Fraser MD Primary Care Provider [phone] Encounter Details Date Type Department Care Team (Late st Contact Info) Description 10/23/2023 Documentation Only [facility] [address] [address] Bola Rodriguez DO [address] [facility] [place] [address] Social History Tobacco Use Types [...] Of [facility] [address] [place] [address] Bola Rodriguez DO [address] [facility] [place] [address] documented as of this encounter Visit Diagnoses Not on filedocumented in this encounter Care Teams Flat Hammerer Relationship Specialty Start Date End Date Gigi Fraser MD [address] [place] [address] PCP - General Internal Medicine 07/16/23 documented as of this encounter
--- OUTSIDE RECORDS SUMMARY | 2024-10-26 08:29 | XMS_ITS | Encounter Summary ---
Author Organization [facility] Address [address] [place] [address] Phone Care Team Providers Care Iron Worker Foreman Name Role Phone Gigi Fraser MD Primary Care Provider [phone] Encounter Details Date Type Department Care Team (Late st Contact Info) Description 10/15/2023 Documentation Only [facility] [address] [place] [address] [place], [place] [address] [place] [address] Social History Tobacco Use Types [...] [facility] [address] [place] [address] Bola Rodriguez DO [address] [place] [address] [place] [address] documented as of this encounter Visit Diagnoses Not on filedocumented in this encounter Care Teams Iron Worker Foreman Relationship Specialty Start Date End Date Gigi Fraser MD [address] [place] [address] PCP - General Internal Medicine 07/16/23 documented as of this encounter
--- OUTSIDE RECORDS SUMMARY | 2024-10-26 08:29 | XMS_ITS | Encounter Summary ---
Author Organization [facility] [place], Address [address] [place] [address] Phone Care Team Providers Care School Cleaner Name Role Phone Gigi Fraser MD Primary Care Provider [phone] Encounter Details Date Type Department Care Team (Late st Contact Info) Description 07/16/2023 Documentation Only [facility] [address] [place] [address] [place], [place] [address] [place] [address] Social History Tobacco Use Types [...] Visit [facility] [address] [place] [address] Bola Rodriguez DO [address] [place] [address] [place] [address] documented as of this encounter Visit Diagnoses Not on filedocumented in this encounter Care Teams School Cleaner Relationship Specialty Start Date End Date Gigi Fraser MD [address] [place] [address] PCP - General Internal Medicine 07/16/23 documented as of this encounter
--- OUTSIDE RECORDS SUMMARY | 2024-10-26 08:29 | XMS_ITS | Encounter Summary ---
Author Organization [facility] Address [address] [place] [address] Phone Care Team Providers Care Clinical Study Manager Name Role Phone Gigi Fraser MD Primary Care Provider [phone] Encounter Details Date Type Department Care Team (Late st Contact Info) Description 09/17/2023 Documentation Only [facility] [address] [place] [address] Bola Rodriguez DO [address] [facility] [place] [address] Social History Tobacco Use Types [...] Visit [facility] [address] [place] [address] Bola Rodriguez DO [address] [facility] [place] [address] documented as of this encounter Visit Diagnoses Not on filedocumented in this encounter Care Teams Clinical Study Manager Relationship Specialty Start Date End Date Gigi Fraser MD [address] [place] [address] PCP - General Internal Medicine 07/16/23 documented as of this encounter
--- OUTSIDE RECORDS SUMMARY | 2024-10-26 08:29 | XMS_ITS | Encounter Summary ---
Author Organization [facility] Address [address] [place] [address] Phone Care Team Providers Care Director Of Distance Learning Name Role Phone Gigi Fraser MD Primary Care Provider [phone] Encounter Details Date Type Department Care Team (Late Contact Info) Description 01/16/2024 Orders Only [facility] [address] [place] [address] Bola Rodriguez DO [address] [facility] [place] [address] Acute tubulo-interstitial nephritis; Other acute kidney [...] Visit [facility] [address] [place] [address] Bola Rodriguez DO [address] [place] [address] documented as of this encounter Procedures [...] Urine 0-5 0 - 5 /hpf [facility] RBC, Urine None seen 0 - 2 /hpf [facility] Squamous Epithelial, Urine None seen 0 - 10 /hpf [facility] Casts None seen None seen /lpf [facility] Bacteria, Urine None seen None seen/Few [facility] 01/25/2024 8:41 AM EDT 01/25/2024 us Bola Rodriguez DO LAB MICROBIOLOGY - GENERAL EDMUNDO CHAVES Final Result [facility] [address] [place] [phone] * (ABNORMAL) Urine Protein / creatinine ratio (01/25/2024 8:41 AM EDT) Creatinine, Ur 38.1 Not Estab. mg/dL [facility] Protein, Ur 46.1 Not Estab. mg/dL [facility] Urine Protein/Creati nine Ratio 1,210(H) 0 - 200 mg/g creat [facility] Urine (Urine, Clean Catch) 01/25/2024 8:41 AM EDT 01/25/2024 us Bola Rodriguez DO LAB URINE ORDERABLES Final Resu lt [facility] [address] [place] [address] * (ABNORMAL) Urinalysis with microscopic (01/25/2024 8:41 AM EDT) Pathologist [facility] Specific [place], Urine 1.008 1.005 - 1.030 [facility] pH Urine 7.0 5.0 - 7.5 [facility] Color, Urine Yellow Yellow [facility] Appearance Urine Clear Clear [facility] [place] [phone] WBC Esterase Urine Trace(A) Negative [facility] [phone] Protein, Ur 2+(A) Negative/Tr elissa [facility] Glucose, Ur Negative Negative [facility] Ketones, Urine Negative Negative [facility] Blood Urine 3+(A) Negative [facility] Bilirubin Urine Negative Negative [facility] Urobilinogen Urine 0.2 0.2 - 1.0 mg/dL [facility] Nitrite, Urine Positive(A) Negative [facility] Microscopic Examination See below: [facility] [phone] Comment:Microscopic was cely cated and was performed. Urine (Urine, Clean Catch) 01/25/2024 8:41 AM EDT [facility]/2024 [facility]LES Final Resu lt Performing Organization Address City/[facility]/ZIP Co de Phone Number [facility] [address] [place] [address] * Magnesium (01/25/2024 8:41 AM EDT) Magnesium 1.9 1.6 - 2.3 mg/dL [facility] Blood (Blood, Venous) 01/25/2024 8:41 AM EDT 01/25/2024 Bola [facility] LAB BLOOD ORDERABLES Final Resu lt Performing Organization Address [facility] de Phone Number [facility] [address] [place] [address] * (ABNORMAL) Renal Function Panel (01/25/2024 8:41 AM EDT) Glucose 108(H) 70 - 99 mg/dL [facility] BUN 11 6 - 24 mg/dL [facility] Creatinine 2.04(H) 0.76 - 1.27 mg/dL [facility] eGFR CKD-EPI CR 2020 37(L) >59 mL/min/1.7 3 [facility] BUN/Creatinine Ratio 5(L) 9 - 20 [facility] Sodium 141 134 - 144 mmol/L [facility] Potassium 3.2(L) 3.5 - 5.2 mmol/L [facility] Chloride 99 96 - 106 mmol/L [facility] Bicarbonate (CO2) 30(H) 20 - 29 mmol/L [facility] Calcium 10.5(H) 8.7 - 10.2 mg/dL [facility] Comment:Verified by repeat analysis Phosphorus 2.9 2.8 - 4.1 mg/dL [facility] Albumin 4.1 3.8 - 4.9 g/dL [facility] Blood (Blood, Venous) 01/25/2024 8:41 AM EDT 01/25/2024 Bola Rodriguez DO LAB BLOOD ORDERABLES Final Resu lt [facility] [address] [place] [address] documented in this encounter Visit Diagnoses Diagnosis Acute tubulo-interstitial nephritis Other acute kidney failure (HCC) Hypertension Stage 3a chronic kidney disease (HCC) documented in this encounter Care Teams Director Of Distance Learning Relationship Specialty Start Date End Date Gigi Fraser MD [address] [place] [address] PCP - General Internal Medicine 07/16/23 documented as of this encounter
--- OUTSIDE RECORDS SUMMARY | 2024-10-26 08:29 | XMS_ITS | Encounter Summary ---
Author Organization [facility] Address [address] [place] [address] Phone Care Team Providers Care Furnace Firer Name Role Phone Gigi Fraser MD Primary Care Provider [phone] Encounter Details Date Type Department Care Team (Late st Contact Info) Description 11/05/2023 Documentation Only [facility] [address] [place] [address] Bola Rodriguez DO [address] [facility] [place] [address] Social History Tobacco Use Types [...] And [facility] [address] [place] [address] Bola Rodriguez DO [address] [facility] [place] [address] documented as of this encounter Visit Diagnoses Not on filedocumented in this encounter Care Teams Furnace Firer Relationship Specialty Start Date End Date Gigi Fraser MD [address] [place] [address] PCP - General Internal Medicine 07/16/23 documented as of this encounter
--- OUTSIDE RECORDS SUMMARY | 2024-10-26 08:29 | XMS_ITS | Data Portability ---
Author Organization [place] - [facility], Allergy Address [address] [address] Care Team Providers Care Watermelon Harvesting Supervisor Name Role Phone CITLALI ANTHONY Primary Care Provider Assessment No assessment recorded. Plan of Treatment Reminders Order Date Submit Date Provider Last Modified By Organization Details Last Modified Time Details Appointments None recorded. Lab None recorded. Referral None recorded. Procedures None recorded. Surgeries None recorded. Imaging CT, sinuses, w/o contrast 2024 025 [email or web address] Ents [facility], 100 [place], [address], 5 16:47:07 CT, sinuses, w/o contrast - to be done in office at f/u 2023 024 [email or web address] Not available 4 10:10:12 Medication Orders prednison e 10 mg tablet 2024 025 [facility], [address] [place] [address], [address], 5 16:18:42 doxycycli ne hyclate 100 mg tablet 2024 025 [facility], [address] [place] [address], [address], 5 16:20:37 Patient TargetsNo targets recorded. Patient InstructionsNo instructions recorded. Reason for Referral None Reported. Results Created Date Observation Date Name Description Value Unit Range Abnormal Flag Note LastModifiedBy Organization Detail LastModifiedTime 06/03/20 24 04/12/2024 MRI, brain + brain stem, w/o contr ast No observ ation record ed. [email or web address] Not Available 10/2023 15:22:54 07/29/19 CT, sinus es, w/o contr ast No observ ation record ed. [email or web address] Ents [address], [address], 07/29/2024 14:42:14 08/12/19 25 07/29/2024 CT, sinus es, w/o contr ast No observ ation record ed. [email or web address] [facility] [address], [address], 08/12/2024 13:13:57 Result Notes None recorded. Problems Name Problem SNOMED Code Status Onset Date Resolution Date Notes Provider Name and Address Organization Details Recorded Time Dysphagia 66203268 Active 2016 Dysphagia , unspecifi ed; Note: Date Diagnosed : 11/13/2016 10:29 AM (R13.10) Not Available [facility] 4 02:49:30 Bilateral tinnitus 96781139049 02 Active 2016 Tinnitus, bilateral ; Note: Date Diagnosed : 11/13/2016 10:09 AM (H93.13) Not Available [facility] 4 02:49:34 Sensorine ural hearing loss of bilateral ears 867747622 Active 2016 Sensorine ural hearing loss, bilateral ; Note: Date Diagnosed : 11/13/2016 10:09 AM (H90.3) Not Available [facility] 4 02:49:35 Chronic left maxillary sinusitis 80673421941 918421 Active 2023 ANJUM BENÍTEZ MD [address] [place] [address], [place], [address] , [place] - [facility] 4 15:10:54 Chronic pain in face 750892752 Active 2023 ANJUM BENÍTEZ MD [address] [place] [address], [place], [address] , [place] - [facility] 4 15:11:02 Chronic sinusitis 33285195 Active 2023 ANJUM BENÍTEZ MD [address] [place] [address], [place], [address] , [facility] - [facility] 4 15:16:37 Allergic fungal sinusitis 308785337 Active 2024 ANJUM BENÍTEZ MD [address] [place] [address], [place], [address] , [facility] - [facility] 5 14:50:20 Problem Notes None recorded. Procedures Surgical History Date Name Laterality Status Provider Name and Address Organization Details Recorded Time 06/03/2024 NasalEndos copy_DP completed ANJUM BENÍTEZ MD [address] [place] [address], [address], [facility] - [facility] 06/03/2024 15:11:07 Imaging Results Imaging Date Name Status LastModified by Organiz ation Details LastModified Time 04/12/2024 MRI, brain + brain stem, w/o contrast completed [email or web address] Information not available 06/03/2024 15:22:54 07/29/2024 CT, sinuses, w/o contrast completed [email or web address] Ents [address], [address], 07/29/2024 14:42:14 07/29/2024 CT, sinuses, w/o contrast completed [email or web address] [facility] [address], [address], 08/12/2024 13:13:57 Procedure Notes None recorded. Medical Equipment None Reported. Allergies Allergen ID Allergen Name Allergen Category Reaction Reaction Severity Criticality Documentation Date Start Date Code Code System Note Provider Name and Address Organization Details Recorded Time 919790 Product containin g penicilli n (product) medicatio n other Not available Not available 11/11/2023 87087 8001 SNOMED React ion: unkno wn, unspe [...] 100 mg tablet 2016 active Medication ID: [id number] Dur ation Value: 30 Brand Name: bupropion [...] six hours as needed active Medication ID: [id number] Dur ation Value: 3 Brand Name: Percocet [...] 25 mg tablet 2015 active Medication ID: [id number] Dur ation Value: 30 Brand Name: metoprolol [...] Updated DateTime 06/03/2024 177.8 cm 25.1 kg/m2 83634.66 g Henrique Haro [facility] 06/03/2024 15:13:41 Date Recorded Body height Body mass index (BMI) Body weight Provider Name and Address Organization Details Last Updated DateTime 07/29/2024 177.8 cm 25.1 kg/m2 70504.66 g Henrique Haro [facility] 07/29/2024 14:12:54 Social History None recorded. Functional Status None recorded. Mental Status None recorded. Family History Nothing Reported. Medical History No medical history recorded. Past Encounters Encounter ID Performer Location Encounter Start Date Encounter Closed Date Diagnosis/Indication Diagnosis SNOMED-CT Code Diagnosis ICD10 Code Diagnosis Note [id number] ANJUM BENÍTEZ MD [facility] [address] [address] 06/03/2024 14:21:17 06/03/2024 16:52:58 Chronic left maxillary sinusitis 3406188263 2711797 J32.0 No polyps or purulence on nasal endo. I recommend he take the course of doxy from his PCP. I will plan a f/u with a CT first in 4-8 weeks to check for persistent left maxillary sinusitis and to evaluate for a fungal ball given the MRI. Chronic pain in face 432 163727 R51.9 see above [id number] ANJUM BENÍTEZ MD [facility] [address] [place] [address] 07/29/2024 13:30:29 07/29/2024 14:55:07 Chronic left maxillary sinusitis 0354299294 6467080 J32.0 Has persistent sinusitis despite doxycyclin e. [...] g surgery. Chronic pain in face 432 800042 R51.9 likely due to chronic sinusitis Allergic f ungal sinusitis 045586831 B49 ct consistent with allergic fungal sinusitis. [...] 06/03/2024 2 [place] Arnel Ch Huseyin [id number] Arnel Ch Huseyin 06/03/2024 1 [facility] - DOS ON OR AFTER 2022 - DUAL ELIGIBLE - MEDICARE [place]VANTAGE [place] (MEDICARE REPLACEMENT/A DVANTAGE - HMO) Arnel Ch Huseyin [id number] Arnel Ch Huseyin 07/29/2024 1 [facility] - DOS ON OR AFTER 2022 - ONE CARE (MEDICARE REPLACEMENT/A DVANTAGE - HMO) Arnel Ch Huseyin [id number] Arnel Ch Huseyin Notes Date Note Type [...] infection was seen. ANJUM BENÍTEZ MD [address] [place] [address], [address], [facility] 06/03/2024 15:17:21 07/29/2024 text/html Hx of [...] infection was seen. ANJUM BENÍTEZ MD [address] [place] [address], [address], [facility] 07/30/2024 07:48:31
--- OUTSIDE RECORDS SUMMARY | 2024-10-26 08:29 | XMS_ITS | Encounter Summary ---
Author Organization [facility] Address [address] [place] [address] Phone Care Team Providers Care Conference Planning Manager Name Role Phone Gigi Fraser MD Primary Care Provider [phone] Encounter Details Date Type Department Care Team (Late Contact Info) Description 03/12/2024 Orders Only [facility] [address] [place] [address] Bola Rodriguez DO [address] [place] [address] Acute tubulo-interstitial nephritis; Other acute kidney [...] [facility] [address] [place] [address] Bola Rodriguez DO [address] [place] [address] documented as of this encounter Visit Diagnoses Diagnosis Acute tubulo-interstitial nephritis Other acute kidney failure (HCC) Hypertension Stage 3a chronic kidney disease (HCC) documented in this encounter Care Teams Conference Planning Manager Relationship Specialty Start Date End Date Gigi Fraser MD [address] [place] [address] PCP - General Internal Medicine 07/16/23 documented as of this encounter
== END 2024-10-26 08:58 | disposition home or self-care (01) ==
LOC: HO.RHES 08:13
PROVIDERS: PCP Internal Medicine; Visit Provider Internal Medicine Rheumatology
DX: M06.09 Rheumatoid arthritis without rheumatoid factor, multiple sites (principal); M54.16 Radiculopathy, lumbar region; M18.0 Bilateral primary osteoarthritis of first carpometacarpal joints
CPT/HCPCS: 99214; G2211

== ENCOUNTER 2024-12-01 13:17 | Outpatient (REF) | payer OTHER, SELFPAY ==
--- OUTSIDE RECORDS SUMMARY | 2024-12-01 13:33 | XMS_ITS | Encounter Summary ---
Author Organization [facility] Address [address] [place] [address] Phone Care Team Providers Care Counseling Department Chair Name Role Phone Gigi Fraser MD Primary Care Provider [phone] Encounter Details Date Type Department Care Team (Late Contact Info) Description 06/04/2024 Orders Only [facility] [address] [place] [address] Bola Rodriguez DO [address] [place] [address] Acute tubulo-interstitial nephritis; Other acute kidney [...] Visit [facility] [address] [place] [address] Bola Rodriguez DO [address] [place] [address] documented as of this encounter Visit Diagnoses Diagnosis Acute tubulo-interstitial nephritis Other acute kidney failure (HCC) Hypertension Stage 3a chronic kidney disease (HCC) documented in this encounter Care Teams Counseling Department Chair Relationship Specialty Start Date End Date Gigi Fraser MD [address] [place] [address] PCP - General Internal Medicine 07/16/23 documented as of this encounter
[2024-12-01 17:59] LABS: MANUAL DIFF FLAG NO
[2024-12-01 18:15] LABS: Basophils Percent Auto 0.2 % (0-2); Hematocrit 34.9 % (42.0-52.0); Hemoglobin 11.8 g/dl (14.0-18.0); Imm Gran Abs Auto 0.06 X10*3/uL (0.00-0.03); Imm Gran Pct Auto 0.7 % (0.0-0.4); Lymphocytes Percent Auto 11.9 % (20-40); Mean Corpuscular HGB Conc 33.8 g/dl (31.0-36.0); Mean Corpuscular Hemoglobin 32.2 pg (27.0-33.0); Mean Corpuscular Volume 95.4 fL (80.0-98.0); Mean Platelet Volume 9.6 fL (9.4-12.4); Monocytes Absolute Auto 0.3 X10*3/uL (0.1-1.2); Monocytes Percent Auto 3.4 % (2-11); Neutrophils Absolute Auto 7.2 x10*3/uL (2.0-8.3); Neutrophils Percent Auto 83.8 % (45-73); Platelet Count 197 X10*3/uL (160-400); Red Blood Count 3.66 X10*6/uL (4.60-5.80); Red Cell Distribution Width 11.9 % (11.0-16.0); White Blood Count 8.6 X10*3/uL (4.8-10.8)
[2024-12-01 18:33] LABS: Alanine Aminotransferase 54 U/L (0-40); Aspartate Amino Transferase 49 U/L (5-37); C Reactive Protein 0.23 mg/dL (< or = 0.50); Estimated Glomerular Filt Rate 48
[2024-12-01 19:10] LABS: Erythrocyte Sedimentation Rate 14 MM/HR (0-15)
== END 2024-12-01 13:18 | disposition home or self-care (01) ==
LOC: HO.HKASLDS 13:17
PROVIDERS: Visit Provider Internal Medicine Rheumatology
DX: R29.898 Other symptoms and signs involving the musculoskeletal system (principal); Z79.899 Other long term (current) drug therapy; M06.9 Rheumatoid arthritis, unspecified
CPT/HCPCS: 36415; 82565; 84450; 84460; 85025; 85652; 86140

== ENCOUNTER 2025-01-26 08:24 | Outpatient (AMB) | payer OTHER, SELFPAY ==
--- NOTE | 2025-01-26 08:34 | MHC.OFFVIS ---
Vital Signs 01/26/25 08:35 Height 5 ft 10 in Weight 168 lb 9 oz BMI 24.2 BP 130/90 H Blood Pressure Location Rt brachial Position Sitting Pulse 63 Pulse Source Pulse Oximeter Pulse Oximetry (%) 99 Oxygen Delivery Method Room Air Intake Visit Reasons: 3 months f/u Intake Note: Pt present today Arthritis. Accompanied by: Self / Same As Patient Allergies Penicillins Allergy (Mild, Verified 01/26/25 08:40) Redness of Skin hydrochlorthiazine Allergy (Mild, Uncoded 05/18/24 08:54) leg swelling HPI HPI 3 months f/u: Details: He is tolerating Humira. MS all day. nodule is painful on left forearm. Moves with tendon. He recieved L spine cortisone injection yesterday. Still has pain in right groin radiating down. Physical Exam Vital Signs: Last Vital Signs Pulse 63 01/26/25 08:35 BP 130/90 H 01/26/25 08:35 Pulse Ox 99 01/26/25 08:35 Oxygen Delivery Method Room Air 01/26/25 08:35 BMI result Body Mass Index 24.2 Const Other: General: Comfortable CVS: RRR Respiratory: clear to auscultation bilaterally. Good respiratory effort Skin: No lesions seen MSK: He has synovitis mild synovitis of right wrists with tenderness on palpation. He also has mild left CMC synovitis but involving the wrist with tenderness. Right CMC is tender. Bilateral squaring of CMCs. Able to make a college associate with his hands. Synovitis left 2nd and 3rd MCP with tender bilateral MCPs and PIPs. No tenderness of bilateral shoulders. Normal range of motion of upper extremities. Painful nodule palpated distal volar radial wrists. The nodule is about 2 cm diameter. Office Procedures AMB Joint Injection/Aspiration Joint Injection/Aspiration Details: Bilateral CMC joint Prep: site was prepped using aseptic technique Injected into each site: 10 mg of, Kenalog, with 0.25 mL of and 1% plain lidocaine Procedure: Informed verbal consent was obtained. The patient tolerated the procedure well. Postprocedure protocol was discussed with patient. Coding - Small Joint Procedure code (CPT) selection complete AMB Joint Injection/Aspiration Coding - Small Joint Procedure code (CPT) selection complete Office Meds lidocaine (PF) 10 mg/mL (1 %) injection solution Performing Provider: Khris Rosario MD Performing Location: [facility] Administered by: Dmitry Jaimes RN on 01/26/25 09:27 Dose Route Admin Location Dispensed Lot Number Expiration Date ND Contract Negotiation Manager 2.5 mg Infiltration 2 mL [id number] 11/27/26 01791-479-55 FRESENIUS KABI Total Dispensed Waste 2 mL 87.5 % Kenalog 40 mg/mL suspension for injection Performing Provider: Khris Rosario MD Performing Location: [facility] Administered by: Dmitry Jaimes RN on 01/26/25 09:27 Dose Route Admin Location Dispensed Lot Number Expiration Date ND Contract Negotiation Manager 10 mg intra-articular 1 mL [id number] 05/29/26 7525-0866-91 HIKMA PHARMACEU Total Dispensed Waste 1 mL 75 % lidocaine (PF) 10 mg/mL (1 %) injection solution Performing Provider: Khris Rosario MD Performing Location: [facility] Administered by: Dmitry Jaimes RN on 01/26/25 09:27 Dose Route Admin Location Dispensed Lot Number Expiration Date ND Contract Negotiation Manager 2.5 mg Infiltration 2 mL [id number] 11/27/26 23956-631-31 FRESENIUS KABI Total Dispensed Waste 2 mL 87.5 % Kenalog 40 mg/mL suspension for injection Performing Provider: Khris Rosario MD Performing Location: [facility] Administered by: Dmitry Jaimes RN on 01/26/25 09:27 Dose Route Admin Location Dispensed Lot Number Expiration Date ND Contract Negotiation Manager 10 mg intra-articular 1 mL [id number] 05/29/26 4180-1154-61 HIKMA PHARMACEU Total Dispensed Waste 1 mL 75 % Assessment & Plan Assessment & Plan (1) Rheumatoid arthritis: Comment: He is tolerating Humira. He continues to have synovitis. Need more time for full benefit. Rheumatology history: Seronegative. 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 Rodriguez. Discontinued February 2024 due to transaminitis. When he was tapered off of prednisone for renal disease he developed headaches, scalp tenderness, jaw claudication, fevers and elevated CRP. He had left temporal artery biopsy, which was negative. He continues to have intermittent headaches and is being evaluated by ENT who has imaged his sinuses and is concerned about chronic sinus infection necessitating surgery for drainage, which patient has declined due to fear side effects. Contraindication to methotrexate, hydroxychloroquine and sulfasalazine due to his underlying kidney disease. 08/2024 US abdomen hepatic steatosis. Code(s): M06.9 - Rheumatoid arthritis, unspecified Category: Medical Qualifiers: Rheumatoid arthritis location: multiple sites Rheumatoid factor presence: without rheumatoid factor Qualified Code(s): M06.09 - Rheumatoid arthritis without rheumatoid factor, multiple sites Plan: Continue Humira 40 mg subcutaneous injection every other week Labs for drug monitoring on high-risk medication due today Return to clinic in 3 months (2) Lumbar radiculopathy, right: Comment: He recently had L-spine cortisone injection yesterday. Failed PT. we reviewed x-ray results, which show intact hardware from L4-L5 fusion. He also has multilevel thoracolumbar spondylosis with Grade 1 retrolisthesis L3-4. EMg of right leg reveals L5-S1 radiculopathy. He is following with pain management at [facility]. Code(s): M54.16 - Radiculopathy, lumbar region Category: Medical Plan: Follow up with pain management. He will discuss right radicular symptoms with pain management if they do not resolve. Consider osteoarthritis of hip contributing to his symptoms of groin pain radiating to central pelvis. X-ray of right hip from July 2024 report given to patient to discuss with pain management. He will also discuss pregabalin with up titration to control his radicular symptoms as he tolerates it with pain management. Avoiding gabapentin due to prior history of side effect Return to clinic in 3 months (3) Osteoarthritis of carpometacarpal (CMC) joint of both thumbs: Comment: Uncontrolled pain Code(s): M18.0 - Bilateral primary osteoarthritis of first carpometacarpal joints Category: Medical Plan: Patient received bilateral CMC cortisone injection (4) Pain in left forearm: Comment: Recent onset 2 cm diameter Nodule radial distal forearm is painful. Unclear etiology Code(s): M79.632 - Pain in left forearm Category: Medical Plan: X-ray left forearm ordered. If x-ray does not reveal cause of his nodule, I will pursue MRI for further evaluation as it will aid diagnosis and management. Orders: Orders Complete Blood Count Auto Diff Today Z79.899 - Other salvage determiner (current) drug therapy Alanine Aminotransferase Today Z79.899 - Other salvage determiner (current) drug therapy Aspartate Amino Transferase Today Z79.899 - Other salvage determiner (current) drug therapy AMB Joint Injection/Aspiration Today M18.0 - Bilateral primary osteoarthritis of first carpometacarpal joints Creatinine Today Z79.899 - Other salvage determiner (current) drug therapy C Reactive Protein Today Z79.899 - Other residential (current) drug therapy Erythrocyte Sedimentation Rate Today Z79.899 - Other residential (current) drug therapy AMB Joint Injection/Aspiration Today M18.0 - Bilateral primary osteoarthritis of first carpometacarpal joints XR forearm LT 2V Today M79.632 - Pain in left forearm Medications: Changed From adalimumab (Humira(CF) Pen) First dose administration in office. Nurse visit required. Labs one month after starting. 40 mg (0.4 mL) subcut Q14D 2 ea 2RF M06.09 - Rheumatoid arthritis without rheumatoid factor, multiple sites To adalimumab (Humira(CF) Pen) 40 mg (0.4 mL) subcut Q14D 2 ea 2RF M06.09 - Rheumatoid arthritis without rheumatoid factor, multiple sites Coding Level of Care Code Est Pt Level 4 (86965) Complex EM visit Add On G2211 Diagnoses Rheumatoid arthritis of multiple sites with negative rheumatoid factor M06.09 Rheumatoid arthritis location: multiple sites Rheumatoid factor presence: without rheumatoid factor Lumbar radiculopathy, right M54.16 Osteoarthritis of carpometacarpal (CMC) joint of both thumbs M18.0 Pain in left forearm M79.632 CPT Codes Coding - 07633 - Small joint: 99799 - Small Joint ([id number]) Coding - 12323 - Small joint: 37567 - Small Joint ([id number])
--- OUTSIDE RECORDS SUMMARY | 2025-01-26 08:34 | XMS_ITS | Clinical Summary ---
Author Organization [facility] Address [address] [facility] [address] [place] [address] Care Team Providers Care Nursing Officer Name Role Phone Unavailable Primary Care Provider Unavailabl e Social History Tobacco Use Types Packs/Day Years Used Date Smoking Tobacco: Never Assessed Sex and Gender Information Value Date Recorded Sex Assigned at Male 08/04/2021 1:51 AM EST Legal Sex Male 1:51 AM EST Gender Identity Not on file Sexual Orientation Not on file Last Filed Vital Signs Vital Sign Reading Time Taken Comments Blood Pressure - - Pulse - - Temperature 36.8 C (98.2 F) 02/15/2021 7:53 AM EDT Respiratory Rate 16 02/15/2021 5:46 PM EDT Oxygen Saturation 97% 02/15/2021 5:46 PM EDT Inhaled Oxygen Concentration - - Weight 82 kg (180 lb 12.4 oz) 02/14/2021 3:43 PM EDT Height 177 cm (5' 9.69 ) 02/14/2021 3:43 PM EDT Body Mass Index 26.17 02/14/2021 3:43 PM EDT Plan of Treatment Not on file
--- OUTSIDE RECORDS SUMMARY | 2025-01-26 08:34 | XMS_ITS | Clinical Summary ---
Author Organization [address] Address [address] [place] [id number] Phone Care Team Providers Care Passport Application Examiner Name Role Phone Physician, Pcp Unknown Primary Care Provider Mildred vailable Surgical History Surgery Date Site/Laterality Comments OTHER [...] Health Maintenance Due Date Last Done Comments Pneumococcal Vaccine: 50+ Years (1 of 2 - PCV) 1983 Zoster Vaccines (1 of 2) 2014 DTaP,Tdap,and Td Vaccines (2 - Td or Tdap) 09/24/2022 09/24/2012 COVID-19 Vaccine (1 - 2023-2 5 season) 2024 Depression Screening 06/30/2024 Cholesterol Screening (Lipid Panel) 10/07/2024 Colorectal Cancer Screening: Colonoscopy 10/07/2024 HIV Screening 10/07/2024 Hepatitis C Screening 10/07/2024 Hypertension/CHF/CAD Annual BMP Blood Test 10/07/2024 Social Influencers of Health Screening 10/07/2024 Influenza Vaccine (#1) 2025 1, 07/28/2009, 07/28/2009 RSV Immunization Adult Patients (1 [...] on patient's age to complete this topic Insurance [facility] MEDICAID Care Teams Passport Application Examiner Relationship Specialty Start Date End Date Physician, Pcp Unknown PCP - General 10/06/24
--- OUTSIDE RECORDS SUMMARY | 2025-01-26 08:34 | XMS_ITS | Encounter Summary ---
Author Organization [facility] Address [address] [place] [address] Phone Care Team Providers Care Supervisor Dog License Officer Name Role Phone Gigi Fraser MD Primary Care Provider [phone] Encounter Details Date Type Department Care Team (Late Contact Info) Description 06/04/2024 Orders Only [facility] [address] [place] [address] Bola Rodriguez DO [address] [facility] [place] [address] Acute tubulo-interstitial nephritis; Other acute [...] Department Care Team (Late Contact Info) Description 05/20/2025 2:00 PM EST Office Visit [facility] [address] [facility] [place] [address] Bola oRdriguez DO [address] [facility] [place] [address] documented as of this encounter Visit Diagnoses Diagnosis Acute tubulo-interstitial nephritis Other acute kidney failure (HCC) Hypertension Stage 3a chronic kidney disease (HCC) documented in this encounter Care Teams Supervisor Dog License Officer Relationship Specialty Start Date End Date Gigi Fraser MD [address] [place] [address] PCP - General Internal Medicine 07/16/23 documented as of this encounter
[2025-01-26 08:35] VITALS: BP 130/90; PULSE 63; O2SAT 99; BMI 24.2
== END 2025-01-26 09:25 | disposition home or self-care (01) ==
LOC: HO.RHES 08:25
PROVIDERS: PCP Internal Medicine; Visit Provider Internal Medicine Rheumatology
DX: M06.09 Rheumatoid arthritis without rheumatoid factor, multiple sites (principal); M54.16 Radiculopathy, lumbar region; M18.0 Bilateral primary osteoarthritis of first carpometacarpal joints; M79.632 Pain in left forearm
CPT/HCPCS: 20600; 99214

== ENCOUNTER 2025-01-26 08:24 | Outpatient (REF) | payer OTHER, SELFPAY ==
[2025-01-26 13:18] LABS: MANUAL DIFF FLAG NO
[2025-01-26 13:21] LABS: Hematocrit 32.8 % (42.0-52.0); Hemoglobin 11.6 g/dl (14.0-18.0); Imm Gran Abs Auto 0.04 X10*3/uL (0.00-0.03); Imm Gran Pct Auto 0.6 % (0.0-0.4); Lymphocytes Absolute Auto 1.2 X10*3/uL (1.2-4.9); Mean Corpuscular HGB Conc 35.4 g/dl (31.0-36.0); Mean Corpuscular Hemoglobin 32.0 pg (27.0-33.0); Mean Corpuscular Volume 90.4 fL (80.0-98.0); NRBC Abs Auto 0.000 X10*3/uL (0.0-0.012); NRBC Pct Auto 0.0 /100WBC (0.0-0.2); Platelet Count 153 X10*3/uL (160-400); Red Blood Count 3.63 X10*6/uL (4.60-5.80); White Blood Count 7.1 X10*3/uL (4.8-10.8)
[2025-01-26 13:35] LABS: Alanine Aminotransferase 66 U/L (0-40); Aspartate Amino Transferase 129 U/L (5-37); Estimated Glomerular Filt Rate 27
== END 2025-01-26 08:25 | disposition home or self-care (01) ==
LOC: HO.HKASLDS 08:24
PROVIDERS: PCP Internal Medicine; Visit Provider Internal Medicine Rheumatology
DX: M06.09 Rheumatoid arthritis without rheumatoid factor, multiple sites (principal); M18.0 Bilateral primary osteoarthritis of first carpometacarpal joints; M54.16 Radiculopathy, lumbar region; M79.632 Pain in left forearm; Z79.899 Other long term (current) drug therapy
CPT/HCPCS: 20600; 36415; 82565; 84450; 84460; 85025; 85652; 86140; 99212; J2003; J3300

== ENCOUNTER 2025-02-01 13:16 | Outpatient (REF) | payer OTHER, SELFPAY ==
--- NOTE | ~2025-02-01 | XR_ITS ---
EXAMINATION: XR FOREARM, LEFT CLINICAL INFORMATION: M79.632 - Pain in left forearm COMPARISON: None available. TECHNIQUE: AP and lateral views of the left forearm were obtained. FINDINGS: Clinical stenosis is present in the articular cartilage of the lunate, first carpal metacarpal joint, and distal to the radial styloid. There are osteophytes sclerosis and moderate joint space narrowing involving the first carpal metacarpal joint. At the elbow, the anterior fat pad is visible but not displaced. Posterior fat pad is not visible. No fracture lines are evident. XR/XR forearm LT 2V IMPRESSION: Unremarkable left forearm. Moderate first CMC joint osteoarthritis secondary to CPPD arthropathy. Electronically signed by: Crescencio Treadwell MD 02/01/2025 01:49 PM EDT
--- OUTSIDE RECORDS SUMMARY | 2025-02-01 13:55 | XMS_ITS | Clinical Summary ---
Author Organization [address] Address [address] [place] [phone] Phone Care Team Providers Care Inorganic Chemistry Teacher Name Role Phone Physician, Pcp Unknown Primary [...] patient's age to complete this topic Insurance [facility] MEDICAID Care Teams Inorganic Chemistry Teacher Relationship Specialty Start Date End Date Physician, Pcp Unknown PCP - General 10/06/24
--- OUTSIDE RECORDS SUMMARY | 2025-02-01 13:55 | XMS_ITS | Encounter Summary ---
Author Organization [facility] Address [address] [place] [address] Phone Care Team Providers Care Idea Worker Name Role Phone Gigi Fraser MD Primary Care Provider [phone] Encounter Details Date Type Department Care Team (Late Contact Info) Description 06/04/2024 Orders Only [facility] [address] [place] [address] Bola Rodriguez DO [address] [facility] [place] [address] Acute tubulo-interstitial nephritis; Other acute [...] Visit [facility] [address] [place] [address] Bola Rodriguez DO [address] [facility] [place] [address] documented as of this encounter Visit Diagnoses Diagnosis Acute tubulo-interstitial nephritis Other acute kidney failure (HCC) Hypertension Stage 3a chronic kidney disease (HCC) documented in this encounter Care Teams Idea Worker Relationship Specialty Start Date End Date Gigi Fraser MD [address] [place] [address] PCP - General Internal Medicine 07/16/23 documented as of this encounter
== END 2025-02-01 13:17 | disposition home or self-care (01) ==
LOC: HO.HMGCX 13:16
PROVIDERS: PCP Internal Medicine; Visit Provider Internal Medicine Rheumatology
DX: M79.632 Pain in left forearm (principal)
CPT/HCPCS: 73090

== ENCOUNTER → 2025-02-01 13:21 | Outpatient (BNV) | payer OTHER, SELFPAY | PROVIDERS: PCP Internal Medicine; Visit Provider Radiology Diagnostic Radiology | DX: M79.632 Pain in left forearm (principal); M18.12 Unilateral primary osteoarthritis of first carpometacarpal joint, left hand | CPT/HCPCS: 73090 ==

== ENCOUNTER 2025-03-18 13:24 | Outpatient (REF) | payer OTHER, SELFPAY ==
--- OUTSIDE RECORDS SUMMARY | 2025-03-18 13:27 | XMS_ITS | Encounter Summary ---
Author Organization [facility] Address [address] [place] [address] Phone Care Team Providers Care Drugless Physician Name Role Phone Gigi Fraser MD Primary Care Provider [phone] Encounter Details Date Type Department Care Team (Late st Contact Info) Description 09/10/2024 Orders Only [facility] [address] [place] [address] Bola Rodriguez DO [address] [facility] [place] [address] Acute tubulo-interstitial nephritis; Hypokalemia; Hypertension; [...] Care Team (Late st Contact Info) Description 05/20/2025 2:00 PM EST Office Visit [facility] [address] [facility] [place] [address] Bola Rodriguez DO [address] [facility] [place] [address] documented as of this encounter Visit Diagnoses Diagnosis Acute tubulo-interstitial nephritis Hypokalemia Hypertension Stage 3a chronic kidney disease (HCC) documented in this encounter Care Teams Drugless Physician Relationship Specialty Start Date End Date Gigi Fraser MD [address] [place] [address] PCP - General Internal Medicine 07/16/23 documented as of this encounter
--- OUTSIDE RECORDS SUMMARY | 2025-03-18 13:27 | XMS_ITS | Clinical Summary ---
Author Organization [facility], Address [address] [place] [address] Phone Care Team Providers Care Skimmer Reverberatory Name Role Phone Gigi Fraser MD Primary Care Provider [phone] Allergies Active Allergy Reactions Criticality Noted Date [...] Do not crush, chew, or split. Active famotidine (PEPCID) 20 MG tablet TAKE 1 TABLET (20 MG TOTAL) BY MOUTH IN THE MORNING AND 1 TABLET (20 MG TOTAL) IN THE EVENING. 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 Acute tubulo-interstitial nephritis 12/24/2023 Acute glomerulonephritis 10/22/2023 Acute nontraumatic kidney injury 09/17/2023 Hypokalemia 07/23/2023 Hypertension 07/22/2023 Dyslipidemia 07/22/2023 Encounters Date Type Department Care Team Description 03/18/2025 Orders Only [facility] [address] [place] [address] Bola Rodriguez DO Other acute kidney failure (HCC); Stage 3b chronic kidney disease (HCC); Chronic tubulointerstitial nephritis 02/25/2025 Orders Only [facility] [address] [place] [address] Bola Rodriguez DO Acute tubulo-interstitial nephritis; Hypokalemia; Hypertension; Stage 3a chronic kidney disease (HCC) 02/04/2025 Orders Only [facility] [address] [place] [address] Bola Rodriguez DO Stage 3b chronic kidney disease (HCC) (Primary Dx); Chronic tubulointerstitial nephritis 01/31/2025 Refill [facility] [address] [place] [address] Bola Rodriguez DO 12/31/2024 Orders Only [facility] [address] [place] [address] Bola Rodriguez DO Acute tubulo-interstitial nephritis; Hypokalemia; Hypertension; Stage 3a chronic kidney disease (HCC) 12/29/2024 2:00 PM EDT Office Visit [facility] [address] [place] [address] Bola Rodriguez DO Other acute kidney failure (HCC) (Primary Dx); Stage 3b chronic kidney disease (HCC); Chronic tubulointerstitial nephritis from Last 3 Months Family History Medical [...] Visit [facility] [place], [address] [place] [address] Bola Rodriguez DO [address] [place] [id number] Health Maintenance Due Date Last Done Comments Colorectal Cancer Screening: Annual FOBT 2013 Colorectal Cancer Screening: Colonoscopy 2013 Colorectal Cancer Screening: Sigmoidoscopy 2013 Pneumococcal Vaccine: 50+ Years (2 of 2 - PCV) 04/24/2016 04/24/2015 Influenza Vaccine (#1) 2025 9, 04/13/2016 Pneumococcal Vaccine: Peds ( 0 to 5 Years) and At-Risk Patients (6 to 49 Years) Discontinued 04/24/2015 Hepatitis B Vaccine Aged Out No longe r eligible based on patient's age to complete this topic Procedures Procedure Name Priority Date/Time Associated Diagnosis Comments URINALYSIS WITH MICROSCOPIC Routine 01/30/2025 9:25 AM EDT Acute tubulo-interstitia l nephritis Hypokalemia Hypertension Stage 3a chronic kidney disease (HCC) SEDIMENTATION RATE, AUTOMATED Routine 01/30/2025 9:25 AM EDT Acute tubulo-interstitia l nephritis Hypokalemia Hypertension Stage 3a chronic kidney disease (HCC) PROTEIN / CREATININE RATIO, URINE Routine 01/30/2025 9:25 AM EDT Acute tubulo-interstitia l nephritis Hypokalemia Hypertension Stage 3a chronic kidney disease (HCC) MAGNESIUM Routine 01/30/2025 9:25 AM EDT Acute tubulo-interstitia l nephritis Hypokalemia Hypertension Stage 3a chronic kidney disease (HCC) RENAL FUNCTION PANEL Routine 01/30/2025 9:25 AM EDT Acute tubulo-interstitia l nephritis Hypokalemia Hypertension Stage 3a chronic kidney disease (HCC) MICROSCOPIC EXAMINATION - DO NOT USE Routine 01/30/2025 9:25 AM EDT URINALYSIS WITH MICROSCOPIC Routine 12/26/2024 9:01 AM EDT Acute tubulo-interstitia l nephritis Hypokalemia Hypertension Stage 3a chronic kidney disease (HCC) SEDIMENTATION RATE, AUTOMATED Routine 12/26/2024 9:01 AM EDT Acute tubulo-interstitia l nephritis Hypokalemia Hypertension Stage 3a chronic kidney disease (HCC) PROTEIN / CREATININE RATIO, URINE Routine 12/26/2024 9:01 AM EDT Acute tubulo-interstitia l nephritis Hypokalemia Hypertension Stage 3a chronic kidney disease (HCC) MAGNESIUM Routine 12/26/2024 9:01 AM EDT Acute tubulo-interstitia l nephritis Hypokalemia Hypertension Stage 3a chronic kidney disease (HCC) RENAL FUNCTION PANEL Routine 12/26/2024 9:01 AM EDT Acute tubulo-interstitia l nephritis Hypokalemia Hypertension Stage 3a chronic kidney disease (HCC) MICROSCOPIC EXAMINATION - DO NOT USE Routine 12/26/2024 9:01 AM EDT from Last 3 Months Results * Microscopic Examination (01/30/2025 9:25 AM EDT) Only the most recent of2 resultswithin the time period is included. WBC, Urine 0-5 0 - 5 /hpf [facility] RBC, Urine None seen 0 - 2 /hpf [facility] Squamous Epithelial, Urine 0-10 0 - 10 /hpf [facility] Casts None seen None seen /lpf [facility] Bacteria, Urine None seen None seen/Few [facility] 01/30/2025 9:25 AM EDT 01/30/2025 Bola Rodriguez DO LAB MICROBIOLOGY - GENERAL ORDE RABLES Final Result Performing Organization Address City/[facility]/ZIP Co de Phone Number [facility] [address] [place] [address] * (ABNORMAL) Urine Protein / creatinine ratio (01/30/2025 9:25 AM EDT) Only the most recent of2 resultswithin the time period is included. Creatinine, Ur 29.9 Not Estab. mg/dL [facility] Protein, Ur 33.0 Not Estab. mg/dL [facility] Urine Protein/Creati nine Ratio 1,104(H) 0 - 200 mg/g creat [facility] Urine specimen (specimen) Urine specimen obtained by clean catch procedure / Unknown 01/30/2025 9:25 AM EDT 01/30/2025 Bola Rodriguez DO LAB URINE ORDERABLES Final Resu lt [facility] [address] [place] [address] * (ABNORMAL) Urinalysis with microscopic (01/30/2025 9:25 AM EDT) Only the most recent of2 resultswithin the time period is included. Specific E[place], Urine 1.008 1.005 - 1.030 [facility] pH Urine 6.5 5.0 - 7.5 [facility] Color, Urine Yellow Yellow [facility] Appearance Urine Clear Clear [facility] [place] WBC Esterase Urine Trace(A) Negative [facility] Protein, Ur 2+(A) Negative/Tra ce [facility] Glucose, Ur Negative Negative [facility] Ketones, Urine Negative Negative [facility] [place] Blood Urine 3+(A) Negative [facility] Bilirubin Urine Negative Negative [facility] [place] Urobilinogen Urine 0.2 0.2 - 1.0 mg/dL [facility] Nitrite, Urine Negative Negative [facility] [place] [phone] Microscopic Examination See below: [facility] Comment:Microscopic was cely cated and was performed. Urine specimen (specimen) Urine specimen obtained by clean catch procedure / Unknown 01/30/2025 9:25 AM EDT 01/30/2025 Bola Rodriguez DO LAB URINE ORDERABLES Final Resu lt [facility] [address] [place] [address] * Sedimentation Rate (01/30/2025 9:25 AM EDT) Only the most recent of2 resultswithin the time period is included. Sed Rate 9 0 - 30 mm/hr [facility] Blood specimen (specimen) Venous blood / Unknown 01/30/2025 9:25 AM EDT 01/30/2025 Bola Rodriguez LAB BLOOD ORDERABLES Final Resu lt [facility] [address] [place] [address] * Magnesium (01/30/2025 9:25 AM EDT) Only the most recent of2 resultswithin the time period is included. Magnesium 2.2 1.6 - 2.3 mg/dL [facility] Blood specimen (specimen) Venous blood / Unknown 01/30/2025 9:25 AM EDT 01/30/2025 us Bola Rodriguez DO LAB BLOOD ORDERABLES Final Resu lt Performing Organization Address [facility] Co de Phone Number [facility] [address] [place] [address] * (ABNORMAL) Renal Function Panel (01/30/2025 9:25 AM EDT) Only the most recent of2 resultswithin the time period is included. Glucose 94 70 - 99 mg/dL [facility] BUN 17 8 - 27 mg/dL [facility] Creatinine 2.00(H) 0.76 - 1.27 mg/dL [facility] eGFR CKD-EPI CR 2020 38(L) >59 mL/min/1.7 3 [facility] BUN/Creatinine Ratio 9(L) 10 - 24 [facility] Sodium 138 134 - 144 mmol/L [facility] Potassium 3.8 3.5 - 5.2 mmol/L [facility] Chloride 105 96 - 106 mmol/L [facility] Bicarbonate (CO2) 17(L) 20 - 29 mmol/L [facility] Calcium 9.0 8.6 - 10.2 mg/dL [facility] Phosphorus 2.5(L) 2.8 - 4.1 mg/dL [facility] Albumin 4.7 3.8 - 4.9 g/dL [facility] Blood specimen (specimen) Venous blood / Unknown 01/30/2025 9:25 AM EDT 01/30/2025 us Bola Rodriguez DO LAB BLOOD ORDERABLES Final Resu lt [facility] [address] [place] [address] from Last 3 Months Insurance [facility] Care Dual SNP ([id number]) BABS [place]WIS [phone] Care Teams Skimmer Reverberatory Relationship Specialty Start Date End Date Gigi Fraser MD [address] [place] [address] PCP - General Internal Medicine 07/16/23
--- OUTSIDE RECORDS SUMMARY | 2025-03-18 13:27 | XMS_ITS | Encounter Summary ---
Author Organization [facility] [place], Address [address] [place] [address] Phone Care Team Providers Care Extension Course Counselor Name Role Phone Gigi Fraser MD Primary Care Provider [phone] Encounter Details Date Type Department Care Team (Late st Contact Info) Description 07/16/2023 Documentation Only [facility] [address] [place] [phone] [place], [place] [address] [place] [address] Social History Tobacco Use Types [...] Visit [facility] [address] [place] [place] [address] Bola Rodriguez DO [address] [place] [address] [place] [phone] documented as of this encounter Visit Diagnoses Not on filedocumented in this encounter Care Teams Extension Course Counselor Relationship Specialty Start Date End Date Gigi Fraser MD [address] [place] [address] PCP - General Internal Medicine 07/16/23 documented as of this encounter
--- OUTSIDE RECORDS SUMMARY | 2025-03-18 13:27 | XMS_ITS | Encounter Summary ---
Author Organization [facility] Address [address] [place] [address] Phone Care Team Providers Care Power Press Tender Name Role Phone Gigi Fraser MD Primary Care Provider [phone] Encounter Details Date Type Department Care Team (Late Contact Info) Description 07/30/2024 Orders Only [facility] [address] [place] [address] Bola Rodriguez DO [address] [place] [address] Acute tubulo-interstitial nephritis; Other acute [...] Visit [facility] [address] [place] [address] Bola Rodriguez DO [address] [place] [address] documented as of this encounter [...] None seen 0 - 5 /hpf [facility] RBC, Urine None seen 0 - 2 /hpf [facility] Squamous Epithelial, Urine None seen 0 - 10 /hpf [facility] Casts None seen None seen /lpf [facility] Bacteria, Urine None seen None seen/Few [facility] 08/22/2024 8:14 AM EST 08/22/2024 us Bola Rodriguez DO LAB MICROBIOLOGY - GENERAL ORDE ANASTACIO Final Result [facility] [address] [place] [address] * (ABNORMAL) Urine Protein / creatinine ratio (08/22/2024 8:14 AM EST) Creatinine, Ur 55.0 Not Estab. mg/dL [facility] Protein, Ur 28.6 Not Estab. mg/dL [facility] Urine Protein/Creati nine Ratio 520(H) 0 - 200 mg/g creat [facility] Urine specimen (specimen) Urine specimen obtained by clean catch procedure / Unknown 08/22/2024 8:14 AM EST 08/22/2024 us Bola Rodriguez DO LAB URINE ORDERABLES Final Resu lt [facility] [address] [place] [address] * (ABNORMAL) Urinalysis with microscopic (08/22/2024 8:14 AM EST) Specific Mona, Urine 1.012 1.005 - 1.030 [facility] [phone] pH Urine 6.0 5.0 - 7.5 [facility] Color, Urine Yellow Yellow [facility] Appearance Urine Clear Clear [facility] WBC Esterase Urine Negative Negative [facility] Protein, Ur 1+(A) Negative/Tra ce [facility] Glucose, Ur Negative Negative [facility] Ketones, Urine Negative Negative [facility] Blood Urine Negative Negative [facility] Bilirubin Urine Negative Negative [facility] Urobilinogen Urine 0.2 0.2 - 1.0 mg/dL [facility] Nitrite, Urine Negative Negative [facility] Microscopic Examination See below: [facility] [phone] Comment:Microscopic was cely cated and was performed. Urine specimen (specimen) Urine specimen obtained by clean catch procedure / Unknown 08/22/2024 8:14 AM EST 08/22/2024 Bola Rodriguez DO LAB URINE ORDERABLES Final Resu lt Performing Organization Address City/[facility]/ZIP Co de Phone Number [facility] [address] [place] [address] * Magnesium (08/22/2024 8:14 AM EST) Pathologist [facility] Magnesium 2.0 1.6 - 2.3 mg/dL [facility] Blood specimen (specimen) Venous blood / Unknown 08/22/2024 8:14 AM EST 08/22/2024 Bolajez Rodriguez DO LAB BLOOD ORDERABLES Final Resu lt Performing Organization Address City/[facility]/ZIP Co de Phone Number [facility] [address] [place] [address] * (ABNORMAL) Renal Function Panel (08/22/2024 8:14 AM EST) Glucose 105(H) 70 - 99 mg/dL [facility] BUN 18 8 - 27 mg/dL [facility] Creatinine 1.84(H) 0.76 - 1.27 mg/dL [facility] eGFR CKD-EPI CR 2020 41(L) >59 mL/min/1.7 3 [facility] BUN/Creatinine Ratio 10 10 - 24 [facility] Sodium 140 134 - 144 mmol/L [facility] Potassium 4.4 3.5 - 5.2 mmol/L [facility] Chloride 102 96 - 106 mmol/L [facility] Bicarbonate (CO2) 25 20 - 29 mmol/L [facility] Calcium 10.0 8.6 - 10.2 mg/dL [facility] Albumin 4.6 3.8 - 4.9 g/dL [facility] Phosphorus 3.7 2.8 - 4.1 mg/dL [facility] Blood specimen (specimen) Venous blood / Unknown 08/22/2024 8:14 AM EST 08/22/2024 us Bola Rodriguez DO LAB BLOOD ORDERABLES Final Resu lt [facility] [address] [place] [address] documented in this encounter Visit Diagnoses Diagnosis Acute tubulo-interstitial nephritis Other acute kidney failure (HCC) Hypertension Stage 3a chronic kidney disease (HCC) documented in this encounter Care Teams Power Press Tender Relationship Specialty Start Date End Date Gigi Fraser MD [address] [place] [address] PCP - General Internal Medicine 07/16/23 documented as of this encounter
--- OUTSIDE RECORDS SUMMARY | 2025-03-18 13:27 | XMS_ITS | Encounter Summary ---
Author Organization [facility] [place], Address [address] [place] [address] Phone Care Team Providers Care Second Watch Sergeant Name Role Phone Gigi Fraser MD Primary Care Provider [phone] Encounter Details Date Type Department Care Team (Late st Contact Info) Description 09/17/2023 Documentation Only [facility] [address] [place] [address] Bola Rodriguez DO [address] [place] [address] Social History Tobacco Use Types [...] [facility] [address] [place] [address] Bola Rodriguez DO [address] [place] [address] documented as of this encounter Visit Diagnoses Not on filedocumented in this encounter Care Teams Second Watch Sergeant Relationship Specialty Start Date End Date Gigi Fraser MD [address] [place] [address] PCP - General Internal Medicine 07/16/23 documented as of this encounter
--- OUTSIDE RECORDS SUMMARY | 2025-03-18 13:27 | XMS_ITS | Encounter Summary ---
Author Organization [facility] [place], Address [address] [place] [address] Phone Care Team Providers Care Convenience Store Clerk Name Role Phone Gigi Fraser MD Primary Care Provider [phone] Encounter Details Date Type Department Care Team (Late st Contact Info) Description 08/25/2024 Documentation Only [facility] [address] [place] [address] Bola Rodriguez DO [address] [place] [address] Social History Tobacco Use Types [...] And Transplant [facility] [address] [place] [address] Bola Rodriguez DO [address] [place] [address] documented as of this encounter Visit Diagnoses Not on filedocumented in this encounter Care Teams Convenience Store Clerk Relationship Specialty Start Date End Date Gigi Fraser MD [address] [place] [address] PCP - General Internal Medicine 07/16/23 documented as of this encounter
--- OUTSIDE RECORDS SUMMARY | 2025-03-18 13:27 | XMS_ITS | Encounter Summary ---
Author Organization [facility] Address [address] [place] [address] Phone Care Team Providers Care Driver Lifter Of Sanitation Truck Name Role Phone Gigi Fraser MD Primary Care Provider [phone] Encounter Details Date Type Department Care Team (Late st Contact Info) Description 11/05/2024 Orders Only [facility] [address] [place] [address] Bola Rodriguez DO [address] [facility] [place] [address] Acute tubulo-interstitial nephritis; Hypokalemia; Hypertension; [...] Visit [facility] [address] [place] [address] Bola Rodriguez DO [address] [place] [address] documented as of this encounter Procedures Procedure Name Priority Date/Time Associated Diagnosis Comments MICROSCOPIC EXAMINATION - DO NOT USE Routine 12/26/2024 9:01 AM EDT PROTEIN / CREATININE RATIO, URINE Routine 12/26/2024 9:01 AM EDT Acute tubulo-interstitia l nephritis Hypokalemia Hypertension Stage 3a chronic kidney disease (HCC) URINALYSIS WITH MICROSCOPIC Routine 12/26/2024 9:01 AM [...] in this encounter Results * Microscopic Examination (12/26/2024 9:01 AM EDT) WBC, Urine 0-5 0 - 5 /hpf [facility] RBC, Urine None seen 0 - 2 /hpf [facility] Squamous Epithelial, Urine None seen 0 - 10 /hpf [facility] Casts None seen None seen /lpf [facility] Bacteria, Urine None seen None seen/Few [facility] 12/26/2024 9:01 AM EDT 12/26/2024 Bola Rodriguez DO LAB MICROBIOLOGY - GENERAL ORDE RABLES Final Result [facility] [address] [place] [address] * (ABNORMAL) Urinalysis with microscopic (12/26/2024 9:01 AM EDT) Specific [place], Urine 1.006 1.005 - 1.030 [facility] [phone] pH Urine 6.5 5.0 - 7.5 [facility] Color, Urine Yellow Yellow [facility] [phone] Appearance Urine Clear Clear [facility] WBC Esterase Urine 1+(A) Negative [facility] Protein, Ur 2+(A) Negative/Tra ce [facility] Glucose, Ur Negative Negative [facility] Ketones, Urine Negative Negative [facility] [phone] Blood Urine Trace(A) Negative [facility] Bilirubin Urine Negative Negative [facility] [phone] Urobilinogen Urine 0.2 0.2 - 1.0 mg/dL [facility] Nitrite, Urine Negative Negative [facility] Microscopic Examination See below: [facility] Comment:Microscopic was cely cated and was performed. Urine specimen (specimen) Urine specimen obtained by clean catch procedure / Unknown 12/26/2024 9:01 AM EDT 12/26/2024 Bola Rodriguez DO LAB URINE ORDERABLES Final Resu lt [facility] [address] [place] [address] * Sedimentation Rate (12/26/2024 9:01 AM EDT) Sed Rate 4 0 - 30 mm/hr [facility] Blood specimen (specimen) Venous blood / Unknown 12/26/2024 9:01 AM EDT 12/26/2024 Bola Rodriguez DO LAB BLOOD ORDERABLES Final Resu lt Performing Organization Address [facility] Co de Phone Number [facility] [address] [place] [address] * (ABNORMAL) Urine Protein / creatinine ratio (12/26/2024 9:01 AM EDT) Creatinine, Ur 38.2 Not Estab. mg/dL [facility] Protein, Ur 32.6 Not Estab. mg/dL [facility] Urine Protein/Creati nine Ratio 853(H) 0 - 200 mg/g creat [facility] Urine specimen (specimen) Urine specimen obtained by clean catch procedure / Unknown 12/26/2024 9:01 AM EDT 12/26/2024 us Bola Rodriguez DO LAB URINE ORDERABLES Final Resu lt Performing Organization Address [facility] Co de Phone Number [facility] [address] [place] [address] * Magnesium (12/26/2024 9:01 AM EDT) Magnesium 1.8 1.6 - 2.3 mg/dL [facility] Blood specimen (specimen) Venous blood / Unknown 12/26/2024 9:01 AM EDT 12/26/2024 Bola Rodriguez DO LAB BLOOD ORDERABLES Final Resu lt Performing Organization Address City/[facility]/ZIP Co de Phone Number [facility] [address] [place] [address] * (ABNORMAL) Renal Function Panel (12/26/2024 9:01 AM EDT) Glucose 112(H) 70 - 99 mg/dL [facility] BUN 15 8 - 27 mg/dL [facility] Creatinine 2.61(H) 0.76 - 1.27 mg/dL [facility] eGFR CKD-EPI CR 2020 27(L) >59 mL/min/1.7 3 [facility] BUN/Creatinine Ratio 6(L) 10 - 24 [facility] Sodium 139 134 - 144 mmol/L [facility] Potassium 3.8 3.5 - 5.2 mmol/L [facility] Chloride 101 96 - 106 mmol/L [facility] Bicarbonate (CO2) 23 20 - 29 mmol/L [facility] Calcium 10.6(H) 8.6 - 10.2 mg/dL [facility] Comment:Verified by repeat analysis Albumin 4.8 3.8 - 4.9 g/dL [facility] Phosphorus 3.0 2.8 - 4.1 mg/dL [facility] Blood specimen (specimen) Venous blood / Unknown 12/26/2024 9:01 AM EDT 12/26/2024 us Bola Rodriguez DO LAB BLOOD ORDERABLES Final Resu lt [facility] [address] [place] [address] documented in this encounter Visit Diagnoses Diagnosis Acute tubulo-interstitial nephritis Hypokalemia Hypertension Stage 3a chronic kidney disease (HCC) documented in this encounter Care Teams Driver Lifter Of Sanitation Truck Relationship Specialty Start Date End Date Gigi Fraser MD [address] [place] [address] PCP - General Internal Medicine 07/16/23 documented as of this encounter
--- OUTSIDE RECORDS SUMMARY | 2025-03-18 13:27 | XMS_ITS | Encounter Summary ---
Author Organization [facility] Address [address] [place] [address] Phone Care Team Providers Care High Wire Artist Name Role Phone Gigi Fraser MD Primary Care Provider [phone] Encounter Details Date Type Department Care Team (Late Contact Info) Description 06/04/2024 Orders Only [facility] [address] [place] [place] [address] Bola Rodriguez DO [address] [facility] [place] [address] Acute tubulo-interstitial nephritis; Other acute [...] Visit [facility] [address] [facility] [place] [address] Bola Rodriguez DO [address] [facility] [place] [address] documented as of this encounter Visit Diagnoses Diagnosis Acute tubulo-interstitial nephritis Other acute kidney failure (HCC) Hypertension Stage 3a chronic kidney disease (HCC) documented in this encounter Care Teams High Wire Artist Relationship Specialty Start Date End Date Gigi Fraser MD [address] [place] [address] PCP - General Internal Medicine 07/16/23 documented as of this encounter
--- OUTSIDE RECORDS SUMMARY | 2025-03-18 13:27 | XMS_ITS | Encounter Summary ---
Author Organization [facility] [place], Address [address] [place] [address] Phone Care Team Providers Care Look Out Tower Fire Watcher Name Role Phone Gigi Fraser MD Primary Care Provider [phone] Encounter Details Date Type Department Care Team (Late st Contact Info) Description 10/23/2023 Documentation Only [facility] [address] [place] [address] Bola Rodriguez DO [address] [facility] [place] [address] Social History Tobacco Use Types [...] And [facility]plant [facility] [address] [facility] [place] [address] Bola Rodriguez DO [address] [facility] [place] [address] documented as of this encounter Visit Diagnoses Not on filedocumented in this encounter Care Teams Look Out Tower Fire Watcher Relationship Specialty Start Date End Date Gigi Fraser MD [address] [place] [address] PCP - General Internal Medicine 07/16/23 documented as of this encounter
--- OUTSIDE RECORDS SUMMARY | 2025-03-18 13:27 | XMS_ITS | Encounter Summary ---
Author Organization [facility] [place], Address [address] [place] [address] Phone Care Team Providers Care Adjusto Writer Operator Name Role Phone Gigi Fraser MD Primary Care Provider [phone] Encounter Details Date Type Department Care Team (Late st Contact Info) Description 11/05/2023 Documentation Only [facility] [address] [place] [address] Bola Rodriguez DO [address] [facility] [place] [address] Social History Tobacco Use Types [...] Visit [facility] [address] [place] [address] Bola Rodriguez DO [address] [facility] [place] [address] documented as of this encounter Visit Diagnoses Not on filedocumented in this encounter Care Teams Adjusto Writer Operator Relationship Specialty Start Date End Date Gigi Fraser MD [address] [place] [address] PCP - General Internal Medicine 07/16/23 documented as of this encounter
--- OUTSIDE RECORDS SUMMARY | 2025-03-18 13:27 | XMS_ITS | Encounter Summary ---
Author Organization [facility] [place], Address [address] [place] [address] Phone Care Team Providers Care Archeology Faculty Member Name Role Phone Gigi Fraser MD Primary Care Provider [phone] Encounter Details Date Type Department Care Team (Late st Contact Info) Description 10/09/2023 Documentation Only [facility] [address] [place] [address] Bola Rodriguez DO [address] [facility] [place] [address] Social History Tobacco Use [...] Visit [facility] [address] [place] [place] [address] Bola Rodriguez DO [address] [facility] [place] [address] documented as of this encounter Visit Diagnoses Not on filedocumented in this encounter Care Teams Archeology Faculty Member Relationship Specialty Start Date End Date Gigi Fraser MD [address] [place] [address] PCP - General Internal Medicine 07/16/23 documented as of this encounter
--- OUTSIDE RECORDS SUMMARY | 2025-03-18 13:27 | XMS_ITS | Encounter Summary ---
Author Organization [facility] [place], Address [address] [place] [address] Phone Care Team Providers Care Tail Board Worker Name Role Phone Gigi Fraser MD Primary Care Provider [phone] Encounter Details Date Type Department Care Team (Late st Contact Info) Description 09/17/2023 Documentation Only [facility] [address] [place] [address] Bola Rodriguez DO [address] [facility] [place] [address] Social History Tobacco Use Types [...] [facility] [address] [facility] [address] [address] [place] [address] Bola Rodriguez DO [address] [facility] [place] [address] documented as of this encounter Visit Diagnoses Not on filedocumented in this encounter Care Teams Tail Board Worker Relationship Specialty Start Date End Date Gigi Fraser MD [address] [place] [address] PCP - General Internal Medicine 07/16/23 documented as of this encounter
--- OUTSIDE RECORDS SUMMARY | 2025-03-18 13:27 | XMS_ITS | Encounter Summary ---
Author Organization [facility] Address [address] [place] [address] Phone Care Team Providers Care Nuclear Powerplant Mechanic Helper Name Role Phone Gigi Fraser MD Primary Care Provider [phone] Encounter Details Date Type Department Care Team (Late st Contact Info) Description 09/29/2023 Documentation Only [facility] [address] [place] [address] Bola Rodriguez DO [address] [facility] [place] [address] Social History Tobacco Use Types [...] Visit [facility] [address] [place] [address] Bola Rodriguez DO [address] [facility] [place] [address] Pending Results Name Type Priority [...] - 10/07/2023 4:07 PM EDT Performed at: 01 - [facility] [id number] Archeology Professor: Sara Ruiz MD, Phone: [phone] us Bola Rodriguez DO LAB MICROBIOLOGY - GENERAL ORDE ANASTACIO Final Result [facility] * (ABNORMAL) Urine Protein / creatinine ratio (10/03/2023 9:02 AM EDT) Creatinine, Ur 30.3 Not Estab. mg/dL [facility] Protein, Ur 29.8 Not Estab. mg/dL [facility] Urine Protein/Creatin ine Ratio 983(H) 0 - 200 mg/g creat [facility] Urine specimen (specimen) Urine specimen obtained by clean catch procedure / Unknown 10/03/2023 9:02 AM EDT 10/03/2023 Narrative [facility] - 10/07/2023 4:07 PM EDT Performed at: [address] [id number] Archeology Professor: Sara Ruiz MD, Phone: [phone] us Bola Rodriguez DO LAB URINE ORDERABLES Final Resu lt [facility] * (ABNORMAL) Urinalysis with microscopic (10/03/2023 9:02 AM EDT) Specific [place], Urine 1.008 1.005 - 1.030 [facility] pH [...] obtained by clean catch procedure / Unknown 10/03/2023 9:02 AM EDT 10/03/2023 Narrative [facility] - 10/07/2023 4:07 PM EDT Performed at: [facility] [id number] Archeology Professor: Sara Ruiz MD, Phone: [phone] Bola Rodriguez DO LAB URINE ORDERABLES Final Resu lt Performing Organization Address [facility]/State/ZIP Co de Phone Number [facility] * (ABNORMAL) Comprehensive metabolic panel (10/03/2023 9:02 AM EDT) Pathologist [facility] Glucose 117(H) 70 - 99 mg/dL [facility] [...] 37 0 - 44 IU/L [facility] Blood specimen (specimen) Venous blood / Unknown 10/03/2023 9:02 AM EDT 10/03/2023 Narrative [facility] - 10/07/2023 4:07 PM EDT Performed at: 01 - [facility] [id number] Archeology Professor: Sara Ruiz MD, Phone: [phone] Bola Rodriguez DO LAB BLOOD ORDERABLES Final [...] 0.0 0.0 - 0.1 x10E3/uL [facility] Blood specimen (specimen) Venous blood / Unknown 10/03/2023 9:02 AM EDT 10/03/2023 Narrative [facility] - 10/07/2023 4:07 PM EDT Performed at: 01 - [facility] [id number] Archeology Professor: Sara Ruiz MD, Phone: [phone] us Bola Rodriguez DO LAB BLOOD ORDERABLES Final Resu lt Performing Organization Address [facility] Co de Phone Number [facility] * ANCA Screen, reflex titer (10/03/2023 9:02 AM EDT) C-ANCA <1:20 Neg:<1:20 titer [facility] Perinuclear (P-ANCA) <1:20 Neg:<1:20 titer [facility] Comment: The presence of positive fluorescence exhibiting P-ANCA or C-ANCA patterns alone is not specific for the diagnosis of Mohini's Granulomatosis (WG) or microscopic polyangiitis. Decisions about treatment should not be based solely on ANCA IFA results. The International ANCA [employer] Consensus recommends follow up testing of positive sera with both IN-3 and MPO-ANCA enzyme immunoassays. As many as 5% serum samples are positive only by EIA. Ref. AM J Clin Pathol 1999;111:507-513. Atypical p-ANCA <1:20 Neg:<1:20 titer [facility] Comment: The atypical pANCA pattern has been observed in a significant percentage of patients with ulcerative colitis, primary sclerosing cholangitis and autoimmune hepatitis. Blood specimen (specimen) Venous blood / Unknown 10/03/2023 9:02 AM EDT 10/03/2023 Narrative [facility] - 10/07/2023 4:07 PM EDT Performed at: 02 - [facility] [id number] Archeology Professor: Rios Dolan MD, Phone: [phone] Bola Rodriguez LAB BLOOD ORDERABLES Final Resu lt Performing Organization Address City/[facility] Co de Phone Number [facility] documented in this encounter Visit Diagnoses Diagnosis Other acute kidney failure (HCC)- Primary documented in this encounter Care Teams Nuclear Powerplant Mechanic Helper Relationship Specialty Start Date End Date Gigi Fraser MD [address] [place] [address] PCP - General Internal Medicine 07/16/23 documented as of this encounter
--- OUTSIDE RECORDS SUMMARY | 2025-03-18 13:27 | XMS_ITS | Encounter Summary ---
Author Organization [facility] Address [address] [place] [address] Phone Care Team Providers Care Abstract Maker Name Role Phone Gigi Fraser MD Primary Care Provider [phone] Encounter Details Date Type Department Care Team (Late Contact Info) Description 09/24/2024 Orders Only [facility] [address] [facility] [place] [place] [address] Bola Rodriguez DO [address] [facility] [place] [address] Acute tubulo-interstitial nephritis; Other acute [...] Visit [facility] [address] [facility] [place] [place] [address] Bola Rodriguez DO [address] [facility] [place] [address] documented as of this encounter Visit Diagnoses Diagnosis Acute tubulo-interstitial nephritis Other acute kidney failure (HCC) Hypertension Stage 3a chronic kidney disease (HCC) documented in this encounter Care Teams Abstract Maker Relationship Specialty Start Date End Date Gigi Fraser MD [address] [place] [address] PCP - General Internal Medicine 07/16/23 documented as of this encounter
--- OUTSIDE RECORDS SUMMARY | 2025-03-18 13:27 | XMS_ITS | Encounter Summary ---
Author Organization [facility] [place], Address [address] [place] [address] Phone Care Team Providers Care Manufacturing Manager Name Role Phone Gigi Fraser MD Primary Care Provider [phone] Encounter Details Date Type Department Care Team (Late st Contact Info) Description 07/19/2023 Documentation Only [facility] [address] [place] [address] Bola Rodriguez DO [address] [facility] [place] [address] Social History Tobacco Use Types [...] And [facility] [address] [place] [address] Bola Rodriguez DO [address] [facility] [address] [place] [address] documented as of this encounter Visit Diagnoses Not on filedocumented in this encounter Care Teams Manufacturing Manager Relationship Specialty Start Date End Date Gigi Fraser MD [address] [place] [address] PCP - General Internal Medicine 07/16/23 documented as of this encounter
--- OUTSIDE RECORDS SUMMARY | 2025-03-18 13:27 | XMS_ITS | Encounter Summary ---
Author Organization [facility] [place], Address [address] [place] [address] Phone Care Team Providers Care Balance Wheel Screw Hole Driller Name Role Phone Gigi Fraser MD Primary Care Provider [phone] Encounter Details Date Type Department Care Team (Late st Contact Info) Description 07/16/2024 Orders Only [facility] [address] [place] [address] Bola Rodriguez DO [address] [facility] [place] [address] Acute tubulo-interstitial nephritis; Hypokalemia; Hypertension; [...] Visit [facility] [address] [address] Bola Rodriguez DO [address] [facility] [place] [address] documented as of this encounter Procedures [...] None seen 0 - 5 /hpf [facility] RBC, Urine None seen 0 - 2 /hpf [facility] Squamous Epithelial, Urine None seen 0 - 10 /hpf [facility] Casts None seen None seen /lpf [facility] Bacteria, Urine None seen None seen/Few [facility] 07/25/2024 9:54 AM EST 07/25/2024 Bola Rodriguez DO LAB MICROBIOLOGY - GENERAL ORDE ANASTACIO Final Result [facility] [address] [place] [address] * Urinalysis with microscopic (07/25/2024 9:54 AM EST) Specific [place], Urine 1.019 1.005 - 1.030 [facility] pH Urine 7.0 5.0 - 7.5 [facility] Color, Urine Yellow Yellow [facility] Appearance Urine Clear Clear [facility] [phone] WBC Esterase Urine Negative Negative [facility] Protein, Ur Trace Negative/Tra ce [facility] Glucose, Ur Negative Negative [facility] Ketones, Urine Negative Negative [facility] Blood Urine Negative Negative [facility] [phone] Bilirubin Urine Negative Negative [facility] Urobilinogen Urine 0.2 0.2 - 1.0 mg/dL [facility] Nitrite, Urine Negative Negative [facility] Microscopic Examination Comment [facility] Comment:Microscopic follows if indicated. Other Microsc. Observations See below: [facility] [phone] Comment:Microscopic was cely cated and was performed. Urine specimen (specimen) Urine specimen obtained by clean catch procedure / Unknown 07/25/2024 9:54 AM EST 07/25/2024 us Bola Rodriguez DO LAB URINE ORDERABLES Final Resu lt [facility] [address] [place] [address] * Sedimentation Rate (07/25/2024 9:54 AM EST) Sed Rate 14 0 - 30 mm/hr [facility] Blood specimen (specimen) Venous blood / Unknown 07/25/2024 9:54 AM EST 07/25/2024 Bola Haydenry DO LAB BLOOD ORDERABLES Final Resu lt Performing Organization Address City/[facility] Co de Phone Number [facility] [address] [place] [address] * Urine Protein / creatinine ratio (07/25/2024 9:54 AM EST) Creatinine, Ur 172.5 Not Estab. mg/dL [facility] Protein, Ur 15.1 Not Estab. mg/dL [facility] Urine Protein/Creatin ine Ratio 88 0 - 200 mg/g creat [facility] Urine specimen (specimen) Urine specimen obtained by clean catch procedure / Unknown 07/25/2024 9:54 AM EST 07/25/2024 Bola Rodriguez DO LAB URINE ORDERABLES Final Resu lt Performing Organization Address [facility] Co de Phone Number [email or web address] [address] [place] [address] * Magnesium (07/25/2024 9:54 AM EST) Magnesium 2.1 1.6 - 2.3 mg/dL [facility] Blood specimen (specimen) Venous blood / Unknown 07/25/2024 9:54 AM EST 07/25/2024 Bola Haydenry DO LAB BLOOD ORDERABLES Final Resu lt Performing Organization Address City/[facility]/ZIP Co de Phone Number [email or web address] [address] [place] [address] * (ABNORMAL) Renal Function Panel (07/25/2024 9:54 AM EST) Glucose 90 70 - 99 mg/dL [facility] BUN 18 8 - 27 mg/dL [facility] Creatinine 1.93(H) 0.76 - 1.27 mg/dL [facility] eGFR CKD-EPI CR 2020 39(L) >59 mL/min/1.7 3 [facility] BUN/Creatinine Ratio 9(L) 10 - 24 [facility] Sodium 137 134 - 144 mmol/L [facility] Potassium 4.3 3.5 - 5.2 mmol/L [facility] Bicarbonate (CO2) 24 20 - 29 mmol/L [facility] Calcium 11.0(H) 8.6 - 10.2 mg/dL [facility] Comment:Verified by repeat analysis Phosphorus 3.4 2.8 - 4.1 mg/dL [facility] Albumin 5.1(H) 3.8 - 4.9 g/dL [facility] Chloride 98 96 - 106 mmol/L [facility] Blood specimen (specimen) Venous blood / Unknown 07/25/2024 9:54 AM EST 07/25/2024 us Bola Rodriguez DO LAB BLOOD ORDERABLES Final Resu lt [facility] [address] [place] [address] documented in this encounter Visit Diagnoses Diagnosis Acute tubulo-interstitial nephritis Hypokalemia Hypertension Stage 3a chronic kidney disease (HCC) documented in this encounter Care Teams Balance Wheel Screw Hole Driller Relationship Specialty Start Date End Date Gigi Fraser MD [address] [place] [address] PCP - General Internal Medicine 07/16/23 documented as of this encounter
--- OUTSIDE RECORDS SUMMARY | 2025-03-18 13:27 | XMS_ITS | Encounter Summary ---
Author Organization [facility] [place], Address [address] [place] [address] Phone Care Team Providers Care Miller Head Wet Process Name Role Phone Gigi Fraser MD Primary Care Provider Encounter Details Date Type Department Care Team (Late st Contact Info) Description 09/17/2023 Documentation Only [facility] [address] [place] [address] Bola Rodriguez DO [address] [facility] [place] [address] Social History Tobacco Use Types [...] Visit [facility] [address] [place] [place] [address] Bola Rodriguez DO [address] [facility] [place] [address] documented as of this encounter Visit Diagnoses Not on filedocumented in this encounter Care Teams Miller Head Wet Process Relationship Specialty Start Date End Date Gigi Fraser MD [address] [place] [address] PCP - General Internal Medicine 07/16/23 documented as of this encounter
--- OUTSIDE RECORDS SUMMARY | 2025-03-18 13:27 | XMS_ITS | Encounter Summary ---
Author Organization [facility] [place], Address [address] [place] [address] Phone Care Team Providers Care Sole Cementer Name Role Phone Gigi Fraser MD Primary Care Provider [phone] Encounter Details Date Type Department Care Team (Late st Contact Info) Description 07/16/2023 Documentation Only [facility] [address] [place] [address] [place] [address] [place] [address] Social History Tobacco Use Types [...] [facility] [address] [place] [address] Bola Rodriguez DO [address] [place] [address] [place] [address] documented as of this encounter Visit Diagnoses Not on filedocumented in this encounter Care Teams Sole Cementer Relationship Specialty Start Date End Date Gigi Fraser MD [address] [place] [address] PCP - General Internal Medicine 07/16/23 documented as of this encounter
--- OUTSIDE RECORDS SUMMARY | 2025-03-18 13:27 | XMS_ITS | Encounter Summary ---
Author Organization [facility] Address [address] [place] [address] Phone Care Team Providers Care Farm Operations Manager Name Role Phone Gigi Fraser MD Primary Care Provider [phone] Encounter Details Date Type Department Care Team (Late Contact Info) Description 08/27/2024 Orders Only [facility] [address] [place] [address] Bola Rodriguez DO [address] [facility] [place] [address] Acute tubulo-interstitial nephritis; Other acute [...] Visit [facility] [address] [place] [address] Bola Rodriguez DO [address] [facility] [place] [address] documented as of this encounter Visit Diagnoses Diagnosis Acute tubulo-interstitial nephritis Other acute kidney failure (HCC) Hypertension Stage 3a chronic kidney disease (HCC) documented in this encounter Care Teams Farm Operations Manager Relationship Specialty Start Date End Date Gigi Fraser MD [address] [place] [address] PCP - General Internal Medicine 07/16/23 documented as of this encounter
--- OUTSIDE RECORDS SUMMARY | 2025-03-18 13:27 | XMS_ITS | Encounter Summary ---
Author Organization [facility] Address [address] [place] [address] Phone Care Team Providers Care Cooperative Extension Agent Name Role Phone Gigi Fraser MD Primary Care Provider [phone] Encounter Details Date Type Department Care Team (Late Contact Info) Description 07/02/2024 Orders Only [facility] [address] [place] [address] Bola Rodriguez DO [address] [facility] [place] [address] Acute tubulo-interstitial nephritis; Other acute [...] Transplant Services Of [facility] [address] [facility] [place] [address] Bola Rodriguez DO [address] [facility] [place] [address] documented as of this encounter Visit Diagnoses Diagnosis Acute tubulo-interstitial nephritis Other acute kidney failure (HCC) Hypertension Stage 3a chronic kidney disease (HCC) documented in this encounter Care Teams Cooperative Extension Agent Relationship Specialty Start Date End Date Gigi Fraser MD [address] [place] [address] PCP - General Internal Medicine 07/16/23 documented as of this encounter
--- OUTSIDE RECORDS SUMMARY | 2025-03-18 13:27 | XMS_ITS | Encounter Summary ---
Author Organization [facility] [place], Address [address] [place] [address] Phone Care Team Providers Care Bird Raiser Name Role Phone Gigi Fraser MD Primary Care Provider [phone] Encounter Details Date Type Department Care Team (Late st Contact Info) Description 10/15/2023 Documentation Only [facility] [address] [place] [address] [place], [place] [address] [place] [address] Social History Tobacco Use Types [...] Visit [facility] [address] [place] [place] [address] Bola Rodriguez DO [address] [place] [address] [place] [address] documented as of this encounter Visit Diagnoses Not on filedocumented in this encounter Care Teams Bird Raiser Relationship Specialty Start Date End Date Gigi Fraser MD [address] [place] [address] PCP - General Internal Medicine 07/16/23 documented as of this encounter
--- OUTSIDE RECORDS SUMMARY | 2025-03-18 13:27 | XMS_ITS | Encounter Summary ---
Author Organization [facility] [place], Address [address] [place] [address] Phone Care Team Providers Care Semiconductor Wafers Etcher Stripper Name Role Phone Gigi Fraser MD Primary Care Provider [phone] Encounter Details Date Type Department Care Team (Late st Contact Info) Description 07/16/2023 Documentation Only [facility] [address] [place] [address] [place], [place] [address] [place] [address] Social History Tobacco Use Types [...] Visit [facility] [address] [place] [address] Bola Rodriguez DO [address] [place] [address] [place] [address] documented as of this encounter Visit Diagnoses Not on filedocumented in this encounter Care Teams Semiconductor Wafers Etcher Stripper Relationship Specialty Start Date End Date Gigi Fraser MD [address] [place] [address] PCP - General Internal Medicine 07/16/23 documented as of this encounter
--- OUTSIDE RECORDS SUMMARY | 2025-03-18 13:27 | XMS_ITS | Encounter Summary ---
Author Organization [facility] [place], Address [address] [place] [address] Phone Care Team Providers Care Pebble Mill Operator Name Role Phone Gigi Fraser MD Primary Care Provider [phone] Encounter Details Date Type Department Care Team (Late st Contact Info) Description 07/16/2023 Documentation Only [facility] [address] [place] [address] [place], [place] [address] [place] [address] Social History Tobacco Use Types [...] Visit [facility] [address] [place] [address] Bola Rodriguez DO [address] [place] [address] [place] [address] documented as of this encounter Visit Diagnoses Not on filedocumented in this encounter Care Teams Pebble Mill Operator Relationship Specialty Start Date End Date Gigi Fraser MD [address] [place] [address] PCP - General Internal Medicine 07/16/23 documented as of this encounter
--- OUTSIDE RECORDS SUMMARY | 2025-03-18 13:27 | XMS_ITS | Encounter Summary ---
Author Organization [facility] Address [address] [place] [address] Phone Care Team Providers Care Spray Drier Operator Name Role Phone Gigi Fraser MD Primary Care Provider [phone] Encounter Details Date Type Department Care Team (Late st Contact Info) Description 12/31/2024 Orders Only [facility] [address] [place] [address] Bola Rodriguez DO [address] [facility] [place] [address] Acute tubulo-interstitial nephritis; Hypokalemia; Hypertension; [...] Visit [facility] [address] [facility] [address] Bola Rodriguez DO [address] [place] [address] documented as of this encounter Procedures Procedure Name Priority Date/Time Associated Diagnosis Comments MICROSCOPIC EXAMINATION - DO NOT USE Routine 01/30/2025 9:25 AM EDT PROTEIN / CREATININE RATIO, URINE Routine 01/30/2025 9:25 AM EDT Acute tubulo-interstitia l nephritis Hypokalemia Hypertension Stage 3a chronic kidney disease (HCC) URINALYSIS WITH MICROSCOPIC Routine 01/30/2025 9:25 AM [...] in this encounter Results * Microscopic Examination (01/30/2025 9:25 AM EDT) WBC, Urine 0-5 0 - 5 /hpf [facility] RBC, Urine None seen 0 - 2 /hpf [facility] Squamous Epithelial, Urine 0-10 0 - 10 /hpf [facility] Casts None seen None seen /lpf [facility] Bacteria, Urine None seen None seen/Few [facility] 01/30/2025 9:25 AM EDT 01/30/2025 Bola Rodriguez DO LAB MICROBIOLOGY - GENERAL ORDE RABLES Final Result [facility] [address] [place] [address] * (ABNORMAL) Urinalysis with microscopic (01/30/2025 9:25 AM EDT) Specific [place], Urine 1.008 1.005 - 1.030 [facility] pH Urine 6.5 5.0 - 7.5 [facility] Color, Urine Yellow Yellow [facility] Appearance Urine Clear Clear [facility] [place] WBC Esterase Urine Trace(A) Negative [facility] [phone] Protein, Ur 2+(A) Negative/Tra ce [facility] Glucose, Ur Negative Negative [facility] Ketones, Urine Negative Negative [facility] [place] Blood Urine 3+(A) Negative [facility] Bilirubin Urine Negative Negative [facility] [place] Urobilinogen Urine 0.2 0.2 - 1.0 mg/dL [facility] Nitrite, Urine Negative Negative [facility] [place] Microscopic Examination See below: [facility] Comment:Microscopic was cely cated and was performed. Urine specimen (specimen) Urine specimen obtained by clean catch procedure / Unknown 01/30/2025 9:25 AM EDT 01/30/2025 Bola Rodriguez DO LAB URINE ORDERABLES Final Resu lt [facility] [address] [place] [address] * Sedimentation Rate (01/30/2025 9:25 AM EDT) Sed Rate 9 0 - 30 mm/hr [facility] Blood specimen (specimen) Venous blood / Unknown 01/30/2025 9:25 AM EDT 01/30/2025 Bola Rodriguez DO LAB BLOOD ORDERABLES Final Resu lt Performing Organization Address [facility] Co de Phone Number [facility] [address] [place] [address] * (ABNORMAL) Urine Protein / creatinine ratio (01/30/2025 9:25 AM EDT) Creatinine, Ur 29.9 Not Estab. mg/dL [facility] Protein, Ur 33.0 Not Estab. mg/dL [facility] Urine Protein/Creati nine Ratio 1,104(H) 0 - 200 mg/g creat [facility] Urine specimen (specimen) Urine specimen obtained by clean catch procedure / Unknown 01/30/2025 9:25 AM EDT 01/30/2025 us Bola Rodriguez DO LAB URINE ORDERABLES Final Resu lt Performing Organization Address [facility] Co de Phone Number [facility] [address] [place] [address] * Magnesium (01/30/2025 9:25 AM EDT) Magnesium 2.2 1.6 - 2.3 mg/dL [facility] Blood specimen (specimen) Venous blood / Unknown 01/30/2025 9:25 AM EDT 01/30/2025 us Bola Rodriguez DO LAB BLOOD ORDERABLES Final Resu lt [employer] [facility] [address] [place] [address] * (ABNORMAL) Renal Function Panel (01/30/2025 9:25 AM EDT) Glucose 94 70 - 99 mg/dL [facility] BUN 17 8 - 27 mg/dL [facility] Creatinine 2.00(H) 0.76 - 1.27 mg/dL [facility] eGFR CKD-EPI CR 2020 38(L) >59 mL/min/1.7 3 [facility] BUN/Creatinine Ratio 9(L) 10 - 24 [facility] Sodium 138 134 - 144 mmol/L [facility] Potassium 3.8 3.5 - 5.2 mmol/L [facility] Chloride 105 96 - 106 mmol/L [facility] Bicarbonate (CO2) 17(L) 20 - 29 mmol/L [facility] Calcium 9.0 8.6 - 10.2 mg/dL [facility] Phosphorus 2.5(L) 2.8 - 4.1 mg/dL [facility] Albumin 4.7 3.8 - 4.9 g/dL [facility] Blood specimen (specimen) Venous blood / Unknown 01/30/2025 9:25 AM EDT 01/30/2025 us Bola Rodriguez DO LAB BLOOD ORDERABLES Final Resu lt [facility] [place] [address] [place] [address] documented in this encounter Visit Diagnoses Diagnosis Acute tubulo-interstitial nephritis Hypokalemia Hypertension Stage 3a chronic kidney disease (HCC) documented in this encounter Care Teams Spray Drier Operator Relationship Specialty Start Date End Date Gigi Fraser MD [address] [place] [address] PCP - General Internal Medicine 07/16/23 documented as of this encounter
--- OUTSIDE RECORDS SUMMARY | 2025-03-18 13:28 | XMS_ITS | Encounter Summary ---
Author Organization [facility] Address [address] [place] [address] Phone Care Team Providers Care Insulation Foreman Name Role Phone Gigi Fraser MD Primary Care Provider [phone] Encounter Details Date Type Department Care Team (Late Contact Info) Description 04/09/2024 Orders Only [facility] [address] [place] [address] Bola Rodriguez DO [address] [facility] [place] [address] Acute tubulo-interstitial nephritis; Other acute [...] [facility] [address] [facility] [place] [address] Bola Rodriguez DO [address] [facility] [place] [address] documented as of this encounter Visit Diagnoses Diagnosis Acute tubulo-interstitial nephritis Other acute kidney failure (HCC) Hypertension Stage 3a chronic kidney disease (HCC) documented in this encounter Care Teams Insulation Foreman Relationship Specialty Start Date End Date Gigi Fraser MD [address] [place] [address] PCP - General Internal Medicine 07/16/23 documented as of this encounter
--- OUTSIDE RECORDS SUMMARY | 2025-03-18 13:28 | XMS_ITS | Clinical Summary ---
Author Organization [address] Address [address] [place] [address] Phone Care Team Providers Care Warehouse Receiver Name Role Phone Physician, Pcp Unknown Primary [...] (2 - Td or Tdap) 09/24/2022 09/24/2012 Depression Screening 06/30/2024 Cholesterol Screening (Lipid Panel) 10/07/2024 Colorectal Cancer Screening: Colonoscopy 10/07/2024 HIV Screening 10/07/2024 Hepatitis C Screening 10/07/2024 Hypertension/CHF/CAD Annual BMP Blood Test 10/07/2024 Social Influencers of Health Screening 10/07/2024 COVID-19 Vaccine (1 - 2023-2 5 season) 2025 Influenza Vaccine (#1) 2025 1, 07/28/2009, 07/28/2009 [...] patient's age to complete this topic Insurance [facility] MEDICAID Care Teams Warehouse Receiver Relationship Specialty Start Date End Date Physician, Pcp Unknown PCP - General 10/06/24
--- OUTSIDE RECORDS SUMMARY | 2025-03-18 13:28 | XMS_ITS | Encounter Summary ---
Author Organization [facility] Address [address] [place] [address] Phone Care Team Providers Care Device Processing Engineer Name Role Phone Gigi Fraser MD Primary Care Provider [phone] Encounter Details Date Type Department Care Team (Late Contact Info) Description 05/07/2024 Orders Only [facility] [address] [place] [address] Bola Rodriguez DO [address] [facility] [place] [address] Acute tubulo-interstitial nephritis; Other acute [...] Visit [facility] [address] [place] [address] Bola Rodriguez DO [address] [facility] [place] [address] documented as of this encounter Visit Diagnoses Diagnosis Acute tubulo-interstitial nephritis Other acute kidney failure (HCC) Hypertension Stage 3a chronic kidney disease (HCC) documented in this encounter Care Teams Device Processing Engineer Relationship Specialty Start Date End Date Gigi Fraser MD [address] [place] [address] PCP - General Internal Medicine 07/16/23 documented as of this encounter
--- OUTSIDE RECORDS SUMMARY | 2025-03-18 13:28 | XMS_ITS | Encounter Summary ---
Author Organization [facility] Address [address] [place] [address] Care Team Providers Care Historical Interpreter Name Role Phone Physician, Pcp Unknown Primary Care Provider Mildred vailable Encounter Details Date Type Department Care Team (Late st Contact Info) Description 10/06/2024 Lab Requisition [facility] - Main Lab [address] [facility] [place] [id number] Kevin Lo, PA [address] [place] [address] Benign essential microscopic hematuria Social History Tobacco [...] AM EDT) Final Diagnosis A. Urine, Voided, ([id number]): Negative for high grade urothelial carcinoma. Scant urothelial cellularity. Results of UroVysion fluorescence in situ hybridization (FISH) testing: Although FISH was performed, insufficient non-obscured hybridization signals are present for evaluation and interpretation. 10/11/2024 5:27 PM EDT [facility] Clinical Information Benign essential microscopic hematuria R31.1 Urine Cytology/FISH (now) 10/11/2024 5:27 PM EDT [facility] Gross Description A. Urine, Voided, ([id number]): Received one ThinPrep slide for cytology and one ThinPrep slide for UroVysion FISH 10/11/2024 5:27 PM EDT [facility] Disclaimer Unless otherwise specified, all tissue is 10% NB formalin fixed and paraffin embedded. Technical pathology services provided by [facility] at [address] [facility] [address], [place] [address] (CLIA #[id number]/Emily Roberson MD, Airplane [employer]) 10/11/2024 5:27 PM EDT [facility] Tissue Urine specimen from urethra / Unknown 10/01/2024 10/06/2024 3:35 PM EDT [facility] LAB PATHOLOGY ORDERABLES Final Result [facility] [address] [place] [address], documented in this encounter Visit Diagnoses Diagnosis Benign essential microscopic hematuria documented in this encounter Care Teams Historical Interpreter Relationship Specialty Start Date End Date Physician, Pcp Unknown PCP - General 10/06/24 documented as of this encounter
--- OUTSIDE RECORDS SUMMARY | 2025-03-18 13:28 | XMS_ITS | Encounter Summary ---
Author Organization [facility] Address [address] [place] [address] Phone Care Team Providers Care Compressor Station Chief Engineer Name Role Phone Gigi Fraser MD Primary Care Provider [phone] Encounter Details Date Type Department Care Team (Latest Contact Info) Description 03/18/2025 Orders Only [facility] [address] [place] [address] Bola Rodriguez DO [address] [facility] [place] [address] Other acute kidney failure (HCC); Stage 3b chronic kidney disease (HCC); Chronic tubulointerstitial nephritis Social History Tobacco Use Types Packs/Day Years [...] [facility] [address] [place] [address] Bola Rodriguez DO [address] [facility] [place] [address] documented as of this encounter Visit Diagnoses Diagnosis Other acute kidney failure (HCC) Stage 3b chronic kidney disease (HCC) Chronic tubulointerstitial nephritis documented in this encounter Care Teams Compressor Station Chief Engineer Relationship Specialty Start Date End Date Gigi Fraser MD [address] [place] [address] PCP - General Internal Medicine 07/16/23 documented as of this encounter
--- OUTSIDE RECORDS SUMMARY | 2025-03-18 13:28 | XMS_ITS | Encounter Summary ---
Author Organization [facility] [place], Address [address] [place] [address] Phone Care Team Providers Care Student Support Services Director Name Role Phone Gigi Fraser MD Primary Care Provider [phone] Encounter Details Date Type Department Care Team (Late st Contact Info) Description 05/21/2024 Orders Only [facility] [address] [place] [address] Bola Rodriguez DO [address] [facility] [place] [address] Acute tubulo-interstitial nephritis; Hypokalemia; Hypertension; [...] Visit [facility] [address] [place] [address] Bola Rodriguez DO [address] [facility] [place] [address] documented as of this encounter Visit Diagnoses Diagnosis Acute tubulo-interstitial nephritis Hypokalemia Hypertension Stage 3a chronic kidney disease (HCC) documented in this encounter Care Teams Student Support Services Director Relationship Specialty Start Date End Date Gigi Fraser MD [address] [place] [address] PCP - General Internal Medicine 07/16/23 documented as of this encounter
--- OUTSIDE RECORDS SUMMARY | 2025-03-18 13:28 | XMS_ITS | Encounter Summary ---
Author Organization [facility] Address [address] [place] [address] Phone Care Team Providers Care Rotary Engraver Name Role Phone Gigi Fraser MD Primary Care Provider Encounter Details Date Type Department Care Team (Late Contact Info) Description 02/13/2024 Orders Only [facility] [address] [facility] [place] [address] Bola Rodriguez DO [address] [facility] [place] [address] Acute tubulo-interstitial [...] [facility] [address] [facility] [place] [address] Bola Rodriguez DO [address] [facility] [place] [address] documented as [...] Urine 11-30(A) 0 - 5 /hpf [facility] RBC, Urine None seen 0 - 2 /hpf [facility] Squamous Epithelial, Urine 0-10 0 - 10 /hpf [facility] Casts None seen None seen /lpf [facility] Bacteria, Urine None seen None seen/Few [facility] 02/29/2024 8:54 AM EDT 02/29/2024 us Bola Rodriguez DO LAB MICROBIOLOGY - GENERAL ORDE ANASTACIO Final Result [facility] [address] [place] [address] * (ABNORMAL) Urine Protein / creatinine ratio (02/29/2024 8:54 AM EDT) Creatinine, Ur 39.7 Not Estab. mg/dL [facility] Protein, Ur 53.8 Not Estab. mg/dL [facility] Urine Protein/Creati nine Ratio 1,355(H) 0 - 200 mg/g creat [facility] Urine specimen (specimen) Urine specimen obtained by clean catch procedure / Unknown 02/29/2024 8:54 AM EDT 02/29/2024 us Bola Rodriguez DO LAB URINE ORDERABLES Final Resu lt [facility] [address] [place] [address] * (ABNORMAL) Urinalysis with microscopic (02/29/2024 8:54 AM EDT) Specific [place], Urine 1.012 1.005 - 1.030 [facility] [phone] pH Urine 6.5 5.0 - 7.5 [facility] [phone] Color, Urine Yellow Yellow [facility] [phone] Appearance Urine Clear Clear [facility] [phone] WBC Esterase Urine 1+(A) Negative [facility] Protein, Ur 2+(A) Negative/Tr elissa [facility] Glucose, Ur Negative Negative [facility] Ketones, Urine Negative Negative [facility] [place] Blood Urine 2+(A) Negative [facility] Bilirubin Urine Negative Negative [facility] [place] Urobilinogen Urine 0.2 0.2 - 1.0 mg/dL [facility] [phone] Nitrite, Urine Positive(A) Negative [facility] [phone] Microscopic Examination See below: [facility] Comment:Microscopic was cely cated and was performed. Urine specimen (specimen) Urine specimen obtained by clean catch procedure / Unknown 02/29/2024 8:54 AM EDT 02/29/2024 Bola Rodriguez LAB URINE ORDERABLES Final Resu lt [facility] [employer] [place] [address] [place] [address] * Magnesium (02/29/2024 8:54 AM EDT) Magnesium 1.9 1.6 - 2.3 mg/dL [employer] [employer] [facility] Blood specimen (specimen) Venous blood / Unknown 02/29/2024 8:54 AM EDT 02/29/2024 Bola Rodriguez LAB BLOOD ORDERABLES Final Resu lt Performing Organization Address City[facility]/ZIP Co de Phone Number [facility] [employer] [place] [address] [place] [address] * (ABNORMAL) Renal Function Panel (02/29/2024 8:54 AM EDT) Glucose 91 70 - 99 mg/dL [facility] BUN 17 6 - 24 mg/dL [facility] Creatinine 1.62(H) 0.76 - 1.27 mg/dL [facility] eGFR CKD-EPI CR 2020 49(L) >59 mL/min/1.7 3 [facility] BUN/Creatinine Ratio 10 9 - 20 [facility] Sodium 140 134 - 144 mmol/L [facility] Potassium 3.9 3.5 - 5.2 mmol/L [facility] Chloride 102 96 - 106 mmol/L [facility] Bicarbonate (CO2) 24 20 - 29 mmol/L [facility] Calcium 9.3 8.7 - 10.2 mg/dL [facility] Albumin 4.2 3.8 - 4.9 g/dL [facility] Phosphorus 3.4 2.8 - 4.1 mg/dL [facility] Blood specimen (specimen) Venous blood / Unknown 02/29/2024 8:54 AM EDT 02/29/2024 Bola Rodriguez DO LAB BLOOD ORDERABLES Final Resu lt [facility] [address] [place] [address] documented in this encounter Visit Diagnoses Diagnosis Acute tubulo-interstitial nephritis Other acute kidney failure (HCC) Hypertension Stage 3a chronic kidney disease (HCC) documented in this encounter Care Teams Rotary Engraver Relationship Specialty Start Date End Date Gigi Fraser MD [address] [place] [address] PCP - General Internal Medicine 07/16/23 documented as of this encounter
--- OUTSIDE RECORDS SUMMARY | 2025-03-18 13:28 | XMS_ITS | Encounter Summary ---
Author Organization [facility] Address [address] [place] [address] Phone Care Team Providers Care Real Estate Operations Manager Name Role Phone Gigi Fraser MD Primary Care Provider [phone] Encounter Details Date Type Department Care Team (Late Contact Info) Description 01/16/2024 Orders Only [facility] [address] [place] [address] Bola Rodriguez DO [address] [facility] [place] [address] Acute tubulo-interstitial nephritis; Other acute [...] Visit [facility] [address] [place] [address] Bola Rodriguez DO [address] [facility] [place] [address] documented as of this encounter [...] Urine 0-5 0 - 5 /hpf [facility] RBC, Urine None seen 0 - 2 /hpf [facility] Squamous Epithelial, Urine None seen 0 - 10 /hpf [facility] Casts None seen None seen /lpf [facility] Bacteria, Urine None seen None seen/Few [facility] 01/25/2024 8:41 AM EDT 01/25/2024 us Bola Rodriguez DO LAB MICROBIOLOGY - GENERAL ORDAlistair CHAVES Final Result [facility] [address] [place] [address] * (ABNORMAL) Urine Protein / creatinine ratio (01/25/2024 8:41 AM EDT) Creatinine, Ur 38.1 Not Estab. mg/dL [facility] Protein, Ur 46.1 Not Estab. mg/dL [facility] Urine Protein/Creati nine Ratio 1,210(H) 0 - 200 mg/g creat [facility] Urine specimen (specimen) Urine specimen obtained by clean catch procedure / Unknown 01/25/2024 8:41 AM EDT 01/25/2024 Bola Rodriguez DO LAB URINE ORDERABLES Final Resu lt [facility] [address] [place] [address] * (ABNORMAL) Urinalysis with microscopic (01/25/2024 8:41 AM EDT) Specific [place], Urine 1.008 1.005 - 1.030 [facility] [phone] pH Urine 7.0 5.0 - 7.5 [facility] Color, Urine Yellow Yellow [facility] Appearance Urine Clear Clear [facility] [place] [phone] WBC Esterase Urine Trace(A) Negative [facility] Protein, Ur 2+(A) Negative/Tr elissa [facility] Glucose, Ur Negative Negative [facility] Ketones, Urine Negative Negative [facility] [place] Blood Urine 3+(A) Negative [facility] Bilirubin Urine Negative Negative [facility] [place] Urobilinogen Urine 0.2 0.2 - 1.0 mg/dL [facility] Nitrite, Urine Positive(A) Negative [facility] [place] Microscopic Examination See below: [facility] [phone] Comment:Microscopic was cely cated and was performed. Urine specimen (specimen) Urine specimen obtained by clean catch procedure / Unknown 01/25/2024 8:41 AM EDT 01/25/2024 Bola Rodriguez LAB URINE ORDERABLES Final Resu lt Performing Organization Address City/[facility]/ZIP Co de Phone Number [facility] [employer] [place] [address] [place] [address] * Magnesium (01/25/2024 8:41 AM EDT) Magnesium 1.9 1.6 - 2.3 mg/dL [facility] Blood specimen (specimen) Venous blood / Unknown 01/25/2024 8:41 AM EDT 01/25/2024 Bola Rodriguez LAB BLOOD ORDERABLES Final Resu lt Performing Organization Address City/[facility]/ZIP Co de Phone Number [facility] [employer] [place] [address] [place] [address] * (ABNORMAL) Renal Function Panel (01/25/2024 8:41 AM EDT) Glucose 108(H) 70 - 99 mg/dL [facility] BUN 11 6 - 24 mg/dL [facility] Creatinine 2.04(H) 0.76 - 1.27 mg/dL [facility] eGFR CKD-EPI CR 2020 37(L) >59 mL/min/1.7 3 [facility] BUN/Creatinine Ratio 5(L) 9 - 20 [facility] Sodium 141 134 - 144 mmol/L [facility] Potassium 3.2(L) 3.5 - 5.2 mmol/L [facility] Chloride 99 96 - 106 mmol/L [facility] Bicarbonate (CO2) 30(H) 20 - 29 mmol/L [facility] Calcium 10.5(H) 8.7 - 10.2 mg/dL [facility] Comment:Verified by repeat analysis Phosphorus 2.9 2.8 - 4.1 mg/dL [facility] Albumin 4.1 3.8 - 4.9 g/dL [facility] Blood specimen (specimen) Venous blood / Unknown 01/25/2024 8:41 AM EDT 01/25/2024 Bola Rodriguez DO LAB BLOOD ORDERABLES Final Resu lt [facility] [address] [place] [address] documented in this encounter Visit Diagnoses Diagnosis Acute tubulo-interstitial nephritis Other acute kidney failure (HCC) Hypertension Stage 3a chronic kidney disease (HCC) documented in this encounter Care Teams Real Estate Operations Manager Relationship Specialty Start Date End Date Gigi Fraser MD [address] [facility] [place] [address] PCP - General Internal Medicine 07/16/23 documented as of this encounter
--- OUTSIDE RECORDS SUMMARY | 2025-03-18 13:28 | XMS_ITS | Encounter Summary ---
Author Organization [facility] Address [address] [place] [address] Phone Care Team Providers Care Air Liaison And Special Staff Name Role Phone Gigi Fraser MD Primary Care Provider [phone] Encounter Details Date Type Department Care Team (Late st Contact Info) Description 02/25/2025 Orders Only [facility] [address] [place] [address] Bola Rodriguez DO [address] [facility] [place] [address] Acute tubulo-interstitial nephritis; Hypokalemia; Hypertension; [...] [facility] [address] [place] [address] Bola Rodriguez DO [address] [facility] [place] [address] documented as of this encounter Visit Diagnoses Diagnosis Acute tubulo-interstitial nephritis Hypokalemia Hypertension Stage 3a chronic kidney disease (HCC) documented in this encounter Care Teams Air Liaison And Special Staff Relationship Specialty Start Date End Date Gigi Fraser MD [address] [place] [address] PCP - General Internal Medicine 07/16/23 documented as of this encounter
--- OUTSIDE RECORDS SUMMARY | 2025-03-18 13:28 | XMS_ITS | Encounter Summary ---
Author Organization [facility] Address [address] [place] [address] Phone Care Team Providers Care Etl Consultant Name Role Phone Gigi Fraser MD Primary Care Provider [phone] Encounter Details Date Type Department Care Team (Late Contact Info) Description 03/12/2024 Orders Only [facility] [address] [place] [address] Bola Rodriguez DO [address] [facility] [address] [place] [address] Acute tubulo-interstitial nephritis; Other acute [...] Services Of [facility] [address] [place] [address] Bola Rodriguez DO [address] [facility] [address] [place] [address] documented as of this encounter Visit Diagnoses Diagnosis Acute tubulo-interstitial nephritis Other acute kidney failure (HCC) Hypertension Stage 3a chronic kidney disease (HCC) documented in this encounter Care Teams Etl Consultant Relationship Specialty Start Date End Date Gigi Fraser MD [address] [place] [address] PCP - General Internal Medicine 07/16/23 documented as of this encounter
[2025-03-18 18:14] LABS: Alanine Aminotransferase 78 U/L (0-40); Aspartate Amino Transferase 77 U/L (5-37)
== END 2025-03-18 13:25 | disposition home or self-care (01) ==
LOC: HO.HKASLDS 13:24
PROVIDERS: Visit Provider Internal Medicine Rheumatology
DX: Z79.899 Other long term (current) drug therapy (principal)
CPT/HCPCS: 36415; 84450; 84460

== ENCOUNTER 2025-04-01 08:00 | Outpatient (REF) | payer OTHER, SELFPAY ==
--- OUTSIDE RECORDS SUMMARY | 2025-06-14 17:38 | XMS_ITS | Data Portability ---
Author Organization [place] - [facility] Address [address] [place] [address] Assessment No assessment recorded. Plan of Treatment [...] ICD10 Code Diagnosis IMO Codes Diagnosis Note [id number] Peng Jenkins MD [facility] [address] [place] [address] 02/02/2016 14:38:41 02/02/2016 14:52:01 Health Concerns Section Related Observation LastModified by Organization Detai ls LastModified Time None Recorded Concern Status LastModified by Organization Details LastModified Time None Recorded Advance Directives Directive None Recorded Payers Insurance Date Sequence Insurance Name Policy Number Policy Griffith Covered Member ID Griffith Member ID Guarantor Name 02/16/2016 1 [place] B-[place] [employer] Arnel Fontanez [id number] Arnel Fontanez
--- OUTSIDE RECORDS SUMMARY | 2025-06-14 17:38 | XMS_ITS | Clinical Summary ---
Author Organization [facility] Address [address] [facility] [address] [place] [address] Care Team Providers Care Ecclesiastical Worker Name Role Phone Unavailable Primary Care Provider [...]
--- OUTSIDE RECORDS SUMMARY | 2025-06-14 17:38 | XMS_ITS | Continuity of Care Document ---
Author Organization [place] - [facility], [facility] Address [address] [place] [address] Care Team Providers Care Vigoureux Printer Name Role Phone CITLALI ANTHONY Primary Care Provider [phone] Assessment No assessment recorded. Plan of Treatment Reminders Order Date Submit Date Provider Last Modified By Organization Details Last Modified Time Details Appointments Establish ed 30 2025 11:00A M ANJUM Monk MD Not available Not available Not available Lab None recorded. Referral None recorded. Procedures None recorded. Surgeries None recorded. Imaging None recorded. Medication Orders None recorded. Patient TargetsNo targets recorded. Patient InstructionsNo instructions recorded. Reason for Referral None Reported. Problems Name Problem SNOMED Code Status Onset Date Resolution Date Notes Provider Name and Address Organization Details Recorded Time Dysphagia 30990717 Active 2016 Dysphagia , unspecifi ed; Note: Date Diagnosed : 11/13/2016 10:29 AM (R13.10) Not Available [facility] 4 02:49:30 Bilateral tinnitus 12033630206 02 Active 2016 Tinnitus, bilateral ; Note: Date Diagnosed : 11/13/2016 10:09 AM (H93.13) Not Available [facility] 4 02:49:34 Sensorine ural hearing loss of bilateral ears 509474693 Active 2016 Sensorine ural hearing loss, bilateral ; Note: Date Diagnosed : 11/13/2016 10:09 AM (H90.3) Not Available [facility] 4 02:49:35 Chronic left maxillary sinusitis 07359499236 804363 Active 2023 ANJUM BENÍTEZ MD [address] [place] [address], [facility] [place], [address] , [facility] - [facility] [place] 4 15:10:54 Chronic pain in face 471783590 Active 2023 ANJUM BENÍTEZ MD [address] [place] [address], [facility] [place], [address] , [facility] - [facility] 4 15:11:02 Chronic sinusitis 49170719 Active 2023 ANJUM BENÍTEZ MD [address] [place] [address], [facility] [place], [address] , [facility] - [facility] 4 15:16:37 Allergic fungal sinusitis 386066964 Active 2024 ANJUM BENÍTEZ MD [address] [place] [address], [facility] [place], [address] , [facility] - [facility] 5 14:50:20 Problem Notes None recorded. Procedures Surgical History Date Name Laterality Status Provider Name and Address Organization Details Recorded Time 04/26/2025 NasalEndos copy_DP completed ANJUM BENÍTEZ MD [address] [facility],[place] [address], [place], [address], [facility] 04/26/2025 09:11:07 06/03/2024 NasalEndos copy_DP completed ANJUM BENÍTEZ MD [address] [place] [address], [place], [address], [facility] - [facility] 06/03/2024 15:11:07 Imaging Results None recorded. Procedure Notes None recorded. Medical Equipment None Reported. Allergies Allergen ID Allergen Name Allergen Category Reaction Reaction Severity Criticality Documentation Date Start Date Code Code System Note Provider Name and Address Organization Details Recorded Time 550967 Product containin g penicilli n (product) medicatio n other Not available Not available 11/11/2023 46411 8001 SNOMED React ion: unkno wn, unspe cifie d;; Not Available [facility] 4 01:10:06 Medications Name Sig Start [...] mg tablet 2016 active Medicatio n ID: [id number] Du ration Value: 30 Brand Name: bupropion [...] hours as needed active Medicatio n ID: [id number] Du ration Value: 3 Brand Name: Percocet [...] mg tablet 2015 active Medicatio n ID: [id number] Du ration Value: 30 Brand Name: metoprolo [...] Updated DateTime 04/26/2025 177.8 cm 25.1 kg/m2 97094.66 g 131/94 mm[Hg] Henrique Haro [place] - [facility] 04/26/2025 09:04:28 Social History None recorded. Functional Status None recorded. Mental Status None recorded. Family History Nothing Reported. Medical History No medical history recorded. Past Encounters Encounter ID Performer Location Encounter Start Date Encounter Closed Date Diagnosis/Indication Diagnosis SNOMED-CT Code Diagnosis ICD10 Code Diagnosis IMO Codes Diagnosis Note [id number] ANJUM BENÍTEZ MD [facility] [address] [address] 04/26/2025 08:47:36 04/26/2025 09:12:14 Chronic left maxillary sinusitis 7570037500 9309678 J32.0 See below. Allergic f ungal sinusitis 105026154 B49 ct consistent with allergic fungal sinusitis. [...] ID Griffith Member ID Guarantor Name 04/26/2025 1 [facility] - DOS ON OR AFTER 2022 - ONE CARE (MEDICARE REPLACEMENT/AD VANTAGE - HMO) Arnel Fontanez [id number] Arnel Fontanez Notes Date Note Type Note Provider Name and Address Organization Details Recorded Time 04/26/2025 text/html ROS as noted in the [...] seeing a surgeon Friday. ANJUM BENÍTEZ MD [address] [place] [address], [place], [address], [place] - [facility] 04/26/2025 09:12:38
--- OUTSIDE RECORDS SUMMARY | 2025-06-14 17:38 | XMS_ITS | Data Portability ---
Author Organization [facility] Address [address] [address] Care Team Providers Care Email Marketing Manager Name Role Phone CITLALI ANTHONY Primary Care [...] booked for the same. 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 [email or web address] Not available 02/09/2019 15:36:14 02/23/2019 [id number] He was advised against bed rest lasting longer than four days and to continue activities as tolerated. [email or web address] Not available 02/24/2019 14:02:41 03/15/2019 [id number] He was advised against bed rest lasting longer than four days and to continue activities as tolerated. [email or web address] Not available 03/15/2019 15:18:22 Reason for Referral None Reported. Problems Name Problem SNOMED Code Status Onset Date Resolution Date Notes Provider Name and Address Organization Details Recorded Time Lumbar post-laminecto my syndrome 106702347 Active Khloe solis MD [address] [place] [address] , [address], [place], [address], [place] [facility] 15:35:28 Lumbar radiculopathy 891868569 Active Khloe solis MD [address] [facility] , [address], [place], [address], [place] [facility] 15:35:45 Spinal stenosis of lumbar region 63289680 Active Khloe solis MD [address] [facility] , [address], [place], [address], [place] [facility] 15:35:57 Problem Notes None recorded. Procedures Surgical History Date Name Laterality Status Provider Name and Address Organization Details Recorded Time 02/24/20 19 Lumbar Epidural steroid injection under fluoroscopic guidance completed Khloe Mustafa MD [address] [facility] , [address], [place], [address], [place] [facility] 02/24/2019 14:02:03 [...] Name and Address Organization Details Recorded Time 94119 Product containin g penicilli n (product) medicatio n hives rash Not available Not available Not available 02/09/2019 24633 8001 SNOMED Kerrie cristina [place] [facility] [...] (BMI) Body weight Heart rate Oxygen saturation Provider Name and Address Organization Details Last Updated DateTime 02/09/2019 177.8 cm 25.8 kg/m2 70249.63 g 74 /min 98 % [facility] 9 13:30:34 Date Recorded Body height Heart rate Oxygen saturation Pain severity - 0-10 verbal numeric rating [Score] - Reported Body mass index (BMI) Body weight Systolic And Diastolic Provider Name and Address Organization Details Last Updated DateTime 9 177.8 cm 76 /min 98 % 6 25.8 kg/m2 75973.6 3 g 126/83 mm[Hg] Khloe solis MD [address] [facility] , [address], [facility] [place], [address], [facility] 9 08:33:04 Date Recorded Body height Heart rate Oxygen saturation Systolic And Diastolic Provider Name and Address Organization Details Last Updated DateTime 03/15/2019 177.8 cm 88 /min 98 % 148/98 mm[Hg] [facility] 03/15/2019 14:42:59 Social History Question Answer Notes LastModified by Organizat [employer] Details LastModified Time Tobacco Smoking Status Never Smoker Quit x 3 years Not Available [employer] 04/14/2020 03:16:11 Which Illicit Or Recreational Drugs Have You Used? No [id number] Information not available 04/14/2020 Education 12 With Some College Information not available 02/09/2019 Live Alone Or With Others? Alone Information not available 02/09/2019 Marital Status [email or web address] Informatio n not available 02/09/2019 How Many Years Have You Smoked Tobacco? 30 [id number] Information not available 04/14/2020 Sex: Unknown Functional Status Question Answer Note LastModified by Organizat ion Details LastModified Time What is your level of alcohol consumption? Moderate [id number] Information not available 04/14/2020 Are you currently employed? No Disability [id number] Information not available 04/14/2020 What is your occupation? [employer] Information not available 02/09/2019 Mental Status None recorded. Family History Relationship Description Onset Age of this Age Resolved Age Notes LastModified by Organization Details LastModified Time Father Heart disease Not available 2018 13:40:11 Medical History Condition Response Arthritis Y High Cholesterol Y Hypertension Y Past Encounters Encounter ID Performer Location Encounter Start Date Encounter Closed Date Diagnosis/Indication Diagnosis SNOMED-CT Code Diagnosis ICD10 Code Diagnosis IMO Codes Diagnosis Note [id number] Khloe Mustafa MD PAIN OFFICE [address] [place] [address] 02/09/2019 13:27:26 02/09/2019 15:40:29 Lumbar post-laminectomy syndrome 832851070 M96.1 Lumbar radiculopathy 128 043081 M54.16 Spinal jhonatan nosis of lumbar region 97687800 M48.061 [id number] Khloe Mustafa MD PAIN OFFICE [address] [place] [address] 02/23/2019 08:13:31 02/24/2019 14:07:59 Lumbar post-laminectomy syndrome 135773964 M96.1 Lumbar radiculopathy 128 907779 M54.16 Spinal jhonatan nosis of lumbar region 16566456 M48.061 [id number] Khloe Mustafa MD PAIN OFFICE [address] [facility] [address] [place] [address] 03/15/2019 14:18:43 03/15/2019 15:19:54 Lumbar post-laminectomy syndrome 165639270 M96.1 Lumbar radiculopathy 128 963672 M54.16 Spinal jhonatan nosis of lumbar region 54984847 M48.061 Health Concerns Section Related Observation LastModified by Organization Detai ls LastModified Time None Recorded Concern Status LastModified by Organization Details LastModified Time None Recorded Advance Directives Directive None Recorded Payers Insurance Date Sequence Insurance Name Policy Number Policy Griffith Covered Member ID Griffith Member ID Guarantor Name 03/15/2019 2 [place] Arnel Fontanez [id number] Arnel Fontanez 03/15/2019 1 [place] B[place] [employer] Arnel Fontanez [id number] Arnel Osegueracher Notes Date Note Type Note Provider Name [...] nerve roots.He has trialed physical therapy at [facility] with no pain benefit. He had a Lumbar epidural steroid injection under fluoroscopic guidance at [facility] prior to his back surgery and had some pain benefit. Khloe Mustafa MD [address] [facility] , [address], [place], [address], [place] [facility] 02/10/2019 09:59:22 02/23/2019 text/html He is here today for a lumbar epidural steroid injection under fluoroscopic guidance. Khloe Musatfa MD [address] [facility] , [address], [place], [address], [place] [facility] 02/24/2019 14:29:58 03/15/2019 text/html [...] bowel incontinence. He had physical therapy at [facility] which aggravated his pain. He has taken percocet in the past which has helped relieve his pain. Khloe Mustafa MD [address] [facility] , [address], [place], [address], [place] [facility] 03/16/2019 17:11:00
--- OUTSIDE RECORDS SUMMARY | 2025-06-14 17:38 | XMS_ITS | Clinical Summary ---
Author Organization [address] Address [address] [place] [address] Phone Care Team Providers Care Canal Boat Captain Name Role Phone Physician, Pcp Unknown Primary [...] on file Sexual Orientation Not on file Plan of Treatment Health Maintenance Due Date [...] Health Screening 10/07/2024 COVID-19 Vaccine (1 - 2024-2 6 season) 2025 Influenza Vaccine (#1) 2025 1, [...] patient's age to complete this topic Insurance [facility] MEDICAID Care Teams Canal Boat Captain Relationship Specialty Start Date End Date Physician, Pcp Unknown PCP - General 10/06/24
--- OUTSIDE RECORDS SUMMARY | 2025-06-14 17:38 | XMS_ITS | Encounter Summary ---
Author Organization [facility] Address [address] [place] [address] Care Team Providers Care Combination Worker Name Role Phone Physician, Pcp Unknown Primary Care Provider Mildred vailable Encounter Details Date Type Department Care Team (Late st Contact Info) Description 10/06/2024 Lab Requisition [facility] - Main Lab [address] [facility] [place] [phone] Kevin Lo, PA [address] [place] [address] Benign essential microscopic hematuria Social History Tobacco [...] AM EDT) Final Diagnosis A. Urine, Voided, ([id number]): Negative for high grade urothelial carcinoma. Scant urothelial cellularity. Results of UroVysion fluorescence in situ hybridization (FISH) testing: Although FISH was performed, insufficient non-obscured hybridization signals are present for evaluation and interpretation. 10/11/2024 5:27 PM EDT [facility] at 1727 EDT Clinical Information Benign essential microscopic hematuria R31.1 Urine Cytology/FISH (now) 10/11/2024 5:27 PM EDT [facility] Gross Description A. Urine, Voided, ([id number]): Received one ThinPrep slide for cytology and one ThinPrep slide for UroVysion FISH 10/11/2024 5:27 PM EDT [facility] Disclaimer Unless otherwise specified, all tissue is 10% NB formalin fixed and paraffin embedded. Technical pathology services provided by [facility] at [address] [facility] [address], [place] [address] (CLIA #[id number]/Emily Roberson MD, Stress Engineer) 10/11/2024 5:27 PM EDT [facility] Tissue Urine specimen from urethra / Unknown 10/01/2024 10/06/2024 3:35 PM EDT [facility] LAB PATHOLOGY ORDERABLES Final Result [facility] [address] [place] [address], documented in this encounter Visit Diagnoses Diagnosis Benign essential microscopic hematuria documented in this encounter Care Teams Combination Worker Relationship Specialty Start Date End Date Physician, Pcp Unknown PCP - General 10/06/24 documented as of this encounter
--- OUTSIDE RECORDS SUMMARY | 2025-06-14 17:38 | XMS_ITS | Data Portability ---
Author Organization [place] - [facility], Allergy Address [address] [place] [id number] Care Team Providers Care Computer Assembler Name Role Phone CITLALI ANTHONY Primary Care Provider Assessment No assessment recorded. Plan of Treatment Reminders Order Date Submit Date Provider Last Modified By Organization Details Last Modified Time Details Appointments Establocated within [facility] 30 2025 11:00A M ANJUM Monk MD Not available Not available Not available Lab None recorded . Referral None recorded . Procedures None recorded . Surgeries None recorded . Imaging CT, sinuses, w/o contrast 2024 025 [email or web address] Ents [facility], [address] [place] [address], [place], [address], 07/29/2024 16:47:07 CT, sinuses, w/o contrast - to be done in office at f/u 2023 024 [email or web address] Not available 06/04/2024 10:10:12 Medication Orders predniso ne 10 mg tablet 2024 025 [facility], [address] [place] [address], [id number], 07/29/2024 16:18:42 doxycycl ine hyclate 100 mg tablet 2024 025 [facility], [address] [place] [address], [id number], 07/29/2024 16:20:37 Patient TargetsNo targets recorded. Patient InstructionsNo instructions recorded. Reason for Referral None Reported. Results Created Date Observation Date Name Description Value Unit Range Abnormal Flag Note LastModifiedBy Organization Detail LastModifiedTime 06/03/2004/12/2024 MRI, brain + brain stem, w/o contr ast No observ ation record ed. [email or web address] Not Available 10/2023 15:22:54 07/29/19 CT, sinus es, w/o contr ast No observ ation record ed. [email or web address] Ents [address], [address], 07/29/2024 14:42:14 08/12/19 25 07/29/2024 CT, sinus es, w/o contr ast No observ ation record ed. [email or web address] [facility] [place] [address], [place], [address], 08/12/2024 13:13:57 Result Notes None recorded. Problems Name Problem SNOMED Code Status Onset Date Resolution Date Notes Provider Name and Address Organization Details Recorded Time Dysphagia 97560249 Active 2016 Dysphagia , unspecifi ed; Note: Date Diagnosed : 11/13/2016 10:29 AM (R13.10) Not Available [facility] 4 02:49:30 Bilateral tinnitus 75692944956 02 Active 2016 Tinnitus, bilateral ; Note: Date Diagnosed : 11/13/2016 10:09 AM (H93.13) Not Available [facility] 4 02:49:34 Sensorine ural hearing loss of bilateral ears 693469154 Active 2016 Sensorine ural hearing loss, bilateral ; Note: Date Diagnosed : 11/13/2016 10:09 AM (H90.3) Not Available [facility] 4 02:49:35 Chronic left maxillary sinusitis 06258275416 415991 Active 2023 ANJUM BENÍTEZ MD [address] [place] [address], [place], [address] , [facility] - [facility] 4 15:10:54 Chronic pain in face 169293780 Active 2023 ANJUM BENÍTEZ MD [address] [facility] [address], [place], [address] , [facility] - [facility] 4 15:11:02 Chronic sinusitis 44002741 Active 2023 ANJUM BENÍTEZ MD [address] [facility],[place] [address], [facility] [place], [address] , [facility] - [facility] 4 15:16:37 Allergic fungal sinusitis 465824453 Active 2024 ANJUM BENÍTEZ MD [address] [facility] [address], [place], [address] , [facility] - [facility] 5 14:50:20 Problem Notes None recorded. Procedures Surgical History Date Name Laterality Status Provider Name and Address Organization Details Recorded Time 04/26/2025 NasalEndos copy_DP completed ANJUM BENÍTEZ MD [address] [facility],[place] [address], [place], [address], [facility] 04/26/2025 09:11:07 06/03/2024 NasalEndos copy_DP completed ANJUM BENÍTEZ MD [address] [facility],[place] [address], [place], [address], [facility] 06/03/2024 15:11:07 Imaging Results None recorded. Procedure Notes None recorded. Medical Equipment None Reported. Allergies Allergen ID Allergen Name Allergen Category Reaction Reaction Severity Criticality Documentation Date Start Date Code Code System Note Provider Name and Address Organization Details Recorded Time 318046 Product containin g penicilli n (product) medicatio n other Not available Not available 11/11/2023 01934 8008 SNOMED React ion: unkno wn, unspe cifie [...] mg tablet 2016 active Medicatio n ID: [id number] Du ration Value: 30 Brand Name: bupropion [...] hours as needed active Medicatio n ID: [id number] Du ration Value: 3 Brand Name: Percocet [...] mg tablet 2015 active Medicatio n ID: [id number] Du ration Value: 30 Brand Name: metoprolo [...] Updated DateTime 07/29/2024 177.8 cm 25.1 kg/m2 93950.66 g Henrique Haro [facility] 07/29/2024 14:12:54 Date Recorded Body height Body mass index (BMI) Body weight Systolic And Diastolic Provider Name and Address Organization Details Last Updated DateTime 04/26/2025 177.8 cm 25.1 kg/m2 40752.66 g 131/94 mm[Hg] Henrique Haro [facility] 04/26/2025 09:04:28 Date Recorded Body height Body mass index (BMI) Body weight Provider Name and Address Organization Details Last Updated DateTime 06/03/2024 177.8 cm 25.1 kg/m2 67368.66 g Henrique Haro [facility] 06/03/2024 15:13:41 Social History None recorded. Functional Status None recorded. Mental Status None recorded. Family History Nothing Reported. Medical History No medical history recorded. Past Encounters Encounter ID Performer Location Encounter Start Date Encounter Closed Date Diagnosis/Indication Diagnosis SNOMED-CT Code Diagnosis ICD10 Code Diagnosis IMO Codes Diagnosis Note [id number] ANJUM BENÍTEZ MD [facility] [address] [address] 06/03/2024 14:21:17 06/03/2024 16:52:58 Chronic left maxillary sinusitis [id number] 1289230 J32.0 No polyps or purulence on nasal endo. I recommend he take the course of doxy from his PCP. I will plan a f/u with a CT first in 4-8 weeks to check for persistent left maxillary sinusitis and to evaluate for a fungal ball given the MRI. Chronic pain in face 432 195803 R51.9 see above [id number] ANJUM BENÍTEZ MD [facility] [address] [place] [address] 07/29/2024 13:30:29 07/29/2024 14:55:07 Chronic left maxillary sinusitis 8181395632 1074751 J32.0 Has persistent sinusitis despite doxycyclin e. [...] g surgery. Chronic pain in face 432 997622 R51.9 likely due to chronic sinusitis Allergic f ungal sinusitis 640843599 B49 ct consistent with allergic fungal sinusitis. we will try one more round of maximal medical therapy before pursuing surgery. I discussed the risk of avascular hip necrosis with prednisone . [id number] ANJUM BENÍTEZ MD [facility] [address] [place] [address] 04/26/2025 08:47:36 04/26/2025 09:12:14 Chronic left maxillary sinusitis 5404866708 9530601 J32.0 See below. Allergic f ungal sinusitis 529942403 B49 ct consistent with allergic fungal sinusitis. [...] Member ID Guarantor Name 04/26/2025 2 [place] [facility] Arnel Fontanez [id number] Arnel Fontanez 04/26/2025 1 [facility] - DOS ON OR AFTER 2022 - DUAL ELIGIBLE - MEDICARE ADVANTAGE [place] (MEDICARE REPLACEMENT/A DVANTAGE - HMO) Arnel Fontanez [id number] Arnel Fontanez 04/26/2025 1 [facility] - DOS ON OR AFTER 2022 - ONE CARE (MEDICARE REPLACEMENT/A DVANTAGE - HMO) Arnel Fontanez [id number] Arnel Fontanez 04/26/2025 1 [facility] - DOS ON OR AFTER 2022 - ONE CARE (MEDICARE REPLACEMENT/A DVANTAGE - HMO) Arnel Fontanez [id number] Arnel Fontanez 04/26/2025 2 [place] [facility] Arnel Fontanez [id number] Arnel Fontanez Notes Date Note Type Note [...] infection was seen. ANJUM BENÍTEZ MD [address] [facility],[address], [address], [place] - [facility] 06/03/2024 15:17:21 07/29/2024 text/html ROS as noted [...] infection was seen. ANJUM BENÍTEZ MD [address] [facility],[address], [address], [facility] - [facility] 07/30/2024 07:48:31 04/26/2025 text/html ROS as noted [...] a surgeon Friday. ANJUM BENÍTEZ MD [address] [facility],[place] [address], [place], [address], [facility] - [facility] 04/26/2025 09:12:38
== END 2025-04-01 08:01 | disposition home or self-care (01) ==
LOC: HO.RHESR 08:00
PROVIDERS: Visit Provider Student in an Organized Health Care Education/Training Program
DX: M79.632 Pain in left forearm (principal)
CPT/HCPCS: 76882

== ENCOUNTER 2025-04-01 14:54 | Outpatient (AMB) | payer OTHER, SELFPAY ==
--- OUTSIDE RECORDS SUMMARY | 2025-04-01 14:57 | XMS_ITS | Encounter Summary ---
Author Organization [facility] Address [address] [place] [address] Phone Care Team Providers Care Translator Interpreter Name Role Phone Gigi Fraser MD Primary Care Provider [phone] Encounter Details Date Type Department Care Team (Late Contact Info) Description 09/24/2024 Orders Only [facility] [address] [place] [address] Bola Rodriguez DO [address] [facility] [address] [place] [address] Acute tubulo-interstitial nephritis; Other acute [...] Visit [facility] [address] [place] [address] Bola Rodriguez DO [address] [facility] [address] [place] [address] documented as of this encounter Visit Diagnoses Diagnosis Acute tubulo-interstitial nephritis Other acute kidney failure (HCC) Hypertension Stage 3a chronic kidney disease (HCC) documented in this encounter Care Teams Translator Interpreter Relationship Specialty Start Date End Date Gigi Fraser MD [address] [place] [address] PCP - General Internal Medicine 07/16/23 documented as of this encounter
--- OUTSIDE RECORDS SUMMARY | 2025-04-01 14:57 | XMS_ITS | Encounter Summary ---
Author Organization [facility] [place], Address [address] [place] [address] Phone Care Team Providers Care Vocational Case Manager Name Role Phone Gigi Fraser MD Primary Care Provider [phone] Encounter Details Date Type Department Care Team (Late st Contact Info) Description 07/16/2024 Orders Only [facility] [address] [place] [address] Bola Rodriguez DO [address] [facility] [place] [address] Acute tubulo-interstitial nephritis; Hypokalemia; Hypertension; [...] Visit [facility] [address] [address] Bola Rodriguez DO [address] [facility] [place] [address] documented as [...] None seen 0 - 5 /hpf [facility] RBC, Urine None seen 0 - 2 /hpf [facility] Squamous Epithelial, Urine None seen 0 - 10 /hpf [facility] Casts None seen None seen /lpf [facility] Bacteria, Urine None seen None seen/Few [facility] 07/25/2024 9:54 AM EST 07/25/2024 Bola Rodriguez DO LAB MICROBIOLOGY - GENERAL ORDE ANASTACIO Final Result [facility] [address] [place] [address] * Urinalysis with microscopic (07/25/2024 9:54 AM EST) Specific [place], Urine 1.019 1.005 - 1.030 [facility] pH Urine 7.0 5.0 - 7.5 [facility] Color, Urine Yellow Yellow [facility] Appearance Urine Clear Clear [facility] [place] [phone] WBC Esterase Urine Negative Negative [facility] Protein, Ur Trace Negative/Tra ce [facility] Glucose, Ur Negative Negative [facility] Ketones, Urine Negative Negative [facility] [place] Blood Urine Negative Negative [facility] [phone] Bilirubin Urine Negative Negative [facility] [place] Urobilinogen Urine 0.2 0.2 - 1.0 mg/dL [facility] [phone] Nitrite, Urine Negative Negative [facility] [place] Microscopic Examination Comment [facility] [phone] Comment:Microscopic follows if indicated. Other Microsc. Observations See below: [facility] Comment:Microscopic was cely cated and was performed. Urine specimen (specimen) Urine specimen obtained by clean catch procedure / Unknown 07/25/2024 9:54 AM EST 07/25/2024 us Bola Rodriguez DO LAB URINE ORDERABLES Final Resu lt [facility] [address] [place] [address] * Sedimentation Rate (07/25/2024 9:54 AM EST) Sed Rate 14 0 - 30 mm/hr [facility] Blood specimen (specimen) Venous blood / Unknown 07/25/2024 9:54 AM EST 07/25/2024 Bola Haydenry DO LAB BLOOD ORDERABLES Final Resu lt Performing Organization Address City/[facility] Co de Phone Number [facility] [address] [place] [address] * Urine Protein / creatinine ratio (07/25/2024 9:54 AM EST) Creatinine, Ur 172.5 Not Estab. mg/dL [facility] Protein, Ur 15.1 Not Estab. mg/dL [facility] Urine Protein/Creatin ine Ratio 88 0 - 200 mg/g creat [facility] Urine specimen (specimen) Urine specimen obtained by clean catch procedure / Unknown 07/25/2024 9:54 AM EST 07/25/2024 Bola Rodriguez DO LAB URINE ORDERABLES Final Resu lt Performing Organization Address [facility] Co de Phone Number [facility] [address] [place] [address] * Magnesium (07/25/2024 9:54 AM EST) Magnesium 2.1 1.6 - 2.3 mg/dL [facility] Blood specimen (specimen) Venous blood / Unknown 07/25/2024 9:54 AM EST 07/25/2024 Bola Haydenry DO LAB BLOOD ORDERABLES Final Resu lt Performing Organization Address City/[facility]/ZIP Co de Phone Number [facility] [address] [place] [address] * (ABNORMAL) Renal Function Panel (07/25/2024 9:54 AM EST) Glucose 90 70 - 99 mg/dL [facility] BUN 18 8 - 27 mg/dL [facility] Creatinine 1.93(H) 0.76 - 1.27 mg/dL [facility] eGFR CKD-EPI CR 2020 39(L) >59 mL/min/1.7 3 [facility] BUN/Creatinine Ratio 9(L) 10 - 24 [facility] Sodium 137 134 - 144 mmol/L [facility] Potassium 4.3 3.5 - 5.2 mmol/L [facility] Bicarbonate (CO2) 24 20 - 29 mmol/L [facility] Calcium 11.0(H) 8.6 - 10.2 mg/dL [facility] Comment:Verified by repeat analysis Phosphorus 3.4 2.8 - 4.1 mg/dL [facility] Albumin 5.1(H) 3.8 - 4.9 g/dL [facility] Chloride 98 96 - 106 mmol/L [facility] Blood specimen (specimen) Venous blood / Unknown 07/25/2024 9:54 AM EST 07/25/2024 us Bola Rodriguez DO LAB BLOOD ORDERABLES Final Resu lt [facility] [address] [place] [address] documented in this encounter Visit Diagnoses Diagnosis Acute tubulo-interstitial nephritis Hypokalemia Hypertension Stage 3a chronic kidney disease (HCC) documented in this encounter Care Teams Vocational Case Manager Relationship Specialty Start Date End Date Gigi Fraser MD [address] [place] [address] PCP - General Internal Medicine 07/16/23 documented as of this encounter
--- OUTSIDE RECORDS SUMMARY | 2025-04-01 14:57 | XMS_ITS | Encounter Summary ---
Author Organization [facility] Address [address] [place] [address] Phone Care Team Providers Care Hris Coordinator Name Role Phone Gigi Fraser MD Primary Care Provider [phone] Encounter Details Date Type Department Care Team (Late Contact Info) Description 06/04/2024 Orders Only [facility] [address] [place] [address] Bola Rodriguez DO [address] [facility] [place] [address] Acute tubulo-interstitial nephritis; Other acute [...] And Transplant [facility] [address] [place] [address] Bola Rodriguez DO [address] [facility] [place] [address] documented as of this encounter Visit Diagnoses Diagnosis Acute tubulo-interstitial nephritis Other acute kidney failure (HCC) Hypertension Stage 3a chronic kidney disease (HCC) documented in this encounter Care Teams Hris Coordinator Relationship Specialty Start Date End Date Gigi Fraser MD [address] [place] [address] PCP - General Internal Medicine 07/16/23 documented as of this encounter
--- OUTSIDE RECORDS SUMMARY | 2025-04-01 14:57 | XMS_ITS | Encounter Summary ---
Author Organization [facility] Address [address] [place] [address] Phone Care Team Providers Care Aircraft Restorer Name Role Phone Gigi Fraser MD Primary Care Provider [phone] Encounter Details Date Type Department Care Team (Late st Contact Info) Description 12/31/2024 Orders Only [facility] [address] [place] [address] Bola Rodriguez DO [address] [facility] [place] [place] [address] Acute tubulo-interstitial nephritis; Hypokalemia; Hypertension; [...] Visit [facility] [address] [place] [address] Bola Rodriguez DO [address] [facility] [place] [address] documented as of this encounter Procedures [...] Urine 0-5 0 - 5 /hpf [facility] RBC, Urine None seen 0 - 2 /hpf [facility] Squamous Epithelial, Urine 0-10 0 - 10 /hpf [facility] Casts None seen None seen /lpf [facility] Bacteria, Urine None seen None seen/Few [facility] 01/30/2025 9:25 AM EDT 01/30/2025 Bola Rodriguez DO LAB MICROBIOLOGY - GENERAL ORDE RABLES Final Result [facility] [address] [place] [address] * (ABNORMAL) Urinalysis with microscopic (01/30/2025 9:25 AM EDT) Specific [place], Urine 1.008 1.005 - 1.030 [facility] [phone] pH Urine 6.5 5.0 - 7.5 [facility] Color, Urine Yellow Yellow [facility] Appearance Urine Clear Clear [facility] [place] WBC Esterase Urine Trace(A) Negative [facility] [phone] Protein, Ur 2+(A) Negative/Tra ce [facility] Glucose, Ur Negative Negative [facility] Ketones, Urine Negative Negative [facility] [place] Blood Urine 3+(A) Negative [facility] Bilirubin Urine Negative Negative [facility] [place] Urobilinogen Urine 0.2 0.2 - 1.0 mg/dL [facility] Nitrite, Urine Negative Negative [facility] [place] Microscopic Examination See below: [facility] Comment:Microscopic was cely cated and was performed. Urine specimen (specimen) Urine specimen obtained by clean catch procedure / Unknown 01/30/2025 9:25 AM EDT 01/30/2025 Bola Rodriguez DO LAB URINE ORDERABLES Final Resu lt [facility] [place] [address] [place] [address] * Sedimentation Rate (01/30/2025 9:25 AM EDT) Sed Rate 9 0 - 30 mm/hr [facility] Blood specimen (specimen) Venous blood / Unknown 01/30/2025 9:25 AM EDT 01/30/2025 Bola Rodriguez DO LAB BLOOD ORDERABLES Final Resu lt Performing Organization Address [facility] Co de Phone Number [facility] [address] [place] [address] * (ABNORMAL) Urine Protein / creatinine ratio (01/30/2025 9:25 AM EDT) Creatinine, Ur 29.9 Not Estab. mg/dL [facility] Protein, Ur 33.0 Not Estab. mg/dL [facility] Urine Protein/Creati nine Ratio 1,104(H) 0 - 200 mg/g creat [facility] Urine specimen (specimen) Urine specimen obtained by clean catch procedure / Unknown 01/30/2025 9:25 AM EDT 01/30/2025 us Bola Rodriguez DO LAB URINE ORDERABLES Final Resu lt Performing Organization Address [facility] Co de Phone Number [facility] [address] [place] [address] * Magnesium (01/30/2025 9:25 AM EDT) Magnesium 2.2 1.6 - 2.3 mg/dL [facility] Blood specimen (specimen) Venous blood / Unknown 01/30/2025 9:25 AM EDT 01/30/2025 us Bola Rodriguez DO LAB BLOOD ORDERABLES Final Resu lt [id number] [address] [place] [address] * (ABNORMAL) Renal Function Panel (01/30/2025 9:25 AM EDT) Glucose 94 70 - 99 mg/dL [facility] BUN 17 8 - 27 mg/dL [facility] Creatinine 2.00(H) 0.76 - 1.27 mg/dL [facility] eGFR CKD-EPI CR 2020 38(L) >59 mL/min/1.7 3 [facility] BUN/Creatinine Ratio 9(L) 10 - 24 [facility] Sodium 138 134 - 144 mmol/L [facility] Potassium 3.8 3.5 - 5.2 mmol/L [facility] Chloride 105 96 - 106 mmol/L [facility] Bicarbonate (CO2) 17(L) 20 - 29 mmol/L [facility] Calcium 9.0 8.6 - 10.2 mg/dL [facility] Phosphorus 2.5(L) 2.8 - 4.1 mg/dL [facility] Albumin 4.7 3.8 - 4.9 g/dL [facility] Blood specimen (specimen) Venous blood / Unknown 01/30/2025 9:25 AM EDT 01/30/2025 us Bola Rodriguez DO LAB BLOOD ORDERABLES Final Resu lt [facility] [place] [address] [place] [address] documented in this encounter Visit Diagnoses Diagnosis Acute tubulo-interstitial nephritis Hypokalemia Hypertension Stage 3a chronic kidney disease (HCC) documented in this encounter Care Teams Aircraft Restorer Relationship Specialty Start Date End Date Gigi Fraser MD [address] [place] [address] PCP - General Internal Medicine 07/16/23 documented as of this encounter
--- OUTSIDE RECORDS SUMMARY | 2025-04-01 14:57 | XMS_ITS | Encounter Summary ---
Author Organization [facility] [place], Address [address] [place] [address] Phone Care Team Providers Care Transmitter Supervisor Name Role Phone Gigi Fraser MD Primary Care Provider [phone] Encounter Details Date Type Department Care Team (Late st Contact Info) Description 07/16/2023 Documentation Only [facility] Of [address] [place] [address] [place] [address] [place] [address] Social History Tobacco Use Types [...] Visit [facility] Of [address] [place] [address] Bola Rodriguez DO [address] [place] [address] [place] [address] documented as of this encounter Visit Diagnoses Not on filedocumented in this encounter Care Teams Transmitter Supervisor Relationship Specialty Start Date End Date Gigi Fraser MD [address] [place] [address] PCP - General Internal Medicine 07/16/23 documented as of this encounter
--- OUTSIDE RECORDS SUMMARY | 2025-04-01 14:57 | XMS_ITS | Encounter Summary ---
Author Organization [facility] Address [address] [place] [address] Phone Care Team Providers Care Commercial Loan Underwriter Name Role Phone Gigi Fraser MD Primary Care Provider [phone] Encounter Details Date Type Department Care Team (Late Contact Info) Description 07/30/2024 Orders Only [facility] [address] [place] [address] Bola Rodriguez DO [address] [place] [address] Acute tubulo-interstitial nephritis; Other acute [...] Transplant [facility] [address] [place] [address] Bola Rodriguez DO [address] [place] [address] documented as of this encounter [...] None seen 0 - 5 /hpf [facility] RBC, Urine None seen 0 - 2 /hpf [facility] Squamous Epithelial, Urine None seen 0 - 10 /hpf [facility] Casts None seen None seen /lpf [facility] Bacteria, Urine None seen None seen/Few [facility] 08/22/2024 8:14 AM EST 08/22/2024 us Bola Rodriguez DO LAB MICROBIOLOGY - GENERAL ORDE ANASTACIO Final Result [facility] [address] [place] [phone] * (ABNORMAL) Urine Protein / creatinine ratio (08/22/2024 8:14 AM EST) Creatinine, Ur 55.0 Not Estab. mg/dL [facility] Protein, Ur 28.6 Not Estab. mg/dL [facility] Urine Protein/Creati nine Ratio 520(H) 0 - 200 mg/g creat [facility] Urine specimen (specimen) Urine specimen obtained by clean catch procedure / Unknown 08/22/2024 8:14 AM EST 08/22/2024 us Bola Rodriguez DO LAB URINE ORDERABLES Final Resu lt [facility] [address] [place] [address] * (ABNORMAL) Urinalysis with microscopic (08/22/2024 8:14 AM EST) Specific [place], Urine 1.012 1.005 - 1.030 [facility] pH Urine 6.0 5.0 - 7.5 [facility] Color, Urine Yellow Yellow [facility] Appearance Urine Clear Clear [facility] WBC Esterase Urine Negative Negative [facility] Protein, Ur 1+(A) Negative/Tra ce [facility] Glucose, Ur Negative Negative [facility] Ketones, Urine Negative Negative [facility] Blood Urine Negative Negative [facility] Bilirubin Urine Negative Negative [facility] Urobilinogen Urine 0.2 0.2 - 1.0 mg/dL [facility] Nitrite, Urine Negative Negative [facility] Microscopic Examination See below: [facility] Comment:Microscopic was cely cated and was performed. Urine specimen (specimen) Urine specimen obtained by clean catch procedure / Unknown 08/22/2024 8:14 AM EST 08/22/2024 Bola Rodriguez DO LAB URINE ORDERABLES Final Resu lt Performing Organization Address City/[facility]/ZIP Co de Phone Number [facility] [address] [place] [address] * Magnesium (08/22/2024 8:14 AM EST) Pathologist [facility] Magnesium 2.0 1.6 - 2.3 mg/dL [facility] Blood specimen (specimen) Venous blood / Unknown 08/22/2024 8:14 AM EST 08/22/2024 Bolajez Rodriguez DO LAB BLOOD ORDERABLES Final Resu lt Performing Organization Address City/[facility]/ZIP Co de Phone Number [facility] [address] [place] [address] * (ABNORMAL) Renal Function Panel (08/22/2024 8:14 AM EST) Glucose 105(H) 70 - 99 mg/dL [facility] BUN 18 8 - 27 mg/dL [facility] Creatinine 1.84(H) 0.76 - 1.27 mg/dL [facility] eGFR CKD-EPI CR 2020 41(L) >59 mL/min/1.7 3 [facility] BUN/Creatinine Ratio 10 10 - 24 [facility] Sodium 140 134 - 144 mmol/L [facility] Potassium 4.4 3.5 - 5.2 mmol/L [facility] Chloride 102 96 - 106 mmol/L [facility] Bicarbonate (CO2) 25 20 - 29 mmol/L [facility] Calcium 10.0 8.6 - 10.2 mg/dL [facility] Albumin 4.6 3.8 - 4.9 g/dL [facility] Phosphorus 3.7 2.8 - 4.1 mg/dL [facility] Blood specimen (specimen) Venous blood / Unknown 08/22/2024 8:14 AM EST 08/22/2024 us Bola Rodriguez DO LAB BLOOD ORDERABLES Final Resu lt [facility] [address] [place] [address] documented in this encounter Visit Diagnoses Diagnosis Acute tubulo-interstitial nephritis Other acute kidney failure (HCC) Hypertension Stage 3a chronic kidney disease (HCC) documented in this encounter Care Teams Commercial Loan Underwriter Relationship Specialty Start Date End Date Gigi Fraser MD [address] [place] [address] PCP - General Internal Medicine 07/16/23 documented as of this encounter
--- OUTSIDE RECORDS SUMMARY | 2025-04-01 14:57 | XMS_ITS | Encounter Summary ---
Author Organization [facility] Address [address] [place] [address] Phone Care Team Providers Care Product Responsibility Liaison Name Role Phone Gigi Fraser MD Primary Care Provider [phone] Encounter Details Date Type Department Care Team (Late Contact Info) Description 07/02/2024 Orders Only [facility] [address] [place] [address] Bola Rodriguez DO [address] [place] [address] Acute tubulo-interstitial nephritis; Other acute [...] Visit [facility] [address] [place] [address] Bola Rodriguez DO [address] [place] [address] documented as of this encounter Visit Diagnoses Diagnosis Acute tubulo-interstitial nephritis Other acute kidney failure (HCC) Hypertension Stage 3a chronic kidney disease (HCC) documented in this encounter Care Teams Product Responsibility Liaison Relationship Specialty Start Date End Date Gigi Fraser MD [address] [place] [address] PCP - General Internal Medicine 07/16/23 documented as of this encounter
--- OUTSIDE RECORDS SUMMARY | 2025-04-01 14:57 | XMS_ITS | Encounter Summary ---
Author Organization [facility] [place], Address [address] [place] [address] Phone Care Team Providers Care Vp Training Name Role Phone Gigi Fraser MD Primary Care Provider [phone] Encounter Details Date Type Department Care Team (Late st Contact Info) Description 07/16/2023 Documentation Only [facility] [address] [place] [address] [place], [place] [address] [place] [address] Social History Tobacco Use Types [...] Visit [facility] [address] [place] [address] Bola Rodriguez DO [address] [place] [address] [place] [address] documented as of this encounter Visit Diagnoses Not on filedocumented in this encounter Care Teams Vp Training Relationship Specialty Start Date End Date Gigi Fraser MD [address] [place] [address] PCP - General Internal Medicine 07/16/23 documented as of this encounter
--- OUTSIDE RECORDS SUMMARY | 2025-04-01 14:57 | XMS_ITS | Clinical Summary ---
Author Organization [facility], Address [address] [place] [address] Phone Care Team Providers Care Cryptographic Technician Name Role Phone Gigi Fraser MD Primary Care Provider [phone] Allergies Active Allergy Reactions Criticality Noted Date [...] [facility] [address] [place] [place] [address] Bola Rodriguez DO Other acute kidney failure (HCC); Stage 3b chronic kidney disease (HCC); Chronic tubulointerstitial nephritis 02/25/2025 Orders Only [facility] [address] [place] [place] [address] Bola Rodriguez DO Acute tubulo-interstitial nephritis; Hypokalemia; Hypertension; Stage 3a chronic kidney disease (HCC) 02/04/2025 Orders Only [facility] [address] [place] [place] [address] Bola Rodriguez DO Stage 3b chronic kidney disease (HCC) (Primary Dx); Chronic tubulointerstitial nephritis 01/31/2025 Refill [facility] [address] [place] [place] [address] Bola Rodriguez DO 12/31/2024 Orders Only [facility] [address] [place] [address] Bola Rodriguez DO Acute tubulo-interstitial nephritis; Hypokalemia; [...] Visit [facility] [place], [address] [place] [address] Bola Rodriguez, [address] [place] [address] Health Maintenance Due Date Last Done Comments [...] NOT USE Routine 01/30/2025 9:25 AM EDT from Last 3 Months Results * Microscopic Examination (01/30/2025 9:25 AM EDT) WBC, Urine 0-5 0 - 5 /hpf [facility] RBC, Urine None seen 0 - 2 /hpf [facility] Squamous Epithelial, Urine 0-10 0 - 10 /hpf [facility] Casts None seen None seen /lpf [facility] Bacteria, Urine None seen None seen/Few [facility] 01/30/2025 9:25 AM EDT 01/30/2025 Bola Rodriguez DO LAB MICROBIOLOGY - GENERAL [facility]DE [facility] Final Result [facility] [address] [place] [phone] * (ABNORMAL) Urine Protein / creatinine ratio (01/30/2025 9:25 AM EDT) Creatinine, Ur 29.9 Not Estab. mg/dL [facility] Protein, Ur 33.0 Not Estab. mg/dL [facility] Urine Protein/Creati nine Ratio 1,104(H) 0 - 200 mg/g creat [facility] Urine specimen (specimen) Urine specimen obtained by clean catch procedure / Unknown 01/30/2025 9:25 AM EDT 01/30/2025 Bola Rodriguez DO LAB URINE ORDERABLES Final Resu lt [facility] [address] [place] [address] * (ABNORMAL) Urinalysis with microscopic (01/30/2025 9:25 AM EDT) Specific [place], Urine 1.008 1.005 - 1.030 [facility] pH Urine 6.5 5.0 - 7.5 [facility] [phone] Color, Urine Yellow Yellow [facility] Appearance Urine Clear Clear [facility] WBC Esterase Urine Trace(A) Negative [facility] Protein, Ur 2+(A) Negative/Tra ce [facility] [phone] Glucose, Ur Negative Negative [facility] Ketones, Urine Negative Negative [facility] Blood Urine 3+(A) Negative [facility] Bilirubin Urine Negative Negative [facility] Urobilinogen Urine 0.2 0.2 - 1.0 mg/dL [facility] Nitrite, Urine Negative Negative [facility] Microscopic Examination See below: [facility] Comment:Microscopic was cely cated and was performed. Urine specimen (specimen) Urine specimen obtained by clean catch procedure / Unknown 01/30/2025 9:25 AM EDT 01/30/2025 us Bola Rodriguez DO LAB URINE ORDERABLES Final Resu lt [facility] [address] [place] [address] * Sedimentation Rate (01/30/2025 9:25 AM EDT) Pathologist [facility] Sed Rate 9 0 - 30 mm/hr [facility] Blood specimen (specimen) Venous blood / Unknown 01/30/2025 9:25 AM EDT 01/30/2025 Bola Rodriguez LAB BLOOD ORDERABLES Final Resu lt Performing Organization Address City/[facility]/ZIP Co de Phone Number [facility] [address] [place] [address] * Magnesium (01/30/2025 9:25 AM EDT) Magnesium 2.2 1.6 - 2.3 mg/dL [facility] Blood specimen (specimen) Venous blood / Unknown 01/30/2025 9:25 AM EDT 01/30/2025 Bola Rodriguez LAB BLOOD ORDERABLES Final Resu lt Performing Organization Address City/[facility] de Phone Number [facility] [address] [place] [address] * (ABNORMAL) Renal Function Panel (01/30/2025 9:25 AM EDT) Glucose 94 70 - 99 mg/dL [facility] BUN 17 8 - 27 mg/dL [facility] Creatinine 2.00(H) 0.76 - 1.27 mg/dL [facility] eGFR CKD-EPI CR 2020 38(L) >59 mL/min/1.7 3 [facility] BUN/Creatinine Ratio 9(L) 10 - 24 [facility] Sodium 138 134 - 144 mmol/L [facility] Potassium 3.8 3.5 - 5.2 mmol/L [facility] Chloride 105 96 - 106 mmol/L [facility] Bicarbonate (CO2) 17(L) 20 - 29 mmol/L [facility] Calcium 9.0 8.6 - 10.2 mg/dL [facility] Phosphorus 2.5(L) 2.8 - 4.1 mg/dL [facility] Albumin 4.7 3.8 - 4.9 g/dL [facility] Blood specimen (specimen) Venous blood / Unknown 01/30/2025 9:25 AM EDT 01/30/2025 Bola Rodriguez DO LAB BLOOD ORDERABLES Final Resu lt [facility] [address] [place] [address] from Last 3 Months Insurance [employer] Dual SNP ([id number]) [place]AB[place] [id number] Care Teams Cryptographic Technician Relationship Specialty Start Date End Date Gigi Fraser MD [address] [place] [address] PCP - General Internal Medicine 07/16/23
--- OUTSIDE RECORDS SUMMARY | 2025-04-01 14:58 | XMS_ITS | Encounter Summary ---
Author Organization [facility] [place], Address [address] [place] [address] Phone Care Team Providers Care Heat Transfer Technician Name Role Phone Gigi Fraser MD Primary Care Provider [phone] Encounter Details Date Type Department Care Team (Late st Contact Info) Description 09/17/2023 Documentation Only [facility] Of [address] [place] [address] Bola Rodriguez DO [address] [facility] [address] [place] [address] Social History Tobacco Use Types [...] And Transplant Services Of [facility] [address] [place] [address] Bola Rodriguez DO [address] [place] [address] documented as of this encounter Visit Diagnoses Not on filedocumented in this encounter Care Teams Heat Transfer Technician Relationship Specialty Start Date End Date Gigi Fraser MD [address] [place] [address] PCP - General Internal Medicine 07/16/23 documented as of this encounter
--- OUTSIDE RECORDS SUMMARY | 2025-04-01 14:58 | XMS_ITS | Encounter Summary ---
Author Organization [facility] Address [address] [place] [address] Phone Care Team Providers Care Professional Volleyball Player Name Role Phone Gigi Fraser MD Primary Care Provider [phone] Encounter Details Date Type Department Care Team (Late st Contact Info) Description 05/21/2024 Orders Only [facility] Of [address] [place] [address] Bola Rodriguez DO [address] [facility] [place] [address] Acute tubulo-interstitial nephritis; Hypokalemia; Hypertension; [...] Services Of [facility] [address] [place] [address] Bola Rodriguez DO [address] [facility] [place] [address] documented as of this encounter Visit Diagnoses Diagnosis Acute tubulo-interstitial nephritis Hypokalemia Hypertension Stage 3a chronic kidney disease (HCC) documented in this encounter Care Teams Professional Volleyball Player Relationship Specialty Start Date End Date Gigi Fraser MD [address] [place] [address] PCP - General Internal Medicine 07/16/23 documented as of this encounter
--- OUTSIDE RECORDS SUMMARY | 2025-04-01 14:58 | XMS_ITS | Encounter Summary ---
Author Organization [facility] Address [address] [place] [address] Phone Care Team Providers Care Dresser Tender Name Role Phone Gigi Fraesr MD Primary Care Provider [phone] Encounter Details Date Type Department Care Team (Late Contact Info) Description 03/12/2024 Orders Only [facility] [address] [address] Bola Rodriguez DO [address] [place] [address] Acute tubulo-interstitial nephritis; Other acute [...] Services Of [facility] [address] [place] [address] Bola Rodriguez DO [address] [place] [address] documented as of this encounter Visit Diagnoses Diagnosis Acute tubulo-interstitial nephritis Other acute kidney failure (HCC) Hypertension Stage 3a chronic kidney disease (HCC) documented in this encounter Care Teams Dresser Tender Relationship Specialty Start Date End Date Gigi Fraser MD [address] [place] [address] PCP - General Internal Medicine 07/16/23 documented as of this encounter
--- OUTSIDE RECORDS SUMMARY | 2025-04-01 14:58 | XMS_ITS | Encounter Summary ---
Author Organization [facility] [place], Address [address] [place] [address] Phone Care Team Providers Care Print Operator Name Role Phone Gigi Fraser MD Primary Care Provider [phone] Encounter Details Date Type Department Care Team (Late st Contact Info) Description 10/09/2023 Documentation Only [facility] Of [address] [place] [address] Bola Rodriguez DO [address] [place] [address] Social History Tobacco Use Types [...] [facility] [address] [place] [address] Bola Rodriguez DO [address] [place] [address] documented as of this encounter Visit Diagnoses Not on filedocumented in this encounter Care Teams Print Operator Relationship Specialty Start Date End Date Gigi Fraser MD [address] [place] [address] PCP - General Internal Medicine 07/16/23 documented as of this encounter
--- OUTSIDE RECORDS SUMMARY | 2025-04-01 14:58 | XMS_ITS | Encounter Summary ---
Author Organization [facility] [place], Address [address] [place] [address] Phone Care Team Providers Care Delivery Truck Driver Heavy Name Role Phone Gigi Fraser MD Primary Care Provider [phone] Encounter Details Date Type Department Care Team (Late st Contact Info) Description 10/15/2023 Documentation Only [facility] [address] [place] [address] [place], [place] [address] [place] [address] Social History Tobacco Use Types [...] [facility] [address] [place] [address] Bola Rodriguez DO [address] [place] [address] [place] [address] documented as of this encounter Visit Diagnoses Not on filedocumented in this encounter Care Teams Delivery Truck Driver Heavy Relationship Specialty Start Date End Date Gigi Fraser MD [address] [place] [address] PCP - General Internal Medicine 07/16/23 documented as of this encounter
--- OUTSIDE RECORDS SUMMARY | 2025-04-01 14:58 | XMS_ITS | Encounter Summary ---
Author Organization [facility] Address [address] [place] [address] Phone Care Team Providers Care Hand Tool Lapper Name Role Phone Gigi Fraser MD Primary Care Provider [phone] Encounter Details Date Type Department Care Team (Late Contact Info) Description 08/27/2024 Orders Only [facility] [address] [address] Bola Rodriguez DO [address] [facility] [place] [address] Acute tubulo-interstitial nephritis; Other acute [...] Transplant Services [facility] [address] [place] [address] Bola Rodriguez DO [address] [facility] [place] [address] documented as of this encounter Visit Diagnoses Diagnosis Acute tubulo-interstitial nephritis Other acute kidney failure (HCC) Hypertension Stage 3a chronic kidney disease (HCC) documented in this encounter Care Teams Hand Tool Lapper Relationship Specialty Start Date End Date Gigi Fraser MD [address] [place] [address] PCP - General Internal Medicine 07/16/23 documented as of this encounter
--- OUTSIDE RECORDS SUMMARY | 2025-04-01 14:58 | XMS_ITS | Encounter Summary ---
Author Organization [facility] [place], Address [address] [place] [address] Phone Care Team Providers Care Medical Office Specialist Name Role Phone Gigi Fraser MD Primary Care Provider [phone] Encounter Details Date Type Department Care Team (Late st Contact Info) Description 07/16/2023 Documentation Only [facility] Of [address] [place] [address] [place], [place] [address] [place] [address] Social History Tobacco Use Types [...] [facility] Of [address] [place] [address] Bola Rodriguez DO [address] [place] [address] [place] [address] documented as of this encounter Visit Diagnoses Not on filedocumented in this encounter Care Teams Medical Office Specialist Relationship Specialty Start Date End Date Gigi Fraser MD [address] [place] [address] PCP - General Internal Medicine 07/16/23 documented as of this encounter
--- OUTSIDE RECORDS SUMMARY | 2025-04-01 14:58 | XMS_ITS | Clinical Summary ---
Author Organization [facility] Address [address] [facility] [address] [place] [address] Care Team Providers Care Receiving Associate Name Role Phone Unavailable Primary Care Provider [...]
--- OUTSIDE RECORDS SUMMARY | 2025-04-01 14:58 | XMS_ITS | Encounter Summary ---
Author Organization [facility] [place], Address [address] [place] [address] Phone Care Team Providers Care Sound Designer Name Role Phone Gigi Fraser MD Primary Care Provider [phone] Encounter Details Date Type Department Care Team (Late st Contact Info) Description 08/25/2024 Documentation Only [facility] Of [address] [place] [address] Bola Rodriguez DO [address] [facility] [address] [facility] [place] [address] Social History Tobacco Use [...] Visit [facility] Of [facility] [address] [place] [address] Bola Rodriguez DO [address] [place] [address] documented as of this encounter Visit Diagnoses Not on filedocumented in this encounter Care Teams Sound Designer Relationship Specialty Start Date End Date Gigi Fraser MD [address] [place] [address] PCP - General Internal Medicine 07/16/23 documented as of this encounter
--- OUTSIDE RECORDS SUMMARY | 2025-04-01 14:58 | XMS_ITS | Encounter Summary ---
Author Organization [facility] Address [address] [place] [address] Phone Care Team Providers Care Barista Name Role Phone Gigi Fraser MD Primary Care Provider [phone] Encounter Details Date Type Department Care Team (Late Contact Info) Description 05/07/2024 Orders Only [facility] [address] [place] [address] Bola Rodriguez DO [address] [facility] [address] [place] [address] Acute tubulo-interstitial nephritis; Other acute [...] [facility] [address] [place] [address] Bola Rodriguez DO [address] [facility] [address] [place] [address] documented as of this encounter Visit Diagnoses Diagnosis Acute tubulo-interstitial nephritis Other acute kidney failure (HCC) Hypertension Stage 3a chronic kidney disease (HCC) documented in this encounter Care Teams Barista Relationship Specialty Start Date End Date Gigi Fraser MD [address] [place] [address] PCP - General Internal Medicine 07/16/23 documented as of this encounter
--- OUTSIDE RECORDS SUMMARY | 2025-04-01 14:58 | XMS_ITS | Encounter Summary ---
Author Organization [facility] Address [address] [place] [address] Phone Care Team Providers Care Roll Wrapper Name Role Phone Gigi Fraser MD Primary Care Provider [phone] Encounter Details Date Type Department Care Team (Late st Contact Info) Description 09/10/2024 Orders Only [facility] [address] [place] [address] Bola Rodriguez DO [address] [facility] [place] [address] Acute tubulo-interstitial nephritis; Hypokalemia; Hypertension; [...] Visit [facility] [address] [facility] [address] Bola Rodriguez DO [address] [facility] [place] [address] documented as of this encounter Visit Diagnoses Diagnosis Acute tubulo-interstitial nephritis Hypokalemia Hypertension Stage 3a chronic kidney disease (HCC) documented in this encounter Care Teams Roll Wrapper Relationship Specialty Start Date End Date Gigi Fraser MD [address] [place] [address] PCP - General Internal Medicine 07/16/23 documented as of this encounter
--- OUTSIDE RECORDS SUMMARY | 2025-04-01 14:58 | XMS_ITS | Encounter Summary ---
Author Organization [facility] [place], Address [address] [place] [address] Phone Care Team Providers Care Entry Level Machine Operator Name Role Phone Gigi Fraser MD Primary Care Provider [phone] Encounter Details Date Type Department Care Team (Late st Contact Info) Description 07/16/2023 Documentation Only [facility] [address] [place] [address] [place], [place] [address] [place] [address] Social History Tobacco Use Types [...] Visit [facility] [address] [place] [address] Bola Rodriguez DO [address] [place] [address] [place] [address] documented as of this encounter Visit Diagnoses Not on filedocumented in this encounter Care Teams Entry Level Machine Operator Relationship Specialty Start Date End Date Gigi Fraser MD [address] [place] [address] PCP - General Internal Medicine 07/16/23 documented as of this encounter
--- OUTSIDE RECORDS SUMMARY | 2025-04-01 14:58 | XMS_ITS | Encounter Summary ---
Author Organization [facility] Address [address] [place] [address] Phone Care Team Providers Care Nurse Practitioner Per Diem Name Role Phone Gigi Fraser MD Primary Care Provider [phone] Encounter Details Date Type Department Care Team (Late st Contact Info) Description 11/05/2024 Orders Only [facility] [address] [place] [address] Bola Rodriguez DO [address] [facility] [place] [address] Acute tubulo-interstitial nephritis; Hypokalemia; Hypertension; [...] [facility] [address] [place] [address] Bola Rodriguez DO [address] [place] [address] documented as [...] Urine 0-5 0 - 5 /hpf [facility] RBC, Urine None seen 0 - 2 /hpf [facility] Squamous Epithelial, Urine None seen 0 - 10 /hpf [facility] Casts None seen None seen /lpf [facility] Bacteria, Urine None seen None seen/Few [facility] 12/26/2024 9:01 AM EDT 12/26/2024 Bola Rodriguez DO LAB MICROBIOLOGY - GENERAL ORDE RABLES Final Result [facility] [address] [place] [address] * (ABNORMAL) Urinalysis with microscopic (12/26/2024 9:01 AM EDT) Specific [place], Urine 1.006 1.005 - 1.030 [facility] pH Urine 6.5 5.0 - 7.5 [facility] [phone] Color, Urine Yellow Yellow [facility] Appearance Urine Clear Clear [facility] WBC Esterase Urine 1+(A) Negative [facility] Protein, Ur 2+(A) Negative/Tra ce [facility] Glucose, Ur Negative Negative [facility] Ketones, Urine Negative Negative [facility] Blood Urine Trace(A) Negative [facility] Bilirubin Urine Negative Negative [facility] Urobilinogen Urine 0.2 0.2 - 1.0 mg/dL [facility] Nitrite, Urine Negative Negative [facility] Microscopic Examination See below: [facility] Comment:Microscopic was cely cated and was performed. Urine specimen (specimen) Urine specimen obtained by clean catch procedure / Unknown 12/26/2024 9:01 AM EDT 12/26/2024 Bola Rodriguez DO LAB URINE ORDERABLES Final Resu lt [employer] [address] [place] [address] * Sedimentation Rate (12/26/2024 9:01 AM EDT) Sed Rate 4 0 - 30 mm/hr [facility] Blood specimen (specimen) Venous blood / Unknown 12/26/2024 9:01 AM EDT 12/26/2024 Bola Rodriguez DO LAB BLOOD ORDERABLES Final Resu lt Performing Organization Address [facility] Co de Phone Number [facility] [address] [place] [address] * (ABNORMAL) Urine Protein / creatinine ratio (12/26/2024 9:01 AM EDT) Creatinine, Ur 38.2 Not Estab. mg/dL [facility] Protein, Ur 32.6 Not Estab. mg/dL [facility] Urine Protein/Creati nine Ratio 853(H) 0 - 200 mg/g creat [facility] Urine specimen (specimen) Urine specimen obtained by clean catch procedure / Unknown 12/26/2024 9:01 AM EDT 12/26/2024 us Bola Rodriguez DO LAB URINE ORDERABLES Final Resu lt Performing Organization Address [facility] Co de Phone Number [facility] [address] [place] [address] * Magnesium (12/26/2024 9:01 AM EDT) Magnesium 1.8 1.6 - 2.3 mg/dL [facility] Blood specimen (specimen) Venous blood / Unknown 12/26/2024 9:01 AM EDT 12/26/2024 Bola Rodriguez DO LAB BLOOD ORDERABLES Final Resu lt Performing Organization Address City/[facility]/ZIP Co de Phone Number [facility] [address] [place] [address] * (ABNORMAL) Renal Function Panel (12/26/2024 9:01 AM EDT) Glucose 112(H) 70 - 99 mg/dL [facility] BUN 15 8 - 27 mg/dL [facility] Creatinine 2.61(H) 0.76 - 1.27 mg/dL [facility] eGFR CKD-EPI CR 2020 27(L) >59 mL/min/1.7 3 [facility] BUN/Creatinine Ratio 6(L) 10 - 24 [facility] Sodium 139 134 - 144 mmol/L [facility] Potassium 3.8 3.5 - 5.2 mmol/L [facility] Chloride 101 96 - 106 mmol/L [facility] Bicarbonate (CO2) 23 20 - 29 mmol/L [facility] Calcium 10.6(H) 8.6 - 10.2 mg/dL [facility] Comment:Verified by repeat analysis Albumin 4.8 3.8 - 4.9 g/dL [facility] Phosphorus 3.0 2.8 - 4.1 mg/dL [facility] Blood specimen (specimen) Venous blood / Unknown 12/26/2024 9:01 AM EDT 12/26/2024 us Bola Rodriguez DO LAB BLOOD ORDERABLES Final Resu lt [facility] [address] [place] [address] documented in this encounter Visit Diagnoses Diagnosis Acute tubulo-interstitial nephritis Hypokalemia Hypertension Stage 3a chronic kidney disease (HCC) documented in this encounter Care Teams Nurse Practitioner Per Diem Relationship Specialty Start Date End Date Gigi Fraser MD [address] [place] [address] PCP - General Internal Medicine 07/16/23 documented as of this encounter
--- OUTSIDE RECORDS SUMMARY | 2025-04-01 14:58 | XMS_ITS | Encounter Summary ---
Author Organization [facility] Address [address] [place] [address] Phone Care Team Providers Care Felting Machine Operator Helper Name Role Phone Gigi Fraser MD Primary Care Provider [phone] Encounter Details Date Type Department Care Team (Late Contact Info) Description 04/09/2024 Orders Only [facility] [address] [place] [address] Bola Rodriguez DO [address] [facility] [place] [address] Acute tubulo-interstitial nephritis; Other acute [...] [facility] [address] [facility] [address] Bola Rodriguez DO [address] [facility] [place] [address] documented as of this encounter Visit Diagnoses Diagnosis Acute tubulo-interstitial nephritis Other acute kidney failure (HCC) Hypertension Stage 3a chronic kidney disease (HCC) documented in this encounter Care Teams Felting Machine Operator Helper Relationship Specialty Start Date End Date Gigi Fraser MD [address] [place] [address] PCP - General Internal Medicine 07/16/23 documented as of this encounter
--- OUTSIDE RECORDS SUMMARY | 2025-04-01 14:58 | XMS_ITS | Encounter Summary ---
Author Organization [facility] [place], Address [address] [place] [address] Phone Care Team Providers Care Metal Treater Name Role Phone Gigi Fraser MD Primary Care Provider [phone] Encounter Details Date Type Department Care Team (Late st Contact Info) Description 09/17/2023 Documentation Only [facility] [address] [place] [address] Bola Rodriguez DO [address] [facility] [place] [address] Social History Tobacco Use Types [...] Visit [facility] [address] [place] [address] Bola Rodriguez DO [address] [facility] [place] [address] documented as of this encounter Visit Diagnoses Not on filedocumented in this encounter Care Teams Metal Treater Relationship Specialty Start Date End Date Gigi Fraser MD [address] [place] [address] PCP - General Internal Medicine 07/16/23 documented as of this encounter
--- OUTSIDE RECORDS SUMMARY | 2025-04-01 14:58 | XMS_ITS | Encounter Summary ---
Author Organization [facility] Address [address] [place] [address] Phone Care Team Providers Care Shearer Screen Measurer And Trimmer Name Role Phone Gigi Fraser MD Primary Care Provider [phone] Encounter Details Date Type Department Care Team (Latest Contact Info) Description 03/18/2025 Orders Only [facility] [address] [place] [address] Bola Rodriguez DO [address] [facility] [place] [address] Other acute kidney failure (HCC); [...] Services Of [facility] [address] [facility] [address] Bola Rodriguez DO [address] [facility] [place] [address] documented as of this encounter Visit Diagnoses Diagnosis Other acute kidney failure (HCC) Stage 3b chronic kidney disease (HCC) Chronic tubulointerstitial nephritis documented in this encounter Care Teams Shearer Screen Measurer And Trimmer Relationship Specialty Start Date End Date Gigi Fraser MD [address] [place] [address] PCP - General Internal Medicine 07/16/23 documented as of this encounter
--- OUTSIDE RECORDS SUMMARY | 2025-04-01 14:58 | XMS_ITS | Encounter Summary ---
Author Organization [facility] Address [address] [place] [address] Phone Care Team Providers Care Health Analytics Consultant Name Role Phone Gigi Fraser MD Primary Care Provider [phone] Encounter Details Date Type Department Care Team (Late Contact Info) Description 01/16/2024 Orders Only [facility] [address] [place] [address] Bola Rodriguez DO [address] [facility] [place] [address] Acute tubulo-interstitial nephritis; Other acute [...] Services [facility] [address] [place] [address] Bola Rodriguez DO [address] [facility] [place] [address] documented as of this encounter [...] Urine 0-5 0 - 5 /hpf [facility] [place] RBC, Urine None seen 0 - 2 /hpf [facility] [place] Squamous Epithelial, Urine None seen 0 - 10 /hpf [facility] [place] Casts None seen None seen /lpf [facility] [place] Bacteria, Urine None seen None seen/Few [facility] [place] 01/25/2024 8:41 AM EDT 01/25/2024 us Bola Rodriguez DO LAB MICROBIOLOGY - GENERAL ORDAlistair CHAVES Final Result [facility] [place] [address] [place] [phone] * (ABNORMAL) Urine Protein / creatinine ratio (01/25/2024 8:41 AM EDT) Creatinine, Ur 38.1 Not Estab. mg/dL [facility] [place] Protein, Ur 46.1 Not Estab. mg/dL [facility] [place] Urine Protein/Creati nine Ratio 1,210(H) 0 - 200 mg/g creat [facility] [place] Urine specimen (specimen) Urine specimen obtained by clean catch procedure / Unknown 01/25/2024 8:41 AM EDT 01/25/2024 Bola Rodriguez DO LAB URINE ORDERABLES Final Resu lt [facility] [place] [address] [place] [address] * (ABNORMAL) Urinalysis with microscopic (01/25/2024 8:41 AM EDT) Specific [place], Urine 1.008 1.005 - 1.030 [facility] [place] pH Urine 7.0 5.0 - 7.5 [facility] Color, Urine Yellow Yellow [facility] [place] [phone] Appearance Urine Clear Clear [facility] [place] WBC Esterase Urine Trace(A) Negative [facility] [place] [phone] Protein, Ur 2+(A) Negative/Tr elissa [facility] [place] Glucose, Ur Negative Negative [facility] [place] Ketones, Urine Negative Negative [facility] [place] Blood Urine 3+(A) Negative [facility] [place] [phone] Bilirubin Urine Negative Negative [facility] [place] Urobilinogen Urine 0.2 0.2 - 1.0 mg/dL [facility] [place] [phone] Nitrite, Urine Positive(A) Negative [facility] [place] Microscopic Examination See below: [facility] [place] [phone] Comment:Microscopic was cely cated and was performed. Urine specimen (specimen) Urine specimen obtained by clean catch procedure / Unknown 01/25/2024 8:41 AM EDT 01/25/2024 Bola Rodriguez LAB URINE ORDERABLES Final Resu lt Performing Organization Address City/[facility]/ZIP Co de Phone Number [facility] [employer] [place] [address] [place] [address] * Magnesium (01/25/2024 8:41 AM EDT) Magnesium 1.9 1.6 - 2.3 mg/dL [facility] Blood specimen (specimen) Venous blood / Unknown 01/25/2024 8:41 AM EDT 01/25/2024 Bola Rodriguez LAB BLOOD ORDERABLES Final Resu lt Performing Organization Address [facility]/ZIP Co de Phone Number [facility] [employer] [place] [address] [place] [address] * (ABNORMAL) Renal Function Panel (01/25/2024 8:41 AM EDT) Glucose 108(H) 70 - 99 mg/dL [facility] [place] BUN 11 6 - 24 mg/dL [facility] [place] Creatinine 2.04(H) 0.76 - 1.27 mg/dL [facility] [place] eGFR CKD-EPI CR 2020 37(L) >59 mL/min/1.7 3 [facility] [place] BUN/Creatinine Ratio 5(L) 9 - 20 [facility] [place] Sodium 141 134 - 144 mmol/L [facility] [place] Potassium 3.2(L) 3.5 - 5.2 mmol/L [facility] [place] Chloride 99 96 - 106 mmol/L [facility] [place] Bicarbonate (CO2) 30(H) 20 - 29 mmol/L [facility] [place] Calcium 10.5(H) 8.7 - 10.2 mg/dL [facility] [place] Comment:Verified by repeat analysis Phosphorus 2.9 2.8 - 4.1 mg/dL [facility] [place] Albumin 4.1 3.8 - 4.9 g/dL [facility] [place] Blood specimen (specimen) Venous blood / Unknown 01/25/2024 8:41 AM EDT 01/25/2024 Bola Rodriguez DO LAB BLOOD ORDERABLES Final Resu lt [facility] [place] [address] [place] [address] documented in this encounter Visit Diagnoses Diagnosis Acute tubulo-interstitial nephritis Other acute kidney failure (HCC) Hypertension Stage 3a chronic kidney disease (HCC) documented in this encounter Care Teams Health Analytics Consultant Relationship Specialty Start Date End Date Gigi Fraser MD [address] [facility] [place] [address] PCP - General Internal Medicine 07/16/23 documented as of this encounter
--- OUTSIDE RECORDS SUMMARY | 2025-04-01 14:58 | XMS_ITS | Data Portability ---
Author Organization [facility], PAIN OFF[facility] Address [address] [address] Care Team Providers Care Grocery Worker Name Role Phone CITLALI ANTHONY Primary Care [...] booked for the same. He needs a pile driver engineer on the day of the procedure. [email or web address] [...] By Organization Details Last Modified Time 02/09/2019 [id number] He was advised against bed rest lasting longer than four days and to continue activities as tolerated. [email or web address] Not available 02/09/2019 15:36:14 02/23/2019 18136 He was advised against bed rest lasting longer than four days and to continue activities as tolerated. [email or web address] Not available 02/24/2019 14:02:41 03/15/2019 82992 He was advised against bed rest lasting longer than four days and to continue activities as tolerated. [email or web address] Not available 03/15/2019 15:18:22 Reason for Referral None Reported. Problems Name Problem SNOMED Code Status Onset Date Resolution Date Notes Provider Name and Address Organization Details Recorded Time Lumbar post-laminecto my syndrome 343607786 Active Khloe solis MD [address] [place] [address] , [address], [place], [address], [place] [facility] 15:35:28 Lumbar radiculopathy 466208209 Active Khloe solis MD [address] [facility] , [address], [place], [address], [place] [facility] 15:35:45 Spinal stenosis of lumbar region 43555484 Active Khloe solis MD [address] [facility] , [address], [place], [address], [place] [facility] 15:35:57 Problem Notes None recorded. Procedures Surgical History Date Name Laterality Status Provider Name and Address Organization Details Recorded Time 02/24/20 19 Lumbar Epidural steroid injection under fluoroscopic guidance completed Khloe Mustafa MD [address] [facility] , [address], [place], [address], [place] [facility] 02/24/2019 14:02:03 [...] Name and Address Organization Details Recorded Time 83840 Product containin g penicilli n (product) medicatio n hives rash Not available Not available Not available 02/09/2019 71015 8001 SNOMED Kerrie cristina [place] - [place] [...] Updated DateTime 9 177.8 cm 25.8 kg/m2 67353.6 3 g 74 /min 98 % 98 % Kerrie Ramirez [facility] 9 13:30:34 Date Recorded Body height Heart rate Oxygen saturation Oxygen saturation in Arterial blood by Pulse oximetry Pain severity - 0-10 verbal numeric rating [Score] - Reported Body mass index (BMI) Body weight Systolic And Diastolic Provider Name and Address Organization Details Last Updated DateTime 9 177.8 cm 76 /min 98 % 98 % 6 25.8 kg/m2 35074.6 3 g 126/83 mm[Hg] Khloe solis MD [address] [facility] , [address], [facility] [place] [place], [address], [facility] 9 08:33:04 Date Recorded Body height Heart rate Oxygen saturation Oxygen saturation in Arterial blood by Pulse oximetry Systolic And Diastolic Provider Name and Address Organization Details Last Updated DateTime 9 177.8 cm 88 /min 98 % 98 % 148/98 mm[Hg] Kerrie Ramirez [place] [facility] 14:42:59 Social History Question Answer Notes LastModified by Organizat [employer] Details LastModified Time Tobacco Smoking Status Never Smoker Quit x 3 years Not Available [employer] 04/14/2020 03:16:11 Which Illicit Or Recreational Drugs Have You Used? No [id number] Information not available 04/14/2020 Education 12 With Some College Information not available 02/09/2019 Live Alone Or With Others? Alone Information not available 02/09/2019 Marital Status Informatio n not available 02/09/2019 How Many Years Have You Smoked Tobacco? 30 [id number] Information not available 04/14/2020 Sex: Unknown Functional Status Question Answer Note LastModified by Organizat ion Details LastModified Time What is your level of alcohol consumption? Moderate [id number] Information not available 04/14/2020 Are you currently employed? No Disability [id number] Information not available 04/14/2020 What is your occupation? [employer] Information not available 02/09/2019 Mental Status None recorded. Family History Relationship Description Onset Age of this Age Resolved Age Notes LastModified by Organization Details LastModified Time Father Heart disease Not available 2018 13:40:11 Medical History Condition Response Arthritis Y Hypertension Y High Cholesterol Y Past Encounters Encounter ID Performer Location Encounter Start Date Encounter Closed Date Diagnosis/Indication Diagnosis SNOMED-CT Code Diagnosis ICD10 Code Diagnosis IMO Codes Diagnosis Note [id number] Khloe Mustafa MD PAIN OFFICE [address] [employer] [facility] [place] [address] 02/09/2019 13:27:26 02/09/2019 15:40:29 Lumbar post-laminectomy syndrome 318155848 M96.1 Lumbar radiculopathy 128 628108 M54.16 Spinal jhonatan nosis of lumbar region 98596324 M48.061 [id number] Khloe Mustafa MD PAIN OFFICE [address] [employer] [facility] [place] [address] 02/23/2019 08:13:31 02/24/2019 14:07:59 Lumbar post-laminectomy syndrome 730379846 M96.1 Lumbar radiculopathy 128 465954 M54.16 Spinal jhonatan nosis of lumbar region 87425985 M48.061 [id number] Khloe Mustafa MD PAIN OFFICE [address] [place] [address] [place] [address] 03/15/2019 14:18:43 03/15/2019 15:19:54 Lumbar post-laminectomy syndrome 161136775 M96.1 Lumbar radiculopathy 128 089622 M54.16 Spinal jhonatan nosis of lumbar region 65361029 M48.061 Health Concerns Section Related Observation LastModified by Organization Detai ls LastModified Time None Recorded Concern Status LastModified by Organization Details LastModified Time None Recorded Advance Directives Directive None Recorded Payers Insurance Date Sequence Insurance Name Policy Number Policy Griffith Covered Member ID Griffith Member ID Guarantor Name 03/15/2019 2 [place] [facility] Arnel Fontanez [id number] Arnel Fontanez 03/15/2019 1 [place]IC[place] B[place] [employer] Arnel Fontanez [id number] Arnel Fontanez Notes Date Note Type Note [...] nerve roots.He has trialed physical therapy at [facility] with no pain benefit. He had a Lumbar epidural steroid injection under fluoroscopic guidance at [facility] prior to his back surgery and had some pain benefit. Khloe Mustafa MD [address] [facility] , [address], [place], [address], [facility] 02/10/2019 09:59:22 02/23/2019 text/html He is here today for a lumbar epidural steroid injection under fluoroscopic guidance. Khloe Mustafa MD [address] [facility] , [address], [place], [address], [facility] - Pain Management 02/24/2019 14:29:58 03/15/2019 text/html He [...] bowel incontinence. He had physical therapy at [facility] which aggravated his pain. He has taken percocet in the past which has helped relieve his pain. Khloe Mustafa MD [address] [facility] , [address], [place], [address], [facility] - Pain Management 03/16/2019 17:11:00
--- OUTSIDE RECORDS SUMMARY | 2025-04-01 14:58 | XMS_ITS | Encounter Summary ---
Author Organization [facility] Address [address] [place] [address] Phone Care Team Providers Care Family Support Coordinator Name Role Phone Gigi Fraser MD Primary Care Provider [phone] Encounter Details Date Type Department Care Team (Late st Contact Info) Description 02/25/2025 Orders Only [facility] [address] [place] [address] Bola Rodriguez DO [address] [facility] [place] [address] Acute tubulo-interstitial nephritis; Hypokalemia; Hypertension; [...] Services Of [facility] [address] [place] [address] Bola Rodriguez DO [address] [facility] [place] [address] documented as of this encounter Visit Diagnoses Diagnosis Acute tubulo-interstitial nephritis Hypokalemia Hypertension Stage 3a chronic kidney disease (HCC) documented in this encounter Care Teams Family Support Coordinator Relationship Specialty Start Date End Date Gigi Fraser MD [address] [place] [address] PCP - General Internal Medicine 07/16/23 documented as of this encounter
--- OUTSIDE RECORDS SUMMARY | 2025-04-01 14:58 | XMS_ITS | Encounter Summary ---
Author Organization [facility] Address [address] [place] [address] Phone Care Team Providers Care Sales Development Consultant Name Role Phone Gigi Fraser MD Primary Care Provider [phone] Encounter Details Date Type Department Care Team (Late st Contact Info) Description 09/29/2023 Documentation Only [facility] [address] [place] [address] Bola Rodriguez DO [address] [facility] [place] [address] Social History Tobacco Use Types [...] Visit [facility] [address] [place] [address] Bola Rodriguez DO [address] [facility] [place] [address] Pending Results Name Type Priority [...] 4:07 PM EDT Performed at: 01 - [facility] [id number] Back Filler Operator: Sara Ruiz MD, Phone: [phone] us Bola Rodriguez DO LAB MICROBIOLOGY - [...] - 10/07/2023 4:07 PM EDT Performed at: [address] [id number] Back Filler Operator: Sara Ruiz MD, Phone: [phone] us Bola Rodriguez DO LAB URINE ORDERABLES Final Resu lt [facility] * (ABNORMAL) Urinalysis with microscopic (10/03/2023 9:02 AM EDT) Specific [place], Urine 1.008 1.005 - 1.030 [facility] pH [...] - 10/07/2023 4:07 PM EDT [facility] [id number] Back Filler Operator: Sara Ruiz MD, Phone: [phone] Bola Rodriguez DO LAB URINE ORDERABLES Final Resu lt Performing Organization Address [facility]/State/ZIP Co de Phone Number [facility] * (ABNORMAL) Comprehensive metabolic panel (10/03/2023 9:02 AM EDT) Pathologist [facility] Glucose 117(H) 70 - 99 mg/dL [facility] [...] 4:07 PM EDT Performed at: 01 - [facility] [id number] Back Filler Operator: Sara Ruiz MD, Phone: [phone] Bola Rodriguez DO LAB BLOOD ORDERABLES Final [...] 4:07 PM EDT Performed at: 01 - [facility] [id number] Back Filler Operator: Sara Ruiz MD, Phone: [phone] us Bola Rodriguez DO LAB BLOOD ORDERABLES Final Resu lt Performing Organization Address [facility] Co de Phone Number [facility] [...] up testing of positive sera with both IL-3 and MPO-ANCA enzyme immunoassays. As many as [...] 4:07 PM EDT Performed at: 02 - [facility] [id number] Back Filler Operator: Rios Dolan MD, Phone: [phone] Bola Rodriguez LAB BLOOD ORDERABLES Final Resu lt Performing Organization Address City/[facility] Co de Phone Number [facility] documented in this encounter Visit Diagnoses Diagnosis Other acute kidney failure (HCC)- Primary documented in this encounter Care Teams Sales Development Consultant Relationship Specialty Start Date End Date Gigi Fraser MD [address] [place] [address] PCP - General Internal Medicine 07/16/23 documented as of this encounter
--- OUTSIDE RECORDS SUMMARY | 2025-04-01 14:58 | XMS_ITS | Encounter Summary ---
Author Organization [facility] Address [address] [place] [address] Care Team Providers Care Boat Tester Name Role Phone Physician, Pcp Unknown Primary Care Provider Mildred vailable Encounter Details Date Type Department Care Team (Late st Contact Info) Description 10/06/2024 Lab Requisition [facility] - Main Lab [address] [facility] [place] [address] Kevin Lo, PA [address] [place] [address] Benign essential microscopic hematuria Social History Tobacco [...] AM EDT) Final Diagnosis A. Urine, Voided, ([id number]): Negative for high grade urothelial carcinoma. Scant urothelial cellularity. Results of UroVysion fluorescence in situ hybridization (FISH) testing: Although FISH was performed, insufficient non-obscured hybridization signals are present for evaluation and interpretation. 10/11/2024 5:27 PM EDT [facility] Clinical Information Benign essential microscopic hematuria R31.1 Urine Cytology/FISH (now) 10/11/2024 5:27 PM EDT [facility] Gross Description A. Urine, Voided, ([id number]): Received one ThinPrep slide for cytology and one ThinPrep slide for UroVysion FISH 10/11/2024 5:27 PM EDT [facility] Disclaimer Unless otherwise specified, all tissue is 10% NB formalin fixed and paraffin embedded. Technical pathology services provided by [facility] at [address] [facility] [address], [place] [address] (CLIA #[id number]/Emily Roberson MD, [employer]) 10/11/2024 5:27 PM EDT [facility] Tissue Urine specimen from urethra / Unknown 10/01/2024 10/06/2024 3:35 PM EDT [facility] LAB PATHOLOGY ORDERABLES Final Result [facility] [address] [place] [address], documented in this encounter Visit Diagnoses Diagnosis Benign essential microscopic hematuria documented in this encounter Care Teams Boat Tester Relationship Specialty Start Date End Date Physician, Pcp Unknown PCP - General 10/06/24 documented as of this encounter
--- OUTSIDE RECORDS SUMMARY | 2025-04-01 14:58 | XMS_ITS | Encounter Summary ---
Author Organization [facility] [place], Address [address] [place] [address] Phone Care Team Providers Care Plumber Assistant Name Role Phone Gigi Fraser MD Primary Care Provider [phone] Encounter Details Date Type Department Care Team (Late st Contact Info) Description 10/23/2023 Documentation Only [facility] [address] [place] [address] Bola Rodriguez DO [address] [facility] [place] [address] Social [...] Visit [facility] [address] [address] Bola Rodriguez DO [address] [facility] [place] [address] documented as of this encounter Visit Diagnoses Not on filedocumented in this encounter Care Teams Plumber Assistant Relationship Specialty Start Date End Date Gigi Fraser MD [address] [place] [address] PCP - General Internal Medicine 07/16/23 documented as of this encounter
--- OUTSIDE RECORDS SUMMARY | 2025-04-01 14:58 | XMS_ITS | Encounter Summary ---
Author Organization [facility] [place], Address [address] [place] [address] Phone Care Team Providers Care Seismic Prospecting Observer Helper Name Role Phone Gigi Fraser MD Primary Care Provider [phone] Encounter Details Date Type Department Care Team (Late st Contact Info) Description 09/17/2023 Documentation Only [facility] Of [address] [place] [address] Bola Rodriguez DO [address] [facility] [place] [address] Social History Tobacco Use Types [...] Visit [facility] [address] [place] [address] Bola Rodriguez DO [address] [facility] [place] [address] documented as of this encounter Visit Diagnoses Not on filedocumented in this encounter Care Teams Seismic Prospecting Observer Helper Relationship Specialty Start Date End Date Gigi Fraser MD [address] [place] [address] PCP - General Internal Medicine 07/16/23 documented as of this encounter
--- OUTSIDE RECORDS SUMMARY | 2025-04-01 14:58 | XMS_ITS | Encounter Summary ---
Author Organization [facility] Address [address] [place] [address] Phone Care Team Providers Care Auto Locator Name Role Phone Gigi Fraser MD Primary Care Provider [phone] Encounter Details Date Type Department Care Team (Late Contact Info) Description 02/13/2024 Orders Only [facility] [address] [facility] [place] [address] Bola Rodriguez DO [address] [facility] [place] [address] Acute tubulo-interstitial nephritis; Other acute [...] Visit [facility] [address] [facility] [address] [place] [address] Bola Rodriguez DO [address] [facility] [place] [address] documented as of this encounter [...] Urine 11-30(A) 0 - 5 /hpf [facility] RBC, Urine None seen 0 - 2 /hpf [facility] Squamous Epithelial, Urine 0-10 0 - 10 /hpf [facility] Casts None seen None seen /lpf [facility] Bacteria, Urine None seen None seen/Few [facility] 02/29/2024 8:54 AM EDT 02/29/2024 us Bola Rodriguez DO LAB MICROBIOLOGY - GENERAL ORDE ANASTACIO Final Result [facility] [address] [place] [address] * (ABNORMAL) Urine Protein / creatinine ratio (02/29/2024 8:54 AM EDT) Creatinine, Ur 39.7 Not Estab. mg/dL [facility] Protein, Ur 53.8 Not Estab. mg/dL [facility] Urine Protein/Creati nine Ratio 1,355(H) 0 - 200 mg/g creat [facility] Urine specimen (specimen) Urine specimen obtained by clean catch procedure / Unknown 02/29/2024 8:54 AM EDT 02/29/2024 us Bola Rodriguez DO LAB URINE ORDERABLES Final Resu lt [facility] [address] [place] [address] * (ABNORMAL) Urinalysis with microscopic (02/29/2024 8:54 AM EDT) Specific [place], Urine 1.012 1.005 - 1.030 [facility] pH Urine 6.5 5.0 - 7.5 [facility] Color, Urine Yellow Yellow [facility] Appearance Urine Clear Clear [facility] [phone] WBC Esterase Urine 1+(A) Negative [facility] Protein, Ur 2+(A) Negative/Tr elissa [facility] Glucose, Ur Negative Negative [facility] [phone] Ketones, Urine Negative Negative [facility] Blood Urine 2+(A) Negative [facility] Bilirubin Urine Negative Negative [facility] Urobilinogen Urine 0.2 0.2 - 1.0 mg/dL [facility] [phone] Nitrite, Urine Positive(A) Negative [facility] Microscopic Examination See below: [facility] Comment:Microscopic was cely cated and was performed. Urine specimen (specimen) Urine specimen obtained by clean catch procedure / Unknown 02/29/2024 8:54 AM EDT 02/29/2024 Bola Rodriguez LAB URINE ORDERABLES Final Resu lt [facility] [address] [place] [address] * Magnesium (02/29/2024 8:54 AM EDT) Magnesium 1.9 1.6 - 2.3 mg/dL [facility] Blood specimen (specimen) Venous blood / Unknown 02/29/2024 8:54 AM EDT 02/29/2024 Bola Rodriguez LAB BLOOD ORDERABLES Final Resu lt Performing Organization Address City/[facility]/ZIP Co de Phone Number [facility] [address] [place] [address] * (ABNORMAL) Renal Function Panel (02/29/2024 8:54 AM EDT) Glucose 91 70 - 99 mg/dL [facility] BUN 17 6 - 24 mg/dL [facility] Creatinine 1.62(H) 0.76 - 1.27 mg/dL [facility] eGFR CKD-EPI CR 2020 49(L) >59 mL/min/1.7 3 [facility] BUN/Creatinine Ratio 10 9 - 20 [facility] Sodium 140 134 - 144 mmol/L [facility] Potassium 3.9 3.5 - 5.2 mmol/L [facility] Chloride 102 96 - 106 mmol/L [facility] Bicarbonate (CO2) 24 20 - 29 mmol/L [facility] Calcium 9.3 8.7 - 10.2 mg/dL [facility] Albumin 4.2 3.8 - 4.9 g/dL [facility] Phosphorus 3.4 2.8 - 4.1 mg/dL [facility] Blood specimen (specimen) Venous blood / Unknown 02/29/2024 8:54 AM EDT 02/29/2024 Bola Rodriguez DO LAB BLOOD ORDERABLES Final Resu lt [facility] [address] [place] [address] documented in this encounter Visit Diagnoses Diagnosis Acute tubulo-interstitial nephritis Other acute kidney failure (HCC) Hypertension Stage 3a chronic kidney disease (HCC) documented in this encounter Care Teams Auto Locator Relationship Specialty Start Date End Date Gigi Fraser MD [address] [place] [address] PCP - General Internal Medicine 07/16/23 documented as of this encounter
--- OUTSIDE RECORDS SUMMARY | 2025-04-01 14:58 | XMS_ITS | Clinical Summary ---
Author Organization [address] Address [address] [place] [address] Phone Care Team Providers Care Body Line Finisher Name Role Phone Physician, Pcp Unknown Primary [...] Date Last Done Comments Colorectal Cancer Screening: Colonoscopy 1965 Pneumococcal Vaccine: 50+ Years (1 of 2 - PCV) 1983 Zoster Vaccines (1 of 2) 2014 DTaP,Tdap,and Td Vaccines (2 - Td or Tdap) 09/24/2022 09/24/2012 Depression Screening 06/30/2024 Cholesterol Screening (Lipid Panel) 10/07/2024 HIV Screening 10/07/2024 Hepatitis C Screening [...] patient's age to complete this topic Insurance [facility] MEDICAID Care Teams Body Line Finisher Relationship Specialty Start Date End Date Physician, Pcp Unknown PCP - General 10/06/24
--- OUTSIDE RECORDS SUMMARY | 2025-04-01 14:58 | XMS_ITS | Encounter Summary ---
Author Organization [facility] [place], Address [address] [place] [address] Phone Care Team Providers Care Legal Administrative Secretary Name Role Phone Gigi Fraser MD Primary Care Provider [phone] Encounter Details Date Type Department Care Team (Late st Contact Info) Description 11/05/2023 Documentation Only [facility] [address] [place] [address] Bola Rodriguez DO [address] [facility] [place] [address] Social History Tobacco Use Types [...] And Transplant Services Of [facility] [address] [place] [address] Bola Rodriguez DO [address] [facility] [place] [address] documented as of this encounter Visit Diagnoses Not on filedocumented in this encounter Care Teams Legal Administrative Secretary Relationship Specialty Start Date End Date Gigi Fraser MD [address] [place] [address] PCP - General Internal Medicine 07/16/23 documented as of this encounter
--- OUTSIDE RECORDS SUMMARY | 2025-04-01 14:58 | XMS_ITS | Encounter Summary ---
Author Organization [facility] [place], Address [address] [place] [address] Phone Care Team Providers Care Graphics Artist Name Role Phone Gigi Fraser MD Primary Care Provider [phone] Encounter Details Date Type Department Care Team (Late st Contact Info) Description 07/19/2023 Documentation Only [facility] [employer] [address] [place] [address] Bola Rodriguez DO [address] [facility] [place] [address] Social History Tobacco Use Types [...] Visit [facility] [employer] [address] [place] [address] Bola Rodriguez DO [address] [facility] [address] [place] [address] documented as of this encounter Visit Diagnoses Not on filedocumented in this encounter Care Teams Graphics Artist Relationship Specialty Start Date End Date Gigi Fraser MD [address] [place] [address] PCP - General Internal Medicine 07/16/23 documented as of this encounter
--- NOTE | 2025-04-01 16:11 | MHC.OFFVIS ---
Vital Signs 04/01/25 16:13 Height 5 ft 10 in Weight 174 lb 6.17 oz BMI 25.0 BP 124/70 Blood Pressure Location Lt brachial Position Sitting Pulse 64 Pulse Source Pulse Oximeter Pulse Oximetry (%) 99 Oxygen Delivery Method Room Air Intake Visit Reasons: US Guided Asp inj (Dr. Rosario's pt) Intake Note: Patient presents for US Guided Asp injection follow up. Allergies Penicillins Allergy (Mild, Verified 04/01/25 16:12) Redness of Skin hydrochlorthiazine Allergy (Mild, Uncoded 05/18/24 08:54) leg swelling HPI Comments Details: Patient is a 59-year-old male with hyperlipidemia, GERD, hypertension and rheumatoid arthritis here today for evaluation left forearm mass and underlying synovitis Review of Systems Const All systems reviewed & are unremarkable except as noted in HPI and below Physical Exam Exam Exam: Exam deferred Vital Signs: Last Vital Signs Pulse 64 04/01/25 16:13 BP 124/70 04/01/25 16:13 Pulse Ox 99 04/01/25 16:13 Oxygen Delivery Method Room Air 04/01/25 16:13 BMI result Body Mass Index 25.0 Office Procedures Office Procedure Office Procedure Documentation Office Procedure Documentation: Date: 04/01/25 Study Type: Complete Ultrasound of the Left 2nd digit and Left wrist Indication: Hand pain and swelling to left forearm Study Site: Left Wrist and Left 2nd Digit Findings: ?Orthogonal views of the dorsal, medial, lateral and palmar aspect of the left wrist and orthogonal views of the 2nd digit were obtained in grayscale and Doppler. Left Wrist: - bony contours intact with no evidence of erosions - tendons intact with no evidence of fluid concerning for tendinopathy - no evidence of synovial hypertrophy Left second digit - bony contours intact with no evidence of erosions - tendons intact with no evidence of fluid concerning for tendinopathy - no evidence of synovial hypertrophy Left Forearm mass - no discrete mass noted - heterogenous appearance within the forearm musculature concerning for crystal deposit Impressions: ? No evidence of active synovitis at this time Forearm mass viewed but no discrete collection found Concern for crystal deposition. Recommend evaluation with additional imaging Assessment & Plan Assessment & Plan (1) Pain in left forearm: Comment: Recent onset 2 cm diameter Nodule radial distal forearm is painful. Unclear etiology Code(s): M79.632 - Pain in left forearm Category: Medical Plan: See Procedure notes Plan Procedure only Coding Level of Care Code Procedure Only Diagnoses Pain in left forearm M79.632 Comment CPT Code 28737
[2025-04-01 16:13] VITALS: BP 124/70; PULSE 64; O2SAT 99; BMI 25.0
== END 2025-04-01 15:59 | disposition home or self-care (01) ==
PROVIDERS: PCP Internal Medicine; Visit Provider Student in an Organized Health Care Education/Training Program
DX: M79.632 Pain in left forearm (principal)

== ENCOUNTER → 2025-04-01 14:54 | Outpatient (BNVA) | payer OTHER, SELFPAY | PROVIDERS: PCP Internal Medicine; Visit Provider Student in an Organized Health Care Education/Training Program | DX: M79.632 Pain in left forearm (principal) | CPT/HCPCS: 76881 ==

== ENCOUNTER 2025-05-03 08:08 | Outpatient (AMB) | payer OTHER, SELFPAY ==
--- NOTE | 2025-05-03 08:14 | MHC.OFFVIS ---
Vital Signs 05/03/25 08:15 Height 5 ft 10 in Weight 177 lb BMI 25.4 BP 122/82 Blood Pressure Location Rt brachial Position Sitting Pulse 62 Pulse Source Pulse Oximeter Pulse Oximetry (%) 100 Oxygen Delivery Method Room Air Intake Visit Reasons: 3 months Intake Note: Pt present today Arthritis. Accompanied by: Self / Same As Patient Allergies Penicillins Allergy (Mild, Verified 05/03/25 08:14) Redness of Skin hydrochlorthiazine Allergy (Mild, Uncoded 05/18/24 08:54) leg swelling HPI HPI 3 months: Details: He is having functional limitations with his hands. He has pain in his wrists L>R. He continues to have right hip his pain with radiation to right leg. He saw ortho. He will be seeing Dr. Wade tomorrow to discuss next steps as MRI pelvis reveals AVN. They will be considering joint replacement. He has not been on Humira for awhile. No increase joint pain or new joint swelling. Physical Exam Vital Signs: Last Vital Signs Pulse 62 05/03/25 08:15 BP 122/82 05/03/25 08:15 Pulse Ox 100 05/03/25 08:15 Oxygen Delivery Method Room Air 05/03/25 08:15 BMI result Body Mass Index 25.4 Const Other: General: Comfortable CVS: RRR Respiratory: clear to auscultation bilaterally. Good respiratory effort Skin: No lesions seen MSK: He has synovitis mild synovitis of left wrist with tenderness on palpation. He also has mild left CMC synovitis. Tender right wrist and CMC. Bilateral squaring of CMCs. Able to make a director ambulatory with his hands. Synovitis left 2nd and 3rd MCP with tender bilateral MCPs and left PIPs. No tenderness of bilateral shoulders. Normal range of motion of upper extremities. Smaller nodule palpated distal volar radial wrist. Assessment & Plan Assessment & Plan (1) Rheumatoid arthritis: Comment: Off of Humira LFTs improved. He continues to have uncontrolled disease. He was diagnosed with avium of right hip. He maybe having right hip replacement. We discussed tx with DMARD sulfasalazine. Discussed side effects, benefits and monitoring. Will avoid prednisone due to his recent development of AVN right hip. Rheumatology history: Seronegative. 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 Rodriguez. Discontinued February 2024 due to transaminitis. When he was tapered off of prednisone for renal disease he developed headaches, scalp tenderness, jaw claudication, fevers and elevated CRP. He had left temporal artery biopsy, which was negative. He continues to have intermittent headaches and is being evaluated by ENT who has imaged his sinuses and is concerned about chronic sinus infection necessitating surgery for drainage, which patient has declined due to fear side effects. Contraindication to methotrexate, hydroxychloroquine and sulfasalazine due to his underlying kidney disease. 08/2024 US abdomen hepatic steatosis. Humira 10/2024 caused worsening transaminitis. He has hepatic steatosis. Code(s): M06.9 - Rheumatoid arthritis, unspecified Category: Medical Qualifiers: Rheumatoid arthritis location: multiple sites Rheumatoid factor presence: without rheumatoid factor Qualified Code(s): M06.09 - Rheumatoid arthritis without rheumatoid factor, multiple sites Plan: Labs for disease and drug monitoring ordered. Lab rx will be printed for patient to have done at [facility] along with his labs ordered by analytical laboratory technician Dr. Rodriguez. He will discuss SSZ with Dr. Rodriguez and Dr. Wade. After lab results are reviewed, I will send Sulfasalazine 500 mg twice a day. He will then need labs 1 month after starting Sulfasalazine with CBC, creatinine AST and ALT. Return to clinic in 3 months (2) Osteoarthritis of carpometacarpal (CMC) joint of both thumbs: Comment: Uncontrolled pain. We discussed avoiding cortisone injections at this time due to his development of right hip AVN. Although the risk of CMC cortisone injection leading to systemic absorption is low. At this time we discussed the importance of judiciously using intra-articular cortisone injections to treat CMC pain. Patient agrees with plan. Code(s): M18.0 - Bilateral primary osteoarthritis of first carpometacarpal joints Category: Medical Plan: Monitor clinically Prescription for CMC splints prescribed Return to clinic in 3 months (3) Pain in left forearm: Comment: He had new onset 2 cm diameter Nodule radial distal forearm that was painful 12/2024. Unclear etiology. MSK Ultrasound did not reveal etiology. It has reduced in size on exam this visit. If it increases in size and becomes painful, I will recommend that he have MRI left forearm for further evaluation. Code(s): M79.632 - Pain in left forearm Category: Medical Plan: Monitor clinically Orders: Orders Complete Blood Count Auto Diff 05/03/25 Z79.899 - Other mcfp (current) drug therapy Alanine Aminotransferase 05/03/25 Z79.899 - Other remote computer terminal operator (current) drug therapy Creatinine 05/03/25 Z79.899 - Other remote computer terminal operator (current) drug therapy Erythrocyte Sedimentation Rate 05/03/25 Z79.899 - Other mcfp (current) drug therapy Aspartate Amino Transferase 05/03/25 Z79.899 - Other mcfp (current) drug therapy C Reactive Protein 05/03/25 Z79.899 - Other remote computer terminal operator (current) drug therapy Medications: New arm brace (Wrist Brace) As directed Bilateral CMC custom splints Diagnosis CMC osteoarthritis 2 ea 0RF Coding Level of Care Code Est Pt Level 4 (57181) Complex EM visit Add On G2211 Diagnoses Rheumatoid arthritis of multiple sites with negative rheumatoid factor M06.09 Rheumatoid arthritis location: multiple sites Rheumatoid factor presence: without rheumatoid factor Osteoarthritis of carpometacarpal (CMC) joint of both thumbs M18.0 Pain in left forearm M79.632
[2025-05-03 08:15] VITALS: BP 122/82; PULSE 62; O2SAT 100; BMI 25.4
--- OUTSIDE RECORDS SUMMARY | 2025-05-03 08:28 | XMS_ITS | Encounter Summary ---
Author Organization [facility] Address [address] [place] [address] Phone Care Team Providers Care End Matcher Name Role Phone Gigi Fraser MD Primary Care Provider [phone] Encounter Details Date Type Department Care Team (Late Contact Info) Description 06/04/2024 Orders Only [facility] [address] [place] [address] Bola Rodriguez DO [address] [place] [address] Acute tubulo-interstitial nephritis; Other acute [...] Visit [facility] [address] [place] [address] Bola Rodriguez DO [address] [place] [address] documented as of this encounter Visit Diagnoses Diagnosis Acute tubulo-interstitial nephritis Other acute kidney failure (HCC) Hypertension Stage 3a chronic kidney disease (HCC) documented in this encounter Care Teams End Matcher Relationship Specialty Start Date End Date Gigi Fraser MD [address] [place] [address] PCP - General Internal Medicine 07/16/23 documented as of this encounter
--- OUTSIDE RECORDS SUMMARY | 2025-05-03 08:29 | XMS_ITS | Encounter Summary ---
Author Organization [facility] Address [address] [place] [address] Phone Care Team Providers Care Special Agent In Charge Name Role Phone Gigi Fraser MD Primary Care Provider [phone] Encounter Details Date Type Department Care Team (Late st Contact Info) Description 09/29/2023 Documentation Only [facility] [address] [place] [address] Bola Rodriguez DO [address] [facility] [place] [address] Social History Tobacco Use Types [...] Visit [facility] [address] [place] [place] [address] Bola Rodriguez DO [address] [facility] [place] [address] Pending Results Name Type Priority [...] 4:07 PM EDT Performed at: 01 - [facility] [id number] Warranty Administrator: Sara Ruiz MD, Phone: [phone] us Bola Rodriguez DO LAB MICROBIOLOGY - [...] - 10/07/2023 4:07 PM EDT Performed at: [address] [id number] Warranty Administrator: Sara Ruiz MD, Phone: [phone] us Bola Rodriguez DO LAB URINE ORDERABLES Final Resu lt [facility] * (ABNORMAL) Urinalysis with microscopic (10/03/2023 9:02 AM EDT) Specific [place], Urine 1.008 1.005 - 1.030 [facility] pH [...] - 10/07/2023 4:07 PM EDT [facility]formed [facility]: [facility] [id number] Warranty Administrator: Sara Ruiz MD, Phone: [phone] Bola Rodriguez DO LAB URINE ORDERABLES Final Resu lt Performing Organization Address [facility]/State/ZIP Co de Phone Number [facility] * (ABNORMAL) Comprehensive metabolic panel (10/03/2023 9:02 AM EDT) Pathologist [facility] Glucose 117(H) 70 - 99 mg/dL [facility] [...] 4:07 PM EDT Performed at: 01 - [facility] [id number] Warranty Administrator: Sara Ruiz MD, Phone: [phone] Bola Rodriguez DO LAB BLOOD ORDERABLES Final [...] 4:07 PM EDT Performed at: 01 - [facility] [id number] Warranty Administrator: Sara Ruiz MD, Phone: [phone] us Bola Rodriguez DO LAB BLOOD ORDERABLES Final Resu lt Performing Organization Address [facility] Co de Phone Number [...] up testing of positive sera with both TX-3 and MPO-ANCA enzyme immunoassays. As many as [...] 4:07 PM EDT Performed at: 02 - [facility] [id number] Warranty Administrator: Rios Dolan MD, Phone: [phone] Bola Rodriguez LAB BLOOD ORDERABLES Final Resu lt Performing Organization Address City/[facility] Co de Phone Number [facility] documented in this encounter Visit Diagnoses Diagnosis Other acute kidney failure (HCC)- Primary documented in this encounter Care Teams Special Agent In Charge Relationship Specialty Start Date End Date Gigi Fraser MD [address] [place] [address] PCP - General Internal Medicine 07/16/23 documented as of this encounter
--- OUTSIDE RECORDS SUMMARY | 2025-05-03 08:29 | XMS_ITS | Encounter Summary ---
Author Organization [facility] Address [address] [place] [address] Phone Care Team Providers Care Parts Department Supervisor Name Role Phone Gigi Fraser MD Primary Care Provider [phone] Encounter Details Date Type Department Care Team (Late Contact Info) Description 09/24/2024 Orders Only [facility] [address] [place] [place] [address] Bola Rodriguez DO [address] [facility] [place] [address] Acute tubulo-interstitial nephritis; Other acute [...] [facility] [address] [place] [address] Bola Rodriguez DO [address] [facility] [place] [address] documented as of this encounter Visit Diagnoses Diagnosis Acute tubulo-interstitial nephritis Other acute kidney failure (HCC) Hypertension Stage 3a chronic kidney disease (HCC) documented in this encounter Care Teams Parts Department Supervisor Relationship Specialty Start Date End Date Gigi Fraser MD [address] [place] [address] PCP - General Internal Medicine 07/16/23 documented as of this encounter
--- OUTSIDE RECORDS SUMMARY | 2025-05-03 08:29 | XMS_ITS | Encounter Summary ---
Author Organization [facility] [place] Address [address] [place] [address] Phone Care Team Providers Care Syrup Maker Cook Name Role Phone Gigi Fraser MD Primary Care Provider [phone] Encounter Details Date Type Department Care Team (Late st Contact Info) Description 07/19/2023 Documentation Only [facility] [address] [place] [address] Bola Rodriguez DO [address] [facility] [place] [address] Social History Tobacco Use Types [...] Visit [facility] [address] [place] [address] Bola Rodriguez DO [address] [place] [address] documented as of this encounter Visit Diagnoses Not on filedocumented in this encounter Care Teams Syrup Maker Cook Relationship Specialty Start Date End Date Gigi Fraser MD [address] [place] [address] PCP - General Internal Medicine 07/16/23 documented as of this encounter
--- OUTSIDE RECORDS SUMMARY | 2025-05-03 08:29 | XMS_ITS | Encounter Summary ---
Author Organization [facility] Address [address] [place] [address] Phone Care Team Providers Care Cell Tower Climber Name Role Phone Gigi Fraser MD Primary Care Provider [phone] Encounter Details Date Type Department Care Team (Late st Contact Info) Description 12/31/2024 Orders Only [facility] [address] [place] [address] Bola Rodriguez DO [address] [facility] [place] [address] Acute tubulo-interstitial nephritis; Hypokalemia; Hypertension; [...] Visit [facility] [address] [address] Bola Rodriguez DO [address] [facility] [place] [address] documented as of this encounter Procedures [...] Urine 0-5 0 - 5 /hpf [facility] RBC, Urine None seen 0 - 2 /hpf [facility] Squamous Epithelial, Urine 0-10 0 - 10 /hpf [facility] Casts None seen None seen /lpf [facility] Bacteria, Urine None seen None seen/Few [facility] 01/30/2025 9:25 AM EDT 01/30/2025 Bola Rodriguez DO LAB MICROBIOLOGY - GENERAL ORDE RABLES Final Result [facility] [address] [place] [address] * (ABNORMAL) Urinalysis with microscopic (01/30/2025 9:25 AM EDT) Specific [place], Urine 1.008 1.005 - 1.030 [facility] pH Urine 6.5 5.0 - 7.5 [facility] Color, Urine Yellow Yellow [facility] Appearance Urine Clear Clear [facility] WBC Esterase Urine Trace(A) Negative [facility] Protein, Ur 2+(A) Negative/Tra ce [facility] [phone] Glucose, Ur Negative Negative [facility] Ketones, Urine Negative Negative [facility] [place] Blood Urine 3+(A) Negative [facility] Bilirubin Urine Negative Negative [facility] [place] [phone] Urobilinogen Urine 0.2 0.2 - 1.0 mg/dL [facility] [phone] Nitrite, Urine Negative Negative [facility] Microscopic Examination See below: [facility] Comment:Microscopic was cely cated and was performed. Urine specimen (specimen) Urine specimen obtained by clean catch procedure / Unknown 01/30/2025 9:25 AM EDT 01/30/2025 Bola Rodriguez DO LAB URINE ORDERABLES Final Resu lt [facility] [place] [address] [place] [address] * Sedimentation Rate (01/30/2025 9:25 AM EDT) Sed Rate 9 0 - 30 mm/hr [facility] Blood specimen (specimen) Venous blood / Unknown 01/30/2025 9:25 AM EDT 01/30/2025 Bola Rodriguez DO LAB BLOOD ORDERABLES Final Resu lt Performing Organization Address [facility] Co de Phone Number [facility] [address] [place] [address] * (ABNORMAL) Urine Protein / creatinine ratio (01/30/2025 9:25 AM EDT) Creatinine, Ur 29.9 Not Estab. mg/dL [facility] Protein, Ur 33.0 Not Estab. mg/dL [facility] Urine Protein/Creati nine Ratio 1,104(H) 0 - 200 mg/g creat [facility] Urine specimen (specimen) Urine specimen obtained by clean catch procedure / Unknown 01/30/2025 9:25 AM EDT 01/30/2025 us Bola Rodriguez DO LAB URINE ORDERABLES Final Resu lt Performing Organization Address [facility] Co de Phone Number [facility] [address] [place] [address] * Magnesium (01/30/2025 9:25 AM EDT) Magnesium 2.2 1.6 - 2.3 mg/dL [facility] Blood specimen (specimen) Venous blood / Unknown 01/30/2025 9:25 AM EDT 01/30/2025 us Bola Rodriguez DO LAB BLOOD ORDERABLES Final Resu lt [facility] [address] [place] [address] * (ABNORMAL) Renal Function Panel (01/30/2025 9:25 AM EDT) Glucose 94 70 - 99 mg/dL [facility] BUN 17 8 - 27 mg/dL [facility] Creatinine 2.00(H) 0.76 - 1.27 mg/dL [facility] eGFR CKD-EPI CR 2020 38(L) >59 mL/min/1.7 3 [facility] BUN/Creatinine Ratio 9(L) 10 - 24 [facility] Sodium 138 134 - 144 mmol/L [facility] Potassium 3.8 3.5 - 5.2 mmol/L [facility] Chloride 105 96 - 106 mmol/L [facility] Bicarbonate (CO2) 17(L) 20 - 29 mmol/L [facility] Calcium 9.0 8.6 - 10.2 mg/dL [facility] Phosphorus 2.5(L) 2.8 - 4.1 mg/dL [facility] Albumin 4.7 3.8 - 4.9 g/dL [facility] Blood specimen (specimen) Venous blood / Unknown 01/30/2025 9:25 AM EDT 01/30/2025 us Bola Rodriguez DO LAB BLOOD ORDERABLES Final Resu lt [facility] [address] [place] [address] documented in this encounter Visit Diagnoses Diagnosis Acute tubulo-interstitial nephritis Hypokalemia Hypertension Stage 3a chronic kidney disease (HCC) documented in this encounter Care Teams Cell Tower Climber Relationship Specialty Start Date End Date Gigi Fraser MD [address] [place] [address] PCP - General Internal Medicine 07/16/23 documented as of this encounter
--- OUTSIDE RECORDS SUMMARY | 2025-05-03 08:29 | XMS_ITS | Encounter Summary ---
Author Organization [facility] Address [address] [place] [address] Phone Care Team Providers Care Top Tile Decorator Name Role Phone Gigi Fraser MD Primary Care Provider [phone] Encounter Details Date Type Department Care Team (Late Contact Info) Description 08/27/2024 Orders Only [facility] [address] [place] [address] Bola Rodriguez DO [address] [facility] [place] [address] Acute tubulo-interstitial nephritis; Other acute [...] [facility] [address] [place] [address] Bola Rodriguez DO [address] [facility] [place] [address] documented as of this encounter Visit Diagnoses Diagnosis Acute tubulo-interstitial nephritis Other acute kidney failure (HCC) Hypertension Stage 3a chronic kidney disease (HCC) documented in this encounter Care Teams Top Tile Decorator Relationship Specialty Start Date End Date Gigi Fraser MD [address] [place] [address] PCP - General Internal Medicine 07/16/23 documented as of this encounter
--- OUTSIDE RECORDS SUMMARY | 2025-05-03 08:29 | XMS_ITS | Encounter Summary ---
Author Organization [facility] [place] Address [address] [place] [address] Phone Care Team Providers Care Quality Assurance Lead Name Role Phone Gigi Fraser MD Primary Care Provider [phone] Encounter Details Date Type Department Care Team (Late st Contact Info) Description 07/16/2023 Documentation Only [facility] [address] [place] [address] [place], [place] [address] [place] [address] Social History Tobacco Use Types [...] [facility] [address] [place] [address] Bola Rodriguez DO [address] [place] [address] [place] [address] documented as of this encounter Visit Diagnoses Not on filedocumented in this encounter Care Teams Quality Assurance Lead Relationship Specialty Start Date End Date Gigi Fraser MD [address] [place] [address] PCP - General Internal Medicine 07/16/23 documented as of this encounter
--- OUTSIDE RECORDS SUMMARY | 2025-05-03 08:29 | XMS_ITS | Encounter Summary ---
Author Organization [facility] [place], Address [address] [place] [address] Phone Care Team Providers Care Food Inspector Name Role Phone Gigi Fraser MD Primary Care Provider [phone] Encounter Details Date Type Department Care Team (Late st Contact Info) Description 07/16/2024 Orders Only [facility] [address] [place] [address] Bola Rodriguez DO [address] [facility] [place] [address] Acute tubulo-interstitial nephritis; Hypokalemia; Hypertension; [...] Transplant [facility] [address] [place] [address] Bola Rodriguez DO [address] [facility] [place] [address] documented as of this encounter Procedures [...] None seen 0 - 5 /hpf [facility] RBC, Urine None seen 0 - 2 /hpf [facility] Squamous Epithelial, Urine None seen 0 - 10 /hpf [facility] Casts None seen None seen /lpf [facility] Bacteria, Urine None seen None seen/Few [facility] 07/25/2024 9:54 AM EST 07/25/2024 Bola Rodriguez DO LAB MICROBIOLOGY - GENERAL ORDE ANASTACIO Final Result [facility] [address] [place] [address] * Urinalysis with microscopic (07/25/2024 9:54 AM EST) Specific [place], Urine 1.019 1.005 - 1.030 [facility] pH Urine 7.0 5.0 - 7.5 [facility] [phone] Color, Urine Yellow Yellow [facility] Appearance Urine Clear Clear [facility] WBC Esterase Urine Negative Negative [facility] [phone] Protein, Ur Trace Negative/Tra ce [facility] [phone] Glucose, Ur Negative Negative [facility] Ketones, Urine Negative Negative [facility] Blood Urine Negative Negative [facility] [phone] Bilirubin Urine Negative Negative [facility] Urobilinogen Urine 0.2 0.2 - 1.0 mg/dL [facility] Nitrite, Urine Negative Negative [facility] [phone] Microscopic Examination Comment [facility] [phone] Comment:Microscopic follows if indicated. Other Microsc. Observations See below: [facility] Comment:Microscopic was cely cated and was performed. Urine specimen (specimen) Urine specimen obtained by clean catch procedure / Unknown 07/25/2024 9:54 AM EST 07/25/2024 us Bola Rodriguez DO LAB URINE ORDERABLES Final Resu lt [facility] [address] [place] [address] * Sedimentation Rate (07/25/2024 9:54 AM EST) Sed Rate 14 0 - 30 mm/hr [facility] Blood specimen (specimen) Venous blood / Unknown 07/25/2024 9:54 AM EST 07/25/2024 Bola Haydenry DO LAB BLOOD ORDERABLES Final Resu lt Performing Organization Address City/[facility] Co de Phone Number [facility] [address] [place] [address] * Urine Protein / creatinine ratio (07/25/2024 9:54 AM EST) Creatinine, Ur 172.5 Not Estab. mg/dL [facility] Protein, Ur 15.1 Not Estab. mg/dL [facility] Urine Protein/Creatin ine Ratio 88 0 - 200 mg/g creat [facility] Urine specimen (specimen) Urine specimen obtained by clean catch procedure / Unknown 07/25/2024 9:54 AM EST 07/25/2024 Bola Rodriguez DO LAB URINE ORDERABLES Final Resu lt Performing Organization Address [facility] Co de Phone Number [facility] [address] [place] [address] * Magnesium (07/25/2024 9:54 AM EST) Magnesium 2.1 1.6 - 2.3 mg/dL [facility] Blood specimen (specimen) Venous blood / Unknown 07/25/2024 9:54 AM EST 07/25/2024 Bola Haydenry DO LAB BLOOD ORDERABLES Final Resu lt Performing Organization Address City/[facility]/ZIP Co de Phone Number [facility] [address] [place] [address] * (ABNORMAL) Renal Function Panel (07/25/2024 9:54 AM EST) Glucose 90 70 - 99 mg/dL [facility] BUN 18 8 - 27 mg/dL [facility] Creatinine 1.93(H) 0.76 - 1.27 mg/dL [facility] eGFR CKD-EPI CR 2020 39(L) >59 mL/min/1.7 3 [facility] BUN/Creatinine Ratio 9(L) 10 - 24 [facility] Sodium 137 134 - 144 mmol/L [facility] Potassium 4.3 3.5 - 5.2 mmol/L [facility] Bicarbonate (CO2) 24 20 - 29 mmol/L [facility] Calcium 11.0(H) 8.6 - 10.2 mg/dL [facility] Comment:Verified by repeat analysis Phosphorus 3.4 2.8 - 4.1 mg/dL [facility] Albumin 5.1(H) 3.8 - 4.9 g/dL [facility] Chloride 98 96 - 106 mmol/L [facility] Blood specimen (specimen) Venous blood / Unknown 07/25/2024 9:54 AM EST 07/25/2024 us Bola Rodriguez DO LAB BLOOD ORDERABLES Final Resu lt [facility] [address] [place] [address] documented in this encounter Visit Diagnoses Diagnosis Acute tubulo-interstitial nephritis Hypokalemia Hypertension Stage 3a chronic kidney disease (HCC) documented in this encounter Care Teams Food Inspector Relationship Specialty Start Date End Date Gigi Fraser MD [address] [place] [address] PCP - General Internal Medicine 07/16/23 documented as of this encounter
--- OUTSIDE RECORDS SUMMARY | 2025-05-03 08:29 | XMS_ITS | Encounter Summary ---
Author Organization [facility] [place], Address [address] [place] [address] Phone Care Team Providers Care Exercise Physiologist Certified Name Role Phone Gigi Fraser MD Primary Care Provider [phone] Encounter Details Date Type Department Care Team (Late st Contact Info) Description 09/17/2023 Documentation Only [facility] [address] [place] [address] Bola Rodriguez DO [address] [facility] [place] [address] Social History Tobacco Use Types [...] Visit [facility] [address] [facility] [place] [address] Bola Rodriguez DO [address] [facility] [place] [address] documented as of this encounter Visit Diagnoses Not on filedocumented in this encounter Care Teams Exercise Physiologist Certified Relationship Specialty Start Date End Date Gigi Fraser MD [address] [place] [address] PCP - General Internal Medicine 07/16/23 documented as of this encounter
--- OUTSIDE RECORDS SUMMARY | 2025-05-03 08:29 | XMS_ITS | Encounter Summary ---
Author Organization [facility] [place], Address [address] [place] [address] Phone Care Team Providers Care Laborer Shaft Sinking Name Role Phone Gigi Fraser MD Primary Care Provider [phone] Encounter Details Date Type Department Care Team (Late st Contact Info) Description 08/25/2024 Documentation Only [facility] [address] [place] [place] [address] Bola Rodriguez DO [address] [facility] [place] [address] Social History Tobacco Use Types [...] [facility] [address] [facility] [place] [address] Bola Rodriguez DO [address] [facility] [place] [address] documented as of this encounter Visit Diagnoses Not on filedocumented in this encounter Care Teams Laborer [place] Relationship Specialty Start Date End Date Gigi Fraser MD [address] [place] [address] PCP - General Internal Medicine 07/16/23 documented as of this encounter
--- OUTSIDE RECORDS SUMMARY | 2025-05-03 08:29 | XMS_ITS | Encounter Summary ---
Author Organization [facility] Address [address] [place] [address] Phone Care Team Providers Care Bleaching Supervisor Name Role Phone Gigi Fraser MD Primary Care Provider [phone] Encounter Details Date Type Department Care Team (Late Contact Info) Description 07/02/2024 Orders Only [facility] [address] [place] [address] Bola Rodriguez DO [address] [facility] [place] [address] Acute tubulo-interstitial nephritis; Other acute [...] Transplant [facility] [address] [place] [address] Bola Rodriguez DO [address] [facility] [place] [address] documented as of this encounter Visit Diagnoses Diagnosis Acute tubulo-interstitial nephritis Other acute kidney failure (HCC) Hypertension Stage 3a chronic kidney disease (HCC) documented in this encounter Care Teams Bleaching Supervisor Relationship Specialty Start Date End Date Gigi Fraser MD [address] [place] [address] PCP - General Internal Medicine 07/16/23 documented as of this encounter
--- OUTSIDE RECORDS SUMMARY | 2025-05-03 08:29 | XMS_ITS | Encounter Summary ---
Author Organization [facility] [place], Address [address] [place] [address] Phone Care Team Providers Care Resident Physician In Radiology Name Role Phone Gigi Fraser MD Primary Care Provider [phone] Encounter Details Date Type Department Care Team (Late st Contact Info) Description 09/17/2023 Documentation Only [facility] [address] [place] [address] Bola Rodriguez DO [address] [facility] [place] [address] Social History Tobacco Use Types [...] And Transplant Services Of [facility] [address] [facility] [place] [address] Bola Rodriguez DO [address] [facility] [place] [address] documented as of this encounter Visit Diagnoses Not on filedocumented in this encounter Care Teams Resident Physician In Radiology Relationship Specialty Start Date End Date Gigi Fraser MD [address] [place] [address] PCP - General Internal Medicine 07/16/23 documented as of this encounter
--- OUTSIDE RECORDS SUMMARY | 2025-05-03 08:29 | XMS_ITS | Encounter Summary ---
Author Organization [facility] [place], Address [address] [place] [address] Phone Care Team Providers Care Trailer Chief Name Role Phone Gigi Fraser MD Primary Care Provider [phone] Encounter Details Date Type Department Care Team (Late st Contact Info) Description 07/16/2023 Documentation Only [facility] [address] [place] [address] [place] [address] [place] [address] Social History Tobacco Use Types [...] [facility] [address] [place] [address] Bola Rodriguez DO [address] [place] [address] [place] [address] documented as of this encounter Visit Diagnoses Not on filedocumented in this encounter Care Teams Trailer Chief Relationship Specialty Start Date End Date Gigi Fraser MD [address] [place] [address] PCP - General Internal Medicine 07/16/23 documented as of this encounter
--- OUTSIDE RECORDS SUMMARY | 2025-05-03 08:29 | XMS_ITS | Clinical Summary ---
Author Organization [facility] Address [address] [facility] [address] [place] [address] Care Team Providers Care Retail Sales Manager Name Role Phone Unavailable Primary Care Provider [...]
--- OUTSIDE RECORDS SUMMARY | 2025-05-03 08:29 | XMS_ITS | Encounter Summary ---
Author Organization [facility] [place], Address [address] [place] [address] Phone Care Team Providers Care Quantitative Research Analyst Name Role Phone Gigi Fraser MD Primary Care Provider [phone] Encounter Details Date Type Department Care Team (Late st Contact Info) Description 09/17/2023 Documentation Only [facility] [address] [place] [address] Bola Rodriguez DO [address] [facility] [place] [address] Social History Tobacco Use Types [...] Visit [facility] [address] [place] [address] Bola Rodriguez DO [address] [facility] [place] [address] documented as of this encounter Visit Diagnoses Not on filedocumented in this encounter Care Teams Quantitative Research Analyst Relationship Specialty Start Date End Date Gigi Fraser MD [address] [place] [address] PCP - General Internal Medicine 07/16/23 documented as of this encounter
--- OUTSIDE RECORDS SUMMARY | 2025-05-03 08:29 | XMS_ITS | Encounter Summary ---
Author Organization [facility] Address [address] [place] [address] Phone Care Team Providers Care Pattern Grader Cutter Name Role Phone Gigi Fraser MD Primary Care Provider [phone] Encounter Details Date Type Department Care Team (Late Contact Info) Description 07/30/2024 Orders Only [facility] [address] [place] [address] Bola Rodriguez DO [address] [facility] [place] [address] Acute tubulo-interstitial nephritis; Other acute [...] And Transplant [facility] [address] [place] [address] Bola Rodriguez DO [address] [facility] [place] [address] documented as of this encounter [...] None seen 0 - 5 /hpf [facility] RBC, Urine None seen 0 - 2 /hpf [facility] Squamous Epithelial, Urine None seen 0 - 10 /hpf [facility] Casts None seen None seen /lpf [facility] Bacteria, Urine None seen None seen/Few [facility] 08/22/2024 8:14 AM EST 08/22/2024 us Bola Rodriguez DO LAB MICROBIOLOGY - GENERAL ORDE ANASTACIO Final Result [facility] [address] [place] [address] * (ABNORMAL) Urine Protein / creatinine ratio (08/22/2024 8:14 AM EST) Creatinine, Ur 55.0 Not Estab. mg/dL [facility] Protein, Ur 28.6 Not Estab. mg/dL [facility] Urine Protein/Creati nine Ratio 520(H) 0 - 200 mg/g creat [facility] Urine specimen (specimen) Urine specimen obtained by clean catch procedure / Unknown 08/22/2024 8:14 AM EST 08/22/2024 us Bola Rodriguez DO LAB URINE ORDERABLES Final Resu lt [facility] [address] [place] [address] * (ABNORMAL) Urinalysis with microscopic (08/22/2024 8:14 AM EST) Specific [place], Urine 1.012 1.005 - 1.030 [facility] [phone] pH Urine 6.0 5.0 - 7.5 [facility] Color, Urine Yellow Yellow [facility] [phone] Appearance Urine Clear Clear [facility] WBC Esterase Urine Negative Negative [facility] Protein, Ur 1+(A) Negative/Tra ce [facility] Glucose, Ur Negative Negative [facility] Ketones, Urine Negative Negative [facility] [phone] Blood Urine Negative Negative [facility] Bilirubin Urine Negative Negative [facility] Urobilinogen Urine 0.2 0.2 - 1.0 mg/dL [facility] Nitrite, Urine Negative Negative [facility] Microscopic Examination See below: [facility] Comment:Microscopic was cely cated and was performed. Urine specimen (specimen) Urine specimen obtained by clean catch procedure / Unknown 08/22/2024 8:14 AM EST 08/22/2024 Bola Rodriguez DO LAB URINE ORDERABLES Final Resu lt Performing Organization Address City/[facility]/ZIP Co de Phone Number [facility] [address] [place] [address] * Magnesium (08/22/2024 8:14 AM EST) Pathologist [facility] Magnesium 2.0 1.6 - 2.3 mg/dL [facility] Blood specimen (specimen) Venous blood / Unknown 08/22/2024 8:14 AM EST 08/22/2024 Bolajez Rodriguez DO LAB BLOOD ORDERABLES Final Resu lt Performing Organization Address City/[facility]/ZIP Co de Phone Number [facility] [address] [place] [address] * (ABNORMAL) Renal Function Panel (08/22/2024 8:14 AM EST) Glucose 105(H) 70 - 99 mg/dL [facility] BUN 18 8 - 27 mg/dL [facility] Creatinine 1.84(H) 0.76 - 1.27 mg/dL [facility] eGFR CKD-EPI CR 2020 41(L) >59 mL/min/1.7 3 [facility] BUN/Creatinine Ratio 10 10 - 24 [facility] Sodium 140 134 - 144 mmol/L [facility] Potassium 4.4 3.5 - 5.2 mmol/L [facility] Chloride 102 96 - 106 mmol/L [facility] Bicarbonate (CO2) 25 20 - 29 mmol/L [facility] Calcium 10.0 8.6 - 10.2 mg/dL [facility] Albumin 4.6 3.8 - 4.9 g/dL [facility] Phosphorus 3.7 2.8 - 4.1 mg/dL [facility] Blood specimen (specimen) Venous blood / Unknown 08/22/2024 8:14 AM EST 08/22/2024 us Bola Rodriguez DO LAB BLOOD ORDERABLES Final Resu lt [facility] [address] [place] [address] documented in this encounter Visit Diagnoses Diagnosis Acute tubulo-interstitial nephritis Other acute kidney failure (HCC) Hypertension Stage 3a chronic kidney disease (HCC) documented in this encounter Care Teams Pattern Grader Cutter Relationship Specialty Start Date End Date Gigi Fraser MD [address] [place] [address] PCP - General Internal Medicine 07/16/23 documented as of this encounter
--- OUTSIDE RECORDS SUMMARY | 2025-05-03 08:29 | XMS_ITS | Encounter Summary ---
Author Organization [facility] [place], Address [address] [place] [address] Phone Care Team Providers Care Causticiser Name Role Phone Gigi Fraser MD Primary Care Provider [phone] Encounter Details Date Type Department Care Team (Late st Contact Info) Description 07/16/2023 Documentation Only [facility] [address] [place] [address] [place], [place] [address] [place] [address] Social History Tobacco Use Types [...] [facility] [address] [place] [address] Bola Rodriguez DO [address] [place] [address] [place] [address] documented as of this encounter Visit Diagnoses Not on filedocumented in this encounter Care Teams Causticiser Relationship Specialty Start Date End Date Gigi Fraser MD [address] [place] [address] PCP - General Internal Medicine 07/16/23 documented as of this encounter
--- OUTSIDE RECORDS SUMMARY | 2025-05-03 08:29 | XMS_ITS | Encounter Summary ---
Author Organization [facility] [place], Address [address] [place] [address] Phone Care Team Providers Care Data Collection Interviewer Name Role Phone Gigi Fraser MD Primary Care Provider [phone] Encounter Details Date Type Department Care Team (Late st Contact Info) Description 07/16/2023 Documentation Only [facility] [address] [place] [address] Tex [place], [place] [address] [place] [address] Social History Tobacco Use Types [...] [facility] [address] [address] Bola Rodriguez DO [address] [place] [address] [place] [address] documented as of this encounter Visit Diagnoses Not on filedocumented in this encounter Care Teams Data Collection Interviewer Relationship Specialty Start Date End Date Gigi Fraser MD [address] [place] [address] PCP - General Internal Medicine 07/16/23 documented as of this encounter
--- OUTSIDE RECORDS SUMMARY | 2025-05-03 08:29 | XMS_ITS | Clinical Summary ---
Author Organization [facility], Address [address] [place] [address] Phone Care Team Providers Care Cellulose Insulation Helper Name Role Phone Giig Fraser MD Primary Care Provider [phone] Allergies Active Allergy Reactions Criticality Noted Date [...] Encounters Date Type Department Care Team Description 04/22/2025 Orders Only [facility] [address] [place] [address] Bola Rodriguez DO Acute tubulo-interstitial nephritis; Hypokalemia; Hypertension; Stage 3a chronic kidney disease (HCC) 03/18/2025 Orders Only [facility] [address] [place] [address] Bola Rodriguez DO Other acute kidney failure (HCC); Stage 3b chronic kidney disease (HCC); Chronic tubulointerstitial nephritis 02/25/2025 Orders Only [facility] [address] [place] [address] Bola Rodriguez DO Acute tubulo-interstitial nephritis; Hypokalemia; Hypertension; Stage 3a chronic kidney disease (HCC) 02/04/2025 Orders Only [facility] Of [address] [place] [address] Bola Rodriguez DO Stage 3b chronic kidney disease (HCC) (Primary Dx); Chronic tubulointerstitial nephritis 01/31/2025 Refill [facility] Of [address] [place] [address] Bola Rodriguez DO from Last 3 Months Family History Medical [...] Visit [facility] [place], [address] [place] [address] Rodriguez Bola, [address] [place] [address] Health Maintenance Due Date Last Done [...] patient's age to complete this topic Insurance [facility] [employer] Dual SNP ([id number]) Care Teams Cellulose Insulation Helper Relationship Specialty Start Date End Date Gigi Fraser MD [address] [place] [address] PCP - General Internal Medicine 07/16/23
--- OUTSIDE RECORDS SUMMARY | 2025-05-03 08:30 | XMS_ITS | Encounter Summary ---
Author Organization [facility] [place], Address [address] [place] [address] Phone Care Team Providers Care Crematory Operator Name Role Phone Gigi Fraser MD Primary Care Provider [phone] Encounter Details Date Type Department Care Team (Late st Contact Info) Description 10/09/2023 Documentation Only [facility] Of [address] [place] [address] Bola Rodriguez DO [address] [facility] [place] [address] Social History Tobacco Use Types [...] Transplant Services Of [facility] [address] [place] [address] Bola Rodriguez DO [address] [facility] [place] [address] documented as of this encounter Visit Diagnoses Not on filedocumented in this encounter Care Teams Crematory Operator Relationship Specialty Start Date End Date Gigi Fraser MD [address] [place] [address] PCP - General Internal Medicine 07/16/23 documented as of this encounter
--- OUTSIDE RECORDS SUMMARY | 2025-05-03 08:30 | XMS_ITS | Encounter Summary ---
Author Organization [facility] Address [address] [place] [address] Phone Care Team Providers Care Medical Specialist Name Role Phone Gigi Fraser MD Primary Care Provider [phone] Encounter Details Date Type Department Care Team (Late st Contact Info) Description 02/25/2025 Orders Only [facility] Of [address] [place] [address] Bola Rodriguez DO [address] [facility] [place] [address] Acute tubulo-interstitial nephritis; Hypokalemia; Hypertension; [...] Services Of [facility] [address] [place] [address] Bola Rodriguez DO [address] [facility] [place] [address] documented as of this encounter Visit Diagnoses Diagnosis Acute tubulo-interstitial nephritis Hypokalemia Hypertension Stage 3a chronic kidney disease (HCC) documented in this encounter Care Teams Medical Specialist Relationship Specialty Start Date End Date Gigi Fraser MD [address] [place] [address] PCP - General Internal Medicine 07/16/23 documented as of this encounter
--- OUTSIDE RECORDS SUMMARY | 2025-05-03 08:30 | XMS_ITS | Encounter Summary ---
Author Organization [facility] [place], Address [address] [place] [address] Phone Care Team Providers Care Ambulance Paramedic Name Role Phone Gigi Fraser MD Primary Care Provider [phone] Encounter Details Date Type Department Care Team (Late st Contact Info) Description 05/21/2024 Orders Only [facility] [address] [place] [address] Bola Rodriguez DO [address] [facility] [place] [address] Acute tubulo-interstitial nephritis; Hypokalemia; Hypertension; [...] Services Of [facility] [address] [place] [address] Bola Rodriguez DO [address] [facility] [place] [address] documented as of this encounter Visit Diagnoses Diagnosis Acute tubulo-interstitial nephritis Hypokalemia Hypertension Stage 3a chronic kidney disease (HCC) documented in this encounter Care Teams Ambulance Paramedic Relationship Specialty Start Date End Date Gigi Fraser MD [address] [place] [address] PCP - General Internal Medicine 07/16/23 documented as of this encounter
--- OUTSIDE RECORDS SUMMARY | 2025-05-03 08:30 | XMS_ITS | Clinical Summary ---
Author Organization [address] Address [address] [place] [phone] Phone Care Team Providers Care Welding Technician Name Role Phone Physician, Pcp Unknown Primary [...] patient's age to complete this topic Insurance [facility] MEDICAID Care Teams Welding Technician Relationship Specialty Start Date End Date Physician, Pcp Unknown PCP - General 10/06/24
--- OUTSIDE RECORDS SUMMARY | 2025-05-03 08:30 | XMS_ITS | Encounter Summary ---
Author Organization [facility] [place], Address [address] [place] [address] Phone Care Team Providers Care Property Condition Assessor Name Role Phone Gigi Fraser MD Primary Care Provider Encounter Details Date Type Department Care Team (Late st Contact Info) Description 10/15/2023 Documentation Only [facility] [address] [place] [address] [place] [address] [place] [address] Social History [...] Services Of [facility] [address] [place] [address] Bola Rodriguez DO [address] [place] [address] [place] [address] documented as of this encounter Visit Diagnoses Not on filedocumented in this encounter Care Teams Property Condition Assessor Relationship Specialty Start Date End Date Gigi Fraser MD [address] [place] [address] PCP - General Internal Medicine 07/16/23 documented as of this encounter
--- OUTSIDE RECORDS SUMMARY | 2025-05-03 08:30 | XMS_ITS | Encounter Summary ---
Author Organization [facility] Address [address] [place] [address] Phone Care Team Providers Care Guard Entrance Registrar Name Role Phone Gigi Fraser MD Primary Care Provider [phone] Encounter Details Date Type Department Care Team (Late Contact Info) Description 02/13/2024 Orders Only [facility] [address] [address] Bola Rodriguez DO [address] [facility] [place] [address] Acute tubulo-interstitial nephritis; Other acute [...] Of [facility] [address] [address] Bola Rodriguez DO [address] [facility] [place] [address] documented as of this encounter [...] Urine 11-30(A) 0 - 5 /hpf [facility] [place] RBC, Urine None seen 0 - 2 /hpf [facility] [place] Squamous Epithelial, Urine 0-10 0 - 10 /hpf [facility] [place] Casts None seen None seen /lpf [facility] [place] Bacteria, Urine None seen None seen/Few [facility] [place] 02/29/2024 8:54 AM EDT 02/29/2024 us Bola Rodriguez DO LAB MICROBIOLOGY - GENERAL ORDE ANASTACIO Final Result [facility] [place] [address] [place] [address] * (ABNORMAL) Urine Protein / creatinine ratio (02/29/2024 8:54 AM EDT) Creatinine, Ur 39.7 Not Estab. mg/dL [facility] [place] Protein, Ur 53.8 Not Estab. mg/dL [facility] [place] Urine Protein/Creati nine Ratio 1,355(H) 0 - 200 mg/g creat [facility] [place] Urine specimen (specimen) Urine specimen obtained by clean catch procedure / Unknown 02/29/2024 8:54 AM EDT 02/29/2024 us Bola Rodriguez DO LAB URINE ORDERABLES Final Resu lt [facility] [place] [address] [place] [address] * (ABNORMAL) Urinalysis with microscopic (02/29/2024 8:54 AM EDT) Specific [place], Urine 1.012 1.005 - 1.030 [facility] [place] pH Urine 6.5 5.0 - 7.5 [facility] [place] Color, Urine Yellow Yellow [facility] [place] Appearance Urine Clear Clear [facility] [place] WBC Esterase Urine 1+(A) Negative [facility] [place] Protein, Ur 2+(A) Negative/Tr elissa [facility] [place] [phone] Glucose, Ur Negative Negative [facility] [place] Ketones, Urine Negative Negative [facility] [place] Blood Urine 2+(A) Negative [facility] [place] Bilirubin Urine Negative Negative [facility] [place] Urobilinogen Urine 0.2 0.2 - 1.0 mg/dL [facility] [place] [phone] Nitrite, Urine Positive(A) Negative [facility] [place] [phone] Microscopic Examination See below: [facility] [place] Comment:Microscopic was cely cated and was performed. Urine specimen (specimen) Urine specimen obtained by clean catch procedure / Unknown 02/29/2024 8:54 AM EDT 02/29/2024 Bola Rodriguez LAB URINE ORDERABLES Final Resu lt [facility] [employer] [place] [address] [place] [address] * Magnesium (02/29/2024 8:54 AM EDT) Magnesium 1.9 1.6 - 2.3 mg/dL [facility] [place] Blood specimen (specimen) Venous blood / Unknown 02/29/2024 8:54 AM EDT 02/29/2024 Bola Rodriguez LAB BLOOD ORDERABLES Final Resu lt Performing Organization Address City/[facility]/ZIP Co de Phone Number [facility] [employer] [place] [address] [place] [address] * (ABNORMAL) Renal Function Panel (02/29/2024 8:54 AM EDT) Glucose 91 70 - 99 mg/dL [facility] [place] BUN 17 6 - 24 mg/dL [facility] [place] Creatinine 1.62(H) 0.76 - 1.27 mg/dL [facility] [place] eGFR CKD-EPI CR 2020 49(L) >59 mL/min/1.7 3 [facility] [place] BUN/Creatinine Ratio 10 9 - 20 [facility] [place] Sodium 140 134 - 144 mmol/L [facility] [place] Potassium 3.9 3.5 - 5.2 mmol/L [facility] [place] Chloride 102 96 - 106 mmol/L [facility] [place] Bicarbonate (CO2) 24 20 - 29 mmol/L [facility] [place] Calcium 9.3 8.7 - 10.2 mg/dL [facility] [place] Albumin 4.2 3.8 - 4.9 g/dL [facility] [place] Phosphorus 3.4 2.8 - 4.1 mg/dL [facility] [place] Blood specimen (specimen) Venous blood / Unknown 02/29/2024 8:54 AM EDT 02/29/2024 Bola Rodriguez DO LAB BLOOD ORDERABLES Final Resu lt [facility] [place] [address] [place] [address] documented in this encounter Visit Diagnoses Diagnosis Acute tubulo-interstitial nephritis Other acute kidney failure (HCC) Hypertension Stage 3a chronic kidney disease (HCC) documented in this encounter Care Teams Guard Entrance Registrar Relationship Specialty Start Date End Date Gigi Fraser MD [address] [place] [address] PCP - General Internal Medicine 07/16/23 documented as of this encounter
--- OUTSIDE RECORDS SUMMARY | 2025-05-03 08:30 | XMS_ITS | Encounter Summary ---
Author Organization [facility] Address [address] [place] [address] Phone Care Team Providers Care Electroformer Name Role Phone Gigi Fraser MD Primary Care Provider [phone] Encounter Details Date Type Department Care Team (Late Contact Info) Description 05/07/2024 Orders Only [facility] [address] [place] [address] Bola Rodriguez DO [address] [facility] [place] [address] Acute tubulo-interstitial nephritis; Other acute [...] [facility] [address] [place] [address] Bola Rodriguez DO [address] [facility] [place] [address] documented as of this encounter Visit Diagnoses Diagnosis Acute tubulo-interstitial nephritis Other acute kidney failure (HCC) Hypertension Stage 3a chronic kidney disease (HCC) documented in this encounter Care Teams Electroformer Relationship Specialty Start Date End Date Gigi Fraser MD [address] [place] [address] PCP - General Internal Medicine 07/16/23 documented as of this encounter
--- OUTSIDE RECORDS SUMMARY | 2025-05-03 08:30 | XMS_ITS | Encounter Summary ---
Author Organization [facility] Address [address] [place] [address] Phone Care Team Providers Care Flavoring Machine Operator Name Role Phone Gigi Fraser MD Primary Care Provider [phone] Encounter Details Date Type Department Care Team (Late Contact Info) Description 03/12/2024 Orders Only [facility] [address] [place] [address] Bola Rodriguez DO [address] [facility] [place] [address] Acute tubulo-interstitial nephritis; Other acute [...] Transplant Services [facility] [address] [place] [address] Bola Rodriguez DO [address] [place] [address] documented as of this encounter Visit Diagnoses Diagnosis Acute tubulo-interstitial nephritis Other acute kidney failure (HCC) Hypertension Stage 3a chronic kidney disease (HCC) documented in this encounter Care Teams Flavoring Machine Operator Relationship Specialty Start Date End Date Gigi Fraser MD [address] [place] [address] PCP - General Internal Medicine 07/16/23 documented as of this encounter
--- OUTSIDE RECORDS SUMMARY | 2025-05-03 08:30 | XMS_ITS | Encounter Summary ---
Author Organization [facility] Address [address] [place] [address] Phone Care Team Providers Care Contact And Service Clerks Supervisor Name Role Phone Gigi Fraser MD Primary Care Provider Encounter Details Date Type Department Care Team (Late st Contact Info) Description 09/10/2024 Orders Only [facility] [address] [place] [address] Bola Rodriguez DO [address] [facility] [place] [address] Acute tubulo-interstitial nephritis; Hypokalemia; Hypertension; [...] Visit [facility] [address] [place] [address] Bola Rodriguez DO [address] [facility] [place] [address] documented as of this encounter Visit Diagnoses Diagnosis Acute tubulo-interstitial nephritis Hypokalemia Hypertension Stage 3a chronic kidney disease (HCC) documented in this encounter Care Teams Contact And Service Clerks Supervisor Relationship Specialty Start Date End Date Gigi Fraser MD [address] [place] [address] PCP - General Internal Medicine 07/16/23 documented as of this encounter
--- OUTSIDE RECORDS SUMMARY | 2025-05-03 08:30 | XMS_ITS | Encounter Summary ---
Author Organization [facility] Address [address] [place] [address] Phone Care Team Providers Care Dope House Operator Helper Name Role Phone Gigi Fraser MD Primary Care Provider [phone] Encounter Details Date Type Department Care Team (Late Contact Info) Description 04/09/2024 Orders Only [facility] [address] [place] [address] Bola Rodriguez DO [address] [facility] [place] [address] Acute tubulo-interstitial nephritis; Other acute [...] Visit [facility] [address] [place] [address] Bola Rodriguez DO [address] [facility] [place] [address] documented as of this encounter Visit Diagnoses Diagnosis Acute tubulo-interstitial nephritis Other acute kidney failure (HCC) Hypertension Stage 3a chronic kidney disease (HCC) documented in this encounter Care Teams Dope House Operator Helper Relationship Specialty Start Date End Date Gigi Fraser MD [address] [place] [address] PCP - General Internal Medicine 07/16/23 documented as of this encounter
--- OUTSIDE RECORDS SUMMARY | 2025-05-03 08:30 | XMS_ITS | Encounter Summary ---
Author Organization [facility] Address [address] [place] [address] Phone Care Team Providers Care Printer Slotter Operator Name Role Phone Gigi Fraser MD Primary Care Provider [phone] Encounter Details Date Type Department Care Team (Latest Contact Info) Description 03/18/2025 Orders Only [facility] [address] [place] [address] Bola Rodriguez DO [address] [facility] [place] [address] Other acute kidney failure (HCC); [...] Visit [facility] [address] [address] Bola Rodriguez DO [address] [facility] [place] [address] documented as of this encounter Visit Diagnoses Diagnosis Other acute kidney failure (HCC) Stage 3b chronic kidney disease (HCC) Chronic tubulointerstitial nephritis documented in this encounter Care Teams Printer Slotter Operator Relationship Specialty Start Date End Date Gigi Fraser MD [address] [place] [address] PCP - General Internal Medicine 07/16/23 documented as of this encounter
--- OUTSIDE RECORDS SUMMARY | 2025-05-03 08:30 | XMS_ITS | Encounter Summary ---
Author Organization [facility] Address [address] [place] [address] Phone Care Team Providers Care Saw Edge Fuser Circular Name Role Phone Gigi Fraser MD Primary Care Provider [phone] Encounter Details Date Type Department Care Team (Late st Contact Info) Description 11/05/2024 Orders Only [facility] [address] [place] [address] Bola Rodriguez DO [address] [facility] [place] [address] Acute tubulo-interstitial nephritis; Hypokalemia; Hypertension; [...] Transplant Services [facility] [address] [facility] [place] [address] Bola Rodriguez DO [address] [facility] [place] [address] documented as of this encounter Procedures [...] Urine 0-5 0 - 5 /hpf [facility] RBC, Urine None seen 0 - 2 /hpf [facility] Squamous Epithelial, Urine None seen 0 - 10 /hpf [facility] Casts None seen None seen /lpf [facility] Bacteria, Urine None seen None seen/Few [facility] 12/26/2024 9:01 AM EDT 12/26/2024 Bola Rodriguez DO LAB MICROBIOLOGY - GENERAL ORDE RABLES Final Result [facility] [address] [place] [address] * (ABNORMAL) Urinalysis with microscopic (12/26/2024 9:01 AM EDT) Specific [place], Urine 1.006 1.005 - 1.030 [facility] pH Urine 6.5 5.0 - 7.5 [facility] Color, Urine Yellow Yellow [facility] Appearance Urine Clear Clear [facility] [place] WBC Esterase Urine 1+(A) Negative [facility] Protein, Ur 2+(A) Negative/Tra ce [facility] Glucose, Ur Negative Negative [facility] Ketones, Urine Negative Negative [facility] [place] Blood Urine Trace(A) Negative [facility] Bilirubin Urine Negative Negative [facility] [place] [phone] Urobilinogen Urine 0.2 0.2 - 1.0 mg/dL [facility] Nitrite, Urine Negative Negative [facility] [place] Microscopic Examination See below: [facility] Comment:Microscopic was cely cated and was performed. Urine specimen (specimen) Urine specimen obtained by clean catch procedure / Unknown 12/26/2024 9:01 AM EDT 12/26/2024 Bola Rodriguez DO LAB URINE ORDERABLES Final Resu lt [email or web address] [place] [address] [place] [address] * Sedimentation Rate (12/26/2024 9:01 AM EDT) Sed Rate 4 0 - 30 mm/hr [facility] Blood specimen (specimen) Venous blood / Unknown 12/26/2024 9:01 AM EDT 12/26/2024 Bola Rodriguez DO LAB BLOOD ORDERABLES Final Resu lt Performing Organization Address [facility] Co de Phone Number [facility] [address] [place] [address] * (ABNORMAL) Urine Protein / creatinine ratio (12/26/2024 9:01 AM EDT) Creatinine, Ur 38.2 Not Estab. mg/dL [facility] Protein, Ur 32.6 Not Estab. mg/dL [facility] Urine Protein/Creati nine Ratio 853(H) 0 - 200 mg/g creat [facility] Urine specimen (specimen) Urine specimen obtained by clean catch procedure / Unknown 12/26/2024 9:01 AM EDT 12/26/2024 us Bola Rodriguez DO LAB URINE ORDERABLES Final Resu lt Performing Organization Address [facility] Co de Phone Number [facility] [address] [place] [address] * Magnesium (12/26/2024 9:01 AM EDT) Magnesium 1.8 1.6 - 2.3 mg/dL [facility] Blood specimen (specimen) Venous blood / Unknown 12/26/2024 9:01 AM EDT 12/26/2024 Bola Rodriguez DO LAB BLOOD ORDERABLES Final Resu lt Performing Organization Address City/[facility]/ZIP Co de Phone Number [facility] [address] [place] [address] * (ABNORMAL) Renal Function Panel (12/26/2024 9:01 AM EDT) Glucose 112(H) 70 - 99 mg/dL [facility] BUN 15 8 - 27 mg/dL [facility] Creatinine 2.61(H) 0.76 - 1.27 mg/dL [facility] eGFR CKD-EPI CR 2020 27(L) >59 mL/min/1.7 3 [facility] BUN/Creatinine Ratio 6(L) 10 - 24 [facility] Sodium 139 134 - 144 mmol/L [facility] Potassium 3.8 3.5 - 5.2 mmol/L [facility] Chloride 101 96 - 106 mmol/L [facility] Bicarbonate (CO2) 23 20 - 29 mmol/L [facility] Calcium 10.6(H) 8.6 - 10.2 mg/dL [facility] Comment:Verified by repeat analysis Albumin 4.8 3.8 - 4.9 g/dL [facility] Phosphorus 3.0 2.8 - 4.1 mg/dL [facility] Blood specimen (specimen) Venous blood / Unknown 12/26/2024 9:01 AM EDT 12/26/2024 us Bola Rodriguez DO LAB BLOOD ORDERABLES Final Resu lt [facility] [place] [address] [place] [address] documented in this encounter Visit Diagnoses Diagnosis Acute tubulo-interstitial nephritis Hypokalemia Hypertension Stage 3a chronic kidney disease (HCC) documented in this encounter Care Teams Saw Edge Fuser Circular Relationship Specialty Start Date End Date Gigi Fraser MD [address] [place] [address] PCP - General Internal Medicine 07/16/23 documented as of this encounter
--- OUTSIDE RECORDS SUMMARY | 2025-05-03 08:30 | XMS_ITS | Data Portability ---
Author Organization [place] - [facility], Allergy Address [address] [place] [address] Care Team Providers Care Record Keeper Name Role Phone CITLALI ANTHONY Primary Care Provider [phone] Assessment No assessment recorded. Plan of Treatment Reminders Order Date Submit Date Provider Last Modified By Organization Details Last Modified Time Details Appointments [facility] 30 2025 11:00A M ANJUM Monk MD Not available Not available Not available Lab None recorded . Referral None recorded . Procedures None recorded . Surgeries None recorded . Imaging CT, sinuses, w/o contrast 2024 025 [email or web address] Ents [facility], [address] [place] [address], [place], [address], 07/29/2024 16:47:07 CT, sinuses, w/o contrast - to be done in office at f/u 2023 024 [email or web address] Not available 06/04/2024 10:10:12 Medication Orders predniso ne 10 mg tablet 2024 025 [facility], [address] [place] [address], [id number], 07/29/2024 16:18:42 doxycycl ine hyclate 100 mg tablet 2024 025 [facility], [address] [place] [address], [id number], 07/29/2024 16:20:37 Patient TargetsNo targets recorded. Patient InstructionsNo instructions recorded. Reason for Referral None Reported. Results Created Date Observation Date Name Description Value Unit Range Abnormal Flag Note LastModifiedBy Organization Detail LastModifiedTime 06/03/2004/12/2024 MRI, brain + brain stem, w/o contr ast No observ ation record ed. [email or web address] Not Available 10/2023 15:22:54 07/29/19 CT, sinus es, w/o contr ast No observ ation record ed. [email or web address] Ents [address], [address], 07/29/2024 14:42:14 08/12/19 25 07/29/2024 CT, sinus es, w/o contr ast No observ ation record ed. [email or web address] [facility] [place] [address], [place], [address], 08/12/2024 13:13:57 Result Notes None recorded. Problems Name Problem SNOMED Code Status Onset Date Resolution Date Notes Provider Name and Address Organization Details Recorded Time Dysphagia 46482539 Active 2016 Dysphagia , unspecifi ed; Note: Date Diagnosed : 11/13/2016 10:29 AM (R13.10) Not Available [facility] 4 02:49:30 Bilateral tinnitus 40699214102 02 Active 2016 Tinnitus, bilateral ; Note: Date Diagnosed : 11/13/2016 10:09 AM (H93.13) Not Available [facility] 4 02:49:34 Sensorine ural hearing loss of bilateral ears 415899134 Active 2016 Sensorine ural hearing loss, bilateral ; Note: Date Diagnosed : 11/13/2016 10:09 AM (H90.3) Not Available [facility] 4 02:49:35 Chronic left maxillary sinusitis 38128900172 882858 Active 2023 ANJUM BENÍTEZ MD [address] [place] [address], [place], [address] , [facility] - [facility] 4 15:10:54 Chronic pain in face 965949297 Active 2023 ANJUM BENÍTEZ MD [address] [facility], [place], [address] , [facility] - [facility] 4 15:11:02 Chronic sinusitis 64698822 Active 2023 ANJUM BENÍTEZ MD [address] [facility],[place] [address], [facility] [place], [address] , [facility] - [facility] 4 15:16:37 Allergic fungal sinusitis 418441955 Active 2024 ANJUM BENÍTEZ MD [address] [facility], [place], [address] , [facility] - [facility] 5 14:50:20 Problem Notes None recorded. Procedures Surgical History Date Name Laterality Status Provider Name and Address Organization Details Recorded Time 04/26/2025 NasalEndos copy_DP completed ANJUM BENÍTEZ MD [address] [facility],[place] [address], [place], [address], [facility] 04/26/2025 09:11:07 06/03/2024 NasalEndos copy_DP completed ANJUM BENÍTEZ MD [address] [facility],[place] [address], [place], [address], [facility] 06/03/2024 15:11:07 Imaging Results None recorded. Procedure Notes None recorded. Medical Equipment None Reported. Allergies Allergen ID Allergen Name Allergen Category Reaction Reaction Severity Criticality Documentation Date Start Date Code Code System Note Provider Name and Address Organization Details Recorded Time 508709 Product containin g penicilli n (product) medicatio n other Not available Not available 11/11/2023 84759 8003 SNOMED React ion: unkno wn, unspe cifie d;; Not Available [facility] 4 01:10:06 Medications Name Sig Start Date Stop Date Status Note LastModified by Organization Details LastModified Time losartan 50 mg tablet active Not Available Not Available Not Available atorvasta tin 80 mg tablet active Not Available Not Available Not Available nystatin 100,000 unit/mL oral suspensio n active Not Available Not Available Not Available prednison e 10 mg tablet Take 4 tabs PO for 3 days then 2 tabs PO for 3 days then 1 tab PO for 3 days then stop active Not Available Not Available No t Available prednison e 20 mg tablet active Not Available Not Available Not Available prednison e 5 mg tablet active Not Available Not Available Not Available leflunomi de 10 mg tablet active Not Available Not Available Not Available potassium chloride ER 10 mEq tablet,ex tended release active Not Available Not Available Not Available aspirin 81 mg tablet,de layed release active Not Available Not Available Not Available tramadol 50 mg tablet active Not Available Not Available Not Available acetamino phen ER 650 mg tablet,ex tended release active Not Available Not Available Not Available bupropion HCl 100 mg tablet 2016 active Medicatio n ID: [id number] Du ration Value: 30 Brand Name: bupropion HCl Send Method: E-Prescri bed Subs Allowed: subs OK Specia l Instructi on: TAKE 1 TABLET BY MOUTH TWO TIMES A DAY Medic ationGene ricName: bupropion HCl Not Available Not Available Not Available amiloride 5 mg tablet active Not Available Not Available Not Available famotidin e 20 mg tablet active Not Available Not Available Not Available lorazepam 0.5 mg tablet active Not Available Not Available Not Available tamsulosi n 0.4 mg capsule active Not Available Not Available Not Available tobramyci n 0.3 % eye drops active Not Available Not Available No t Available propranol ol ER 80 mg capsule,2 4 hr,extend ed release active Not Available Not Available Not Available indometha hernan 25 mg capsule active Not Available Not Available Not Available gabapenti n 300 mg capsule active Not Available Not Available Not Available omeprazol e 20 mg capsule,d elayed release active Not Available Not Available Not Available methylpre dnisolone 4 mg tablets in a dose pack active Not Available Not Available Not Available Percocet 5 mg-325 mg tablet Take 1 tablet by mouth every six hours as needed active Medicatio n ID: [id number] Du ration Value: 3 Brand Name: Percocet Send Method: E-Prescri bed Subs Allowed: subs OK Medica tionGener icName: Percocet Not Available Not Available Not Available losartan 100 mg tablet active Not Available Not Available Not Available doxycycli ne hyclate 100 mg tablet Take 1 tablet twice a day by oral route for 10 days. 04/23 completed Not Available Not Available Not Available ipratropi um bromide 21 mcg (0.03 %) nasal spray active Not Available Not Available Not Available rosuvasta tin 40 mg tablet active Not Available Not Available Not Available alfuzosin ER 10 mg tablet,ex tended release 24 hr active Not Available Not Available Not Available metoprolo l tartrate 25 mg tablet 2015 active Medicatio n ID: [id number] Du ration Value: 30 Brand Name: metoprolo l tartrate Send Method: E-Prescri bed Subs Allowed: subs OK Specia l Instructi on: TAKE 1 TABLET BY MOUTH TWO TIMES A DAY Medic ationGene ricName: metoprolo l tartrate Not Available Not Available Not Available DILT-XR 120 mg capsule, extended release active Not Available Not Available Not Available potassium chloride ER 20 mEq tablet,ex tended release active Not Available Not Available Not Available Vitals Date Recorded Body height Body mass index (BMI) Body weight Provider Name and Address Organization Details Last Updated DateTime 07/29/2024 177.8 cm 25.1 kg/m2 19373.66 g Henrique Haro [facility] 07/29/2024 14:12:54 Date Recorded Body height Body mass index (BMI) Body weight Systolic And Diastolic Provider Name and Address Organization Details Last Updated DateTime 04/26/2025 177.8 cm 25.1 kg/m2 92717.66 g 131/94 mm[Hg] Henrique Haro [facility] 04/26/2025 09:04:28 Date Recorded Body height Body mass index (BMI) Body weight Provider Name and Address Organization Details Last Updated DateTime 06/03/2024 177.8 cm 25.1 kg/m2 44435.66 g Henrique Haro [facility] 06/03/2024 15:13:41 Social History None recorded. Functional Status None recorded. Mental Status None recorded. Family History Nothing Reported. Medical History No medical history recorded. Past Encounters Encounter ID Performer Location Encounter Start Date Encounter Closed Date Diagnosis/Indication Diagnosis SNOMED-CT Code Diagnosis ICD10 Code Diagnosis IMO Codes Diagnosis Note [id number] ANJUM BENÍTEZ MD [facility] [address] [address] 06/03/2024 14:21:17 06/03/2024 16:52:58 Chronic left maxillary sinusitis 8745726443 6775334 J32.0 No polyps or purulence on nasal endo. I recommend he take the course of doxy from his PCP. I will plan a f/u with a CT first in 4-8 weeks to check for persistent left maxillary sinusitis and to evaluate for a fungal ball given the MRI. Chronic pain in face 432 160120 R51.9 see above [id number] ANJUM BENÍTEZ MD [facility] [address] [place] [address] 07/29/2024 13:30:29 07/29/2024 14:55:07 Chronic left maxillary sinusitis 9927424042 2874287 J32.0 Has persistent sinusitis despite doxycyclin e. [...] g surgery. Chronic pain in face 432 874898 R51.9 likely due to chronic sinusitis Allergic f ungal sinusitis 759808908 B49 ct consistent with allergic fungal sinusitis. we will try one more round of maximal medical therapy before pursuing surgery. I discussed the risk of avascular hip necrosis with prednisone . [id number] ANJUM BENÍTEZ MD [facility] [address] [place] [address] 04/26/2025 08:47:36 04/26/2025 09:12:14 Chronic left maxillary sinusitis 7574350027 7931277 J32.0 See below. Allergic f ungal sinusitis 505162166 B49 ct consistent with allergic fungal sinusitis. He is fairly asymptomat ic at this time and we agreed on observatio n. Especially in light of his upcoming hip surgery we will defer surgical interventi on for the sinuses which seems resolved at this time. We will plan follow-up in 6 months. Health Concerns Section Related Observation LastModified by Organization Detai ls LastModified Time None Recorded Concern Status LastModified by Organization Details LastModified Time None Recorded Advance Directives Directive None Recorded Payers Insurance Date Sequence Insurance Name Policy Number Policy Griffith Covered Member ID Griffith Member ID Guarantor Name 04/26/2025 2 [place] [facility] Arnel Fontanez [id number] Arnel Fontanez 04/26/2025 1 [facility] - DOS ON OR AFTER 2022 - DUAL ELIGIBLE - MEDICARE [place]VANTAGE [place] (MEDICARE REPLACEMENT/A DVANTAGE - HMO) Arnel Fontanez [id number] Arnel Fontanez 04/26/2025 1 [facility] - DOS ON OR AFTER 2022 - ONE CARE (MEDICARE REPLACEMENT/A DVANTAGE - HMO) Arnel Fontanez [id number] Arnel Fontanez 04/26/2025 1 [facility] - DOS ON OR AFTER 2022 - ONE CARE (MEDICARE REPLACEMENT/A DVANTAGE - HMO) Arnel Fontanez [id number] Arnel Fontanez 04/26/2025 2 [place] [facility] Arnel Fontanez [id number] Arnel Fontanez Notes Date Note Type Note Provider Name and Address Organization Details Recorded Time 06/03/2024 text/html ROS as noted in the HPI Hx of left sided frontal headaches. MRI [...] no infection was seen. ANJUM BENÍTEZ MD [address] [facility],[address], [address], [place] - [facility] 06/03/2024 15:17:21 07/29/2024 text/html ROS as noted in the HPI Hx of left sided frontal headaches. He [...] no infection was seen. ANJUM BENÍTEZ MD [address] [facility],[address], [address], [facility] - [facility] 07/30/2024 07:48:31 04/26/2025 text/html ROS as noted in the HPI Hx of left sided frontal headaches in the past. MRI brain with contrast was done which showed left maxillary sinusitis (possibly fungal). He quit smoking over 9 years ago. No recent dental problems but had problems in the past. has crowns. Saw dentist prior to CT and he said no infection was seen. I discussed Left FESS in June but he wanted to defer and have one more round of maximal medical therapy with doxy/prednisone. He feels the medication helped. He only has slight left facial pressure which comes and goes but does not have any currently. His denies recent frontal headaches. He needs a hip replacement and is seeing a surgeon Friday. ANJUM BENÍTEZ MD [address] [facility],[place] [address], [place], [address], [facility] - [facility] 04/26/2025 09:12:38
--- OUTSIDE RECORDS SUMMARY | 2025-05-03 08:30 | XMS_ITS | Encounter Summary ---
Author Organization [facility] [place], Address [address] [place] [address] Phone Care Team Providers Care Coal Handler Name Role Phone Gigi Fraser MD Primary Care Provider [phone] Encounter Details Date Type Department Care Team (Late st Contact Info) Description 04/22/2025 Orders Only [facility] [address] [place] [address] Bola Rodriguez DO [address] [facility] [address] [place] [address] Acute tubulo-interstitial nephritis; Hypokalemia; Hypertension; [...] [facility] [address] [place] [address] Bola Rodriguez DO [address] [place] [address] documented as of this encounter Visit Diagnoses Diagnosis Acute tubulo-interstitial nephritis Hypokalemia Hypertension Stage 3a chronic kidney disease (HCC) documented in this encounter Care Teams Coal Handler Relationship Specialty Start Date End Date Gigi Fraser MD [address] [place] [address] PCP - General Internal Medicine 07/16/23 documented as of this encounter
--- OUTSIDE RECORDS SUMMARY | 2025-05-03 08:30 | XMS_ITS | Encounter Summary ---
Author Organization [facility] [place], Address [address] [place] [address] Phone Care Team Providers Care Cost Manager Name Role Phone Gigi Fraser MD Primary Care Provider Encounter Details Date Type Department Care Team (Late st Contact Info) Description 11/05/2023 Documentation Only [facility] [address] [place] [address] Bola Rodriguez DO [address] [facility] [place] [address] Social History Tobacco Use Types [...] [facility] [address] [place] [address] Bola Rodriguez DO [address] [facility] [place] [address] documented as of this encounter Visit Diagnoses Not on filedocumented in this encounter Care Teams Cost Manager Relationship Specialty Start Date End Date Gigi Fraser MD [address] [place] [address] PCP - General Internal Medicine 07/16/23 documented as of this encounter
--- OUTSIDE RECORDS SUMMARY | 2025-05-03 08:30 | XMS_ITS | Encounter Summary ---
Author Organization [facility] [place], Address [address] [place] [address] Phone Care Team Providers Care Imaging System Administrator Name Role Phone Gigi Fraser MD Primary Care Provider [phone] Encounter Details Date Type Department Care Team (Late st Contact Info) Description 10/23/2023 Documentation Only [facility] [address] [place] [address] Bola Rodriguez DO [address] [facility] [place] [address] Social History Tobacco Use Types [...] Of [facility] [address] [place] [address] Bola Rodriguez DO [address] [facility] [address] [place] [address] documented as of this encounter Visit Diagnoses Not on filedocumented in this encounter Care Teams Imaging System Administrator Relationship Specialty Start Date End Date Gigi Fraser MD [address] [place] [address] PCP - General Internal Medicine 07/16/23 documented as of this encounter
--- OUTSIDE RECORDS SUMMARY | 2025-05-03 08:31 | XMS_ITS | Encounter Summary ---
Author Organization [facility] Address [address] [place] [address] Phone Care Team Providers Care Asphalt Paving Superintendent Name Role Phone Gigi Fraser MD Primary Care Provider [phone] Encounter Details Date Type Department Care Team (Late Contact Info) Description 01/16/2024 Orders Only [facility] [address] [place] [address] Bola Rodriguez DO [address] [place] [address] Acute tubulo-interstitial nephritis; Other acute [...] Visit [facility] [address] [place] [address] Bola Rodriguez DO [address] [place] [address] documented as of this encounter [...] Urine 0-5 0 - 5 /hpf [facility] RBC, Urine None seen 0 - 2 /hpf [facility] Squamous Epithelial, Urine None seen 0 - 10 /hpf [facility] Casts None seen None seen /lpf [facility] Bacteria, Urine None seen None seen/Few [facility] 01/25/2024 8:41 AM EDT 01/25/2024 us Bola Rodriguez DO LAB MICROBIOLOGY - GENERAL ORDAlistair CHAVES Final Result [facility] [address] [place] [address] * (ABNORMAL) Urine Protein / creatinine ratio (01/25/2024 8:41 AM EDT) Creatinine, Ur 38.1 Not Estab. mg/dL [facility] Protein, Ur 46.1 Not Estab. mg/dL [facility] Urine Protein/Creati nine Ratio 1,210(H) 0 - 200 mg/g creat [facility] Urine specimen (specimen) Urine specimen obtained by clean catch procedure / Unknown 01/25/2024 8:41 AM EDT 01/25/2024 Bola Rodriguez DO LAB URINE ORDERABLES Final Resu lt [facility] [address] [place] [address] * (ABNORMAL) Urinalysis with microscopic (01/25/2024 8:41 AM EDT) Specific [place], Urine 1.008 1.005 - 1.030 [facility] [phone] pH Urine 7.0 5.0 - 7.5 [facility] [phone] Color, Urine Yellow Yellow [facility] Appearance Urine Clear Clear [facility] WBC Esterase Urine Trace(A) Negative [facility] Protein, Ur 2+(A) Negative/Tr elissa [facility] Glucose, Ur Negative Negative [facility] Ketones, Urine Negative Negative [facility] Blood Urine 3+(A) Negative [facility] Bilirubin Urine Negative Negative [facility] Urobilinogen Urine 0.2 0.2 - 1.0 mg/dL [facility] Nitrite, Urine Positive(A) Negative [facility] Microscopic Examination See below: [facility] [phone] Comment:Microscopic was cely cated and was performed. Urine specimen (specimen) Urine specimen obtained by clean catch procedure / Unknown 01/25/2024 8:41 AM EDT 01/25/2024 Bola Rodriguez LAB URINE ORDERABLES Final Resu lt Performing Organization Address City/[facility]/ZIP Co de Phone Number [facility] [employer] [place] [facility] [address] [place] [address] * Magnesium (01/25/2024 8:41 AM EDT) Magnesium 1.9 1.6 - 2.3 mg/dL [facility] Blood specimen (specimen) Venous blood / Unknown 01/25/2024 8:41 AM EDT 01/25/2024 Bola Rodriguez LAB BLOOD ORDERABLES Final Resu lt Performing Organization Address City/[facility]/ZIP Co de Phone Number [facility] [employer] [facility] [address] [place] [address] * (ABNORMAL) Renal Function Panel (01/25/2024 8:41 AM EDT) Glucose 108(H) 70 - 99 mg/dL [facility] BUN 11 6 - 24 mg/dL [facility] Creatinine 2.04(H) 0.76 - 1.27 mg/dL [facility] eGFR CKD-EPI CR 2020 37(L) >59 mL/min/1.7 3 [facility] BUN/Creatinine Ratio 5(L) 9 - 20 [facility] Sodium 141 134 - 144 mmol/L [facility] Potassium 3.2(L) 3.5 - 5.2 mmol/L [facility] Chloride 99 96 - 106 mmol/L [facility] Bicarbonate (CO2) 30(H) 20 - 29 mmol/L [facility] Calcium 10.5(H) 8.7 - 10.2 mg/dL [facility] Comment:Verified by repeat analysis Phosphorus 2.9 2.8 - 4.1 mg/dL [facility] Albumin 4.1 3.8 - 4.9 g/dL [facility] Blood specimen (specimen) Venous blood / Unknown 01/25/2024 8:41 AM EDT 01/25/2024 Bola Rodriguez DO LAB BLOOD ORDERABLES Final Resu lt [facility] [address] [place] [address] documented in this encounter Visit Diagnoses Diagnosis Acute tubulo-interstitial nephritis Other acute kidney failure (HCC) Hypertension Stage 3a chronic kidney disease (HCC) documented in this encounter Care Teams Asphalt Paving Superintendent Relationship Specialty Start Date End Date Gigi Fraser MD [address] [facility] [place] [address] PCP - General Internal Medicine 07/16/23 documented as of this encounter
--- OUTSIDE RECORDS SUMMARY | 2025-05-03 08:31 | XMS_ITS | Encounter Summary ---
Author Organization [facility] Address [address] [place] [address] Care Team Providers Care Child Attendant Name Role Phone Physician, Pcp Unknown Primary Care Provider Mildred vailable Encounter Details Date Type Department Care Team (Late st Contact Info) Description 10/06/2024 Lab Requisition [facility] - Main Lab [address] [facility] [place] [phone] Kevin Lo, PA [address] [place] [address] Benign essential microscopic hematuria Social History Tobacco [...] AM EDT) Final Diagnosis A. Urine, Voided, ([id number]): Negative for high grade urothelial carcinoma. Scant urothelial cellularity. Results of UroVysion fluorescence in situ hybridization (FISH) testing: Although FISH was performed, insufficient non-obscured hybridization signals are present for evaluation and interpretation. 10/11/2024 5:27 PM EDT [facility] Clinical Information Benign essential microscopic hematuria R31.1 Urine Cytology/FISH (now) 10/11/2024 5:27 PM EDT [facility] Gross Description A. Urine, Voided, ([id number]): Received one ThinPrep slide for cytology and one ThinPrep slide for UroVysion FISH 10/11/2024 5:27 PM EDT [facility] Disclaimer Unless otherwise specified, all tissue is 10% NB formalin fixed and paraffin embedded. Technical pathology services provided by [facility] at [address] [facility] [address], [place] [address] (CLIA #[id number]/Emily Roberson MD, Internet Sales Consultant) 10/11/2024 5:27 PM EDT [facility] Tissue Urine specimen from urethra / Unknown 10/01/2024 10/06/2024 3:35 PM EDT [facility] LAB PATHOLOGY ORDERABLES Final Result [facility] [address] [place] [address], documented in this encounter Visit Diagnoses Diagnosis Benign essential microscopic hematuria documented in this encounter Care Teams Child Attendant Relationship Specialty Start Date End Date Physician, Pcp Unknown PCP - General 10/06/24 documented as of this encounter
== END 2025-05-03 08:50 | disposition home or self-care (01) ==
LOC: HO.RHES 08:08
PROVIDERS: PCP Internal Medicine; Visit Provider Internal Medicine Rheumatology
DX: M06.09 Rheumatoid arthritis without rheumatoid factor, multiple sites (principal); M18.0 Bilateral primary osteoarthritis of first carpometacarpal joints; M79.632 Pain in left forearm
CPT/HCPCS: 99214; G2211

== ENCOUNTER → 2025-05-03 08:08 | Outpatient (BNVA) | payer OTHER, SELFPAY | PROVIDERS: PCP Internal Medicine; Visit Provider Internal Medicine Rheumatology | DX: M06.09 Rheumatoid arthritis without rheumatoid factor, multiple sites (principal); M79.632 Pain in left forearm; M18.0 Bilateral primary osteoarthritis of first carpometacarpal joints; Z79.899 Other long term (current) drug therapy | CPT/HCPCS: 99212 ==